=== PATIENT | female | born 1955 | race Caucasian/White ===

== ENCOUNTER 2017-10-31 13:41 | Emergency (ER) | payer OTHER, SELFPAY ==
[2017-10-31 13:42] VITALS: BP 137/87; PULSE 95; RESP 18; TEMP 37.1; O2SAT 99; BMI 31.4
[2017-10-31 14:12] LABS: Mucous, Urine 0 SEEN /hpf (<or=2+); Squamous Epithelial Cells - UA 0 SEEN /hpf (5-10)
[2017-10-31 14:19] LABS: Color, Urine Red (Yellow); Glucose, Dipstick Normal (Normal); Ketone-Dipstick 5 mg/dl (Negative); Leukocyte Esterase-Dipstick 500 /ul (Negative); Nitrite-Dipstick Negative (Negative); Occult Blood-Urine 250 /ul (Negative); Protein-Dipstick 500 mg/dl (Negative); Specific Gravity, Urine 1.015 (1.002-1.030); Urine Bilirubin Dipstick Negative (Negative); Urine Clarity Turbid (Clear); Urine Urobilinogen Normal (Normal); Urine pH 6.5 (5.0 - 8.0)
[2017-10-31 14:28] LABS: Bacteria 3+ /hpf (None Seen); Red Blood Cells-Urine 50-100 SEEN /hpf (0-5); White Blood Cells 25-50 SEEN /hpf (0-5)
[2017-10-31] MEDS: Phenazopyridine 95 MG Tablet 190 MG PO (14:54)
[2017-10-31] MEDS: Smz/Tmp Ds Tablet 1 TABLET PO (14:54)
--- NOTE | 2017-10-31 14:56 | ED.VISSUMM ---
- ER Visit Summary Date of Service: 10/31/17 Chief Complaint: Dysuria History of Present Illness: The patient is a 62 F who reports dysuria, frequency, and hematuria today. She is passing some blood clots. She denies any back pain or fever. Physical Examination: Vital signs are unremarkable. Patient sitting upright in bed no acute distress. Heart is regular rate and rhythm. Lungs are clear. Abdomen is soft with suprapubic tenderness to palpation. There is no guarding or rebound. She has no back pain on exam Test Results: Urinalysis reveals 25-50 white blood cells with 3+ bacteria. She has 50-100 RBCs. Emergency Department Course and Treatment: Patient did make multiple trips to the bathroom to urinate but states she is only getting small dribbles out. Postvoid residual ultrasound was performed and showed approximate 40 cc. Very small clots were noted per nursing staff. I do not believe she is retaining. Patient is treated with Azo and Bactrim. Urine culture will be sent. Treatment Plan: [] Disposition: Discharged Impression: Hemorrhagic cystitis This note was generated with [employer] dictation software. It may contain incorrect words, spelling, and punctuation that were not noted in review of the chart prior to signing ED Disposition - Plan for ED Patient: Chief Complaint: Complaint Referrals: Julissa Bryant MD [Primary Care Provider] -
--- NOTE | 2017-10-31 15:00 | ED.DCSUM_ITS ---
- ER Visit Summary Date of Service: 10/31/17 Chief Complaint: Dysuria History of Present Illness: The patient is a 62 F who reports dysuria, frequency , and hematuria today. She is passing some blood clots. She denies any back pain or fever. Physical Examination: Vital signs are unremarkable. Patient sitting upright in bed no acute distress. Heart is regular rate and rhythm. Lungs are clear. Abdomen is soft with suprapubic tenderness to palpation. There is no guarding or rebound. She has no back pain on exam Test Results: Urinalysis reveals 25-50 white blood cells with 3+ bacteria. She has 50-100 RBCs. Emergency Department Course and Treatment: Patient did make multiple trips to the bathroom to urinate but states she is only getting small dribbles out. Postvoid residual ultrasound was performed and showed approximate 40 cc. Very small clots were noted per nursing staff. I do not believe she is retaining. Patient is treated with Azo and Bactrim. Urine culture will be sent. Treatment Plan: [] Disposition: Discharged Impression: Hemorrhagic cystitis This note was generated with [employer] dictation software. It may contain incorrect words, spelling, and punctuation that were not noted in review of the chart prior to signing ED Disposition - Plan for ED Patient: Chief Complaint: Complaint Referrals: Julissa Bryant MD [Primary Care Provider] -
--- NOTE | 2017-10-31 15:00 | ED.DEP ---
ED Disposition - Plan for ED Patient: Disposition: Home or Assisted Living Chief Complaint: Complaint Instructions: ED UTI Cystitis Female Prescriptions: Phenazopyridine HCl [Pyridium] 200 mg PO BID PRN PRN #10 tablet PRN Reason: Pain Smz/Tmp Ds [Bactrim Ds] 1 tablet PO BID #10 tablet Referrals: Julissa Bryant MD [Primary Care Provider] - 3-5 Days if not improving
[2017-10-31 15:05] VITALS: BP 141/76; PULSE 89; RESP 16; O2SAT 99
== END 2017-10-31 15:11 | disposition home or self-care (01) ==
PROVIDERS: Emergency Provider Emergency Medicine; Family Provider Internal Medicine; PCP Internal Medicine
DX: N30.90 Cystitis, unspecified without hematuria (principal); I10 Essential (primary) hypertension; E78.00 Pure hypercholesterolemia, unspecified; G47.33 Obstructive sleep apnea (adult) (pediatric); K21.9 Gastro-esophageal reflux disease without esophagitis; Z87.442 Personal history of urinary calculi
CPT/HCPCS: 81001; 87086; 87088; 87186; 99283

== ENCOUNTER → 2018-04-08 07:37 | Outpatient (CLI) | payer OTHER, SELFPAY ==
[2018-04-08 09:02] LABS: AST(SGOT) 25 U/L (15-37); Alanine Aminotransfer ALT/SGPT 36 U/L (13-56); Albumin, Serum 3.7 g/dL (3.2-5.0); Alkaline Phosphatase 58 U/L (45-117); Bilirubin, Direct 0.08 mg/dL (0.00-0.30); Cholesterol 124 mg/dL (200); Globulin 3.9 g/dL (2.2-4.2); High Density Lipoprotein 39 mg/dL; Protein, Total 7.6 g/dL (6.4-8.2); Triglycerides 142 mg/dL; Very Low Density Lipoprotein 28 mg/dL (5-40)
== END ==
PROVIDERS: Visit Provider Internal Medicine Cardiovascular Disease
DX: E78.5 Hyperlipidemia, unspecified (principal); Z79.899 Other long term (current) drug therapy
CPT/HCPCS: 36415; 80061; 80076

== ENCOUNTER 2018-04-18 21:44 | Emergency (ER) | payer OTHER, SELFPAY ==
[2018-04-18 21:46] VITALS: BP 130/71; PULSE 94; RESP 14; TEMP 37.7; O2SAT 95; BMI 30.2
[2018-04-18 23:34] LABS: Bacteria 0 SEEN /hpf (None Seen); Mucous, Urine 0 SEEN /hpf (<or=2+)
[2018-04-18 23:43] LABS: Absolute Lymphocyte Count 1.83 X10^3/ul (0.83-4.51); Absolute Neutrophil Count 8.5 X10^3/uL (2.0-7.7); Basophil# 0.03 X10^3/uL; Basophil% 0.3 % (0-1); Color, Urine Yellow (Yellow); Eosinophil# 0.15 X10^3/uL; Eosinophils% 1.3 % (0-5); Glucose, Dipstick Normal (Normal); Hematocrit 39.7 % (37-47); Ketone-Dipstick Negative (Negative); Leukocyte Esterase-Dipstick 100 /ul (Negative); Lymphocyte # 1.83 X10^3/ul (4.0); Lymphocyte % 16.3 % (19-41); Mean Corp Hgb Conc 32.7 g/gl (32-36); Mean Corpuscular Hgb 30.4 pg (27.0-32.0); Mean Corpuscular Volume 92.8 fL (81-99); Mean Platelet Vol. 10.3 fl (6.2-12.0); Monocyte# 0.71 X10^3/uL; Monocyte% 6.3 % (0-10); Neutrophil # 8.47 X10^3/uL (2.7-7.7); Neutrophil % 75.7 % (47-70); Nitrite-Dipstick Negative (Negative); Occult Blood-Urine 25 /ul (Negative); Platelet Count 240 K/mm3 (150-450); Protein-Dipstick 15 mg/dl (Negative); RBC Distribution Width CV 13.1 % (11.6-14.6); RBC Distribution Width SD 44.3 fl (35.1-43.9); Red Blood Count 4.28 M/mm3 (4.2-5.4); Urine Bilirubin Dipstick Negative (Negative); Urine Clarity Sl. Cloudy (Clear); Urine Urobilinogen Normal (Normal); White Blood Count 11.2 K/mm3 (4.4-11.0)
[2018-04-18] MEDS: 0.9% Normal Saline 1,000 ML 999 ML IV (23:45)
[2018-04-18] MEDS: Ondansetron 4 MG/2 ML Vial IV (23:45)
[2018-04-18 23:52] LABS: Red Blood Cells-Urine 0-5 SEEN /hpf (0-5); Squamous Epithelial Cells - UA 0-5 SEEN /hpf (5-10); White Blood Cells 10-25 SEEN /hpf (0-5)
[2018-04-18 23:58] LABS: Anion Gap 8 (5-15); BUN 19 mg/dL (7-18); BUN/Creat Ratio 15.3 RATIO (10-20); Calcium,Total 9.6 mg/dL (8.5-10.1); Chloride 104 mmol/L (98-107); Creatinine, Serum 1.24 mg/dL (0.55-1.02); EST Glomerular Filtration Rate 46 mL/min (>60); Est Glom Filt Rate - Afr Amer 56 mL/min (>60); Glucose 122 mg/dL (74-106); Potassium 4.6 mmol/L (3.5-5.1); Sodium Level 138 mmol/L (136-145)
[2018-04-19 00:04] LABS: POSITIVE COUNT NO; POSITIVE DIFFERENTIAL NO; POSITIVE MORPHOLOGY NO
--- NOTE | 2018-04-19 00:09 | ED.VISSUMM ---
- ER Visit Summary Date of Service: 04/19/18 Chief Complaint: Bladder infection History of Present Illness: The patient is a 63 F who presents with concerns for bladder infection. Symptoms began 4 days ago. She reports nausea dysuria urinary frequency and urgency. No hematuria. She does have some lower back and flank pain. No fevers. No vomiting. She did have some leftover antibiotics from a previous bladder infection and had a couple of doses left but it does not seem to have resolved her symptoms. Physical Examination: Afebrile vitals notable for temperature 99.8 otherwise normal Moist mucous membranes Heart regular rate and rhythm Lungs are clear Abdomen soft nontender Alert Test Results: CBC notable for white count 11.2. Creatinine 1.24. Urinalysis consistent with infection with 100 leukocyte esterase and 10-25 WBCs. Urine culture was sent. Emergency Department Course and Treatment: Patient was given IV fluids here as she was also complaining of some lightheadedness. She will be given a prescription for Bactrim. She understands to follow-up with her primary care physician. She understands return for new or worsening symptoms. She was discharged. Treatment Plan: [] Disposition: Discharge Impression: UTI This note was generated with [employer] dictation software. It may contain incorrect words, spelling, and punctuation that were not noted in review of the chart prior to signing ED Disposition - Plan for ED Patient: Chief Complaint: General Illness Referrals: Liv Vanessa MD [Primary Care Provider] -
--- NOTE | 2018-04-19 00:11 | ED.DEP ---
ED Disposition - Plan for ED Patient: Chief Complaint: General Illness Instructions: ED UTI Cystitis Female Prescriptions: Smz/Tmp Ds [Bactrim Ds] 1 tab PO BID #6 tab Referrals: Liv Vanessa MD [Primary Care Provider] -
[2018-04-19 00:16] VITALS: BP 128/78; PULSE 78; PULSE 98; RESP 16; O2SAT 98
== END 2018-04-19 00:23 | disposition home or self-care (01) ==
LOC: ED 23:16
PROVIDERS: Emergency Provider Emergency Medicine; Family Provider Family Medicine; PCP Family Medicine
DX: N39.0 Urinary tract infection, site not specified (principal); K21.9 Gastro-esophageal reflux disease without esophagitis; I10 Essential (primary) hypertension; E78.00 Pure hypercholesterolemia, unspecified; Z79.82 Long term (current) use of aspirin; Z79.899 Other long term (current) drug therapy
CPT/HCPCS: 80048; 81001; 85025; 96361; 96374; 99283; J7030; A4216; J2405

== ENCOUNTER → 2018-07-28 10:18 | Outpatient (CLI) | payer OTHER, SELFPAY ==
[2018-08-01 13:38] LABS: HPV Reflexed? NOT INDICATED
== END ==
PROVIDERS: Family Provider Family Medicine; PCP Family Medicine; Visit Provider Family Medicine
DX: Z12.4 Encounter for screening for malignant neoplasm of cervix (principal)
CPT/HCPCS: 88175; G0145

== ENCOUNTER → 2018-08-02 09:58 | Outpatient (CLI) | payer OTHER, SELFPAY ==
--- NOTE | 2018-08-02 10:04 | BD_ITS ---
STUDY: DUAL ENERGY X-RAY ABSORPTIOMETRY / DXA REASON FOR EXAM: Female, 63 years old. The patient is postmenopausal. Loss of height. TECHNIQUE: Bone Mineral Density (BMD) measurements of lumbar spine and bilateral hips were obtained. COMPARISON: Comparison is made with prior study dated September 21, 2000. FINDINGS: Lumbar Spine (L1-L4): g/cm2 (1.006) / T-score (-1.4) / Z-score (0.1) Findings are suggestive of osteopenia with a moderate fracture risk. Left Femur Total: g/cm2 (0.943) / T-score (-0.5) / Z-score (0.6) Left Femoral Neck: g/cm2 (0.873) / T-score (-1.2) / Z-score (0.2) Right Femur Total: g/cm2 (0.945) / T-score (-0.5) / Z-score (0.7) Right Femoral Neck: g/cm2 (0.874) / T-score (-1.2) / Z-score (0.2) The T-Scores on the most recent prior examination were: Lumbar Spine (L1-L4): There has been worsening of bone density since the previous examination. Right Femur Total: which represents a worsening of 14.2%. BD/Dexa Bone Density Study IMPRESSION: The patient is considered osteopenic as outlined below according to World Henri Organization (WHO) criteria with a moderate fracture risk. There has been worsening of bone density since the previous examination. Reference Information: The T-score is the number of standard deviations above or below the standard which is normal for young adults at their peak bone mineral density. The World Health Organization (WHO) interprets the T-scores as follows: Above -1 Normal bone density Between -1 and -2.5 Osteopenia Equal to / or below -2.5 Osteoporosis As a practical clinical guideline, osteopenia may be graded as follows: Mild -1 through -1.5 Moderate -1.6 through -2.0 Severe -2.1 through -2.4 The Z-score is the number of standard deviations above or below age-matched controls. A Z-score of less than -1.5 would be considered abnormal. References: 1. NIH Osteoporosis and Related Bone Diseases http://www.osteo.org 2. International Society for Clinical Densitometry http://www.iscd.org 3. National Osteoporosis Foundation http://www.nof.org Electronically Signed: Momo Hauser MD at 9:00 EST Tel [phone], Service support ,
== END ==
PROVIDERS: Family Provider Family Medicine; PCP Family Medicine; Visit Provider Family Medicine
DX: M85.80 Other specified disorders of bone density and structure, unspecified site (principal); Z78.0 Asymptomatic menopausal state
CPT/HCPCS: 77080

== ENCOUNTER → 2018-08-26 13:13 | Outpatient (CLI) | payer OTHER, SELFPAY ==
[2018-08-26 13:12] VITALS: BMI 31.4
--- OUTSIDE RECORDS SUMMARY | 2018-10-21 12:12 | XMS RPT_ITS ---
:1955 Author Organization [place] Support Name Relationship Address Phone BERRY MARTINI Unavailable [address] + [place] [address] JASON MARTINI Unavailable [address] + [place] [address] UE Unavailable Unavailable Unavailable BERRY MARTINI Unavailable [address] + [place] [address] JASON MARTINI Unavailable [address] + [place] [address] UE Unavailable Unavailable Unavailable BERRY MARTINI Unavailable [address] + [place] [address] JASON MARTINI Unavailable [address] + [place] [address] UE Unavailable Unavailable Unavailable BERRY MARTINI Unavailable [address] + [place] [address] JASON MARTINI Unavailable [address] + [place] [address] UE Unavailable Unavailable Unavailable BERRY MARTINI Unavailable [address] + [place] [address] JASON MARTINI Unavailable [address] + [place] [address] UE Unavailable Unavailable Unavailable BERRY MARTINI Unavailable [address] + [place] [address] JASON MARTINI Unavailable [address] + [place] [address] UE Unavailable Unavailable Unavailable BERRY MARTINI Unavailable [address] + [place] [address] JASON MARTINI Unavailable [address] + [place] [address] UE Unavailable Unavailable Unavailable BERRY MARTINI Unavailable [address] + [place] [address] JASON MARTINI Unavailable [address] + [place] [address] UE Unavailable Unavailable Unavailable BERRY MARTINI Unavailable [address] + [place] [address] JASON MARTINI Unavailable [address] + [place] [address] UE Unavailable Unavailable Unavailable Care Team Providers Name Role Phone JOSE MANUEL LEÓN (HAND BRAILLE TRANSCRIBER) Attending Unavailable JOSE MANUEL LEÓN (HAND BRAILLE TRANSCRIBER) Attending Unavailable GANTA, JULISSA Attending Unavailable GANTA, JULISSA Referring Unavailable MENA VILLANUEVA (CNM) Attending Unavailable GANTA, JULISSA Referring Unavailable GANTA, JULISSA Referring Unavailable MoodispaWilliam quesada Attending Unavailable Ganta, Julissa Primary Care Unavailable Ganta, Julissa Primary Care Unavailable Imani Leavitt Attending Unavailable Stacy Ibarra Attending Unavailable Moodispaw, William Attending Unavailable Ganta, Julissa Referring Unavailable Ganta, Julissa Primary Care Unavailable William Espinoza Attending Unavailable Moodispasangita, William Referring Unavailable Primay Care Physicia, No Primary Care Unavailable Al Roberts Attending Unavailable Miedel, Liv Primary Care Unavailable Miedel, Liv Attending Unavailable Miedel, Liv Primary Care Unavailable Miedel, Liv Attending Unavailable Miedel, Liv Primary Care Unavailable Miedel, Liv Attending Unavailable Miedel, Liv Primary Care Unavailable PROBLEMS PROBLEMS DATE TYPE CONDITION / CODE ATTENDING STATUS SOURCE 08/26/2018 Unknown N39.0 - Urinary Miedel, Liv Active [facility] tract infection, Community site not Hospital specified / Repository N39.0(ICD-10) 08/26/2018 Unknown R31.9 - Miedel, Liv Active [facility] Hematuria, Community unspecified / Hospital R31.9(ICD-10) Repository 08/02/2018 Unknown M85.80 - Other Miedel, Liv Active [facility] specified Community disorders of bone Hospital density and Repository structure, unspecified site / M85.80(ICD-10) 04/08/2018 Unknown E78.5 - Moodispaw, William Active [facility] Hyperlipidemia, Community unspecified / Hospital E78.5(ICD-10) Repository 04/08/2018 Unknown Z79.899 - Other William Espinoza Active [facility] long term care social worker Community (current) drug Hospital therapy / Repository Z79.899(ICD-10) 02/03/2018 Active Encounter for NA Active [facility] other screening [facility] [place] for malignant Repository neoplasm of breast / Z12.39(ICD-10) 11/17/2017 Active Unknown / JOSE MANUEL LEÓN Active [facility] UNK(Unknown) (HAND BRAILLE TRANSCRIBER) [facility] [place] Repository PROCEDURES PROCEDURES No Procedure Records FoundRESULTS RESULTS Observed: 08/26/2018 Status: F Source: [place]AS CULTURE, URINE 1:15 PM [facility] RE[facility] Urine Culture ORGANISM 1: Mixed Gram Positive Organisms [place] Count <1000 MIX CULTURE Mixed contaminants. Submit a new specimen if indicated. Performed By: #### M100.0650 #### [facility] [address] [place], [address] DEXA BONE DENSITY Observed: 08/02/2018 Status: F Source: TOMAS STUDY 10:01 AM [facility] Services [address] [place] [address] Dexa Bone Density Study MR#: [id number] Acct: [id number] Name: RON MARTINI Rep #: [id number] : 1955 F 63 From: Momo Hauser MD PCP: Liv Vanessa MD Status: REG CLI Study: Dexa Bone Density Study Date of Exam: 08/02/18 Exam# [id number] Ordering Dr: Liv Vanessa MD STUDY: DUAL ENERGY X-RAY ABSORPTIOMETRY / DXA REASON FOR EXAM: Female, 63 years old. The patient is postmenopausal. Loss of height. TECHNIQUE: Bone Mineral Density (BMD) measurements of lumbar spine and bilateral hips were obtained. COMPARISON: Comparison is made with prior study dated September 21, 2000. FINDINGS: Lumbar Spine (L1-L4): g/cm2 (1.006) / T-score (-1.4) / Z-score (0.1) Findings are suggestive of osteopenia with a moderate fracture risk. Left Femur Total: g/cm2 (0.943) / T-score (-0.5) / Z- score (0.6) Left Femoral Neck: g/cm2 (0.873) / T-score (-1.2) / Z- score (0.2) Right Femur Total: g/cm2 (0.945) / T-score (-0.5) / Z- score (0.7) Right Femoral Neck: g/cm2 (0.874) / T-score (-1.2) / Z-score (0.2) The T-Scores on the most recent prior examination were: Lumbar Spine (L1-L4): There has been worsening of bone density since the previous examination. Right Femur Total: which represents a worsening of 14.2%. BD/Dexa Bone Density Study IMPRESSION: The patient is considered osteopenic as outlined below according to World Henri Organization (WHO) criteria with a moderate fracture risk. There has been worsening of bone density since the previous examination. Reference Information: The T-score is the number of standard deviations above or below the standard which is normal for young adults at their peak bone mineral density. The World Health Organization (WHO) interprets the T-scores as follows: Above -1 Normal bone density Between -1 and -2.5 Osteopenia Equal to / or below -2.5 Osteoporosis As a practical clinical guideline, osteopenia may be graded as follows: Mild -1 through -1.5 Moderate -1.6 through -2.0 Severe -2.1 through -2.4 The Z-score is the number of standard deviations above or below age-matched controls. A Z-score of less than -1.5 would be considered abnormal. References: 1. NIH Osteoporosis and Related Bone Diseases http://www.osteo.org 2. International Society for Clinical Densitometry http://www.iscd.org 3. National Osteoporosis Foundation http://www.nof.org Electronically Signed: Momo Hauser MD at 9:00 EST Tel [phone], Service support , CC: Liv Vanessa MD [employer]: Signed PAP I-G W/RFX HRHPV Collected: 07/28/2018 Status: F Source: TOMAS 10:22 AM [facility] Order Comment: Specimen Comment: No. of containers..01 ThinPrep Vial TYPE CODE TESTS RESULT OUT OF RANGE REFERENCE UNITS LAB L7400.0800 . Normal DIAGN Comment Result Comment: NEGATIVE FOR INTRAEPITHELIAL LESION AND MALIGNANCY. LAB L7400.0900 . Normal ADEQ Comment Result Comment: Satisfactory for evaluation. Endocervical and/or squamous metaplastic cells (endocervical component) are present. LAB L7400.1400 . Normal PERFORM Comment Result Comment: Diana Nazario, Hazardous Substances Engineer (ASCP) LAB L7400.2575 . Normal TEST METHOD Comment Result Comment: This liquid based ThinPrep(R) pap test was screened with the use of an image guided system. LAB L7400.2600 . Normal . COMM LAB L7400.2700 . Normal PAPSMR Comment Result Comment: The Pap smear is a screening test designed to aid in the detection of premalignant and malignant conditions of the uterine cervix. It is not a diagnostic procedure and should not be used as the sole means of detecting cervical cancer. Both false-positive and false-negative reports do occur. LAB L7400.2800 . Normal HPV RFLX Comment Result Comment: The HPV DNA reflex criteria were not met with this specimen result therefore, no HPV testing was performed. Performed at: - [facility] [place] [id number] Bundler: Tracey Ivey MD, Phone: [phone] Performed By: #### L7400.0350 #### [facility] (refer to report for specific site) refer to report for address and phone number DISCHARGE INSTRUCTION Observed: 04/19/2018 Status: F Source: TOMAS 12:12 AM [facility] Medical Records Department [address] [place] [address] Discharge Instruction 04/19/18 0011 MR#: [id number] Acct: [id number] Name: RON MARTINI Rep #: [id number] : 1955 63 From: Al Roberts MD PCP: Liv Vanessa MD Status: REG ER ED Disposition - Plan for ED Patient: Chief Complaint: General Illness Instructions: ED UTI Cystitis Female Prescriptions: Smz/Tmp Ds [Bactrim Ds] 1 tab PO BID #6 tab Referrals: Liv Vanessa MD [Primary Care Provider] - What to do if you have Problems For any increased pain, shortness of breath, bleeding, nausea or vomiting, chest pain, or any unexpected problems, contact your Primary Care Provider. Call [facility] ([phone]) or report to the closest Emergency Room. Call 911 if necessary. 04/19/1811 <Electronically signed by Al Roberts MD> Date Al Roberts MD Cosigner Signature (If Indicated): Date CC: Liv Vanessa MD EMERGENCY DEPARTMENT Observed: 04/19/2018 Status: F Source: [place] SUMMARY 12:11 AM [facility] Medical Records Department [address] [place] [address] Emergency Department Summary 04/19/18 0009 MR#: [id number] Acct: [id number] Name: RON MARTINI Rep #: [id number] : 1955 63 From: Al Roberts MD PCP: Liv Vanessa MD Status: REG ER - ER Visit Summary Date of Service: 04/19/18 Chief Complaint: Bladder infection History of Present Illness: The patient is a 63 F who presents with concerns for bladder infection. Symptoms began 4 days ago. She reports nausea dysuria urinary frequency and urgency. No hematuria. She does have some lower back and flank pain. No fevers. No vomiting. She did have some leftover antibiotics from a previous bladder infection and had a couple of doses left but it does not seem to have resolved her symptoms. Physical Examination: Afebrile vitals notable for temperature 99.8 otherwise normal Moist mucous membranes Heart regular rate and rhythm Lungs are clear Abdomen soft nontender Alert Test Results: CBC notable for white count 11.2. Creatinine 1.24. Urinalysis consistent with infection with 100 leukocyte esterase and 10-25 WBCs. Urine culture was sent. Emergency Department Course and Treatment: Patient was given IV fluids here as she was also complaining of some lightheadedness. She will be given a prescription for Bactrim. She understands to follow-up with her primary care physician. She understands return for new or worsening symptoms. She was discharged. Treatment Plan: [] Disposition: Discharge Impression: UTI This note was generated with Digitick dictation software. It may contain incorrect words, spelling, and punctuation that were not noted in review of the chart prior to signing ED Disposition - Plan for ED Patient: Chief Complaint: General Illness Referrals: Liv Vanessa MD [Primary Care Provider] - What to do if you have Problems For any increased pain, shortness of breath, bleeding, nausea or vomiting, chest pain, or any unexpected problems, contact your Primary Care Provider. Call [facility] ([phone]) or report to the closest Emergency Room. Call 911 if necessary. 04/19/18 0011 <Electronically signed by Al Roberts MD> Date Al Roberts MD Cosigner Signature (If Indicated): Date CC: Liv Vanessa MD URINALYSIS, COMPLETE Collected: 04/18/2018 Status: F Source: TOMAS 11:25 PM [facility] Order Comment: Order Date: 04/18/18 How was Urine Obtained? CLEAN CATCH TYPE CODE TESTS RESULT OUT OF RANGE REFERENCE UNITS LAB L400.3000 Yellow COLOR Normal Yellow LAB L400.3050 Clear Normal CLARITY Sl. Cloudy LAB L400.3200 Normal mg/dl Normal GLUCOSE, UR Normal LAB L400.3300 Negative mg/dL Normal BILIRUBIN URINE Negative LAB L400.3400 Negative mg/dl Normal KETONE UR Negative LAB L400.3465 1.002-1.030 Normal SP.GR. DIPSTX 1.020 LAB L400.3550 5.0 - 8.0 pH UR Normal 5.0 LAB L400.3600 Negative mg/dl High PROT 15 DIPSTX LAB L400.3700 Normal mg/dl Normal UROBILI Normal LAB L400.3750 Negative Normal NITRITE UR Negative LAB L400.3780 Negative /ul High 25 OCCULT BLOOD-UR LAB L400.3800 Negative /ul High LEUK ESTERASE 100 LAB L400.4050 0-5 /hpf WBC Normal 10-25 SEEN LAB L400.4100 0-5 /hpf Normal RBC-UA 0-5 SEEN LAB L400.4150 5-10 /hpf SQUAM Normal EPI 0-5 SEEN LAB L400.4300 None Seen /hpf 0 Normal BACTERIA SEEN LAB L400.4350 <or=2+ /hpf 0 Normal MUCUS, URINE SEEN Performed By: #### L400.0001 #### [facility] [address] [place], [place], [address] BASIC METABOLIC Collected: 04/18/2018 Status: F Source: TOMAS PROFILE (BMP) 11:25 PM [facility] TYPE CODE TESTS RESULT OUT OF RANGE REFERENCE UNITS LAB L501.0100 74-106 mg/dL High GLU 122 Result Comment: Fasting Glucose result from 100 to 125 mg/dL suggests IMPAIRED HOMEOSTASIS per A.D.A. criteria. Please note revised GLUCOSE reference range effective 2017. LAB L501.1000 7-18 mg/dL High BUN 19 LAB L501.1100 0.55-1.02 mg/dL High CREAT,SERUM 1.24 Result Comment: The validity of the calculated GFR AND GFRAA in patients over 70 years has not been determined. Clinical correlation is essential. LAB L501.1110 >60 mL/min Low EST GFR 46 Result Comment: Non- GFR Calc LAB L501.1115 >60 mL/min Low EST GFR - AA 56 Result Comment: GFR Calc LAB L501.1255 ml/min Normal Estimated CRCL 47.90 LAB L501.1300 10-20 RATIO Normal BUN/CRE 15.3 LAB L501.2200 8.5-10 mg/dL Normal .1 CA 9.6 LAB L501.5300 136-14 mmol/L Normal 5 NA 138 LAB L501.5600 3.5-5. mmol/L Normal 1 K 4.6 Result Comment: Moderate Hemolysis, Result may be falsely increased. LAB L501.5900 98-107 mmol/L Normal CL 104 LAB L501.6100 21.0-32.0 mmol/L Normal CO2 26.0 LAB L501.6200 5-15 Normal 8 GAP Performed By: #### L500.2500 #### [facility] [address] [place], [address] CBC W/DIFF, AUTOMATED Collected: 04/18/2018 Status: F Source: [place] 11:25 PM [facility] TYPE CODE TESTS RESULT OUT OF RANGE REFERENCE UNITS LAB L100.1000 4.4-11.0 K/mm3 High WBC 11.2 LAB L100.1200 4.2-5.4 M/mm3 Normal RBC 4.28 LAB L100.1300 12.0-15.0 g/dl Normal HGB 13.0 LAB L100.1400 37-47 % Normal HCT 39.7 LAB L100.1500 81-99 fL Normal MCV 92.8 LAB L100.1600 27.0-32.0 pg Normal MCH 30.4 LAB L100.1700 32-36 g/gl Normal MCHC 32.7 LAB L100.1810 11.6-14.6 % Normal RDW CV 13.1 LAB L100.1820 35.1-43.9 fl High RDW SD 44.3 LAB L100.1900 150-450 K/mm3 Normal PLT 240 LAB L100.2000 6.2-12.0 fl Normal MPV 10.3 LAB L100.2100 47-70 % High NEUT% 75.7 LAB L100.2200 19-41 % Low LY% 16.3 LAB L100.2300 0-10 % Normal MONO% 6.3 LAB L100.2400 0-5 % Normal EO% 1.3 LAB L100.2500 0-1 % Normal BASO% 0.3 LAB L100.2550 0.0-0.9 % Normal IM GRAN % 0.100 Result Comment: IG% - Immature Granulocytes (promyelocytes, myelocytes and metamyelocytes) > 1% indicates that a LEFT SHIFT is Present. LAB L100.2620 2.0-7.7 X10 3/uL High Absolute Neut 8.5 LAB L100.2720 0.83-4.51 X10 3/ul Normal Absolute Lymph 1.83 Performed By: #### L100.0100 #### [facility] [address] [facility] [address] LIVER PROFILE Collected: 04/08/2018 Status: F Source: [place] 7:54 AM [facility] TYPE CODE TESTS RESULT OUT OF RANGE REFERENCE UNITS LAB L501.1500 6.4-8.2 g/dL Normal T PROT 7.6 LAB L501.1800 3.2-5.0 g/dL Normal ALB 3.7 LAB L501.1950 2.2-4.2 g/dL Normal GLOB 3.9 LAB L501.4100 15-37 U/L Normal AST 25 LAB L501.4305 45-117 U/L Normal ALK P 58 LAB L501.4405 13-56 U/L Normal ALT 36 LAB L501.4600 0.20-1.00 mg/dL Normal T BILI 0.40 LAB L501.4700 0.00-0.30 mg/dL Normal D BILI 0.08 Performed By: #### L500.3400, L500.4100 #### [facility] [address] [place], [address] LIPID PROFILE Collected: 04/08/2018 Status: F Source: [place] 7:54 AM [facility] TYPE CODE TESTS RESULT OUT OF RANGE REFERENCE UNITS LAB L501.4900 200 mg/dL Normal CHOL 124 Result Comment: <200 mg/dL Desirable 200-240 mg/dL Borderline >240 mg/dL High Risk LAB L501.5000 mg/dL Normal TRIG 142 Result Comment: The drugs N-Acetylcysteine and Metamizole may falsely depress this assay. Serum Triglycerides Reference Interval Normal <150 mg/dL Borderline high 150 - 199 mg/dL High 200 - 499 mg/dL Very High > or = 500 mg/dL LAB L501.6400 mg/dL Low HDL 39 Result Comment: The drugs N-Acetylcysteine and Metamizole may falsely depress this assay. Reference Range HDL <40 mg/dL Low HDL Cholesterol HDL >or= 60 mg/dL High HDL Cholesterol LAB L501.6500 0-130 mg/dL Normal LDL 57 LAB L501.6600 5-40 mg/dL Normal VLDL 28 Performed By: #### L500.3400, L500.4100 #### [facility] [address] [place], [address] CARDIOLOGY VISIT Observed: 03/14/2018 Status: F Source: [place] REPORT 10:50 AM [facility] [address] [place] [address] OFFICE VISIT Date of Service: 03/14/18 MR#: [id number] Acct: [id number] Name: RON MARTINI Rep #: [id number] : 1955 Provider: William Espinoza MD Age/Sex: 63/F Location: [facility] Status: Signed HPI HPI Details: RON MARTINI, is a 63 F who presents to the office today for for outpatient cardiovascular follow-up. Since her visit of approximately 1 year ago she states she has been doing well. She has had a rare palpitation. She has had no other rapid rates. There is been no near syncope or syncope. There has been no other concerning chest discomfort or difficulty breathing. She had her lipid labs checked earlier this year. Earlier this year in September her total cholesterol was 135 with an LDL of 52 and an HDL 46 and a triglyceride level of 135. Intake Vital Signs03/14/18 Height 5 ft 9 in 03/14/18 Weight: 208 lb 03/14/18 Body Mass Index (BMI) 30.7 03/14/18 Blood Pressure 104/60 Intake Visit Reasons: 1 Y FU Allergies Penicillins Allergy (Verified 03/14/18 09:50) Unknown digoxin Adverse Reaction (Verified 03/14/18 09:50) Other hydrochlorothiazide [From Dyazide] Adverse Reaction (Verified 03/14/18 09:50) Upset Stomach levofloxacin [From Levaquin] Adverse Reaction (Verified 03/14/18 09:50) Upset Stomach magnesium citrate Adverse Reaction (Verified 03/14/18 09:50) Upset Stomach meperidine [From Demerol] Adverse Reaction (Verified 03/14/18 09:50) Upset Stomach nitrofurantoin [From Macrobid] Adverse Reaction (Verified 03/14/18 09:50) Upset Stomach polyethylene glycol [From Golytely] Adverse Reaction (Verified 03/14/18 09:50) Upset Stomach polyethylene glycol 3350 [From Golytely] Adverse Reaction (Verified 03/14/18 09:50) Upset Stomach potassium chloride [From Golytely] Adverse Reaction (Verified 03/14/18 09:50) Upset Stomach pravastatin [From Pravachol] Adverse Reaction (Verified 03/14/18 09:50) Upset Stomach simvastatin [From Zocor] Adverse Reaction (Verified 03/14/18 09:50) Upset Stomach sodium [From Golytely] Adverse Reaction (Verified 03/14/18 09:50) Upset Stomach sodium bicarbonate [From Golytely] Adverse Reaction (Verified 03/14/18 09:50) Upset Stomach sodium chloride [From Golytely] Adverse Reaction (Verified 03/14/18 09:50) Upset Stomach sodium sulfate [From Golytely] Adverse Reaction (Verified 03/14/18 09:50) Upset Stomach triamterene [From Dyazide] Adverse Reaction (Verified 03/14/18 09:50) Upset Stomach Medications Albuterol Inhaler [Ventolin Hfa (SP)] 2 puff INHALATION Q4H PRN PRN 02/25/17 [History Confirmed 03/14/18] Aspirin 81 mg PO DAILY 02/25/17 [History Confirmed 03/14/18] Cholecalciferol (Vitamin D3) [Vitamin D3] 1,000 unit PO DAILY 02/25/17 [History Confirmed 03/14/18] L. Acidophilus/L. Bifidus [Acidophilus-Bifidus Wafer] 1 ea PO DAILY 02/25/17 [History Confirmed 03/14/18] Lansoprazole [Prevacid] 30 mg PO DAILY 02/25/17 [History Confirmed 03/14/18] Multivitamins,Ther W-Minerals [Multivitamin With Minerals] 1 tab PO DAILY 02/25/17 [History Confirmed 03/14/18] Polyethylene Glycol 3350 [Miralax] 17 gm PO DAILY 02/25/17 [History Confirmed 03/14/18] Rosuvastatin Calcium [Crestor] 5 mg PO DAILY 02/25/17 [History Confirmed 03/14/18] Phenazopyridine HCl [Pyridium] 200 mg PO BID PRN PRN #10 tab 10/31/17 [Rx Confirmed 03/14/18] metoprolol tartrate 25 mg tablet 25 mg PO BID #180 tab 01/31/18 [Rx Confirmed 03/14/18] B-complex with vitamin C tablet 1 tab PO QDAY 03/10/18 [History Confirmed 03/14/18] clindamycin HCl 300 mg capsule 300 mg PO .COMPLEX #2 cap 03/14/18 [Rx Confirmed 03/14/18] lisinopril 20 mg tablet 20 mg PO QDAY #90 tab 03/14/18 [Rx Confirmed 03/14/18] PFSH Medical History Paroxysmal SVT (supraventricular tachycardia) (Acute) Hyperlipidemia (Chronic) Nonrheumatic mitral (valve) prolapse (Acute) Paroxysmal atrial tachycardia (Acute) Obesity (Chronic) Benign essential hypertension (Chronic) Diabetes mellitus (Acute) GERD (gastroesophageal reflux disease) (Acute) Sleep apnea (Acute) History of diverticulitis of colon (Chronic) Ischemic colitis (Chronic) Diverticulosis of intestine without perforation or abscess with bleeding (Inactive) Surgical History History of cholecystectomy (Resolved) History of foot surgery (Resolved) History of left breast biopsy (Resolved) History of total hysterectomy (Resolved) Hx of appendectomy (Resolved) Social History Smoking Status: Never smoker alcohol intake: never substance use type: does not use ROS Const Const: Positive for fatigue (tired alot lately); negative for weakness, weight gain, weight loss, frequent falls or excessive sweating Eyes Eyes: Negative for change in vision, blurry vision or transient loss of vision ENT ENT: Negative for dizziness or balance problems Cardio Chest Pain: No Palpitations: Yes (occasional- x2 episodes since last visit) feels like its: other (fluttering), fast Edema: None Muscle aches with walking: None Resp Respiratory: Positive for SOB with activity (occasional coming up the steps from the basement); negative for SOB at rest GI GI: Negative vomiting or vomiting blood/hematemesis : Negative for hematuria Musc Musc: Negative for balance problems, muscle aches/ myalgia, muscle weakness or joint pain Skin Skin: Negative non-healing lesions or rash Neuro Neuro: Negative for weakness, blurry vision, dizziness, lightheadedness, frequent falls or orthostatic symptoms Asad Hematologic/Lymphatic: Negative for easy bleeding Endo Endo: Positive for fatigue (tired alot lately); negative for excessive sweating Psych Psych: Negative for anxiety or depression Allergy Allergy/Immunology: Negative for hives, Negative for rash Cardiology Exam Const Appearance: cooperative, healthy appearing, comfortable, no acute distress, well developed and well groomed Nutritional Appearance: overweight Orientation: alert, awake and oriented x3 Head Head: normal to inspection, normocephalic and atraumatic Ears: hearing grossly normal bilaterally Nose: external nose normal Face and Sinus: face symmetric Mouth: oral mucosae normal Teeth and gingiva: fair dentition Eyes General: appearance normal, both eyes and all related structures Eyelids: eyelids normal Pupils: PERRL EOM: EOM intact bilaterally Neck Neck: normal visual inspection and full ROM Carotids: normal carotid upstroke Chest Chest inspection: normal inspection of the chest and symmetric chest movement Auscultation: Bilateral: Clear to Auscultation Cardio Palpation: normal PMI Rate: regular rate Rhythm: regular rhythm Heart sounds: S1 normal and S2 normal GI GI: normal to inspection, bowel sounds diminished, no hepatosplenomegaly and soft Neuro General: alert, awake, oriented x3, moves all extremities, no focal sensory deficit, no focal motor deficits and deep tendon reflexes 2+ bilaterally Skin Skin: no rashes or lesions noted Extremities Pulses: Normal: Right Radial Pulse, Left Radial Pulse Lower Extremity Edema: None: Bilateral Psych Psychological: normal affect Supplemental Info She had a transthoracic echocardiogram performed on 07/22/2010. The results are as noted below. The study was technically difficult. The left ventricular systolic function was normal. The LVEF was reported at 65%. The left atrium was mildly enlarged. Equivocal mitral valve prolapse was noted. There was mild mitral valve regurgitation. There was trivial tricuspid valve regurgitation. There was aortic valve sclerosis with no stenosis. The estimated RV systolic pressure was 27 mmHg. A stress nuclear imaging study was performed on 08/27/2015. The results are as noted below. IMPRESSION: 1. Rest and stress SPECT Cardiolite nuclear imaging demonstrate myocardial perfusion changes appearing compatible with the effects of soft tissue attenuation/artifact with no myocardial perfusion changes considered diagnostic for stress- induced myocardial ischemia or previous myocardial injury/infarction. 2. The gated Cardiolite study reports an LVEF of 82%. A Holter monitor was performed through the Sferra system on 12/05/2002:SINUS RHYTHM RATE RANGE: 22670 BPM,(MEAN 74), NH: 0.16. ORS: 6.os. NO AV BLOCK RARE APD I ATRIAL COUPLET NO SVT. NO VPDS NO ST SEGMENT CHANGE NO PAUSES, NO CHANGE WITH RHYTHM OR ST SEGMENT DURING SYMPTOMS OF HOT FLASHES OR CHEST HEAVINESS. DR FRANKI EARLY MD. Event monitor was performed in July - August 2014. The results are as noted below. During the 30 day monitoring period the basic rhythm was sinus with rates from 83-101 bpm There were occasional PVC s Patient symptoms of flutter correlated with sinus rhythm and PVC s. Physician Interpretation: Assessment AND Plan 1. PSVT (paroxysmal supraventricular tachycardia) I47.1 Plan At the present time she appears to be doing well. She is going to continue her current cardiovascular medical management. She will monitor for any concerns. 2. Nonrheumatic mitral (valve) prolapse I34.1 Plan She does have a history of mitral valve prolapse. She has had no significant change based on history or examination. This will be followed over time with echocardiographic studies as deemed appropriate. 3. Hyperlipidemia, unspecified hyperlipidemia type E78.5 Plan Her lipid labs are due to be checked again in approximately 1 month. Hopefully her lipids will remain under good control to assist with her cardiovascular risk factor modification. 4. Benign essential HTN I10 Plan Her blood pressure appears to be recently well controlled. Again she will continue medical therapy and follow-up. Plan Detail Other Medications New: Additional Comments The above was discussed with the patient. She was agreeable to this approach. Thank you for allowing me to participate in the care of your patient. Please don't hesitate to call if any issues arise. This note was generated using a voice recognition system and there may be incorrect words, spelling or punctuation that were not noted when reviewing the office note prior to saving. Follow Up 1 Year (PFM) Coding Level of Care Code Off vis,est,level 3 Diagnoses PSVT (paroxysmal supraventricular tachycardia) I47.1 Nonrheumatic mitral (valve) prolapse I34.1 Hyperlipidemia, unspecified hyperlipidemia type E78.5 Hyperlipidemia type: unspecified Benign essential HTN I10 Coding Level of Care Code Off vis,est,level 3 Diagnoses PSVT (paroxysmal supraventricular tachycardia) I47.1 Nonrheumatic mitral (valve) prolapse I34.1 Hyperlipidemia, unspecified hyperlipidemia type E78.5 Hyperlipidemia type: unspecified Benign essential HTN I10 03/14/18 1050 <Electronically signed by William Espinoza MD> Date William Espinoza MD Cosigner Signature: Date (if applicable) CC: Julissa Venegas MD PROGRESS Observed: 2018 Status: COMPLETED Source: [place] 5:02 PM [facility] REPOSITORY O ID: [id number] Author: Gertrude Estes Service: (none) Author Type: Physician Printer Slotter Helper Type: Progress Notes Filed: 2018 5:16 PM Note Text: 2018 Patient presents with: Mouth Sores: x 2 days sore on left lower jaw area Muscle Aches: x 2 days SUBJECTIVE: This is a 63 year old that is here today for Complaint(s) of sore on the left lower gum line x 2 days. Has felt achy overall. Denies fever/chills, dental pain, sore throat . PAST MEDICAL HISTORY Diagnosis Date - Abdominal pain, left lower quadrant - Benign neoplasm of stomach - Diabetic eye exam (HCC) 05/16/2012 No retinopathy detected - both eyes - return in 1 year - [facility] - Dr Tariq - Diverticulosis of colon (without mention of hemorrhage) - Dysmetabolic syndrome X - Enlargement of lymph nodes - Esophageal reflux - Internal hemorrhoids without mention of complication - Obstructive sleep apnea - Other and unspecified hyperlipidemia - Other chronic nonalcoholic liver disease - Paroxysmal ventricular tachycardia (HCC) - Plantar fascial fibromatosis - Unspecified essential hypertension ALLERGIES Demerol [Meperidine (Pf)]; Digitek [Digoxin]; Dyazide [Triamterene-Hydrochlorothiazid]; Golytely [Peg 3350-Electrolytes]; Levaquin [Levofloxacin]; Macrobid [Nitrofurantoin Monohyd/M-Cryst]; Magnesium Citrate; Penicillins; Pravachol [Pravastatin Sodium]; Zocor [Simvastatin] MEDICATIONS Current Outpatient Prescriptions: Cholecalciferol, Vitamin D3, 1,000 unit cap DAILY L. acidophilus/L. bifidus (LACTOBACILLUS ACIDOPH AND BIFID) 1 billion cell wafr DAILY Multivitamin,Tx-Minerals (MULTI-VITAMIN HP/MINERALS) cap DAILY polyethylene glycol 3350 (MIRALAX, GLYCOLAX) 17 gram/dose powder DAILY aspirin 81 mg chewable tablet DAILY lansoprazole (PREVACID) 30 mg capsule DAILY lisinopril (PRINIVIL) 10 mg tablet DAILY metoprolol tartrate, short acting, (LOPRESSOR) 25 mg tablet DAILY rosuvastatin (CRESTOR) 5 mg tablet DAILY cyclobenzaprine (FLEXERIL) 5 mg tablet Take 1 tablet by mouth three times daily as needed for Muscle Spasm. lansoprazole (PREVACID) 30 mg capsule Take 1 capsule by mouth once daily. CALCIUM CARBONATE/VITAMIN D3 (VITAMIN D-3 ORAL) Take by mouth. rosuvastatin (CRESTOR) 5 mg tablet Take 1 tablet by mouth once daily. CPAP CPAP mask, tubing, filters, heated humidity, lifetime supplies. Dx: BRADEN metoprolol tartrate, short acting, (LOPRESSOR) 25 mg tablet Take 1 tablet by mouth twice daily. polyethylene glycol 3350 (MIRALAX) 17 gram/dose powder Take by mouth once daily. Acidophilus-Bif Animalis (DIGESTIVE PROBIOTIC) 10 billion cell cap Take by mouth once daily. multivitamin with minerals tablet Take 1 tablet by mouth once daily. COMPOUNDED PRESCRIPTION CPAP setting at 15 cm H2O with heated humidification mask (per patient preference) and lifetime supplies DX BRADEN 327.23 acetaminophen(TYLENOL ARTHRITIS 650 MG TAB) as necessary lisinopril(PRINIVIL 20 MG TAB) Take one(1) tablet daily. vitamin b complex(B COMPLETE TAB) Take one(1) tablet daily. ASPIRIN 81 MG TAB Take one (1) tablet daily . multivitamin with minerals (VISION/OPTIGEN) tablet Take 1 tablet by mouth once daily. No current facility-administered medications for this visit. SOCIAL HISTORY Social History Marital status: Spouse name: Years of education: Number of children: 1 Occupational History Occupation Employer Comment retired Social History Main Topics Smoking status: Never Smoker Smokeless tobacco: Never Used Alcohol use: No Drug use: No Sexual activity: Yes Partners with: Male control/protection: Surgical Comment: hysterectomy Social History Narrative Works [employer], [employer] REVIEW OF SYSTEMS All other reviewed and negative other than HPI. OBJECTIVE: BP 104/60 Pulse 84 Temp 36.4 ?C (97.5 ?F) (Left Tympanic) Resp 16 Wt 94.8 kg (209 lb) BMI 31.78 kg/m? APPEARANCE Well appearing, alert, in no acute distress, well-hydrated, well nourished. THROAT normal, no erythema. + left lower, posterior interior gum line with mild erythema and edema. No fluctuance, no obvious abscess. No ulcerative lesions. No obvious jaw swelling noted. No erythema or warmth overlying. NECK Supple, no adenopathy; ASSESSMENT/PLAN: 1. Gingival disease - ICD9: 523.9, ICD10: K06.9 (primary diagnosis) f/u with dentist Reviewed red flags and when to seek care sooner. - CLINDAMYCIN HCL 300 MG CAPSULE-take with food and probiotics 2. Dental infection - ICD9: 522.4, ICD10: K04.7 As above - CLINDAMYCIN HCL 300 MG CAPSULE The patient indicates understanding of these issues and agrees with the plan. Gertrude Estes PA-C 2018 ERIS Observed: 2018 Status: COMPLETED Source: [place] 4:30 PM [facility] REPOSITORY Office Visit ([facility]) VINIRON WASHINGTON ([id number]) 1955 F Date Time Provider Department 02/22/18 4:30 PM GERTRUDE ESTES) [facility] During your visit today, we recorded the following information about you: Temperature Pulse Respiration Blood pressure 97.5 degrees 84/minute 16/minute 104/60 Weight 94.8 kg Gertrude Estes PA-C 2018 5:16 PM Signed 2018 Patient presents with: Mouth Sores: x 2 days sore on left lower jaw area Muscle Aches: x 2 days SUBJECTIVE: This is a 63 year old that is here today for Complaint(s) of sore on the left lower gum line x 2 days. Has felt achy overall. Denies fever/chills, dental pain, sore throat . PAST MEDICAL HISTORY Diagnosis Date - Abdominal pain, left lower quadrant - Benign neoplasm of stomach - Diabetic eye exam (HCC) 05/16/2012 No retinopathy detected - both eyes - return in 1 year - [facility] - Dr Tariq - Diverticulosis of colon (without mention of hemorrhage) - Dysmetabolic syndrome X - Enlargement of lymph nodes - Esophageal reflux - Internal hemorrhoids without mention of complication - Obstructive sleep apnea - Other and unspecified hyperlipidemia - Other chronic nonalcoholic liver disease - Paroxysmal ventricular tachycardia (HCC) - Plantar fascial fibromatosis - Unspecified essential hypertension ALLERGIES Demerol [Meperidine (Pf)]; Digitek [Digoxin]; Dyazide [Triamterene-Hydrochlorothiazid]; Golytely [Peg 3350-Electrolytes]; Levaquin [Levofloxacin]; Macrobid [Nitrofurantoin Monohyd/M-Cryst]; Magnesium Citrate; Penicillins; Pravachol [Pravastatin Sodium]; Zocor [Simvastatin] MEDICATIONS Current Outpatient Prescriptions: Cholecalciferol, Vitamin D3, 1,000 unit cap DAILY L. acidophilus/L. bifidus (LACTOBACILLUS ACIDOPH AND BIFID) 1 billion cell wafr DAILY Multivitamin,Tx-Minerals (MULTI-VITAMIN HP/MINERALS) cap DAILY polyethylene glycol 3350 (MIRALAX, GLYCOLAX) 17 gram/dose powder DAILY aspirin 81 mg chewable tablet DAILY lansoprazole (PREVACID) 30 mg capsule DAILY lisinopril (PRINIVIL) 10 mg tablet DAILY metoprolol tartrate, short acting, (LOPRESSOR) 25 mg tablet DAILY rosuvastatin (CRESTOR) 5 mg tablet DAILY cyclobenzaprine (FLEXERIL) 5 mg tablet Take 1 tablet by mouth three times daily as needed for Muscle Spasm. lansoprazole (PREVACID) 30 mg capsule Take 1 capsule by mouth once daily. CALCIUM CARBONATE/VITAMIN D3 (VITAMIN D-3 ORAL) Take by mouth. rosuvastatin (CRESTOR) 5 mg tablet Take 1 tablet by mouth once daily. CPAP CPAP mask, tubing, filters, heated humidity, lifetime supplies. Dx: BRADEN metoprolol tartrate, short acting, (LOPRESSOR) 25 mg tablet Take 1 tablet by mouth twice daily. polyethylene glycol 3350 (MIRALAX) 17 gram/dose powder Take by mouth once daily. Acidophilus-Bif Animalis (DIGESTIVE PROBIOTIC) 10 billion cell cap Take by mouth once daily. multivitamin with minerals tablet Take 1 tablet by mouth once daily. COMPOUNDED PRESCRIPTION CPAP setting at 15 cm H2O with heated humidification mask (per patient preference) and lifetime supplies DX BRADEN 327.23 acetaminophen(TYLENOL ARTHRITIS 650 MG TAB) as necessary lisinopril(PRINIVIL 20 MG TAB) Take one(1) tablet daily. vitamin b complex(B COMPLETE TAB) Take one(1) tablet daily. ASPIRIN 81 MG TAB Take one (1) tablet daily . multivitamin with minerals (VISION/OPTIGEN) tablet Take 1 tablet by mouth once daily. No current facility-administered medications for this visit. SOCIAL HISTORY Social History Marital status: Spouse name: Years of education: Number of children: 1 Occupational History Occupation Employer Comment retired Social History Main Topics Smoking status: Never Smoker Smokeless tobacco: Never Used Alcohol use: No Drug use: No Sexual activity: Yes Partners with: Male control/protection: Surgical Comment: hysterectomy Social History Narrative Works [employer], [employer] All other reviewed and negative other than HPI. OBJECTIVE: BP 104/60 Pulse 84 Temp 36.4 ?C (97.5 ?F) (Left Tympanic) Resp 16 Wt 94.8 kg (209 lb) BMI 31.78 kg/m? APPEARANCE Well appearing, alert, in no acute distress, well- hydrated, well nourished. THROAT normal, no erythema. + left lower, posterior interior gum line with mild erythema and edema. No fluctuance, no obvious abscess. No ulcerative lesions. No obvious jaw swelling noted. No erythema or warmth overlying. NECK Supple, no adenopathy; ASSESSMENT/PLAN: 1. Gingival disease - ICD9: 523.9, ICD10: K06.9 (primary diagnosis) f/u with dentist Reviewed red flags and when to seek care sooner. - CLINDAMYCIN HCL 300 MG CAPSULE-take with food and probiotics 2. Dental infection - ICD9: 522.4, ICD10: K04.7 As above - CLINDAMYCIN HCL 300 MG CAPSULE The patient indicates understanding of these issues and agrees with the plan. Gertrude Estes PA-C 2018 Referring Provider: SELF [[id number]] Allergies As of Date: 2018 Noted Allergy Reaction DEMEROL (MEPERIDINE (PF)) 11/02/2012 16 - Unknown DIGITEK (DIGOXIN) 08/07/2005 7 - Swelling DYAZIDE (TRIAMTERENE-HYDROCHLOROT*08/07/2005 Comments: sores in mouth GOLYTELY (PEG 3350-ELECTROLYTES) 11/02/2012 11 - Vomiting LEVAQUIN (LEVOFLOXACIN) 08/07/2005 12 - Shortness of Breath MACROBID (NITROFURANTOIN MONOHYD/*08/15/2012 8 - GI Upset Comments: White stools, fatigue AND stomachache MAGNESIUM CITRATE 11/02/2012 11 - Vomiting PENICILLINS 08/07/2005 Comments: Unknown PRAVACHOL (PRAVASTATIN SODIUM) 08/07/2005 8 - GI Upset ZOCOR (SIMVASTATIN) 03/01/2008 Comments: Constipation, fatigue, nausea Date Reviewed: 2018 Reviewed by: Luanne Dinh LPN - Fully Assessed Reason for Visit: Mouth Sores [839] Cmt: x 2 days sore on left lower jaw area Muscle Aches [268] Cmt: x 2 days Primary Visit Diagnosis:Gingival disease [K06.9] Other Visit Diagnosis:Dental infection [K04.7] Order(s):clindamycin (CLEOCIN) 300 mg capsuleTake 1 capsule by mouth four times daily.Disp: 40 capsuleRfl: 0 Prescriptions as of 2018 Sig: CHOLECALCIFEROL (VITAMIN D3) * DAILY LACTOBACILLUS ACIDOPHILUS-LAC* DAILY MULTIVITAMIN,TX-MINERALS CAPS* DAILY POLYETHYLENE GLYCOL 3350 17 G* DAILY ASPIRIN 81 MG CHEWABLE TABLET DAILY LANSOPRAZOLE 30 MG CAPSULE,DE* DAILY LISINOPRIL 10 MG TABLET DAILY METOPROLOL TARTRATE 25 MG TAB* DAILY ROSUVASTATIN 5 MG TABLET DAILY CYCLOBENZAPRINE 5 MG TABLET Take 1 tablet by mouth three * LANSOPRAZOLE 30 MG CAPSULE,DE* Take 1 capsule by mouth once * VITAMIN D-3 ORAL Take by mouth. ROSUVASTATIN 5 MG TABLET Take 1 tablet by mouth once d* CPAP CPAP mask, tubing, filters, h* METOPROLOL TARTRATE 25 MG TAB* Take 1 tablet by mouth twice * POLYETHYLENE GLYCOL 3350 17 G* Take by mouth once daily. LACTOBACILLUS ACIDOPHILUS-BIF* Take by mouth once daily. MULTIVITAMIN WITH MINERALS TA* Take 1 tablet by mouth once d* COMPOUNDED PRESCRIPTION CPAP setting at 15 cm H2O wit* TYLENOL ARTHRITIS 650 MG TABL* as necessary PRINIVIL 20 MG TABLET Take one(1) tablet daily. B COMPLETE TABLET Take one(1) tablet daily. ASPIRIN 81 MG TABLET Take one (1) tablet daily . CLINDAMYCIN HCL 300 MG CAPSULE Take 1 capsule by mouth four * MULTIVITAMIN WITH MINERALS TA* Take 1 tablet by mouth once d* Problem List As Of Date 2018 Noted Resolved ENLARGEMENT LYMPH NODES [R59.9] PAROX VENTRIC TACHYCARD [I47.2] PLANTAR FIBROMATOSIS [M72.2] CHRONIC LIVER DIS NEC [K76.89] Other and unspecified hyperlipidemia [E78.5] 10/21/2016 DYSMETABOLIC SYNDROME X [E88.81] Essential hypertension [I10] More... ESOPHAGEAL REFLUX [K21.9] FEMALE GENITAL SYMPTOMS NOS [N94.9] INVALID FOR* VULVAL ATROPHY [N90.5] INVALID FOR* OTHER LUNG DISEASE NEC [J98.4] INVALID FOR* ANEMIA NOS [D64.9] INVALID FOR* ACUTE GASTRITIS W/O HEMORRHAGE [K29.00] INVALID FOR* BRADEN (obstructive sleep apnea) [G47.33] INVALID FOR* More... Abnormal mammogram, unspecified [R92.8] INVALID FOR* Paroxysmal SVT (supraventricular tachycardia) (*INVALID FOR* Mixed hyperlipidemia [E78.2] INVALID FOR* More... Prescriptions ordered this encounter Disp Refills Start End CLINDAMYCIN HCL 300 MG CAPSULE 40 c* 0 2018 Route: ORAL Sig: Take 1 capsule by mouth four times daily. Encounter Status:Closed by GERTRUDE ESTES PA-C on 02/22/18 CNCYassine Observed: 02/03/2018 Status: COMPLETED Source: [place] 4:22 PM [facility] REPOSITORY HNO ID: [id number] Author: Coordinator, Mammography Service: (none) Author Type: Physician Type: Letter Filed: 02/07/2018 11:32 PM Note Text: February 03, 2018 PID: [id number] Ron Santoskerman [address] [place] [address] Dear Ms. Martini, We are pleased to inform you that the results of your recent breast imaging exam on 02/03/2018 are normal. Your mammogram demonstrates that you have dense breast tissue, which could hide abnormalities. Dense breast tissue, in and of itself, is a relatively common condition. Therefore, this information is not provided to cause undue concern; rather, it is to raise your awareness and promote discussion with your health care provider regarding the presence of dense breast tissue in addition to other risk factors. Early detection of cancer is very important. We also understand recommendations regarding breast cancer screening are controversial. Please discuss with your primary care provider which strategy is best for you and whether a mammogram is right for you. Your imaging studies and report will be kept on file at [facility] as part of your permanent medical record and are available for your continuing care. Thank you for allowing us to help in meeting your health care needs. Sincerely, Dr. Liz Interpreting Radiologist [facility] (Normal over 40) [facility] SCREENING Observed: 02/03/2018 Status: F Source: [place] 4:19 PM [facility] REPOSITORY * * *Final Report* * * DATE OF EXAM: Feb 03 2018 4:19PM [facility] [id number] - [facility] SCREENING / PROCEDURE REASON: Encounter for other screening for malignant neoplasm of breast * * * * Physician Interpretation * * * * RESULT: #[id number] - JAILENE SCREENING BILATERAL DIGITAL SCREENING MAMMOGRAM WITH CAD: 02/03/2018 HISTORY: Screening Mammogram - patient reports NO breast symptoms /priors available for comparison. RESULT: TECHNIQUE: The study was acquired using full field digital technology and interpreted from soft copy. Current study was also evaluated with a Computer Aided Detection (CAD). Comparison is made to exams dated: 10/22/2016 mammogram - [facility] and 10/21/2015 mammogram - [facility]. The tissue of both breasts is heterogeneously dense. This may lower the sensitivity of mammography. There is a biopsy clip in the left breast. No significant masses, calcifications, or other findings are seen in either breast. There has been no significant interval change. IMPRESSION: NEGATIVE There is no mammographic evidence of malignancy.A 1 year screening mammogram is recommended. Dafne Liz M.D., mc/benson:02/03/2018 16:22:51 Director Inbound Sales: K[facility]al [facility])(Beatriz), [facility] letter sent: Normal over 40 Mammogram BI-RADS: 1 Negative [employer]: Benson Transcribe Date/Time: Feb 03 2018 2:47P Dictated by: DAFNE MCCOLLUM MD This examination was interpreted and the report reviewed and electronically signed by: DAFNE MCCOLLUM MD on Feb 03 2018 4:22PM EST [id number] PROGRESS Observed: 02/03/2018 Status: COMPLETED Source: [place] 2:53 PM [facility] REPOSITORY HNO ID: [id number] Author: Adelaida Milton Service: (none) Author Type: (none) Type: Progress Notes Filed: 02/03/2018 2:53 PM Note Text: Radiology Service Progress Note PATIENT NAME: Ron Martini DATE OF SERVICE: February 03, 2018 TIME: 2:53 PM PATIENT IDENTITY VERIFICATION COMPLETED USING TWO (2) METHODS: Patient confirmed name verbally and Date of . PATIENT GENDER DATA: Female. status: : No status: NO. PATIENT RELEVANT IMPLANT DATA REVIEWED: Not Applicable RADIOLOGY DEPARTMENT: [facility] DATA: Not applicable SIGNED BY: Adelaida Crum February 03, 2018 2:53 PM PROGRESS Observed: 02/03/2018 Status: COMPLETED Source: [place] 2:05 PM [facility] REPOSITORY HNO ID: [id number] Author: Mena Villanueva ([place]) Service: (none) Author Type: Mandarin Chinese Teacher Type: Progress Notes Filed: 02/05/2018 11:38 AM Note Text: Ron Martini is a 62 year old female who presents for problem visit after referral from PCP Dr. Venegas and Fred León [employer] for chronic vaginitis and dysuria for 4 month(s). HPI: Patient has reported chronic external vaginal itching and dysuria for 4 months. Patient reports previous hx of UTI that was diagnosed in hospital. Patient received Bactrim abx at that time and ever since I've had irritation, pain and dryness. Patient denies use of new soaps or detergents. Patient denies douching. Denies use of vaseline lubricants. Patient sexually active, rarely has been active in last 4 months due to the pain and discomfort. Patient has taken 2 courses of Diflucan as well as applying Monistat cream externally to mons pubis and labia minora without any relief. Repeat urine culture (CCMS) was collected in Dr. Venegas's office. Multiple <10,000 gram negative bacteria and e-coli noted on colony count. Patient denies lower abdominal and flank pain. Patient denies any vaginal discharge, denies vaginal bleeding, denies hematuria. Denies any changes in GI function. PAST MEDICAL HISTORY Diagnosis Date - Abdominal pain, left lower quadrant - Benign neoplasm of stomach - Diabetic eye exam (HCC) 05/16/2012 No retinopathy detected - both eyes - return in 1 year - [facility] - Dr Tariq - Diverticulosis of colon (without mention of hemorrhage) - Dysmetabolic syndrome X - Enlargement of lymph nodes - Esophageal reflux - Internal hemorrhoids without mention of complication - Obstructive sleep apnea - Other and unspecified hyperlipidemia - Other chronic nonalcoholic liver disease - Paroxysmal ventricular tachycardia (HCC) - Plantar fascial fibromatosis - Unspecified essential hypertension PAST SURGICAL HISTORY Procedure Laterality Date - APPENDECTOMY - BX BREAST PERC VACUUM/ROTN 11/30/12 Left breast - COLONOSCOP W/ OR W/O BRSH SPEC 04/11/99 Colonoscopy - COLONOSCOP W/ OR W/O BRSH SPEC 05/17/10 Colonoscopy - COLONOSCOP W/ OR W/O BRSH SPEC 11/02/12 Colonoscopy repeat 10 yrs - EGD W/O BRSH SPECIMEN W/BX 08/21/08 - EGD W/O OR W/BRUSH/WASH 08/26/01 EGD - EGD W/O OR W/BRUSH/WASH 08/31/16 EGD - LAPAROSCOPIC CHOLEYCYSTECTOMY Cholecystectomy, lap liver bx - PAST SURGICAL HISTORY OF left foot surgery for heel spurs - PAST SURGICAL HISTORY OF removal of right thigh mass - REMOVAL OF OVARY(S) Oophorectomy bilaterally - TOTAL ABDOM HYSTERECTOMY 1993 Hysterectomy, DEB, FAMILY HISTORY Problem Relation Age of Onset - Cancer Mother ovarian - Thyroid Mother - Alcohol/Drug Father - Coronary Artery Disease Maternal Grandfather - Heart Maternal Grandfather - Stroke Maternal Grandfather - Diabetes Paternal Grandmother - Cancer Sister lymphocimic leukemia - brain tumor [OTHER] Sister x2 - parkinson's [OTHER] Sister - Diabetes Brother Social History Marital status: Spouse name: Years of education: Number of children: 1 Occupational History Occupation Employer Comment retired Social History Main Topics Smoking status: Never Smoker Smokeless tobacco: Never Used Alcohol use: No Drug use: No Sexual activity: Yes Partners with: Male control/protection: Surgical Comment: hysterectomy Social History Narrative Works [employer], [employer] Current Outpatient Prescriptions: Cholecalciferol, Vitamin D3, 1,000 unit cap DAILY L. acidophilus/L. bifidus (LACTOBACILLUS ACIDOPH AND BIFID) 1 billion cell wafr DAILY Multivitamin,Tx-Minerals (MULTI-VITAMIN HP/MINERALS) cap DAILY polyethylene glycol 3350 (MIRALAX, GLYCOLAX) 17 gram/dose powder DAILY aspirin 81 mg chewable tablet DAILY lansoprazole (PREVACID) 30 mg capsule DAILY lisinopril (PRINIVIL) 10 mg tablet DAILY metoprolol tartrate, short acting, (LOPRESSOR) 25 mg tablet DAILY rosuvastatin (CRESTOR) 5 mg tablet DAILY cyclobenzaprine (FLEXERIL) 5 mg tablet Take 1 tablet by mouth three times daily as needed for Muscle Spasm. lansoprazole (PREVACID) 30 mg capsule Take 1 capsule by mouth once daily. CALCIUM CARBONATE/VITAMIN D3 (VITAMIN D-3 ORAL) Take by mouth. rosuvastatin (CRESTOR) 5 mg tablet Take 1 tablet by mouth once daily. CPAP CPAP mask, tubing, filters, heated humidity, lifetime supplies. Dx: BRADEN metoprolol tartrate, short acting, (LOPRESSOR) 25 mg tablet Take 1 tablet by mouth twice daily. polyethylene glycol 3350 (MIRALAX) 17 gram/dose powder Take by mouth once daily. multivitamin with minerals (VISION/OPTIGEN) tablet Take 1 tablet by mouth once daily. Acidophilus-Bif Animalis (DIGESTIVE PROBIOTIC) 10 billion cell cap Take by mouth once daily. multivitamin with minerals tablet Take 1 tablet by mouth once daily. COMPOUNDED PRESCRIPTION CPAP setting at 15 cm H2O with heated humidification mask (per patient preference) and lifetime supplies DX BRADEN 327.23 acetaminophen(TYLENOL ARTHRITIS 650 MG TAB) as necessary lisinopril(PRINIVIL 20 MG TAB) Take one(1) tablet daily. vitamin b complex(B COMPLETE TAB) Take one(1) tablet daily. ASPIRIN 81 MG TAB Take one (1) tablet daily . No current facility-administered medications for this visit. Allergies As of Date: 02/03/2018 Allergen Noted Reaction DEMEROL [MEPERIDINE (PF)] 11/02/2012 Unknown DIGITEK [DIGOXIN] 08/07/2005 Swelling DYAZIDE [TRIAMTERENE-HYDROCHLOROT*08/07/2005 GOLYTELY [PEG 3350-ELECTROLYTES] 11/02/2012 Vomiting LEVAQUIN [LEVOFLOXACIN] 08/07/2005 Shortness of Breath MACROBID [NITROFURANTOIN MONOHYD/*08/15/2012 GI Upset MAGNESIUM CITRATE 11/02/2012 Vomiting PENICILLINS 08/07/2005 PRAVACHOL [PRAVASTATIN SODIUM] 08/07/2005 GI Upset ZOCOR [SIMVASTATIN] 03/01/2008 Fully Assessed 01/31/2018 REVIEW OF SYSTEMS Abdomen: No bloating, early satiety, indigestion, or increased flatulence. No abdominal pain, nausea, vomiting, diarrhea, or constipation. Bladder: No gross hematuria, urinary frequency, urinary urgency, or incontinence. +dysuria Breast: No breast lumps, nipple d/c, overlying skin changes, redness or skin retraction. Expanded ROS: N/A Allergies and current medication updated:Yes EXAM: BP 128/76 Wt 209 lb 3.2 oz (94.9kg) GENERAL: pleasant, female in no apparent distress HEENT: Normocephalic, atraumatic, mucus membranes moist and no lesions NECK: Supple, full range of motion, no adenopathy and thyroid normal DERMATOLOGY: Normal, without lesions and non-hirsute BREAST: deferred CHEST: Normal inspiratory effort ABDOMEN: soft, non-tender and no masses PELVIC: external genitalia normal, normal Bartholin's glands, urethra, Guadalupe Guerra's glands, no vulvar lesions, no cervical lesions, good vaginal support, physiologic discharge present, normal appearing perineal body and perianal region, cervix surgically absent BIMANUAL: non-tender and uterus surgically absent NEURO: alert and oriented x3,exam grossly non-focal EXTREMITIES: normal ASSESSMENT AND PLAN: Encounter Diagnosis ICD-10-CM 1. Dysuria R30.0 2. Menopausal vaginal dryness N95.1 1) UTI prevention discussed - teaching provided 2) Bactrim 160/800 PO BID x 3 days - patient reports allergies and sensitivities to other viable antibiotics to treat UTI 3) Encourage use of vaginal lubricants during intercourse - coconut oil or silicone based lubricants may provide better lubrication than water-based lubricants 4) Replens OTC vaginal moisturizer 2-3 times weekly as directed to help add moisture back to vagina 5) Mammogram today as scheduled. 6) RTC PRN Mena Villanueva END TRIMMER-CNM CNOV Observed: 02/03/2018 Status: COMPLETED Source: [place] 1:45 PM [facility] REPOSITORY Office Visit (WOOB) RON MARTINI ([id number]) 1955 F Date Time Provider Department 02/03/18 1:45 PM ASSESSMENT CORPORATE DRIVER WSTR WOOB During your visit today, we recorded the following information about you: Blood pressure Weight 128/76 94.9 kg Mena Villanueva (Cnm) 02/05/2018 11:38 AM Signed Ron Crabtreeman is a 62 year old female who presents for problem visit after referral from PCP Dr. Venegas and Fred León SUPERINTENDENT COLLIERY for chronic vaginitis and dysuria for 4 month(s). HPI: Patient has reported chronic external vaginal itching and dysuria for 4 months. Patient reports previous hx of UTI that was diagnosed in hospital. Patient received Bactrim abx at that time and ever since I've had irritation, pain and dryness. Patient denies use of new soaps or detergents. Patient denies douching. Denies use of vaseline lubricants. Patient sexually active, rarely has been active in last 4 months due to the pain and discomfort. Patient has taken 2 courses of Diflucan as well as applying Monistat cream externally to mons pubis and labia minora without any relief. Repeat urine culture (CCMS) was collected in Dr. Venegas's office. Multiple <10,000 gram negative bacteria and e-coli noted on colony count. Patient denies lower abdominal and flank pain. Patient denies any vaginal discharge, denies vaginal bleeding, denies hematuria. Denies any changes in GI function. PAST MEDICAL HISTORY Diagnosis Date - Abdominal pain, left lower quadrant - Benign neoplasm of stomach - Diabetic eye exam (HCC) 05/16/2012 No retinopathy detected - both eyes - return in 1 year - [facility] - Dr Tariq - Diverticulosis of colon (without mention of hemorrhage) - Dysmetabolic syndrome X - Enlargement of lymph nodes - Esophageal reflux - Internal hemorrhoids without mention of complication - Obstructive sleep apnea - Other and unspecified hyperlipidemia - Other chronic nonalcoholic liver disease - Paroxysmal ventricular tachycardia (HCC) - Plantar fascial fibromatosis - Unspecified essential hypertension PAST SURGICAL HISTORY Procedure Laterality Date - APPENDECTOMY - BX BREAST PERC VACUUM/ROTN 11/30/12 Left breast - COLONOSCOP W/ OR W/O [facility] SPEC 04/11/99 Colonoscopy - COLONOSCOP W/ OR W/O [facility] SPEC 05/17/10 Colonoscopy - COLONOSCOP W/ OR W/O [facility] SPEC 11/02/12 Colonoscopy repeat 10 yrs - EGD W/O [facility] SPECIMEN W/BX 08/21/08 - EGD W/O OR W/BRUSH/WASH 08/26/01 EGD - EGD W/O OR W/BRUSH/WASH 08/31/16 EGD - LAPAROSCOPIC CHOLEYCYSTECTOMY Cholecystectomy, lap liver bx - PAST SURGICAL HISTORY OF left foot surgery for heel spurs - PAST SURGICAL HISTORY OF removal of right thigh mass - REMOVAL OF OVARY(S) Oophorectomy bilaterally - TOTAL ABDOM HYSTERECTOMY 1993 Hysterectomy, DEB, FAMILY HISTORY Problem Relation Age of Onset - Cancer Mother ovarian - Thyroid Mother - Alcohol/Drug Father - Coronary Artery Disease Maternal Grandfather - Heart Maternal Grandfather - Stroke Maternal Grandfather - Diabetes Paternal Grandmother - Cancer Sister lymphocimic leukemia - brain tumor [OTHER] Sister x2 - parkinson's [OTHER] Sister - Diabetes Brother Social History Marital status: Spouse name: Years of education: Number of children: 1 Occupational History Occupation Employer Comment retired Social History Main Topics Smoking status: Never Smoker Smokeless tobacco: Never Used Alcohol use: No Drug use: No Sexual activity: Yes Partners with: Male control/protection: Surgical Comment: hysterectomy Social History Narrative Works [employer] Current Outpatient Prescriptions: Cholecalciferol, Vitamin D3, 1,000 unit cap DAILY L. acidophilus/L. bifidus (LACTOBACILLUS ACIDOPH AND BIFID) 1 billion cell wafr DAILY Multivitamin,Tx-Minerals (MULTI-VITAMIN HP/MINERALS) cap DAILY polyethylene glycol 3350 (MIRALAX, GLYCOLAX) 17 gram/dose powder DAILY aspirin 81 mg chewable tablet DAILY lansoprazole (PREVACID) 30 mg capsule DAILY lisinopril (PRINIVIL) 10 mg tablet DAILY metoprolol tartrate, short acting, (LOPRESSOR) 25 mg tablet DAILY rosuvastatin (CRESTOR) 5 mg tablet DAILY cyclobenzaprine (FLEXERIL) 5 mg tablet Take 1 tablet by mouth three times daily as needed for Muscle Spasm. lansoprazole (PREVACID) 30 mg capsule Take 1 capsule by mouth once daily. CALCIUM CARBONATE/VITAMIN D3 (VITAMIN D-3 ORAL) Take by mouth. rosuvastatin (CRESTOR) 5 mg tablet Take 1 tablet by mouth once daily. CPAP CPAP mask, tubing, filters, heated humidity, lifetime supplies. Dx: BRADEN metoprolol tartrate, short acting, (LOPRESSOR) 25 mg tablet Take 1 tablet by mouth twice daily. polyethylene glycol 3350 (MIRALAX) 17 gram/dose powder Take by mouth once daily. multivitamin with minerals (VISION/OPTIGEN) tablet Take 1 tablet by mouth once daily. Acidophilus-Bif Animalis (DIGESTIVE PROBIOTIC) 10 billion cell cap Take by mouth once daily. multivitamin with minerals tablet Take 1 tablet by mouth once daily. COMPOUNDED PRESCRIPTION CPAP setting at 15 cm H2O with heated humidification mask (per patient preference) and lifetime supplies DX BRADEN 327.23 acetaminophen(TYLENOL ARTHRITIS 650 MG TAB) as necessary lisinopril(PRINIVIL 20 MG TAB) Take one(1) tablet daily. vitamin b complex(B COMPLETE TAB) Take one(1) tablet daily. ASPIRIN 81 MG TAB Take one (1) tablet daily . No current facility-administered medications for this visit. Allergies As of Date: 02/03/2018 Allergen Noted Reaction DEMEROL [MEPERIDINE (PF)] 11/02/2012 Unknown DIGITEK [DIGOXIN] 08/07/2005 Swelling DYAZIDE [TRIAMTERENE-HYDROCHLOROT*08/07/2005 GOLYTELY [PEG 3350-ELECTROLYTES] 11/02/2012 Vomiting LEVAQUIN [LEVOFLOXACIN] 08/07/2005 Shortness of Breath MACROBID [NITROFURANTOIN MONOHYD/*08/15/2012 GI Upset MAGNESIUM CITRATE 11/02/2012 Vomiting PENICILLINS 08/07/2005 PRAVACHOL [PRAVASTATIN SODIUM] 08/07/2005 GI Upset ZOCOR [SIMVASTATIN] 03/01/2008 Fully Assessed 01/31/2018 REVIEW OF SYSTEMS Abdomen: No bloating, early satiety, indigestion, or increased flatulence. No abdominal pain, nausea, vomiting, diarrhea, or constipation. Bladder: No gross hematuria, urinary frequency, urinary urgency, or incontinence. +dysuria Breast: No breast lumps, nipple d/c, overlying skin changes, redness or skin retraction. Expanded ROS: N/A Allergies and current medication updated:Yes EXAM: BP 128/76 Wt 209 lb 3.2 oz (94.9kg) GENERAL: pleasant, female in no apparent distress HEENT: Normocephalic, atraumatic, mucus membranes moist and no lesions NECK: Supple, full range of motion, no adenopathy and thyroid normal DERMATOLOGY: Normal, without lesions and non-hirsute BREAST: deferred CHEST: Normal inspiratory effort ABDOMEN: soft, non-tender and no masses PELVIC: external genitalia normal, normal Bartholin's glands, urethra, Guadalupe Guerra's glands, no vulvar lesions, no cervical lesions, good vaginal support, physiologic discharge present, normal appearing perineal body and perianal region, cervix surgically absent BIMANUAL: non-tender and uterus surgically absent NEURO: alert and oriented x3,exam grossly non-focal EXTREMITIES: normal ASSESSMENT AND PLAN: Encounter Diagnosis ICD-10-CM 1. Dysuria R30.0 2. Menopausal vaginal dryness N95.1 1) UTI prevention discussed - teaching provided 2) Bactrim 160/800 PO BID x 3 days - patient reports allergies and sensitivities to other viable antibiotics to treat UTI 3) Encourage use of vaginal lubricants during intercourse - coconut oil or silicone based lubricants may provide better lubrication than water-based lubricants 4) Replens OTC vaginal moisturizer 2-3 times weekly as directed to help add moisture back to vagina 5) Mammogram today as scheduled. 6) RTC PRN Mena Villanueva END TRIMMER-CNM Mena Villanueva (Cn) 02/03/2018 2:46 PM Signed Replens Vagina Moisturizer - this can be found [id number] at your local drug store Coconut Oil as a vaginal lubricant Minimizing irritation of the vulva (area around the vagina) Wear white cotton underwear. Avoid synthetic fabrics and tight clothing. Sleep wearing shorts or pajama bottoms without underwear. Shower as soon as possible after exercise. Avoid clothing detergents and soaps with perfumes or dyes. Use warm (not hot) water to wash the vulva and if you use soap use a product designed for sensitive skin (like Dove or Cetaphil). Do not douche or use creams/powders in the vulvar area unless instructed by your physician. If you must douche, use only plain warm water. Make sure the vulva is dry before dressing by patting dry with a towel. Avoid vigorous rubbing with the towel. You may want to use the blow dryer (on the cool setting only!) on the vulva. The most important way to let your body heal is by avoiding scratching. Many patients find it difficult to avoid scratching at night when they are most aware of the itchiness. You can try taking Benadryl just before bedtime. Some women find it helpful to wear cotton gloves to bed to avoid scratching at night. Referring Provider: JULISSA VENEGAS [[id number]] Allergies As of Date: 02/03/2018 Noted Allergy Reaction DEMEROL (MEPERIDINE (PF)) 11/02/2012 16 - Unknown DIGITEK (DIGOXIN) 08/07/2005 7 - Swelling DYAZIDE (TRIAMTERENE-HYDROCHLOROT*08/07/2005 Comments: sores in mouth GOLYTELY (PEG 3350-ELECTROLYTES) 11/02/2012 11 - Vomiting LEVAQUIN (LEVOFLOXACIN) 08/07/2005 12 - Shortness of Breath MACROBID (NITROFURANTOIN MONOHYD/*08/15/2012 8 - GI Upset Comments: White stools, fatigue AND stomachache MAGNESIUM CITRATE 11/02/2012 11 - Vomiting PENICILLINS 08/07/2005 Comments: Unknown PRAVACHOL (PRAVASTATIN SODIUM) 08/07/2005 8 - GI Upset ZOCOR (SIMVASTATIN) 03/01/2008 Comments: Constipation, fatigue, nausea Date Reviewed: 02/03/2018 Reviewed by: Mis Rdz Ma - Fully Assessed Primary Visit Diagnosis:Dysuria [R30.0] Other Visit Diagnosis:Menopausal vaginal dryness [N95.1] Order(s):sulfamethoxazole-trimethoprim (BACTRIM DS) 800-160 mg per tabletTake 1 tablet by mouth twice daily for 3 days. FOR 3 DAYS.Disp: 6 tabletRfl: 0 Prescriptions as of 02/03/2018 Sig: SULFAMETHOXAZOLE 800 MG-TRIME* Take 1 tablet by mouth twice * CHOLECALCIFEROL (VITAMIN D3) * DAILY LACTOBACILLUS ACIDOPHILUS-LAC* DAILY MULTIVITAMIN,TX-MINERALS CAPS* DAILY POLYETHYLENE GLYCOL 3350 17 G* DAILY ASPIRIN 81 MG CHEWABLE TABLET DAILY LANSOPRAZOLE 30 MG CAPSULE,DE* DAILY LISINOPRIL 10 MG TABLET DAILY METOPROLOL TARTRATE 25 MG TAB* DAILY ROSUVASTATIN 5 MG TABLET DAILY CYCLOBENZAPRINE 5 MG TABLET Take 1 tablet by mouth three * LANSOPRAZOLE 30 MG CAPSULE,DE* Take 1 capsule by mouth once * VITAMIN D-3 ORAL Take by mouth. ROSUVASTATIN 5 MG TABLET Take 1 tablet by mouth once d* CPAP CPAP mask, tubing, filters, h* METOPROLOL TARTRATE 25 MG TAB* Take 1 tablet by mouth twice * POLYETHYLENE GLYCOL 3350 17 G* Take by mouth once daily. MULTIVITAMIN WITH MINERALS TA* Take 1 tablet by mouth once d* LACTOBACILLUS ACIDOPHILUS-BIF* Take by mouth once daily. MULTIVITAMIN WITH MINERALS TA* Take 1 tablet by mouth once d* COMPOUNDED PRESCRIPTION CPAP setting at 15 cm H2O wit* TYLENOL ARTHRITIS 650 MG TABL* as necessary PRINIVIL 20 MG TABLET Take one(1) tablet daily. B COMPLETE TABLET Take one(1) tablet daily. ASPIRIN 81 MG TABLET Take one (1) tablet daily . Problem List As Of Date 02/03/2018 Noted Resolved ENLARGEMENT LYMPH NODES [R59.9] PAROX VENTRIC TACHYCARD [I47.2] PLANTAR FIBROMATOSIS [M72.2] CHRONIC LIVER DIS NEC [K76.89] Other and unspecified hyperlipidemia [E78.5] 10/21/2016 DYSMETABOLIC SYNDROME X [E88.81] Essential hypertension [I10] More... ESOPHAGEAL REFLUX [K21.9] FEMALE GENITAL SYMPTOMS NOS [N94.9] INVALID FOR* VULVAL ATROPHY [N90.5] INVALID FOR* OTHER LUNG DISEASE NEC [J98.4] INVALID FOR* ANEMIA NOS [D64.9] INVALID FOR* ACUTE GASTRITIS W/O HEMORRHAGE [K29.00] INVALID FOR* BRADEN (obstructive sleep apnea) [G47.33] INVALID FOR* More... Abnormal mammogram, unspecified [R92.8] INVALID FOR* Paroxysmal SVT (supraventricular tachycardia) (*INVALID FOR* Mixed hyperlipidemia [E78.2] INVALID FOR* More... Other instructions from your clinician: Replens Vagina Moisturizer - this can be found [id number] at your local drug store Coconut Oil as a vaginal lubricant Minimizing irritation of the vulva (area around the vagina) Wear white cotton underwear. Avoid synthetic fabrics and tight clothing. Sleep wearing shorts or pajama bottoms without underwear. Shower as soon as possible after exercise. Avoid clothing detergents and soaps with perfumes or dyes. Use warm (not hot) water to wash the vulva and if you use soap use a product designed for sensitive skin (like Dove or Cetaphil). Do not douche or use creams/powders in the vulvar area unless instructed by your physician. If you must douche, use only plain warm water. Make sure the vulva is dry before dressing by patting dry with a towel. Avoid vigorous rubbing with the towel. You may want to use the blow dryer (on the cool setting only!) on the vulva. The most important way to let your body heal is by avoiding scratching. Many patients find it difficult to avoid scratching at night when they are most aware of the itchiness. You can try taking Benadryl just before bedtime. Some women find it helpful to wear cotton gloves to bed to avoid scratching at night. Prescriptions ordered this encounter Disp Refills Start End SULFAMETHOXAZOLE 800 MG-TRIMETHOPRIM* 6 ta* 0 02/03/2018 02/06/2018 Route: ORAL Sig: Take 1 tablet by mouth twice daily for 3 days. FOR 3 DAYS. Disposition: Return if symptoms worsen or fail to improve. Follow-up and Disposition History Recorded Encounter Status:Closed by MENA VILLANUEVA CNM on 02/05/18 Observed: 01/31/2018 Status: F Source: [place] URINE CULTURE 11:32 PM [facility] REPOSITORY Sp. Request/Comment: - Specimen received in preservative Culture Result - <10,000 CFU/ml Lactose positive gram negative bacilli --> ABNORMAL ALERT Insignificant colony count. No further workup. --> ABNORMAL ALERT <10,000 CFU/ml --> ABNORMAL EMILY RT Enterococcus --> ABNORMAL ALERT Insignificant colony count. No further workup. --> ABNORMAL ALERT Cephalosporins, clindamycin, and TMP-SMX are not effective for the treatment of enterococcal infections. --> ABNORMAL ALERT Performed By: #### URCUL #### [facility] [address] [place], [place] [address] PROGRESS Observed: 01/31/2018 Status: COMPLETED Source: [place] 1:10 PM [facility] HNO ID: [id number] Author: Julissa Venegas Service: (none) Author Type: Physician Type: Progress Notes Filed: 01/31/2018 1:42 PM Note Text: Reason for Visit Patient presents with: Established Patient: 6 month follow up- c/o possible uti Ron Martini is a 62 year old female who presents here today for Above Complaints.. Health Maintenance ONE PNEUMOVAX PRIOR TO AGE 64 HEPATITIS C SCREENING MAMMOGRAM HPI Notes that her vaginal lip is sore, she had this complaint for the past 3 months on and off, was seen by my SUPERINTENDENT COLLIERY 2 times, was treated with monostat and with fluconazole, which she notes has helped her a lot. But now the itch and soreness I back again. She is sexually active but no frequently Notes that urine is getting darker and she is having burning of urine, no fever or chills. Itching+ sometimes. lipids are normal, reviewed test results with patient Who takes medications regularly and has no side effects. BP is well controlled on current regimen of medicines which is tolerated well. No significant side effects Has been using her sleep machine every night. No problem-specific Assessment AND Plan notes found for this encounter. PAST MEDICAL HISTORY Diagnosis Date - Abdominal pain, left lower quadrant - Benign neoplasm of stomach - Diabetic eye exam (HCC) 05/16/2012 No retinopathy detected - both eyes - return in 1 year - [facility] - Dr Tariq - Diverticulosis of colon (without mention of hemorrhage) - Dysmetabolic syndrome X - Enlargement of lymph nodes - Esophageal reflux - Internal hemorrhoids without mention of complication - Obstructive sleep apnea - Other and unspecified hyperlipidemia - Other chronic nonalcoholic liver disease - Paroxysmal ventricular tachycardia (HCC) - Plantar fascial fibromatosis - Unspecified essential hypertension PAST SURGICAL HISTORY Procedure Laterality Date - APPENDECTOMY - BX BREAST PERC VACUUM/ROTN 11/30/12 Left breast - COLONOSCOP W/ OR W/O [facility] SPEC 04/11/99 Colonoscopy - COLONOSCOP W/ OR W/O [facility] SPEC 05/17/10 Colonoscopy - COLONOSCOP W/ OR W/O [facility] SPEC 11/02/12 Colonoscopy repeat 10 yrs - EGD W/O [facility] SPECIMEN W/BX 08/21/08 - EGD W/O OR W/BRUSH/WASH 08/26/01 EGD - EGD W/O OR W/BRUSH/WASH 08/31/16 EGD - LAPAROSCOPIC CHOLEYCYSTECTOMY Cholecystectomy, lap liver bx - PAST SURGICAL HISTORY OF left foot surgery for heel spurs - PAST SURGICAL HISTORY OF removal of right thigh mass - REMOVAL OF OVARY(S) Oophorectomy bilaterally - TOTAL ABDOM HYSTERECTOMY 1993 Hysterectomy, DEB, FAMILY HISTORY Problem Relation Age of Onset - Cancer Mother ovarian - Thyroid Mother - Alcohol/Drug Father - Coronary Artery Disease Maternal Grandfather - Heart Maternal Grandfather - Stroke Maternal Grandfather - Diabetes Paternal Grandmother - Cancer Sister lymphocimic leukemia - brain tumor [OTHER] Sister x2 - parkinson's [OTHER] Sister - Diabetes Brother Social History Substance Use Topics - Smoking status: Never Smoker - Smokeless tobacco: Never Used - Alcohol use No Past medical history, appointments, medications, allergies reviewed. Pertinent Lab/Diagnostic Studies are reviewed and discussed today Current Outpatient Prescriptions: - cyclobenzaprine (FLEXERIL) 5 mg tablet - lansoprazole (PREVACID) 30 mg capsule - albuterol HFA (VENTOLIN HFA) 90 mcg/actuation inhaler - CALCIUM CARBONATE/VITAMIN D3 (VITAMIN D-3 ORAL) - rosuvastatin (CRESTOR) 5 mg tablet - CPAP - metoprolol tartrate, short acting, (LOPRESSOR) 25 mg tablet - polyethylene glycol 3350 (MIRALAX) 17 gram/dose powder - multivitamin with minerals (VISION/OPTIGEN) tablet - Acidophilus-Bif Animalis (DIGESTIVE PROBIOTIC) 10 billion cell cap - multivitamin with minerals tablet - COMPOUNDED PRESCRIPTION - acetaminophen(TYLENOL ARTHRITIS 650 MG TAB) - lisinopril(PRINIVIL 20 MG TAB) - vitamin b complex(B COMPLETE TAB) - ASPIRIN 81 MG TAB Review of Systems CONSTITUTIONAL: No fevers, chills night sweats, unintended weight loss CARDIOVASCULAR: No chest pain, dyspnea, palpitations, orthopnea, PND, ankle edema. PULM: No dyspnea, unexplained cough. GI: No dysphagia/odynophagia, problematic reflux, constipation, diarrhea, changes in stool habits, hematochezia, melena. : No new urinary complaints, including dysuria, gross hematuria or pyuria. NEURO: No new balance problems, peripheral weakness/paresthesias or numbness of concern. Physical Exam BP 138/70 (BP Site: Left Arm, BP Position: Sitting, BP Cuff Size: Large Adult) Pulse 78 Resp 12 Ht 172.7 cm (5' 8) Wt 94.3 kg (208 lb) SpO2 97% BMI 31.63 kg/m? General appearance: Well appearing, alert, in no acute distress, well nourished. Skin: Skin color, texture, turgor normal, no suspicious rashes or lesions Head: Normocephalic, no masses, lesions, tenderness or abnormalities Eyes: Anicteric sclera. Pupils are equally round and reactive to light. Extraocular movements are intact. Lungs: Lungs clear to auscultation. No wheezing, rhonchi, rales Heart: RRR without murmur, gallop, or rubs. Extremities: No deformities, edema, skin discoloration, clubbing or cyanosis. Good capillary refill. ASSESSMENT/PLAN: 1. Vaginal irritation - ICD9: 623.9, ICD10: N89.8 (primary diagnosis) She needs to see the wire saw operator...she recently had wire saw operator exams by my Sales And Marketing Coordinator so we deferred it this time 2. Dysuria - ICD9: 788.1, ICD10: R30.0 acute - Patient education for prevention given - CONSULT TO GYNECOLOGY - UA DIP B/O - URINALYSIS WITH MICROSCOPIC - URINE CULTURE 3. Vaginal pain - ICD9: 625.9, ICD10: R10.2 4. Encounter for breast cancer screening other than mammogram - ICD9: V76.10, ICD10: Z12.39 - Follow up for annual exam in one year. - JAILENE SCREENING 5. Mixed hyperlipidemia - ICD9: 272.2, ICD10: E78.2 - good control - Continue current medication. 6. BRADEN (obstructive sleep apnea) - ICD9: 327.23, ICD10: G47.33 She does use her sleep machine 7. Anemia, unspecified type - ICD9: 285.9, ICD10: D64.9 8. Essential hypertension - ICD9: 401.9, ICD10: I10 - good control - Recommended regular aerobic exercise. - Recommend home blood pressure monitoring, to bring results in on next visit - Goal of BP <130/80 - COMP METABOLIC PANEL - CBC + DIFF 9. Elevated blood sugar - ICD9: 790.29, ICD10: R73.9 - HGB A1C JULISSA VENEGAS MD CNOV Observed: 01/31/2018 Status: COMPLETED Source: [place] 1:00 PM [facility] REPOSITORY Office Visit (INTMWS) RON MARTINI ([id number]) 1955 F Date Time Provider Department 01/31/18 1:00 PM JULISSA VENEGAS INTMWS During your visit today, we recorded the following information about you: Pulse Respiration Blood pressure Weight 78/minute 12/minute 138/70 94.3 kg Height 1.727 m Julissa Venegas 01/31/2018 1:42 PM Signed Reason for Visit Patient presents with: Established Patient: 6 month follow up- c/o possible uti Ron Martini is a 62 year old female who presents here today for Above Complaints.. Health Maintenance ONE PNEUMOVAX PRIOR TO AGE 64 HEPATITIS C SCREENING MAMMOGRAM HPI Notes that her vaginal lip is sore, she had this complaint for the past 3 months on and off, was seen by my SUPERINTENDENT COLLIERY 2 times, was treated with monostat and with fluconazole, which she notes has helped her a lot. But now the itch and soreness I back again. She is sexually active but no frequently Notes that urine is getting darker and she is having burning of urine, no fever or chills. Itching+ sometimes. lipids are normal, reviewed test results with patient Who takes medications regularly and has no side effects. BP is well controlled on current regimen of medicines which is tolerated well. No significant side effects Has been using her sleep machine every night. No problem-specific Assessment AND Plan notes found for this encounter. PAST MEDICAL HISTORY Diagnosis Date - Abdominal pain, left lower quadrant - Benign neoplasm of stomach - Diabetic eye exam (HCC) 05/16/2012 No retinopathy detected - both eyes - return in 1 year - [facility] - Dr Tariq - Diverticulosis of colon (without mention of hemorrhage) - Dysmetabolic syndrome X - Enlargement of lymph nodes - Esophageal reflux - Internal hemorrhoids without mention of complication - Obstructive sleep apnea - Other and unspecified hyperlipidemia - Other chronic nonalcoholic liver disease - Paroxysmal ventricular tachycardia (HCC) - Plantar fascial fibromatosis - Unspecified essential hypertension PAST SURGICAL HISTORY Procedure Laterality Date - APPENDECTOMY - BX BREAST PERC VACUUM/ROTN 11/30/12 Left breast - COLONOSCOP W/ OR W/O [facility] SPEC 04/11/99 Colonoscopy - COLONOSCOP W/ OR W/O [facility] SPEC 05/17/10 Colonoscopy - COLONOSCOP W/ OR W/O [facility] SPEC 11/02/12 Colonoscopy repeat 10 yrs - EGD W/O [facility] SPECIMEN W/BX 08/21/08 - EGD W/O OR W/BRUSH/WASH 08/26/01 EGD - EGD W/O OR W/BRUSH/WASH 08/31/16 EGD - LAPAROSCOPIC CHOLEYCYSTECTOMY Cholecystectomy, lap liver bx - PAST SURGICAL HISTORY OF left foot surgery for heel spurs - PAST SURGICAL HISTORY OF removal of right thigh mass - REMOVAL OF OVARY(S) Oophorectomy bilaterally - TOTAL ABDOM HYSTERECTOMY 1993 Hysterectomy, DEB, FAMILY HISTORY Problem Relation Age of Onset - Cancer Mother ovarian - Thyroid Mother - Alcohol/Drug Father - Coronary Artery Disease Maternal Grandfather - Heart Maternal Grandfather - Stroke Maternal Grandfather - Diabetes Paternal Grandmother - Cancer Sister lymphocimic leukemia - brain tumor [OTHER] Sister x2 - parkinson's [OTHER] Sister - Diabetes Brother Social History Substance Use Topics - Smoking status: Never Smoker - Smokeless tobacco: Never Used - Alcohol use No Past medical history, appointments, medications, allergies reviewed. Pertinent Lab/Diagnostic Studies are reviewed and discussed today Current Outpatient Prescriptions: - cyclobenzaprine (FLEXERIL) 5 mg tablet - lansoprazole (PREVACID) 30 mg capsule - albuterol HFA (VENTOLIN HFA) 90 mcg/actuation inhaler - CALCIUM CARBONATE/VITAMIN D3 (VITAMIN D-3 ORAL) - rosuvastatin (CRESTOR) 5 mg tablet - CPAP - metoprolol tartrate, short acting, (LOPRESSOR) 25 mg tablet - polyethylene glycol 3350 (MIRALAX) 17 gram/dose powder - multivitamin with minerals (VISION/OPTIGEN) tablet - Acidophilus-Bif Animalis (DIGESTIVE PROBIOTIC) 10 billion cell cap - multivitamin with minerals tablet - COMPOUNDED PRESCRIPTION - acetaminophen(TYLENOL ARTHRITIS 650 MG TAB) - lisinopril(PRINIVIL 20 MG TAB) - vitamin b complex(B COMPLETE TAB) - ASPIRIN 81 MG TAB Review of Systems CONSTITUTIONAL: No fevers, chills night sweats, unintended weight loss CARDIOVASCULAR: No chest pain, dyspnea, palpitations, orthopnea, PND, ankle edema. PULM: No dyspnea, unexplained cough. GI: No dysphagia/odynophagia, problematic reflux, constipation, diarrhea, changes in stool habits, hematochezia, melena. : No new urinary complaints, including dysuria, gross hematuria or pyuria. NEURO: No new balance problems, peripheral weakness/paresthesias or numbness of concern. Physical Exam BP 138/70 (BP Site: Left Arm, BP Position: Sitting, BP Cuff Size: Large Adult) Pulse 78 Resp 12 Ht 172.7 cm (5' 8) Wt 94.3 kg (208 lb) SpO2 97% BMI 31.63 kg/m? General appearance: Well appearing, alert, in no acute distress, well nourished. Skin: Skin color, texture, turgor normal, no suspicious rashes or lesions Head: Normocephalic, no masses, lesions, tenderness or abnormalities Eyes: Anicteric sclera. Pupils are equally round and reactive to light. Extraocular movements are intact. Lungs: Lungs clear to auscultation. No wheezing, rhonchi, rales Heart: RRR without murmur, gallop, or rubs. Extremities: No deformities, edema, skin discoloration, clubbing or cyanosis. Good capillary refill. ASSESSMENT/PLAN: 1. Vaginal irritation - ICD9: 623.9, ICD10: N89.8 (primary diagnosis) She needs to see the wire saw operator...she recently had wire saw operator exams by my Sales And Marketing Coordinator so we deferred it this time 2. Dysuria - ICD9: 788.1, ICD10: R30.0 acute - Patient education for prevention given - CONSULT TO GYNECOLOGY - UA DIP B/O - URINALYSIS WITH MICROSCOPIC - URINE CULTURE 3. Vaginal pain - ICD9: 625.9, ICD10: R10.2 4. Encounter for breast cancer screening other than mammogram - ICD9: V76.10, ICD10: Z12.39 - Follow up for annual exam in one year. - JAILENE SCREENING 5. Mixed hyperlipidemia - ICD9: 272.2, ICD10: E78.2 - good control - Continue current medication. 6. BRADEN (obstructive sleep apnea) - ICD9: 327.23, ICD10: G47.33 She does use her sleep machine 7. Anemia, unspecified type - ICD9: 285.9, ICD10: D64.9 8. Essential hypertension - ICD9: 401.9, ICD10: I10 - good control - Recommended regular aerobic exercise. - Recommend home blood pressure monitoring, to bring results in on next visit - Goal of BP <130/80 - COMP METABOLIC PANEL - CBC + DIFF 9. Elevated blood sugar - ICD9: 790.29, ICD10: R73.9 - HGB A1C JULISSA VENEGAS MD Referring Provider: JULISSA VENEGAS [[id number]] Allergies As of Date: 01/31/2018 Noted Allergy Reaction DEMEROL (MEPERIDINE (PF)) 11/02/2012 16 - Unknown DIGITEK (DIGOXIN) 08/07/2005 7 - Swelling DYAZIDE (TRIAMTERENE-HYDROCHLOROT*08/07/2005 Comments: sores in mouth GOLYTELY (PEG 3350-ELECTROLYTES) 11/02/2012 11 - Vomiting LEVAQUIN (LEVOFLOXACIN) 08/07/2005 12 - Shortness of Breath MACROBID (NITROFURANTOIN MONOHYD/*08/15/2012 8 - GI Upset Comments: White stools, fatigue AND stomachache MAGNESIUM CITRATE 11/02/2012 11 - Vomiting PENICILLINS 08/07/2005 Comments: Unknown PRAVACHOL (PRAVASTATIN SODIUM) 08/07/2005 8 - GI Upset ZOCOR (SIMVASTATIN) 03/01/2008 Comments: Constipation, fatigue, nausea Date Reviewed: 01/31/2018 Reviewed by: Mariluz Pascual LPN - Fully Assessed Reason for Visit: Established Patient [175] Cmt: 6 month follow up- c/o possible uti Primary Visit Diagnosis:Vaginal irritation [N89.8] Other Visit Diagnoses:Dysuria [R30.0] Vaginal pain [R10.2] Encounter for breast cancer screening other than mammogram [Z12.39] Mixed hyperlipidemia [E78.2] BRADEN (obstructive sleep apnea) [G47.33] Anemia, unspecified type [D64.9] Essential hypertension [I10] Elevated blood sugar [R73.9] Order(s):JAILENE SCREENING [6385854] Order #: [id number] FUTURE CONSULT TO GYNECOLOGY [9013] Order #: [id number]: 1 UA DIP B/O [0913870] Order #: [id number] URINALYSIS WITH MICROSCOPIC [SQUAWMIC] Order #: [id number] URINE CULTURE [SQURCUL] Order #: [id number] COMP METABOLIC PANEL [SQCMP] Order #: [id number] FUTURE CBC + DIFF [SQCBCDIF] Order #: [id number] FUTURE HGB A1C [PRIVN3L] Order #: [id number] FUTURE Prescriptions as of 01/31/2018 Sig: CHOLECALCIFEROL (VITAMIN D3) * DAILY LACTOBACILLUS ACIDOPHILUS-LAC* DAILY MULTIVITAMIN,TX-MINERALS CAPS* DAILY POLYETHYLENE GLYCOL 3350 17 G* DAILY ASPIRIN 81 MG CHEWABLE TABLET DAILY LANSOPRAZOLE 30 MG CAPSULE,DE* DAILY LISINOPRIL 10 MG TABLET DAILY METOPROLOL TARTRATE 25 MG TAB* DAILY ROSUVASTATIN 5 MG TABLET DAILY CYCLOBENZAPRINE 5 MG TABLET Take 1 tablet by mouth three * LANSOPRAZOLE 30 MG CAPSULE,DE* Take 1 capsule by mouth once * VITAMIN D-3 ORAL Take by mouth. ROSUVASTATIN 5 MG TABLET Take 1 tablet by mouth once d* CPAP CPAP mask, tubing, filters, h* METOPROLOL TARTRATE 25 MG TAB* Take 1 tablet by mouth twice * POLYETHYLENE GLYCOL 3350 17 G* Take by mouth once daily. MULTIVITAMIN WITH MINERALS TA* Take 1 tablet by mouth once d* LACTOBACILLUS ACIDOPHILUS-BIF* Take by mouth once daily. MULTIVITAMIN WITH MINERALS TA* Take 1 tablet by mouth once d* COMPOUNDED PRESCRIPTION CPAP setting at 15 cm H2O wit* TYLENOL ARTHRITIS 650 MG TABL* as necessary PRINIVIL 20 MG TABLET Take one(1) tablet daily. B COMPLETE TABLET Take one(1) tablet daily. ASPIRIN 81 MG TABLET Take one (1) tablet daily . Problem List As Of Date 01/31/2018 Noted Resolved ENLARGEMENT LYMPH NODES [R59.9] PAROX VENTRIC TACHYCARD [I47.2] PLANTAR FIBROMATOSIS [M72.2] CHRONIC LIVER DIS NEC [K76.89] Other and unspecified hyperlipidemia [E78.5] 10/21/2016 DYSMETABOLIC SYNDROME X [E88.81] Essential hypertension [I10] More... ESOPHAGEAL REFLUX [K21.9] FEMALE GENITAL SYMPTOMS NOS [N94.9] INVALID FOR* VULVAL ATROPHY [N90.5] INVALID FOR* OTHER LUNG DISEASE NEC [J98.4] INVALID FOR* ANEMIA NOS [D64.9] INVALID FOR* ACUTE GASTRITIS W/O HEMORRHAGE [K29.00] INVALID FOR* BRADEN (obstructive sleep apnea) [G47.33] INVALID FOR* More... Abnormal mammogram, unspecified [R92.8] INVALID FOR* Paroxysmal SVT (supraventricular tachycardia) (*INVALID FOR* Mixed hyperlipidemia [E78.2] INVALID FOR* More... Medications Discontinued During This Encounter albuterol HFA (VENTOLIN HFA) 90 mcg/* 1 In* 0 02/14/2017 01/31/2018 Route: INHALATION Sig: Inhale 2 Puffs as instructed every 4 hours as needed for Wheezing/Shortness of Breath. Disc: Reason for discontinue is not on file. Encounter Status:Closed by JULISSA VENEGAS MD on 01/31/18 PROGRESS Observed: 12/10/2017 Status: COMPLETED Source: [place] 3:17 PM [facility] HNO ID: [id number] Author: Jose Manuel (Chantal) Norm Service: (none) Author Type: Nurse Practitioner Type: Progress Notes Filed: 12/10/2017 3:59 PM Note Text: HPI/CC: 62 year old female presents with 7 days of external vaginal pain and dark urine. Reports frequency, urgency, hematuria, incontinence and doesn't feel well Denies dysuria, hematuria, fever, chills, flank pain located , nausea, vomiting and diarrhea SUPERVISOR CORDUROY CUTTING: Negative for abnormal vaginal bleeding and abnormal vaginal discharge Any concerns for STD exposure: No UTI Hx: none. Pyelonephritis Hx: rare. Attempted nothing for symptoms. REVIEW OF SYSTEMS: as above otherwise non-contributory Reviewed relevant PMHx, PSHx, Social Hx, current medications and allergies. PHYSICAL EXAMINATION/OBJECTIVE DATA: BP 124/72 (BP Site: Left Arm, BP Position: Sitting, BP Cuff Size: Regular Adult) Pulse 96 Temp 37 ?C (98.6 ?F) Resp 16 Wt 97.1 kg (214 lb) SpO2 94% BMI 32.54 kg/m2 General appearance: Well appearing, alert, in no acute distress, well-hydrated, well nourished Back: Normal exam, no pain to palpation, no pain to palpation over costovertebral angles bilaterally Lungs: Clear to auscultation, no wheezing or rhonchi Heart: S1 and S2 normal, RRR without murmur Abdomen: soft, nondistended and rounded, normal bowel sounds.Tenderness:none Masses: none Organomegaly:none Urine dip results significant for nothing. ASSESSMENT/PLAN: 1. Yeast infection involving the vagina and surrounding area - ICD9: 112.1, ICD10: B37.3 (primary diagnosis) - FLUCONAZOLE 150 MG TABLET - POLYCARBOPHIL VAGINAL GEL 2. Vaginal burning - ICD9: 625.8, ICD10: N94.9 - FLUCONAZOLE 150 MG TABLET - If symptoms persist or worsen would recommend consult to SUPERVISOR CORDUROY CUTTING 3. Vaginal dryness - ICD9: 625.8, ICD10: N89.8 - POLYCARBOPHIL VAGINAL GEL - If symptoms persist or worsen would recommend consult to SUPERVISOR CORDUROY CUTTING Prescription instructions reviewed with patient as applicable. Potential red flag symptoms discussed with the patient. Reviewed appropriate action plan to take if red flag symptoms occur. Patient agreeable to treatment plan. Jose Manuel León CNP CNOV Observed: 12/10/2017 Status: COMPLETED Source: [place] [address]:00 PM [facility] REPOSITORY Office Visit (INTMWS) RON MARTINI ([id number]) 1955 F Date Time Provider Department 12/10/17 3:00 PM JOSE MANUEL LEÓN (CHANTAL) INTMWS During your visit today, we recorded the following information about you: Temperature Pulse Respiration Blood pressure 98.6 degrees 96/minute 16/minute 124/72 Weight 97.1 kg Jose Manuel León CNP 12/10/2017 3:59 PM Signed HPI/CC: 62 year old female presents with 7 days of external vaginal pain and dark urine. Reports frequency, urgency, hematuria, incontinence and doesn't feel well Denies dysuria, hematuria, fever, chills, flank pain located , nausea, vomiting and diarrhea SUPERVISOR CORDUROY CUTTING: Negative for abnormal vaginal bleeding and abnormal vaginal discharge Any concerns for STD exposure: No UTI Hx: none. Pyelonephritis Hx: rare. Attempted nothing for symptoms. REVIEW OF SYSTEMS: as above otherwise non-contributory Reviewed relevant PMHx, PSHx, Social Hx, current medications and allergies. PHYSICAL EXAMINATION/OBJECTIVE DATA: BP 124/72 (BP Site: Left Arm, BP Position: Sitting, BP Cuff Size: Regular Adult) Pulse 96 Temp 37 ?C (98.6 ?F) Resp 16 Wt 97.1 kg (214 lb) SpO2 94% BMI 32.54 kg/m2 General appearance: Well appearing, alert, in no acute distress, well-hydrated, well nourished Back: Normal exam, no pain to palpation, no pain to palpation over costovertebral angles bilaterally Lungs: Clear to auscultation, no wheezing or rhonchi Heart: ANDquot;S1 and S2 normal, RRR without murmur Abdomen: soft, nondistended and rounded, normal bowel sounds.Tenderness:none Masses: none Organomegaly:none Urine dip results significant for nothing. ASSESSMENT/PLAN: 1. Yeast infection involving the vagina and surrounding area - ICD9: 112.1, ICD10: B37.3 (primary diagnosis) - FLUCONAZOLE 150 MG TABLET - POLYCARBOPHIL VAGINAL GEL 2. Vaginal burning - ICD9: 625.8, ICD10: N94.9 - FLUCONAZOLE 150 MG TABLET - If symptoms persist or worsen would recommend consult to SUPERVISOR CORDUROY CUTTING 3. Vaginal dryness - ICD9: 625.8, ICD10: N89.8 - POLYCARBOPHIL VAGINAL GEL - If symptoms persist or worsen would recommend consult to SUPERVISOR CORDUROY CUTTING Prescription instructions reviewed with patient as applicable. Potential red flag symptoms discussed with the patient. Reviewed appropriate action plan to take if red flag symptoms occur. Patient agreeable to treatment plan. Jose Manuel León CNP Referring Provider: SELF [[id number]] Allergies As of Date: 12/10/2017 Noted Allergy Reaction DEMEROL (MEPERIDINE (PF)) 11/02/2012 16 - Unknown DIGITEK (DIGOXIN) 08/07/2005 7 - Swelling DYAZIDE (TRIAMTERENE-HYDROCHLOROT*08/07/2005 Comments: sores in mouth GOLYTELY (PEG 3350-ELECTROLYTES) 11/02/2012 11 - Vomiting LEVAQUIN (LEVOFLOXACIN) 08/07/2005 12 - Shortness of Breath MACROBID (NITROFURANTOIN MONOHYD/*08/15/2012 8 - GI Upset Comments: White stools, fatigue AND stomachache MAGNESIUM CITRATE 11/02/2012 11 - Vomiting PENICILLINS 08/07/2005 Comments: Unknown PRAVACHOL (PRAVASTATIN SODIUM) 08/07/2005 8 - GI Upset ZOCOR (SIMVASTATIN) 03/01/2008 Comments: Constipation, fatigue, nausea Date Reviewed: 12/10/2017 Reviewed by: Sarah Chen LPN - Fully Assessed Reason for Visit: UTI [116] Primary Visit Diagnosis:Yeast infection involving the vagina and surrounding area [B37.3] Other Visit Diagnoses:Vaginal burning [N94.9] Vaginal dryness [N89.8] Order(s):fluconazole (DIFLUCAN) 150 mg tabletTake 1 tablet by mouth once daily for 3 days.Disp: 3 tabletRfl: 0 Vaginal Lubricant (REPHRESH) gelUse 6.7 g vaginally one time only for 1 dose.Disp: 35 gRfl: 0 Prescriptions as of 12/10/2017 Sig: FLUCONAZOLE 150 MG TABLET Take 1 tablet by mouth once d* POLYCARBOPHIL VAGINAL GEL Use 6.7 g vaginally one time * CYCLOBENZAPRINE 5 MG TABLET Take 1 tablet by mouth three * LANSOPRAZOLE 30 MG CAPSULE,DE* Take 1 capsule by mouth once * ALBUTEROL SULFATE HFA 90 MCG/* Inhale 2 Puffs as instructed * VITAMIN D-3 ORAL Take by mouth. ROSUVASTATIN 5 MG TABLET Take 1 tablet by mouth once d* CPAP CPAP mask, tubing, filters, h* METOPROLOL TARTRATE 25 MG TAB* Take 1 tablet by mouth twice * POLYETHYLENE GLYCOL 3350 17 G* Take by mouth once daily. MULTIVITAMIN WITH MINERALS TA* Take 1 tablet by mouth once d* LACTOBACILLUS ACIDOPHILUS-BIF* Take by mouth once daily. MULTIVITAMIN WITH MINERALS TA* Take 1 tablet by mouth once d* COMPOUNDED PRESCRIPTION CPAP setting at 15 cm H2O wit* TYLENOL ARTHRITIS 650 MG TABL* as necessary PRINIVIL 20 MG TABLET Take one(1) tablet daily. B COMPLETE TABLET Take one(1) tablet daily. ASPIRIN 81 MG TABLET Take one (1) tablet daily . Problem List As Of Date 12/10/2017 Noted Resolved ENLARGEMENT LYMPH NODES [R59.9] PAROX VENTRIC TACHYCARD [I47.2] PLANTAR FIBROMATOSIS [M72.2] CHRONIC LIVER DIS NEC [K76.89] Other and unspecified hyperlipidemia [E78.5] 10/21/2016 DYSMETABOLIC SYNDROME X [E88.81] Essential hypertension [I10] More... ESOPHAGEAL REFLUX [K21.9] FEMALE GENITAL SYMPTOMS NOS [N94.9] INVALID FOR* VULVAL ATROPHY [N90.5] INVALID FOR* OTHER LUNG DISEASE NEC [J98.4] INVALID FOR* ANEMIA NOS [D64.9] INVALID FOR* ACUTE GASTRITIS W/O HEMORRHAGE [K29.00] INVALID FOR* BRADEN (obstructive sleep apnea) [G47.33] INVALID FOR* More... Abnormal mammogram, unspecified [R92.8] INVALID FOR* Paroxysmal SVT (supraventricular tachycardia) (*INVALID FOR* Mixed hyperlipidemia [E78.2] INVALID FOR* More... Prescriptions ordered this encounter Disp Refills Start End FLUCONAZOLE 150 MG TABLET 3 ta* 0 12/10/2017 12/13/2017 Route: ORAL Sig: Take 1 tablet by mouth once daily for 3 days. POLYCARBOPHIL VAGINAL GEL 35 g 0 12/10/2017 12/10/2017 Route: VAGINAL Sig: Use 6.7 g vaginally one time only for 1 dose. Encounter Status:Closed by JOSE MANUEL LEÓN CNP on 12/10/17 Observed: 11/17/2017 Status: F Source: [place] URINE CULTURE 9:25 AM [facility] REPOSITORY Sp. Request/Comment: - Specimen received in preservative Culture Result - No growth (<1,000 CFU/ml) Performed By: #### URCUL #### [facility] [address] [place], [place] [address] PROGRESS Observed: 11/17/2017 Status: COMPLETED Source: [place] 9:10 AM [facility] REPOSITORY HNO ID: [id number] Author: Jose Manuel (Chantal) Norm Service: (none) Author Type: Nurse Practitioner Type: Progress Notes Filed: 11/17/2017 9:37 AM Note Text: HPI/CC: 62 year old female presents with 4 day(s) of dysuria, constipation and low abdominal pain. Reports: Vaginal burning with and without urination. Denies frequency, urgency, hematuria, incontinence, fever, chills, flank pain, nausea, vomiting and diarrhea SUPERVISOR CORDUROY CUTTING: Negative for abnormal vaginal bleeding, abnormal vaginal discharge or itching Positive for vaginal burning. GI: Denies nausea, vomiting, diarrhea, black or bloody stools. Reports recent constipation UTI Hx: none and last uti 10/31/17 and treated with Bactrim. Pyelonephritis Hx: none. Attempted Monistat suppository x1 day ago for symptoms without relief REVIEW OF SYSTEMS: as above otherwise non-contributory Reviewed relevant PMHx, PSHx, Social Hx, current medications and allergies. PHYSICAL EXAMINATION/OBJECTIVE DATA: BP 118/76 Pulse 86 Temp 36.7 ?C (98 ?F) (Temporal Artery) Resp 16 Wt 94.8 kg (209 lb) SpO2 97% BMI 31.78 kg/m2 General appearance: Well appearing, alert, in no acute distress, well-hydrated, well nourished Back: no pain to palpation over costovertebral angles bilaterally Lungs: Clear to auscultation, no wheezing or rhonchi Heart: S1 and S2 normal, RRR without murmur Abdomen: soft, nondistended, hypoactive bowel sounds.Tenderness:present, mild RLQ Masses: none Organomegaly:none Genital Urinary: normal external female genitalia without lesions + Erythema to vaginal opening and labia Urine dip results significant for none. ASSESSMENT/PLAN: 1. Vaginal candidiasis - ICD9: 112.1, ICD10: B37.3 (primary diagnosis) - FLUCONAZOLE 150 MG TABLET - Follow up in 2-3 days if no symptom improvement 2. Dysuria - ICD9: 788.1, ICD10: R30.0 recurrent - Send urine for culture - Encouraged patient to increase fluids - URINE CULTURE - UA DIP B/O- negative in office 3. Constipation, unspecified constipation type - ICD9: 564.00, ICD10: K59.00 - Encouraged daily use of Miralax until stools return to normal - Encouraged increased PO fluids - Follow up as needed for new or worsening symptoms Prescription instructions reviewed with patient as applicable. Potential red flag symptoms discussed with the patient. Reviewed appropriate action plan to take if red flag symptoms occur. Patient agreeable to treatment plan. Jose Manuel León CNP EMERGENCY DEPARTMENT Observed: 10/31/2017 Status: F Source: [place] SUMMARY 3:16 PM [facility] REPOSITORY [facility] Medical Records Department [address] [place] [id number] Emergency Department Summary 10/31/17 1456 MR#: [id number] Acct: [id number] Name: RON MARTINI Rep #: [id number] : 1955 62 From: Imani Leavitt MD PCP: Julissa Venegas MD Status: DEP ER - ER Visit Summary Date of Service: 10/31/17 Chief Complaint: Dysuria History of Present Illness: The patient is a 62 F who reports dysuria, frequency, and hematuria today. She is passing some blood clots. She denies any back pain or fever. Physical Examination: Vital signs are unremarkable. Patient sitting upright in bed no acute distress. Heart is regular rate and rhythm. Lungs are clear. Abdomen is soft with suprapubic tenderness to palpation. There is no guarding or rebound. She has no back pain on exam Test Results: Urinalysis reveals 25-50 white blood cells with 3+ bacteria. She has 50-100 RBCs. Emergency Department Course and Treatment: Patient did make multiple trips to the bathroom to urinate but states she is only getting small dribbles out. Postvoid residual ultrasound was performed and showed approximate 40 cc. Very small clots were noted per nursing staff. I do not believe she is retaining. Patient is treated with Azo and Bactrim. Urine culture will be sent. Treatment Plan: [] Disposition: Discharged Impression: Hemorrhagic cystitis This note was generated with Digitick dictation software. It may contain incorrect words, spelling, and punctuation that were not noted in review of the chart prior to signing ED Disposition - Plan for ED Patient: Chief Complaint: Complaint Referrals: Julissa Venegas MD [Primary Care Provider] - What to do if you have Problems For any increased pain, shortness of breath, bleeding, nausea or vomiting, chest pain, or any unexpected problems, contact your Primary Care Provider. Call [facility] ([phone]) or report to the closest Emergency Room. Call 911 if necessary. 10/31/17 1516 <Electronically signed by Imani Leavitt MD> Date Imani Leavitt MD Cosigner Signature (If Indicated): Date CC: Julissa Venegas MD DISCHARGE INSTRUCTION Observed: 10/31/2017 Status: F Source: [place] 3:04 PM [facility] RE[facility]IT[facility] Medical Records Department [address] [place] [address] Discharge Instruction 10/31/17 1500 MR#: [id number] Acct: [id number] Name: RON AMRTINI Rep #: [id number] : 1955 62 From: Imani Leavitt MD PCP: Julissa Venegas MD Status: REG ER ED Disposition - Plan for ED Patient: Disposition: Home or Assisted Living Chief Complaint: Complaint Instructions: ED UTI Cystitis Female Prescriptions: Phenazopyridine HCl [Pyridium] 200 mg PO BID PRN PRN #10 tablet PRN Reason: Pain Smz/Tmp Ds [Bactrim Ds] 1 tablet PO BID #10 tablet Referrals: Julissa Venegas MD [Primary Care Provider] - 3-5 Days if not improving What to do if you have Problems For any increased pain, shortness of breath, bleeding, nausea or vomiting, chest pain, or any unexpected problems, contact your Primary Care Provider. Call [facility] ([phone]) or report to the closest Emergency Room. Call 911 if necessary. 10/31/17 6604 <Electronically signed by Imani Leavitt MD> Date Imani Leavitt MD Cosigner Signature (If Indicated): Date CC: Julissa Venegas MD URINALYSIS, COMPLETE Collected: 10/31/2017 Status: F Source: [place]AS 1:50 PM [facility] REPOSITORY Order Comment: Order Date: 10/31/17 COLOR OF URINE MAY AFFECT DIPSTICK RESULTS. Microscopic field is filled. Other elements may be obscured. How was Urine Obtained? INSURANCE CLAIMS CLERK TO SPECIFY TYPE CODE TESTS RESULT OUT OF RANGE REFERENCE UNITS LAB L400.3000 Yellow COLOR Normal Red LAB L400.3050 Clear Normal CLARITY Turbid LAB L400.3200 Normal mg/dl Normal GLUCOSE, UR Normal LAB L400.3300 Negative mg/dL Normal BILIRUBIN URINE Negative LAB L400.3400 Negative mg/dl High 5 KETONE UR LAB L400.3465 1.002-1.030 Normal SP.GR. DIPSTX 1.015 LAB L400.3550 5.0 - 8.0 pH UR Normal 6.5 LAB L400.3600 Negative mg/dl High PROT DIPSTX 500 LAB L400.3700 Normal mg/dl Normal UROBILI Normal LAB L400.3750 Negative Normal NITRITE UR Negative LAB L400.3780 Negative /ul High OCCULT BLOOD-UR 250 LAB L400.3800 Negative /ul High LEUK ESTERASE 500 LAB L400.4050 0-5 /hpf WBC Normal 25-50 SEEN LAB L400.4100 0-5 /hpf Normal RBC-UA 50-100 SEEN LAB L400.4150 5-10 /hpf SQUAM 0 Normal EPI SEEN LAB L400.4300 None Seen /hpf 3+ Normal BACTERIA LAB L400.4350 <or=2+ /hpf 0 Normal MUCUS, URINE SEEN Performed By: #### L400.0001 #### [facility] [address] [place], [place], [address] Observed: 10/31/2017 Status: F Source: DEEP GAP CULTURE, URINE 1:50 PM [facility] REPOSITORY Urine Culture ORGANISM 1: Presumptive E. coli [place] Count >100,000 Presumptive E. coli: REACTION Amoxacillin/Clavulanic Acid $ 4 S Ampicillin $ 8 S Ampicillin/Sulbactam $ 4 S Cefazolin $ <=4 S Cefepime $ <=1 S Ceftriaxone $ <=1 S Ciprofloxacin $ <=0.25 S ESBL - Ertapenim $$$ <=0.5 S Gentamicin $ <=1 S Imipenem *NF <=0.25 S Levofloxacin $ <=0.12 S Nitrofurantoin $ <=16 S Piperacillin/Tazobactam $$ <=4 S Tobramycin $ <=1 S Trimethoprim/Sulfametho $ <=20 S (NF) indicates non-formulary drug at [facility]. Approval by Infectious Disease Specialist required before non-formulary drugs may be ordered and/or dispensed. Performed By: #### M100.0650 #### [facility] [address] [place], [place], [address] LIVER PROFILE Collected: 09/29/2017 Status: F Source: TOMAS 8:43 AM [facility] REPOSITORY Order Comment: Order Date: 04/01/17 Order Info: 0788-1 - *Hepatic Function Panel Order Info: [id number] - *Lipid Profile CC PCP Comments: 12 hours fasting, may have water. TYPE CODE TESTS RESULT OUT OF RANGE REFERENCE UNITS LAB L501.1500 6.4-8.2 g/dL High T PROT 8.3 LAB L501.1800 3.4-5.0 g/dL Normal ALB 3.8 Result Comment: Please note revised Albumin AND Globulin reference range effective 2017. LAB L501.1950 2.2-4.2 g/dL High GLOB 4.5 LAB L501.4100 15-37 U/L Normal AST 34 LAB L501.4305 45-117 U/L Normal ALK P 68 LAB L501.4405 12-78 U/L Normal ALT 49 LAB L501.4600 0.20-1.00 mg/dL Normal T BILI 0.40 LAB L501.4700 0.00-0.30 mg/dL Normal D BILI 0.10 Performed By: #### L500.3400 #### [facility] [address] [place], [place], [address] LIPID PROFILE Collected: 09/29/2017 Status: F Source: TOMAS 8:43 AM [facility] REPOS[facility]ORY Order Comment: Order Date: 04/01/17 Order Info: 0788-1 - *Hepatic Function Panel Order Info: [id number] - *Lipid Profile CC PCP Comments: 12 hours fasting, may have water. TYPE CODE TESTS RESULT OUT OF RANGE REFERENCE UNITS LAB L501.4900 200 mg/dL Normal CHOL 125 Result Comment: <200 mg/dL Desirable 200-240 mg/dL Borderline >240 mg/dL High Risk LAB L501.5000 mg/dL Normal TRIG 135 Result Comment: The drugs N-Acetylcysteine and Metamizole may falsely depress this assay. Serum Triglycerides Reference Interval Normal <150 mg/dL Borderline high 150 - 199 mg/dL High 200 - 499 mg/dL Very High > or = 500 mg/dL LAB L501.6400 mg/dL Normal HDL 46 Result Comment: The drugs N-Acetylcysteine and Metamizole may falsely depress this assay. Reference Range HDL <40 mg/dL Low HDL Cholesterol HDL >or= 60 mg/dL High HDL Cholesterol LAB L501.6500 0-130 mg/dL Normal LDL 52 LAB L501.6600 5-40 mg/dL Normal VLDL 27 Performed By: #### L500.4100 #### [facility] [address] [place], [address] ALLERGIES ALLERGIES DATE TYPE / NAME / CODE REACTION SEVERITY SOURCE CODE 04/18/2018 Drug Penicillins/[id number] Unknown Unknown [place] Allergy/41 76(RXNORM) Community 2504711([facility]) Repository 04/18/2018 Drug digoxin/[id number](R Other Unknown [place] Allergy/41 XNORM) Community 1935089([facility]) Repository 04/18/2018 Drug sodium/[id number](RX Upset Stomach Unknown [place] Allergy/41 NORM) Community 5191724([facility]) Repository 04/18/2018 Drug sodium Upset Stomach Unknown [place] Allergy/41 chloride/B831489716( Community 8483360( RXNORM) [facility]) Repository 04/18/2018 Drug sodium Upset Stomach Unknown [place] Allergy/41 sulfate/C969386902(R Community 6186448( XNORM) [facility]) Repository 04/18/2018 Drug hydrochlorothiazide/ Upset Stomach Unknown [place] Allergy/41 L376491020(RXNORM) Community 1103733([facility]) Repository 04/18/2018 Drug triamterene/K9147944 Upset Stomach Unknown [place] Allergy/41 15(RXNORM) Community 1397564([facility]) Repository 04/18/2018 Drug polyethylene Upset Stomach Unknown [place] Allergy/41 glycol/F667373302(RX Community 2260674( NORM) [facility]) Repository 04/18/2018 Drug nitrofurantoin/F0060 Upset Stomach Unknown [place] Allergy/41 48043(RXNORM) Community 0114746([facility]) Repository 04/18/2018 Drug pravastatin/V8370397 Upset Stomach Unknown [place] Allergy/41 06(RXNORM) Community 3295471([facility]) Repository 04/18/2018 Drug simvastatin/O2962885 Upset Stomach Unknown [place] Allergy/41 21(RXNORM) Community 8916514([facility]) Repository 04/18/2018 Drug meperidine/T63859975 Upset Stomach Unknown [place] Allergy/41 0(RXNORM) Community 6628946([facility]) Repository 04/18/2018 Drug levofloxacin/N903830 Upset Stomach Unknown [place] Allergy/41 299(RXNORM) Community 4684874([facility]) Repository 04/18/2018 Drug polyethylene glycol Upset Stomach Unknown [place] Allergy/41 3350/G491973744(RXNO Community 2918525(SN RM) [facility]) Repository 04/18/2018 Drug magnesium Upset Stomach Unknown [place] Allergy/41 citrate/N646131458(R Community 9983276( XNORM) [facility] OMED CT) Repository 04/18/2018 Drug potassium Upset Stomach Unknown [place] Allergy/41 chloride/S182917199( Community 6830097( RXNORM) [facility] OMED CT) Repository 04/18/2018 Drug sodium Upset Stomach Unknown [place] Allergy/41 bicarbonate/K5100553 Community 8691228( 39(RXNORM) [facility] OMED CT) Repository 11/02/2012 DRUG/35457 MEPERIDINE (PF) UNKNOWN [facility] 1003(SNOME [place] [address]) Repository 11/02/2012 DRUG/27047 PEG Vomiting [facility] 1003(SNOME 3350-ELECTROLYTES [place] [address]) Repository 11/02/2012 DRUG MAGNESIUM CITRATE Vomiting [place] [address] [address] [place] 0794321(SN Repository OMED CT) 08/15/2012 DRUG/64147 NITROFURANTOIN GI UPSET [facility] 1003(SNOME MONOHYD/M-CRYST [place] [address]) Repository 03/01/2008 DRUG SIMVASTATIN [place] [address] [address] [place] 4664018(SN Repository OMED CT) 08/07/2005 DRUG DIGOXIN SWELLING [place] [address] [address] [place] 3023553(SN Repository OMED CT) 08/07/2005 DRUG/92408 TRIAMTERENE-HYDROCHL [facility] 1003(SNOME OROTHIAZID [place] [address]) Repository 08/07/2005 DRUG LEVOFLOXACIN SHORTNESS OF [place] [address] [address] [place] 3577558(SN Repository OMED CT) 08/07/2005 Drug PENICILLINS [facility] Class/4195 [address] [place] [address](SNOM Repository ED CT) 08/07/2005 DRUG PRAVASTATIN SODIUM GI UPSET [place] [address] [address] [place] 6048823(SN Repository OMED CT) ENCOUNTERS ENCOUNTERS ADMIT/DISCHARGE ACCOUNT ADMITTING ENCOUNTER LOCATION SOURCE NUMBER CLASS 08/26/2018 [id number] Ambulatory [facility] ing:BFHLAB Repository 08/02/2018 [id number] [facility] ing:OPBD Repository 07/28/2018 [id number] Ambulatory [facility] ing:BFHLAB Repository 04/18/2018/04/19/20 [id number] Emergency [address] ing:ED Repository 04/08/2018 [id number] Ambulatory [facility] ing:LAB Repository 03/14/2018/03/14/20 [id number] Ambulatory BMSBuilding:B [place] [address] [facility] Repository 03/10/2018 [id number] Ambulatory BMSBuilding:B [place] [facility] Repository 02/22/2018/02/24/20 [id number] Ambulatory [address] Repository 02/03/2018/02/04/20 [id number] Ambulatory [address] Repository 02/03/2018/02/08/20 [id number] Ambulatory [address] Repository 01/31/2018/02/02/20 [id number] Ambulatory [address] Repository 12/10/2017/12/11/19 [id number] Ambulatory [address] Repository 11/17/2017/11/19/19 [id number] Ambulatory [address] Repository 10/31/2017/10/31/19 [id number] Emergency [address] ing:ED Repository 09/29/2017 [id number] Ambulatory [facility] ing:LAB Repository PAYERS PAYERS ENCOUNTER GUARANTOR PAYER SUBSCRIBER SOURCE 08/26/2018 [place] Quan [place] [id number] Insurance:GPATPA AckermanDOB: [facility] Number: [id number] [place], [place] [id number] Repository 117[address]Iol: 330) Date:2146-15-37[phone] (EM) 501[place]QX[place]Z, [place] [address]FM: 08/26/2018 Secondary NOT GIVENUNK [place] Insurance:SELF PAY [facility] Number: Effective Repository Date:2018-08-26 08/02/2018 [facility] Fausto Primary [address] [place] [id number] Insurance:GPATPA AckermanDOB: [facility] Number: [id number] [place], [place] [id number] Repository [address]Tux: (330) Date:8248-23-89ZT [phone] (HP) 476903QMEEMA, [place] [address]JC: 08/02/2018 Secondary NOT GIVENUNK [place] Insurance:SELF PAY [facility] Number: Effective Repository Date:2018-07-28 07/28/2018 [facility] Fausto Primary [place] [id number] Insurance:GPATPA AckermanDOB: [facility] Number: [id number] [place], [place] [id number] Repository [address]Efm: ([phone]) Date:7454-69-28U[phone] (HP) [address]74[address]SAJ[place]X, [place] [address]LD: 07/28/2018 Secondary NOT GIVENUNK [place] Insurance:SELF PAY [facility] Number: Effective Repository Date:2018-07-28 04/18/2018 [facility] Fausto Primary [address] [id number] Insurance:GPATPA AckermanDOB: [facility] Number: [id number] [place], [place] [id number] Repository [address]Iiu: (330) Date:9207-28-17VI [phone] (HP) [id number], [place] [address]IQ: 04/18/2018 Secondary NOT GIVENUNK [place] Insurance:SELF PAY [facility] Number: Effective Repository Date:2018-04-18 04/08/2018 [facility] Fausto Primary [address] [id number] Insurance:GPATPA AckermanDOB: [facility] Number: [id number] [place], [place] [id number] Repository [address]Qfe: (330) Date:6475-07-77EM [phone] (HP) [address]17[address]NC[place], [place] [address]DE: 04/08/2018 Secondary NOT GIVENUNK [place] Insurance:SELF PAY [facility] Number: Effective Repository Date:2018-04-08 03/14/2018 [facility] E Primary [address] [id number] Insurance:GPATPA AckermanDOB: [facility] Number: [id number] [place], [place] [id number] Repository [address]23[address]Vkm: (330) Date:6000-95-95[phone] (HP) [address]25[address], [place] [address]FV: 03/14/2018 Secondary NOT GIVENUNK [place] Insurance:SELF PAY [facility] Number: Effective Repository Date:2017-09-16 03/10/2018 [facility] E Primary Berry lGass [place] [id number] Insurance:GPATPA AckermanDOB: [facility] Number: [id number] [place], [place] [id number] Repository [address]Eog: (330) Date:5285-16-21ZW [phone] (HP) [address]NLORRC, [place] [address]QI: 03/10/2018 Secondary NOT GIVENUNK [place] Insurance:SELF PAY [facility] Number: Effective Repository Date:2018-03-10 10/31/2017 [facility] E Primary [address] [id number] Insurance:GPATPA AckermanDOB: [facility] Number: [id number] [place], [place] [id number] Repository [address]Okh: (330) Date:8550-56-50MP [phone] (HP) [address]278[address], [place] [address]KW: 10/31/2017 Secondary NOT GIVENUNK [place] Insurance:SELF PAY [facility] Number: Effective Repository Date:2017-10-31 09/29/2017 Ron Lambert Primary Berry L [place] [id number] Insurance:GPATPA *NOT AckermanDOB: [facility] [id number] Number: Repository [address]Tcn: [phone] [id number] [phone] Date:9216-67-86[address]ZXGMLE, [place] [address]JN: 09/29/2017 Secondary [place] Insurance:GPATPA AckermanDOB: [facility] Number: [id number] [id number] Repository Date:1574-48-63[address]SAMRVY, [place] [address]SK: 09/29/2017 Tertiary NOT GIVENTHA [place] Insurance:SELF PAY [facility] Number: Effective Repository Date:2017-09-29
== END ==
PROVIDERS: Family Provider Family Medicine; PCP Family Medicine; Visit Provider Family Medicine
DX: N39.0 Urinary tract infection, site not specified (principal); R31.9 Hematuria, unspecified
CPT/HCPCS: 87086; 87088

== ENCOUNTER → 2018-09-26 08:23 | Outpatient (CLI) | payer OTHER, SELFPAY ==
[2018-08-26 13:12] VITALS: BMI 31.4
--- NOTE | 2018-09-26 08:29 | CT_ITS ---
STUDY: CT ABDOMEN AND PELVIS WITH AND WITHOUT CONTRAST-CT UROGRAM REASON FOR EXAM: Female, 63 years old. Hematuria with recurrent bladder infections RADIATION DOSAGE (If Supplied By Facility): CTDIvol = ( 26.70 ) mGy, DLP = ( 3488.54 ) mGycm TECHNIQUE: Transaxial images were obtained from the dome of the diaphragm to the symphysis pubis without oral contrast. 100 ml of Isovue 300 contrast was administered. Sagittal and coronal images were reconstructed. CT urogram protocol with imaging in the noncontrasted, corticomedullary and delayed phases. Individualized dose optimization techniques were used for this CT. COMPARISON: None. FINDINGS: There are chronic interstitial fibrotic changes of the lung bases. The visualized portions of the heart are within normal limits. Normal liver. There are surgical clips in the gallbladder fossa consistent with a prior cholecystectomy. Normal spleen. Normal pancreas. Normal bilateral adrenal glands. Noncontrasted imaging shows symmetric kidneys without solid or cystic mass. There is a fat density mass of the anterior mid left kidney measuring 1.3 cm it does not demonstrate significant contrast enhancement. No urinary tract calcifications. Following IV contrast, there is equal and normal enhancement of the kidneys without solid mass with only a tiny (3 mm) nonenhancing cysts of the posterior mid left kidney on image [address] urographic images demonstrate incomplete (lower ureter is not opacified) opacification of the ureters. No filling defects or ureteral masses. Urinary bladder fills normally. No bladder wall thickening. Normal visualized stomach. Normal small intestine. There are multiple colonic diverticula consistent with diverticulosis. There is non-visualization of the appendix. Normal abdominal aorta. Normal inferior vena cava. Normal retroperitoneum. There is absence of the uterus consistent with a prior hysterectomy. Normal abdominal wall. There are degenerative changes of L5-S1. CT/CT Abd/Pelvis W/WO Contrast IMPRESSION: 1. Normal CT urogram but with incomplete opacification of the lower ureters. 2. 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 3. Cholecystectomy, nonvisualized uterus and appendix. 4. Diverticulosis without evidence of diverticulitis. 5. Subcentimeter simple cyst of the left kidney. Electronically Signed: Mart Jonas MD at 14:13 EST , Service support ,
[2018-09-26 08:46] LABS: CREATININE FINGERSTICK 0.8 mg/dL (0.55-1.02); EGFR FINGERSTICK > 60.0000 mL/min (>60)
== END ==
PROVIDERS: Family Provider Family Medicine; PCP Family Medicine; Referring Provider Urology; Visit Provider Urology
DX: N39.0 Urinary tract infection, site not specified (principal); R31.9 Hematuria, unspecified
CPT/HCPCS: 74178; Q9967; A4216

== ENCOUNTER 2018-12-23 21:20 | Emergency (ER) | payer OTHER, SELFPAY ==
[2018-08-26 13:12] VITALS: BMI 31.4
[2018-12-23 21:20] VITALS: BP 141/78; PULSE 97; RESP 22; TEMP 37.4; O2SAT 97; BMI 32.6
--- NOTE | 2018-12-23 22:44 | RAD_ITS ---
STUDY: X-RAY CHEST REASON FOR EXAM: Female, 63 years old. Cough and shortness of breath. TECHNIQUE: PA and lateral views of the chest. COMPARISON: February 25, 2017 FINDINGS: There is hyperinflation of the lungs consistent with chronic obstructive lung disease (COPD). There is no demonstrated pleural abnormality. Normal size heart. Normal mediastinum and gaby. Normal visualized pulmonary arteries. There is atherosclerotic calcification of the aortic arch with tortuosity. There is demineralization of the osseous structures. There is increased thoracic kyphosis. Normal visualized ribs, clavicles, and shoulders. There is no demonstrated abnormality of the visualized soft tissue structures of the upper abdomen. RAD/Chest PA and Lateral IMPRESSION: No radiographic evidence of acute cardiopulmonary disease. Electronically Signed: Karen Navarrete MD at 0:36 EDT , Service support ,
[2018-12-23] MEDS: Albuterol 2.5 MG/3 ML VIAL.NEB. INHALATION (23:04)
[2018-12-23] MEDS: Ipratropium/Albuterol Sulfate 3 ML AMPUL.NEB INHALATION (23:04)
[2018-12-23 23:05] VITALS: RESP 18
--- NOTE | 2018-12-23 23:26 | ED.RN ---
PATIENT IS NOT A SEPSIS ALERT AWARE. HER TEMPERATURE IS ONLY 99.4.
[2018-12-23 23:36] LABS: Absolute Lymphocyte Count 3.85 X10^3/ul (0.83-4.51); Absolute Neutrophil Count 5.5 X10^3/uL (2.0-7.7); Basophil# 0.03 X10^3/uL; Basophil% 0.3 % (0-1); Eosinophil# 0.24 X10^3/uL; Eosinophils% 2.3 % (0-5); Hematocrit 37.6 % (37-47); Hemoglobin 12.6 g/dl (12.0-15.0); Lymphocyte # 3.85 X10^3/ul (4.0); Lymphocyte % 36.3 % (19-41); Mean Corp Hgb Conc 33.5 g/gl (32-36); Mean Corpuscular Hgb 30.7 pg (27.0-32.0); Mean Corpuscular Volume 91.7 fL (81-99); Mean Platelet Vol. 8.6 fl (6.2-12.0); Monocyte# 0.96 X10^3/uL; Neutrophil # 5.51 X10^3/uL (2.7-7.7); Neutrophil % 51.8 % (47-70); Platelet Count 318 K/mm3 (150-450); RBC Distribution Width CV 12.5 % (11.6-14.6); RBC Distribution Width SD 41.3 fl (35.1-43.9); White Blood Count 10.6 K/mm3 (4.4-11.0)
[2018-12-23 23:39] LABS: POSITIVE COUNT NO; POSITIVE DIFFERENTIAL NO; POSITIVE MORPHOLOGY NO
[2018-12-23 23:41] LABS: Anion Gap 5 (5-15); BUN 21 mg/dL (7-18); BUN/Creat Ratio 20.6 RATIO (10-20); Calcium,Total 9.6 mg/dL (8.5-10.1); Chloride 105 mmol/L (98-107); Creatinine, Serum 1.02 mg/dL (0.55-1.02); EST Glomerular Filtration Rate 58 mL/min (>60); Est Glom Filt Rate - Afr Amer 70 mL/min (>60); Estimated Creatinine Clearance 56.21 ml/min; Glucose 114 mg/dL (74-106); Potassium 4.4 mmol/L (3.5-5.1); Sodium Level 138 mmol/L (136-145)
[2018-12-23 23:57] VITALS: BP 136/60; PULSE 110; RESP 20; TEMP 36.6; O2SAT 97
[2018-12-23 23:59] VITALS: O2SAT 95
--- NOTE | 2018-12-24 01:01 | ED.VISSUMM ---
- ER Visit Summary Date of Service: 12/24/18 Chief Complaint: Shortness of breath History of Present Illness: The patient is a 63 F who presents with shortness of breath. She has had a cough for about 2 weeks. She has seen her primary care physician twice since that time. Initially she was diagnosed with bronchitis and put on an albuterol inhaler. On the second visit a few days ago she was diagnosed with sinusitis and put on doxycycline she states she has been more short of breath mostly today. She complains of subjective fevers, nasal congestion, sinus pressure, she does states she has some diffuse aching chest pain which is worse with coughing. No vomiting. No diarrhea. Physical Examination: Afebrile respiratory rate 22 pulse ox 97% on room air Heart regular rate and rhythm Slightly tachypneic mild extra Tory wheezing and decreased air exchange Abdomen soft nontender Alert Test Results: CBC BMP unremarkable. Chest x-ray shows no acute process. Emergency Department Course and Treatment: Patient was treated here with albuterol and Atrovent aerosols with improvement of symptoms. She has increased air exchange and no further wheezing on reevaluation. We will place her on a prednisone burst. She was advised to follow-up with her primary care physician and does understand to return for new or worsening symptoms. Treatment Plan: [] Disposition: Discharge Impression: Bronchitis This note was generated with [employer] dictation software. It may contain incorrect words, spelling, and punctuation that were not noted in review of the chart prior to signing ED Disposition - Plan for ED Patient: Instructions: Acute Bronchitis Prescriptions: predniSONE tablet 60 mg PO DAILY #15 tab Referrals: Liv Vanessa MD [Primary Care Provider] -
[2018-12-24 01:11] VITALS: BP 108/61; PULSE 106; RESP 20; O2SAT 97
== END 2018-12-24 01:13 | disposition home or self-care (01) ==
LOC: ED 22:39
PROVIDERS: Emergency Provider Emergency Medicine; Family Provider Family Medicine; PCP Family Medicine
DX: J40 Bronchitis, not specified as acute or chronic (principal); I10 Essential (primary) hypertension; E78.00 Pure hypercholesterolemia, unspecified; K21.9 Gastro-esophageal reflux disease without esophagitis
CPT/HCPCS: 71046; 80048; 85025; 94640; 99283; J7030; A4216

== ENCOUNTER 2019-03-11 19:46 | Emergency (ER) | payer OTHER, SELFPAY ==
[2019-03-11 19:48] VITALS: BP 143/73; PULSE 77; RESP 18; TEMP 36.1; O2SAT 98; BMI 32.2
[2019-03-11 20:04] VITALS: RESP 16
--- NOTE | 2019-03-11 20:07 | EKG12_ITS ---
Test Reason : Blood Pressure : / mmHG Vent. Rate : 082 BPM Atrial Rate : 082 BPM P-R Int : 140 ms QRS Dur : 080 ms QT Int : 370 ms P-R-T Axes : 050 009 045 degrees QTc Int : 432 ms Normal sinus rhythm Normal ECG Confirmed by ASYA FERRO MD ([id number]), newspaper copy editor ALLEN JANE ([id number]) on 03/14/2019 9:31:56 AM Referred By: MIRIAM Confirmed By:ASYA FERRO MD
--- NOTE | 2019-03-11 20:07 | CT_ITS ---
STUDY: CT BRAIN WITHOUT CONTRAST REASON FOR EXAM: Female, 64 years old. Dizziness since 1700. RADIATION DOSAGE (If Supplied By Facility): CTDIvol = ( 44.99 ) mGy, DLP = ( 863.60 ) mGycm TECHNIQUE: Transaxial CT imaging of the brain was performed without administration of intravenous contrast material. Multiplanar reformations are submitted for interpretation. Individualized dose optimization techniques were used for this CT. COMPARISON: No relevant priors. FINDINGS: Normal soft tissue structures. Normal calvarium. Normal size ventricles and extra-axial spaces for the patient's age. Normal white matter tracts of the cerebral hemispheres. Normal basal ganglia and thalami. Normal brainstem. Normal cerebellum. There is no intracranial hemorrhage. There are no findings of an acute ischemic infarction. Normal visualized paranasal sinuses. CT/Brain/Head without Contrast IMPRESSION: No CT evidence of acute intracranial hemorrhage. Electronically Signed: Karen Navarrete MD at 22:00 EDT , Service support ,
[2019-03-11] MEDS: LORazepam 2 MG/ML Syringe 0.5 MG IV (20:36)
[2019-03-11] MEDS: 0.9% Normal Saline 1,000 ML 150 ML IV (20:36)
[2019-03-11 20:47] LABS: Absolute Lymphocyte Count 3.94 X10^3/ul (0.83-4.51); Absolute Neutrophil Count 6.1 X10^3/uL (2.0-7.7); Basophil# 0.05 X10^3/uL; Basophil% 0.5 % (0-1); Eosinophil# 0.22 X10^3/uL; Hematocrit 41.5 % (37-47); Lymphocyte # 3.94 X10^3/ul (4.0); Lymphocyte % 35.8 % (19-41); Mean Corp Hgb Conc 33.7 g/gl (32-36); Mean Corpuscular Volume 91.8 fL (81-99); Mean Platelet Vol. 9.4 fl (6.2-12.0); Monocyte# 0.67 X10^3/uL; Monocyte% 6.1 % (0-10); Neutrophil # 6.13 X10^3/uL (2.7-7.7); Neutrophil % 55.5 % (47-70); Platelet Count 263 K/mm3 (150-450); RBC Distribution Width CV 12.7 % (11.6-14.6); Red Blood Count 4.52 M/mm3 (4.2-5.4)
[2019-03-11 20:49] LABS: POSITIVE COUNT NO; POSITIVE DIFFERENTIAL NO; POSITIVE MORPHOLOGY NO
[2019-03-11 20:52] LABS: Prothrombin Time (Protime)PT. 12.5 SECONDS (11.7-14.9)
[2019-03-11 20:53] LABS: Partial Thromboplast Time 29.3 Seconds (24.1-36.2)
--- NOTE | 2019-03-11 21:12 | ED.VISSUMM ---
- ER Visit Summary Date of Service: 03/11/19 Chief Complaint: Dizziness History of Present Illness: The patient is a 64 F reported dizziness that started around 5 PM this evening. She describes a lightheaded sensation with some motion sensation. She tried to stand tonight and fell back into her chair. She denies history of vertigo. She has had no recent head trauma. When turning her head side to side in the room she does note some movement sensation. Past history significant for diabetes, hypertension, high cholesterol, SVT. Physical Examination: Vital signs unremarkable. Patient sitting upright in bed no acute distress. Heart is regular rate and rhythm. Lung sounds are clear. Abdomen is soft and nontender. Neuro exam reveals an NIH score of 1. This is for decreased sensation to light touch on her right face. There is no facial asymmetry. She is able to perform cerebellar movements without difficulty. Test Results: EKG is sinus 82 with no sign of acute ischemia. CT brain shows no acute hemorrhage or ischemic infarct. CBC and chemistry studies normal. Coags normal. Troponin negative. Emergency Department Course and Treatment: Patient was given IV fluids. We do not have IV Valium available so she was given a small dose of IV Ativan. On repeat evaluation she states her dizziness is somewhat improved. Isha-Hallpike maneuver was performed and negative, but this is noted to be after she was treated. Patient was able to get up and ambulate to the restroom without difficulty. I discussed with the patient possibility peripheral vertigo versus neurologic cause. At this time patient has no significant signs of acute stroke. Is able to get up and ambulate and did improve significantly with treatment. She will be discharged with Antivert. She was instructed to return for any worsening symptoms or concerns. Patient and at bedside are both in agreement. Treatment Plan: [] Disposition: Discharge Impression: Vertigo, improved This note was generated with Kwi[employer] dictation software. It may contain incorrect words, spelling, and punctuation that were not noted in review of the chart prior to signing ED Disposition - Plan for ED Patient: Disposition: Home or Assisted Living Instructions: ED Vertigo Unspecified Prescriptions: Meclizine HCl [Antivert] 25 mg PO 4X/DAY PRN PRN #20 tablet PRN Reason: Dizziness Referrals: Liv Vanessa MD [Primary Care Provider] - 5-7 Days
[2019-03-11 21:18] LABS: Anion Gap 5 (5-15); BUN 23 mg/dL (7-18); BUN/Creat Ratio 25.6 RATIO (10-20); Calcium,Total 10.2 mg/dL (8.5-10.1); Chloride 104 mmol/L (98-107); EST Glomerular Filtration Rate 67 mL/min (>60); Est Glom Filt Rate - Afr Amer 81 mL/min (>60); Estimated Creatinine Clearance 62.86 ml/min; Glucose 95 mg/dL (74-106); Potassium 4.1 mmol/L (3.5-5.1); Sodium Level 136 mmol/L (136-145)
[2019-03-11 22:34] VITALS: BP 141/80; PULSE 71; RESP 16; O2SAT 95
== END 2019-03-11 22:50 | disposition home or self-care (01) ==
PROVIDERS: Emergency Provider Emergency Medicine; Family Provider Family Medicine; PCP Family Medicine
DX: R42 Dizziness and giddiness (principal); E11.9 Type 2 diabetes mellitus without complications; I10 Essential (primary) hypertension; E78.00 Pure hypercholesterolemia, unspecified; I47.1 Supraventricular tachycardia
CPT/HCPCS: 70450; 80048; 84484; 85025; 85610; 85730; 93005; 96361; 96374; 99285; J7030; A4216

== ENCOUNTER → 2019-04-12 08:17 | Outpatient (CLI) | payer OTHER, SELFPAY ==
[2019-04-12 10:23] LABS: AST(SGOT) 37 U/L (15-37); Alanine Aminotransfer ALT/SGPT 38 U/L (13-56); Albumin, Serum 3.8 g/dL (3.2-5.0); Alkaline Phosphatase 46 U/L (45-117); Bilirubin, Direct 0.09 mg/dL (0.00-0.30); Cholesterol 123 mg/dL (200); High Density Lipoprotein 43 mg/dL; Protein, Total 7.8 g/dL (6.4-8.2); Triglycerides 146 mg/dL; Very Low Density Lipoprotein 29 mg/dL (5-40)
== END ==
PROVIDERS: Family Provider Family Medicine; PCP Family Medicine; Referring Provider Internal Medicine Cardiovascular Disease; Visit Provider Internal Medicine Cardiovascular Disease
DX: E78.5 Hyperlipidemia, unspecified (principal)
CPT/HCPCS: 36415; 80061; 80076

== ENCOUNTER → 2019-06-01 10:14 | Outpatient (CLI) | payer OTHER, SELFPAY ==
[2019-04-12 15:17] VITALS: BMI 31.4
--- NOTE | 2019-06-01 10:16 | BI_ITS ---
MAMMOGRAPHY - BILATERAL SCREENING REASON FOR EXAM: Female, 64 years old. Routine annual screening examination. PERTINENT HISTORY: Sister with breast cancer. TECHNIQUE: Digital bilateral breast brie (3D mammographic acquisition) in the CC and MLO projections. 2-D mediolateral oblique (MLO) and craniocaudad (CC) views of both breasts were obtained. CAD: Full Field Digital Mammography with Computer Added Detection was performed. COMPARISON: Comparison is made with prior examination dated February 03, 2018. FINDINGS: Breast Composition: The breasts are heterogeneously dense, which may obscure small masses. There are no dominant masses or suspicious calcifications. Proximal 1.1 cm nodular density in the anterior superior retroareolar region of the right breast. Correlation with ultrasound is recommended. No other significant abnormalities are identified. BI/SCREEN MAMM (CAD) W/BRIE BILAT IMPRESSION: Findings suggestive of a 1.1 cm x 1.1 cm well-defined nodule in the superior retroareolar region of the right breast as described. Correlation with ultrasound is recommended. ASSESSMENT CATEGORY: BIRADS Category 0: Incomplete. Need additional imaging evaluation. A letter regarding these results will be sent to the patient by the facility within 30 days. Approximately 10% of breast cancers are not detected by mammography. A normal mammogram should not delay biopsy of a clinically suspicious abnormality. [id number] Electronically Signed: Momo Hauser, at 12:34 EDT , Service support ,
--- NOTE | 2019-06-01 10:54 | RAD_ITS ---
STUDY: X-RAY - PELVIS AND RIGHT HIP REASON FOR EXAM: Female, 64 years old. Increasing hip pain. TECHNIQUE: 3 views of the pelvis and hip. COMPARISON: 09/16/2018 CT abdomen pelvis. FINDINGS: No visible fracture. No osseous destruction. Alignment anatomic. Mild degenerative changes for age. No acute soft tissue abnormality. Pelvic sutures and surgical clips again demonstrated. RAD/HIP, UNI W/ Pelvis 2-3 Views IMPRESSION: No acute osseous abnormality. Mild degenerative changes for age. Electronically Signed: Dinh Horta, at 3:33 EDT Tel , Service support ,
== END ==
PROVIDERS: Family Provider Family Medicine; PCP Family Medicine; Referring Provider Family Medicine; Visit Provider Family Medicine
DX: Z12.31 Encounter for screening mammogram for malignant neoplasm of breast (principal); M16.11 Unilateral primary osteoarthritis, right hip
CPT/HCPCS: 73502; 77063; 77067

== ENCOUNTER → 2019-06-05 09:40 | Outpatient (CLI) | payer OTHER, SELFPAY ==
[2019-04-12 15:17] VITALS: BMI 31.4
--- NOTE | 2019-06-05 09:42 | US_ITS ---
STUDY: ULTRASOUND BREAST - RIGHT REASON FOR EXAM: Female, 64 years old. Abnormal screening mammogram. TECHNIQUE: Axial and longitudinal images of the RIGHT breast were performed with a high resolution ultrasound transducer. COMPARISON: Comparison is made with prior mammogram dated June 01, 2019. FINDINGS: RIGHT Breast: The entire breast was examined by ultrasound. There is heterogeneous fibroglandular tissue. No solid or cystic mass lesion is seen. Routine mammographic follow-up is recommended. US/Breast Limited Unilateral IMPRESSION: Unremarkable sonographic examination. Routine mammographic follow-up is recommended. ASSESSMENT CATEGORY: BIRADS Category 1: Negative. A letter regarding these results will be sent to the patient by the facility within 30 days. Electronically Signed: Momo Hauser, at 11:17 EDT , Service support ,
== END ==
PROVIDERS: Family Provider Family Medicine; PCP Family Medicine; Referring Provider Family Medicine; Visit Provider Family Medicine
DX: R92.8 Other abnormal and inconclusive findings on diagnostic imaging of breast (principal)
CPT/HCPCS: 76642

== ENCOUNTER 2019-07-28 17:09 | Emergency (ER) | payer OTHER, SELFPAY ==
[2019-04-12 15:17] VITALS: BMI 31.4
[2019-07-28 17:10] VITALS: BP 159/79; PULSE 95; RESP 17; TEMP 36.2; O2SAT 96; BMI 35.6
--- NOTE | 2019-07-28 17:23 | EKG12_ITS ---
Test Reason : Blood Pressure : / mmHG Vent. Rate : 088 BPM Atrial Rate : 088 BPM P-R Int : 128 ms QRS Dur : 084 ms QT Int : 360 ms P-R-T Axes : 026 -08 009 degrees QTc Int : 435 ms Normal sinus rhythm Voltage criteria for left ventricular hypertrophy Abnormal ECG Confirmed by JOSUE MENDEZ, JM ([id number]), dictionary editor ALLEN JANE ([id number]) on 07/31/2019 10:02:23 AM Referred By: CHARMAINE Confirmed By:JM SALAS MD
--- NOTE | 2019-07-28 17:29 | ED.VIS.GEN ---
History of Present Illness Chief Complaint: Cough Informant: Patient Onset: Yesterday Context: Gradual Onset Timing: Continuous Current Severity: Moderate Maximum Severity: Moderate Narrative: The patient is a 64-year-old female with history of atrial tachycardia who presents to the emergency department with cough, dyspnea, nausea and vomiting. The patient states that her was recently sick with similar symptoms. She feels like she caught it. She states that shortly thereafter she went to urgent care yesterday. She was diagnosed with bronchitis. She was started on azithromycin and a cough suppressant. She states today, she began to have a fever and had 3 episodes of vomiting. She denies any chest pain. She denies orthopnea. She is otherwise been in her normal state of health. Patient has no history of underlying lung disease. Prior similar symptoms: Yes Recent Illness/Hospitalization: No Past Medical History - Allergies and Home Meds Allergies/Adverse Reactions: Allergies Penicillins Allergy (Verified 07/28/19 17:49) Unknown digoxin Adverse Reaction (Verified 07/28/19 17:49) Other hydrochlorothiazide [From Dyazide] Adverse Reaction (Verified 07/28/19 17:49) Upset Stomach levofloxacin [From Levaquin] Adverse Reaction (Verified 07/28/19 17:49) Upset Stomach magnesium citrate Adverse Reaction (Verified 07/28/19 17:49) Upset Stomach meperidine [From Demerol] Adverse Reaction (Verified 07/28/19 17:49) Upset Stomach nitrofurantoin [From Macrobid] Adverse Reaction (Verified 07/28/19 17:49) Upset Stomach polyethylene glycol [From Golytely] Adverse Reaction (Verified 07/28/19 17:49) Upset Stomach polyethylene glycol 3350 [From Golytely] Adverse Reaction (Verified 07/28/19 17:49) Upset Stomach potassium chloride [From Golytely] Adverse Reaction (Verified 07/28/19 17:49) Upset Stomach pravastatin [From Pravachol] Adverse Reaction (Verified 07/28/19 17:49) Upset Stomach simvastatin [From Zocor] Adverse Reaction (Verified 07/28/19 17:49) Upset Stomach sodium [From Golytely] Adverse Reaction (Verified 07/28/19 17:49) Upset Stomach sodium bicarbonate [From Golytely] Adverse Reaction (Verified 07/28/19 17:49) Upset Stomach sodium chloride [From Golytely] Adverse Reaction (Verified 07/28/19 17:49) Upset Stomach sodium sulfate [From Golytely] Adverse Reaction (Verified 07/28/19 17:49) Upset Stomach triamterene [From Dyazide] Adverse Reaction (Verified 07/28/19 17:49) Upset Stomach Primary Care Physician: Liv Vanessa MD [Primary Care Provider] - Prior records reviewed: Yes Surgical History: noncontributory Smoking Status: Never smoker Review of Systems General: Reports: Fever Eyes: Denies: Visual changes - bilaterally, Diplopia ENT: Denies: Rhinorrhea, Sore throat Cardiovascular: Denies: Chest pain, Palpitations Respiratory: Reports: Cough, - Gastrointestinal: Reports: Nausea, Vomiting Genitourinary: Denies: Dysuria, Hematuria, Frequency Musculoskeletal: Denies: Back pain, Extremity Pain Skin: Denies: Rash, Wounds Neurological: Denies: Headache, Weakness, Numbness Physical Exam Vital Signs/Narrative: Vital Signs Temp Pulse Resp BP Pulse Ox 07/28/19 17:10 97.2 F L 95 17 159/79 H 96 Inital Vital Signs reviewed: Yes General: Well nourished, Well developed, No Acute Distress Head: Normocephalic, Atraumatic Eyes: Perrl, EOMI ENT: Moist mucous membranes, No rhinorrhea Neck: Supple, Nontender Cardiovascular: Regular rate, Regular rhythm, No murmurs Respiratory: No distress, Chest nontender, Rhonchi Abdomen: Soft, Nontender, Nondistended, Normal bowel sounds Back: Nontender, Normal Inspection Extremities: Nontender, No edema Skin: Normal color, No rash Neurological: Alert, Oriented x3, Cranial nerves II-XII grossly intact, Normal Strength, Normal Sensation Psychological: Normal affect, Normal Mood Diagnostic/Tx/Re-eval Chest X-Ray - ED: 2 View, Read by ED Physician, Normal, Heart, Lungs, Mediastinum Clinical Impression(s) from Imaging Studies Chest X-Ray 07/28/19 17:55 IMPRESSION: No acute thoracic pathology. Electronically Signed: Ankur Merino, at 18:10 EDT Tel , Service support , Abnormal Lab Results 07/28/19 07/28/19 17:50 17:50 WBC 13.4 H RBC 4.43 Hgb 13.6 Hct 40.1 MCV 90.5 MCH 30.7 MCHC 33.9 RDW Std Deviation 42.8 RDW Coeff of Lilliam 13.0 Plt Count 225 MPV 8.7 Immature Gran % (Auto) 0.400 Neut % (Auto) 82.5 H Lymph % (Auto) 10.6 L [place] % (Auto) 6.2 Eos % (Auto) 0.2 Baso % (Auto) 0.1 Absolute Neuts (auto) 11.1 H Absolute Lymphs (auto) 1.43 Nucleated RBC % 0 Sodium 127 L Potassium 4.3 Chloride 92 L Carbon Dioxide 24.0 Anion Gap 11 BUN 22 H Creatinine 0.83 Estim Creat Clear Calc 60.81 Est GFR (MDRD) Af Amer 88 Est GFR (MDRD) Non-Af 73 BUN/Creatinine Ratio 26.4 H Glucose 124 H Calcium 9.8 - Medical Decision Making The patient presents with cough and 3 episodes of vomiting. She states that she is never had codeine before and she is on a cough syrup that the codeine derivative. I do of some suspicion that this is likely the cause of her vomiting. IV was established. Labs were obtained. She has a mild leukocytosis but does have infectious symptoms. Her chest x-ray does not show any focal infiltrative process and she is already on appropriate antibiotics. She has a mild hyponatremia and was hydrated. She is not symptomatic from the standpoint. At this point I do feel that she is safe to continue her outpatient management. She is feeling improved. She is comfortable with this plan of care and will be discharged home. Impression 1. Acute bronchitis ED Disposition - Plan for ED Patient: Instructions: BRONCHITIS with Wheezing (Adult) Prescriptions: proMETHazine tablet [Phenergan] 25 mg PO Q6H PRN PRN #10 tab PRN Reason: Nausea Prescription Printed Referrals: Liv Vanessa MD [Primary Care Provider] -
[2019-07-28 17:34] VITALS: PULSE 98; RESP 20
[2019-07-28] MEDS: Albuterol 2.5 MG/3 ML VIAL.NEB. INHALATION (17:34)
[2019-07-28 17:50] VITALS: BP 159/79; PULSE 95; RESP 17; TEMP 36.2; O2SAT 96
[2019-07-28 17:51] VITALS: O2SAT 97
[2019-07-28] MEDS: proMETHazine 25 MG/ML Syringe 6.25 MG IV (17:53)
--- NOTE | 2019-07-28 17:55 | RAD_ITS ---
STUDY: X-RAY CHEST REASON FOR EXAM: Female, 64 years old. Cough TECHNIQUE: Frontal and lateral views of the chest COMPARISON: 02/22/2019 FINDINGS: The lungs are clear. There are no pleural effusions. There is no pneumothorax. The heart is normal in size. The visualized osseous structures are within normal limits. RAD/Chest PA and Lateral IMPRESSION: No acute thoracic pathology. Electronically Signed: Ankur Merino, at 18:10 EDT Tel , Service support ,
[2019-07-28 18:09] LABS: Absolute Lymphocyte Count 1.43 X10^3/uL (0.83-4.51); Absolute Neutrophil Count 11.1 X10^3/uL (2.0-7.7); Basophil# 0.02 X10^3/uL; Basophil% 0.1 % (0-1); Eosinophil# 0.03 X10^3/uL; Eosinophils% 0.2 % (0-5); Hematocrit 40.1 % (37-47); Hemoglobin 13.6 g/dL (12.0-15.0); Lymphocyte # 1.43 X10^3/ul (4.0); Lymphocyte % 10.6 % (19-41); Mean Corp Hgb Conc 33.9 g/dL (32-36); Mean Corpuscular Hgb 30.7 pg (27.0-32.0); Mean Corpuscular Volume 90.5 fL (81-99); Mean Platelet Vol. 8.7 fl (6.2-12.0); Monocyte# 0.83 X10^3/uL; Monocyte% 6.2 % (0-10); NRBC Flagged by Analyzer 0 % (0-5); Neutrophil # 11.06 X10^3/uL (2.7-7.7); Neutrophil % 82.5 % (47-70); Platelet Count 225 K/mm3 (150-450); RBC Distribution Width SD 42.8 fl (35.1-43.9); Red Blood Count 4.43 M/mm3 (4.2-5.4); White Blood Count 13.4 K/mm3 (4.4-11.0)
[2019-07-28 18:28] LABS: Anion Gap 11 (5-15); BUN 22 mg/dL (7-18); BUN/Creat Ratio 26.4 RATIO (10-20); Calcium,Total 9.8 mg/dL (8.5-10.1); Chloride 92 mmol/L (98-107); Creatinine, Serum 0.83 mg/dL (0.55-1.02); EST Glomerular Filtration Rate 73 mL/min (>60); Est Glom Filt Rate - Afr Amer 88 mL/min (>60); Estimated Creatinine Clearance 60.81 ml/min; Glucose 124 mg/dL (74-106); Potassium 4.3 mmol/L (3.5-5.1); Sodium Level 127 mmol/L (136-145)
[2019-07-28 18:44] VITALS: BP 141/73; PULSE 96; RESP 18; TEMP 37.1; O2SAT 99
== END 2019-07-28 19:11 | disposition home or self-care (01) ==
LOC: ED 17:46
PROVIDERS: Emergency Provider Emergency Medicine; Family Provider Family Medicine; PCP Family Medicine
DX: J20.9 Acute bronchitis, unspecified (principal); Z88.0 Allergy status to penicillin; Z88.1 Allergy status to other antibiotic agents; Z88.5 Allergy status to narcotic agent
CPT/HCPCS: 71046; 80048; 85025; 93005; 94640; 96361; 96374; 99285; J7030; A4216

== ENCOUNTER → 2019-09-25 09:58 | Outpatient (CLI) | payer OTHER, SELFPAY ==
--- NOTE | 2019-09-25 10:00 | US_ITS ---
STUDY: RENAL ULTRASOUND - COMPLETE REASON FOR EXAM: Female, 64 years old. Left angiomyolipoma TECHNIQUE: Ultrasound evaluation of the kidneys was performed with real-time and static maguire-scale imaging. COMPARISON: CT abdomen pelvis September 26, 2018. FINDINGS: RIGHT KIDNEY: Normal location of the right kidney, which is normal in size. The right kidney measures 12 cm. There is a normal cortex of the right kidney. There is no right renal mass or cyst. There are no right renal calculi. There is no right hydronephrosis. LEFT KIDNEY: Normal location of the left kidney, which is normal in size. The left kidney measures 11 cm. There is a normal cortex of the left kidney. There is a 1.4 x 1.7 x 1.6 cm fatty mass anteriorly, corresponding to previously described angiomyolipoma. There are no left renal calculi. There is no left hydronephrosis. AORTA: No evidence of abdominal aortic aneurysm. I.V.C.: The IVC is patent. BLADDER: The urinary bladder is partially distended and appears unremarkable. US/Kidney and Bladder IMPRESSION: Left renal 1.4 x 1.7 x 1.6 cm fatty mass, corresponding to previously described angiomyolipoma. No acute renal pathology identified. Electronically Signed: Des Leonard, at 21:41 EST Tel , Service support ,
== END ==
PROVIDERS: Family Provider Family Medicine; PCP Family Medicine; Referring Provider Urology; Visit Provider Urology
DX: D17.71 Benign lipomatous neoplasm of kidney (principal)
CPT/HCPCS: 76770

== ENCOUNTER → 2020-05-17 14:40 | Outpatient (CLI) | payer MEDICARE, OTHER, SELFPAY ==
--- NOTE | 2020-05-17 14:43 | US_ITS ---
STUDY: RENAL ULTRASOUND - COMPLETE REASON FOR EXAM: Female, 65 years old. LEFT RENAL MASS TECHNIQUE: Ultrasound evaluation of the kidneys was performed with real-time and static maguire-scale imaging. COMPARISON: None. FINDINGS: RIGHT KIDNEY: Normal location of the right kidney, which is normal in size. The right kidney measures 11.4 x 5.4 x 4.4 cm. There is a normal cortex of the right kidney. The renal cortex measures 2.2 cm. There is no right renal mass or cyst. There are no right renal calculi. There is no right hydronephrosis. DISTAL RIGHT URETER: There is non-visualization of the distal right ureter. There is no demonstrated right ureterovesical junction calculus. There is a visualized right ureteral jet. LEFT KIDNEY: Normal location of the left kidney, which is normal in size. The left kidney measures 10 x 5.4 x 6.5 cm. There is a normal cortex of the left kidney. The renal cortex measures 1.5 cm. There is a solid nodule containing fat measuring 2 x 1.6 x 1.8 cm possibly representing lipoma or angiomyolipoma. There are no left renal calculi. There is no left hydronephrosis. DISTAL LEFT URETER: There is non-visualization of the distal left ureter. There is no demonstrated left ureterovesical junction calculus. There is a visualized left ureteral jet. AORTA: There is no elongation or tortuosity of the abdominal aorta. Aorta measures: Proximal cm. Middle cm. Distal cm. Aorta measure transversely: Proximal cm. Middle cm. Distal cm. There is no demonstrated aneurysm.. I.V.C.: The IVC is patent. BLADDER: The distended urinary bladder has a volume of 197 ml.. There is a normal wall thickness of the distended urinary bladder. There is no demonstrated mass within the urinary bladder. There are no demonstrated bladder calculi. No significant changes since prior exam US/Kidney and Bladder IMPRESSION: Small hyperechoic left renal mass most likely representing lipoma or angiomyolipoma Electronically Signed: Des Simpson MD at 22:15 EDT , Service support ,
== END ==
PROVIDERS: PCP Family Medicine; Referring Provider Urology; Visit Provider Urology
DX: N28.89 Other specified disorders of kidney and ureter (principal)
CPT/HCPCS: 76770

== ENCOUNTER → 2020-06-08 09:25 | Outpatient (CLI) | payer MEDICARE, OTHER, SELFPAY ==
[2020-06-08 09:59] LABS: Absolute Lymphocyte Count 1.92 X10^3/uL (0.83-4.51); Absolute Neutrophil Count 3.9 X10^3/uL (2.0-7.7); Basophil# 0.04 X10^3/uL; Basophil% 0.6 % (0-1); Eosinophil# 0.13 X10^3/uL; Hematocrit 40.5 % (37-47); Hemoglobin 13.3 g/dL (12.0-15.0); Lymphocyte # 1.92 X10^3/ul (4.0); Lymphocyte % 29.9 % (19-41); Mean Corp Hgb Conc 32.8 g/dL (32-36); Mean Corpuscular Hgb 31.9 pg (27.0-32.0); Mean Corpuscular Volume 97.1 fL (81-99); Mean Platelet Vol. 9.2 fl (6.2-12.0); Monocyte# 0.41 X10^3/uL; Monocyte% 6.4 % (0-10); NRBC Flagged by Analyzer 0 % (0-5); Neutrophil # 3.92 X10^3/uL (2.7-7.7); Neutrophil % 60.9 % (47-70); Platelet Count 240 K/mm3 (150-450); RBC Distribution Width CV 12.7 % (11.6-14.6); RBC Distribution Width SD 45.3 fl (35.1-43.9); Red Blood Count 4.17 M/mm3 (4.2-5.4); White Blood Count 6.4 K/mm3 (4.4-11.0)
[2020-06-08 10:49] LABS: AST(SGOT) 33 U/L (15-37); Alanine Aminotransfer ALT/SGPT 39 U/L (13-56); Albumin, Serum 3.8 g/dL (3.2-5.0); Alkaline Phosphatase 49 U/L (45-117); Anion Gap 5 (5-15); BUN 17 mg/dL (7-18); BUN/Creat Ratio 19.4 RATIO (10-20); Calcium,Total 9.8 mg/dL (8.5-10.1); Chloride 106 mmol/L (98-107); Cholesterol 116 mg/dL (200); Creatinine, Serum 0.88 mg/dL (0.55-1.02); EST Glomerular Filtration Rate 68 mL/min (>60); Est Glom Filt Rate - Afr Amer 83 mL/min (>60); Globulin 3.8 g/dL (2.2-4.2); Glucose 111 mg/dL (74-106); High Density Lipoprotein 44 mg/dL; Potassium 4.4 mmol/L (3.5-5.1); Protein, Total 7.6 g/dL (6.4-8.2); Sodium Level 138 mmol/L (136-145); Triglycerides 132 mg/dL; Very Low Density Lipoprotein 26 mg/dL (5-40)
[2020-06-08 11:43] LABS: Hemoglobin A1c 5.9 % (3.8-5.6)
[2020-06-10 08:18] LABS: Vitamin D,25 Hydroxy 97.4 ng/mL
== END ==
PROVIDERS: PCP Family Medicine; Referring Provider Family Medicine; Visit Provider Family Medicine
DX: R73.03 Prediabetes (principal); K75.81 Nonalcoholic steatohepatitis (NASH); I10 Essential (primary) hypertension; K21.0 Gastro-esophageal reflux disease with esophagitis; M85.80 Other specified disorders of bone density and structure, unspecified site
CPT/HCPCS: 36415; 80053; 80061; 82306; 83036; 85025

== ENCOUNTER → 2020-06-15 10:21 | Outpatient (CLI) | payer MEDICARE, OTHER, SELFPAY ==
[2020-06-13 15:51] VITALS: BMI 32.5
--- NOTE | 2020-06-15 10:42 | BI_ITS ---
MAMMOGRAPHY - BILATERAL SCREENING REASON FOR EXAM: Female, 65 years old. Routine annual screening examination. PERTINENT HISTORY: Sister with breast cancer. Prior left needle biopsy. TECHNIQUE: Digital bilateral breast brie (3D mammographic acquisition) in the CC and MLO projections. 2-D mediolateral oblique (MLO) and craniocaudad (CC) views of both breasts were obtained. CAD: Full Field Digital Mammography with Computer Added Detection was performed. COMPARISON: Comparison is made with prior examination dated 06/01/2019. FINDINGS: Breast Composition: The breasts are heterogeneously dense, which may obscure small masses. There are no dominant masses or suspicious calcifications. Persistent 1.1 cm well-defined nodule in the anterior superior retroareolar region of the right breast. Prior ultrasound did not demonstrate any abnormality. The patient will be recalled for additional views including 90 degree lateral and compression spot views. No other significant abnormalities are identified. There has been no significant change since the prior study. BI/SCREEN MAMM (CAD) W/BRIE BILAT IMPRESSION: Stable bilateral screening mammogram. The patient will be recalled for additional views of the right breast as described. Recall Side: Right Breast ASSESSMENT CATEGORY: BIRADS Category 0: Incomplete. Need additional imaging evaluation. A letter regarding these results will be sent to the patient by the facility within 30 days. Approximately 10% of breast cancers are not detected by mammography. A normal mammogram should not delay biopsy of a clinically suspicious abnormality. [id number] Electronically Signed: Momo Hauser, at 9:14 EDT , Service support ,
== END ==
PROVIDERS: PCP Family Medicine; Referring Provider Family Medicine; Visit Provider Family Medicine
DX: Z12.31 Encounter for screening mammogram for malignant neoplasm of breast (principal); Z80.3 Family history of malignant neoplasm of breast
CPT/HCPCS: 77063; 77067

== ENCOUNTER → 2020-06-21 13:13 | Outpatient (CLI) | payer MEDICARE, OTHER, SELFPAY ==
[2020-06-13 15:51] VITALS: BMI 32.5
--- NOTE | 2020-06-21 13:16 | US_ITS ---
STUDY: ULTRASOUND BREAST - RIGHT REASON FOR EXAM: Female, 65 years old. Abnormal screening mammogram. TECHNIQUE: Axial and longitudinal images of the RIGHT breast were performed with a high resolution ultrasound transducer. # OF IMAGES: 30 COMPARISON: Comparison is made with prior mammogram dated 06/15/2020 and 06/21/2020. Comparison is also made with prior sonogram of the right breast dated 06/05/2019. FINDINGS: RIGHT Breast: The upper outer aspect of the right breast was examined by ultrasound. There is homogeneous fibroglandular tissue. No solid or cystic mass lesion is seen. US/Breast Limited Unilateral IMPRESSION: Unremarkable sonographic evaluation of the upper outer quadrant of the right breast. ASSESSMENT CATEGORY: BIRADS Category 1: Negative. A letter regarding these results will be sent to the patient by the facility within 30 days. Electronically Signed: Momo Hauser, at 14:29 EDT , Service support ,
--- NOTE | 2020-06-21 13:16 | BI_ITS ---
MAMMOGRAPHY - UNILATERAL DIAGNOSTIC: RIGHT BREAST REASON FOR EXAM: Female, 65 years old. Abnormal screening mammogram. PERTINENT HISTORY: Sister with breast cancer. Prior left needle biopsy. TECHNIQUE: Compression spot views of the right breast in the mediolateral oblique and craniocaudad views were obtained. CAD: Full Field Digital Mammography with Computer Added Detection was performed. COMPARISON: Comparison is made with prior mammogram dated 06/15/2020. FINDINGS: Breast Composition: The breasts are heterogeneously dense, which may obscure small masses. No definite abnormality is seen on this examination. Correlation with ultrasound is recommended. No other significant abnormalities are identified. BI/DIAG MAMM W/CAD, UNILAT IMPRESSION: No definite abnormality is seen on this examination. Correlation with ultrasound of the right breast is recommended. ASSESSMENT CATEGORY: BIRADS Category 0: Incomplete. Need additional imaging evaluation. A letter regarding these results will be sent to the patient by the facility within 30 days. Approximately 10% of breast cancers are not detected by mammography. A normal mammogram should not delay biopsy of a clinically suspicious abnormality. Electronically Signed: Momo Hauser, at 14:30 EDT , Service support ,
== END ==
PROVIDERS: PCP Family Medicine; Referring Provider Family Medicine; Visit Provider Family Medicine
DX: R92.8 Other abnormal and inconclusive findings on diagnostic imaging of breast (principal); Z80.3 Family history of malignant neoplasm of breast
CPT/HCPCS: 76642; 77061; 77065; G0279

== ENCOUNTER → 2020-07-03 10:52 | Outpatient (CLI) | payer MEDICARE, OTHER, SELFPAY ==
[2020-06-13 15:51] VITALS: BMI 32.5
--- NOTE | 2020-07-03 10:54 | ECHOCS_ITS ---
Reason For Study: ARRHYTHMIA Procedure This was a 2D Doppler, Color Flow transthoracic echocardiogram. The study was technically difficult. Contrast injection was performed. Exam performed in department. Left Ventricle Normal LV size. Left ventricular systolic function is normal. The estimated ejection fraction is 65 %. No regional wall motion abnormalities noted. Right Ventricle Normal RV size. Normal systolic function. Atria Normal left atrium. Normal right atrium. No doppler evidence for ASD. Mitral Valve There is no mitral annular calcification. Normal mitral valve. Mild (1+) mitral valve insufficiency. Tricuspid Valve Normal tricuspid valve. Trivial tricuspid valve insufficiency. Right ventricular systolic pressure estimated to be 41 mmHg. Aortic Valve The aortic valve is not well visualized. Pulmonic Valve The pulmonic valve is not well visualized. Great Vessels The aortic root is not well visualized. Pericardium/Pleural No pericardial effusion. Medication 22 gauge I.V. with prn adaptor inserted into right arm. Diluted definity 3.0ml given slow IV push to enhance endocardial definition. MMode/2D Measurements & Calculations Ao root diam: 3.7 cm LAV(MOD-bp): 49.1 ml LA A4 area: 16.4 cm2 LAV(MOD-bp) Indexed: 23.1 ml/m2 LAV(MOD-sp2): 54.9 ml LAV(MOD-sp4): 40.1 ml LA dimension(2D): 3.7 cm RA A4 area: 11.9 cm2 Time Measurements MV dec time: 0.27 sec Doppler Measurements & Calculations MV E max kiran: 103.6 cm/sec Lat Peak E' Kiran: 7.6 cm/sec Med Peak E' Kiran: 5.5 cm/sec MV A max kiran: 87.7 cm/sec E/E' lat: 13.7 E/E' med: 18.9 MV E/A: 1.2 Ao V2 max: 123.7 cm/sec LV V1 max: 117.9 cm/sec PA V2 max: 90.3 cm/sec Ao max P.1 mmHg LV V1 max P.6 mmHg TR max kiran: 307.8 cm/sec TR max P.9 mmHg Interpretation Summary The study was technically difficult. Contrast injection was performed. Left ventricular systolic function is normal. The estimated ejection fraction is 65 %. Mild (1+) mitral valve insufficiency. Trivial tricuspid valve insufficiency. Right ventricular systolic pressure estimated to be 41 mmHg. Transmitral diastolic flow velocities suggest diastolic dysfunction (pseudonormal pattern). Ordering Physician: William Espinoza Referring Physician: ANGEL GE Performed By: Lupe Lamas, RDCS, RVT
== END ==
PROVIDERS: PCP Family Medicine; Referring Provider Internal Medicine Cardiovascular Disease; Visit Provider Internal Medicine Cardiovascular Disease
DX: I47.1 Supraventricular tachycardia (principal); I34.1 Nonrheumatic mitral (valve) prolapse; E78.5 Hyperlipidemia, unspecified; I10 Essential (primary) hypertension; Z01.810 Encounter for preprocedural cardiovascular examination
CPT/HCPCS: 93306; Q9957; A4216; C8929

== ENCOUNTER → 2020-07-04 16:38 | Outpatient (CLI) | payer MEDICARE, OTHER, SELFPAY ==
[2020-06-13 15:51] VITALS: BMI 32.5
--- NOTE | 2020-07-04 16:42 | CT_ITS ---
HISTORY: KIDNEY LESION ADDITIONAL HISTORY: Left renal mass TECHNIQUE: CT images were obtained of the abdomen and pelvis without and with 100mL Isovue-300 IV contrast. Enteric contrast was not given. A radiation dose optimization technique was used for this scan. Number of images including paperwork: [id number] COMPARISON: Ultrasound 05/17/2020. CT 09/26/2018 FINDINGS: CHEST BASE: No consolidation or pleural effusion. Mild basilar scarring appears similar. LIVER: No concerning focal lesion. Decreased density consistent with steatosis. Enlarged, right lobe about 19 cm craniocaudal. GALLBLADDER: Cholecystectomy. BILE DUCTS: No significant biliary dilatation. SPLEEN: Unremarkable. PANCREAS: Unremarkable. ADRENAL GLANDS: Unremarkable. KIDNEYS/URETERS: Exophytic left renal lesion containing gross fat measuring 2.1 x 1.5 cm, previously 2 x 1.4 cm on 09/26/2018. BOWEL: No bowel obstruction. No significant bowel wall thickening. No localized inflammation. Colonic diverticulosis. APPENDIX: No evidence of appendicitis. FREE FLUID: No significant free fluid. FREE AIR: None. LYMPH NODES: No pathologic appearing adenopathy. PERITONEUM, RETROPERITONEUM AND MESENTERY: Otherwise unremarkable. VASCULATURE: Atherosclerotic calcification. PELVIS: Unremarkable bladder. Hysterectomy. ABDOMINAL WALL: Unremarkable. OSSEOUS AND SOFT TISSUE STRUCTURES: No acute skeletal findings. Degenerative changes. CT/CT Abd/Pelvis W/WO Contrast IMPRESSION: Unchanged left renal angiomyolipoma. Individualized dose optimization techniques were used for this CT. at 0451 Reported and signed by: Bebe Macias MD Electronically Signed: Bebe Macias MD at 4:51 EDT Tel , Service support ,
== END ==
PROVIDERS: PCP Family Medicine
CPT/HCPCS: 74178; Q9967

== ENCOUNTER → 2020-09-25 15:00 | Outpatient (CLI) | payer MEDICARE, OTHER, SELFPAY ==
[2020-06-13 15:51] VITALS: BMI 32.5
== END ==
PROVIDERS: PCP Family Medicine; Visit Provider Family Medicine
DX: R30.0 Dysuria (principal)
CPT/HCPCS: 87077; 87086; 87088; 87186

== ENCOUNTER 2020-10-03 19:29 | Emergency (ER) | payer MEDICARE, OTHER, SELFPAY ==
[2020-06-13 15:51] VITALS: BMI 32.5
[2020-10-03 19:30] VITALS: BP 143/92; PULSE 101; RESP 15; TEMP 36.1; O2SAT 98; BMI 37.5
--- NOTE | 2020-10-03 19:40 | EKG12_ITS ---
Test Reason : DYSRHYTHMIA Blood Pressure : / mmHG Vent. Rate : 090 BPM Atrial Rate : 090 BPM P-R Int : 138 ms QRS Dur : 084 ms QT Int : 364 ms P-R-T Axes : 026 -09 005 degrees QTc Int : 445 ms Normal sinus rhythm Normal ECG Confirmed by JOSUE MENDEZ, JM ([id number]), story editor ALLEN JANE ([id number]) on 10/07/2020 9:51:26 AM Referred By: ANGIE Confirmed By:JM SALAS MD
--- NOTE | 2020-10-03 19:50 | ED.VIS.GEN ---
History of Present Illness Chief Complaint: General Illness Informant: Patient Onset: Today Context: Gradual Onset Timing: Intermittent Current Severity: Moderate Maximum Severity: Moderate Narrative: Patient is a 65-year-old female with medical history significant for SVT and hypertension who presents to the emergency department with fatigue, malaise, chills, and fever. She states that she is on her last day of antibiotics for urinary tract infection. She states that today, she began to have some nausea, chills, and myalgias. She denies cough. She denies any shortness of breath. She states she is otherwise been in her normal state of health. She cannot recall any sick contacts. She has been compliant with her medications. Prior similar symptoms: No Recent Illness/Hospitalization: No Past Medical History - Allergies and Home Meds Allergies/Adverse Reactions: Allergies Penicillins Allergy (Verified 06/13/20 15:55) Unknown digoxin Adverse Reaction (Verified 06/13/20 15:55) Other hydrochlorothiazide [From Dyazide] Adverse Reaction (Verified 06/13/20 15:55) Upset Stomach levofloxacin [From Levaquin] Adverse Reaction (Verified 06/13/20 15:55) Upset Stomach magnesium citrate Adverse Reaction (Verified 06/13/20 15:55) Upset Stomach meperidine [From Demerol] Adverse Reaction (Verified 06/13/20 15:55) Upset Stomach nitrofurantoin [From Macrobid] Adverse Reaction (Verified 06/13/20 15:55) Upset Stomach polyethylene glycol [From Golytely] Adverse Reaction (Verified 06/13/20 15:55) Upset Stomach polyethylene glycol 3350 [From Golytely] Adverse Reaction (Verified 06/13/20 15:55) Upset Stomach potassium chloride [From Golytely] Adverse Reaction (Verified 06/13/20 15:55) Upset Stomach pravastatin [From Pravachol] Adverse Reaction (Verified 06/13/20 15:55) Upset Stomach simvastatin [From Zocor] Adverse Reaction (Verified 06/13/20 15:55) Upset Stomach sodium [From Golytely] Adverse Reaction (Verified 06/13/20 15:55) Upset Stomach sodium bicarbonate [From Golytely] Adverse Reaction (Verified 06/13/20 15:55) Upset Stomach sodium chloride [From Golytely] Adverse Reaction (Verified 06/13/20 15:55) Upset Stomach sodium sulfate [From Golytely] Adverse Reaction (Verified 06/13/20 15:55) Upset Stomach triamterene [From Dyazide] Adverse Reaction (Verified 06/13/20 15:55) Upset Stomach Primary Care Physician: Liv Vanessa MD [Primary Care Provider] - Prior records reviewed: Yes Past Medical History: - - SVT, hypertension Surgical History: noncontributory Smoking Status: Never smoker Review of Systems General: Reports: Fever, Malaise. Denies: Chills, Sweats Eyes: Denies: Visual changes - bilaterally, Diplopia ENT: Denies: Rhinorrhea, Sore throat Cardiovascular: Denies: Chest pain, Palpitations Respiratory: Denies: Dyspnea, Cough, Dyspnea on exertion Gastrointestinal: Reports: Nausea. Denies: Abdominal pain, Vomiting, Diarrhea, Melena, Hematochezia Genitourinary: Denies: Dysuria, Hematuria, Frequency Musculoskeletal: Denies: Back pain, Extremity Pain Skin: Denies: Rash, Wounds Neurological: Denies: Headache, Weakness, Numbness Physical Exam Vital Signs/Narrative: Vital Signs Temp Pulse Resp BP Pulse Ox 10/03/20 19:30 97 F L 101 H 15 143/92 H 98 Inital Vital Signs reviewed: Yes General: Well nourished, Well developed, No Acute Distress Head: Normocephalic, Atraumatic Eyes: Perrl, EOMI ENT: Moist mucous membranes, No rhinorrhea Neck: Supple, Nontender Cardiovascular: Regular rate, Regular rhythm, No murmurs Respiratory: No distress, CTA bilaterally, Chest nontender Abdomen: Soft, Nontender, Nondistended, Normal bowel sounds Back: Nontender, Normal Inspection Extremities: Nontender, No edema Skin: Normal color, No rash Neurological: Alert, Oriented x3, Cranial nerves II-XII grossly intact, Normal Strength, Normal Sensation Psychological: Normal affect, Normal Mood Diagnostic/Tx/Re-eval Clinical Impression(s) from Imaging Studies Chest X-Ray 10/03/20 20:06 IMPRESSION: 1. There are mild chronic appearing interstitial fibrotic changes of the lungs. No visualized focal consolidation. Electronically Signed: Sunday Zafar MD at 21:12 EST , Service support , Abnormal Lab Results 10/03/20 10/03/20 19:55 19:55 WBC 7.9 RBC 4.42 Hgb 13.6 Hct 41.1 MCV 93.0 MCH 30.8 MCHC 33.1 RDW Std Deviation 41.1 RDW Coeff of Lilliam 11.9 Plt Count 252 MPV 8.7 Immature Gran % (Auto) 0.300 Neut % (Auto) 81.1 H Lymph % (Auto) 10.2 L [place] % (Auto) 7.2 Eos % (Auto) 0.8 Baso % (Auto) 0.4 Absolute Neuts (auto) 6.5 Absolute Lymphs (auto) 0.81 L Nucleated RBC % 0 Sodium 138 Potassium 4.2 Chloride 105 Carbon Dioxide 27.0 Anion Gap 6 BUN 13 Creatinine 0.88 Estim Creat Clear Calc 54.30 Est GFR (MDRD) Af Amer 82 Est GFR (MDRD) Non-Af 68 BUN/Creatinine Ratio 14.7 Glucose 123 H Calcium 9.8 Total Bilirubin 0.30 AST 63 H ALT 71 H Alkaline Phosphatase 68 Total Protein 8.0 Albumin 3.9 Globulin 4.1 Albumin/Globulin Ratio 1.0 - Medical Decision Making Patient presents with fever, chills, myalgias. She is currently finishing her antibiotics for urinary tract infection. She is afebrile here. Chest x-ray was obtained. It was reviewed by both myself and the radiologist. There is no focal infiltrative process. There are some chronic change, but no significant pneumonia or other dangerous process. Metabolic work-up was pursued and is relatively unremarkable. Urine was obtained. Patient underwent Covid testing. This was negative. At this point, I do not suspect a dangerous cause of her symptoms. This may be viral illness. I do not feel that she requires hospitalization. The patient will be discharged home. Impression 1. Myalgias and malaise ED Disposition - Plan for ED Patient: Instructions: ED Myalgias Referrals: Liv Vanessa MD [Primary Care Provider] -
[2020-10-03] MEDS: Ondansetron 4 MG/2 ML Vial IV (20:02)
[2020-10-03] MEDS: 0.9% Normal Saline 1,000 ML 1000 ML IV (20:02)
--- NOTE | 2020-10-03 20:06 | RAD_ITS ---
STUDY: X-RAY CHEST REASON FOR EXAM: Female, 65 years old. body aches, chills, headache TECHNIQUE: Single AP portable view of the chest. COMPARISON: July 28, 2019. FINDINGS: There are mild chronic appearing interstitial fibrotic changes of the lungs. No visualized focal consolidation. There is no demonstrated pleural abnormality. Normal size heart. Normal mediastinum and gaby. Normal visualized pulmonary arteries. There is atherosclerotic calcification of the aortic arch with tortuosity. There are diffuse degenerative changes of the visualized thoracic spine. Normal visualized ribs, clavicles, and shoulders. There is no demonstrated abnormality of the visualized soft tissue structures of the upper abdomen. RAD/Chest 1 View (Portable) IMPRESSION: 1. There are mild chronic appearing interstitial fibrotic changes of the lungs. No visualized focal consolidation. Electronically Signed: Sunday Zafar MD at 21:12 EST , Service support ,
[2020-10-03 20:08] LABS: Absolute Lymphocyte Count 0.81 X10^3/uL (0.83-4.51); Absolute Neutrophil Count 6.5 X10^3/uL (2.0-7.7); Basophil# 0.03 X10^3/uL; Basophil% 0.4 % (0-1); Eosinophil# 0.06 X10^3/uL; Eosinophils% 0.8 % (0-5); Hematocrit 41.1 % (37-47); Hemoglobin 13.6 g/dL (12.0-15.0); Lymphocyte # 0.81 X10^3/ul (4.0); Lymphocyte % 10.2 % (19-41); Mean Corp Hgb Conc 33.1 g/dL (32-36); Mean Corpuscular Hgb 30.8 pg (27.0-32.0); Mean Platelet Vol. 8.7 fl (6.2-12.0); Monocyte# 0.57 X10^3/uL; Monocyte% 7.2 % (0-10); NRBC Flagged by Analyzer 0 % (0-5); Neutrophil # 6.45 X10^3/uL (2.7-7.7); Neutrophil % 81.1 % (47-70); Platelet Count 252 K/mm3 (150-450); RBC Distribution Width CV 11.9 % (11.6-14.6); RBC Distribution Width SD 41.1 fl (35.1-43.9); Red Blood Count 4.42 M/mm3 (4.2-5.4); White Blood Count 7.9 K/mm3 (4.4-11.0)
[2020-10-03 20:11] VITALS: BP 140/82; PULSE 90; RESP 17; O2SAT 94
[2020-10-03 20:25] LABS: AST(SGOT) 63 U/L (15-37); Alanine Aminotransfer ALT/SGPT 71 U/L (13-56); Albumin, Serum 3.9 g/dL (3.2-5.0); Alkaline Phosphatase 68 U/L (45-117); Anion Gap 6 (5-15); BUN 13 mg/dL (7-18); BUN/Creat Ratio 14.7 RATIO (10-20); Calcium,Total 9.8 mg/dL (8.5-10.1); Chloride 105 mmol/L (98-107); Creatinine, Serum 0.88 mg/dL (0.55-1.02); EST Glomerular Filtration Rate 68 mL/min (>60); Est Glom Filt Rate - Afr Amer 82 mL/min (>60); Globulin 4.1 g/dL (2.2-4.2); Glucose 123 mg/dL (74-106); Potassium 4.2 mmol/L (3.5-5.1); Sodium Level 138 mmol/L (136-145)
[2020-10-03 20:38] VITALS: BP 136/77; PULSE 77; RESP 12; O2SAT 95
[2020-10-03 21:25] LABS: Bacteria 0 SEEN /hpf (None Seen); Mucous, Urine 0 SEEN /hpf (<or=2+); Red Blood Cells-Urine 0 SEEN /hpf (0-5); Squamous Epithelial Cells - UA 0 SEEN /hpf (5-10); White Blood Cells 0 SEEN /hpf (0-5)
[2020-10-03 21:26] LABS: Color, Urine Yellow (Yellow); Glucose, Dipstick Normal (Normal); Ketone-Dipstick Negative (Negative); Leukocyte Esterase-Dipstick Negative /ul (Negative); Nitrite-Dipstick Negative (Negative); Occult Blood-Urine Negative /ul (Negative); Protein-Dipstick Negative (Negative); Urine Bilirubin Dipstick Negative (Negative); Urine Clarity Clear (Clear); Urine Urobilinogen Normal (Normal); Urine pH 6.5 (5.0 - 8.0)
[2020-10-03 21:43] VITALS: BP 122/78; PULSE 63; RESP 15; O2SAT 98
== END 2020-10-03 21:43 | disposition home or self-care (01) ==
LOC: ED 20:27
PROVIDERS: Emergency Provider Emergency Medicine; PCP Family Medicine
DX: M79.10 Myalgia, unspecified site (principal); R53.81 Other malaise; N39.0 Urinary tract infection, site not specified; I10 Essential (primary) hypertension
CPT/HCPCS: 71045; 80053; 81001; 85025; 87426; 93005; 96361; 96374; 99285; J7030; A4216; J2405

== ENCOUNTER → 2020-11-04 15:11 | Outpatient (CLI) | payer MEDICARE, OTHER, SELFPAY | PROVIDERS: PCP Family Medicine; Referring Provider Family Medicine; Visit Provider Family Medicine | DX: Z20.828 Contact with and (suspected) exposure to other viral communicable diseases (principal) | CPT/HCPCS: 87635; C9803; U0005; U0003 ==

== ENCOUNTER → 2020-11-08 14:56 | Outpatient (CLI) | payer MEDICARE, OTHER, SELFPAY ==
[2020-11-08 18:13] LABS: AST(SGOT) 28 U/L (15-37); Alanine Aminotransfer ALT/SGPT 43 U/L (13-56); Alkaline Phosphatase 61 U/L (45-117); Bilirubin, Direct 0.08 mg/dL (0.00-0.30)
== END ==
PROVIDERS: PCP Family Medicine; Visit Provider Family Medicine
DX: K75.81 Nonalcoholic steatohepatitis (NASH) (principal)
CPT/HCPCS: 36415; 80076

== ENCOUNTER 2021-02-26 12:30 | Observation (INO) | payer MEDICARE, OTHER, SELFPAY ==
[2021-02-07 14:37] VITALS: BMI 37.5
--- NOTE | 2021-02-11 04:56 | HP.PCM_ITS ---
History and Physical History and Physical [facility] Patient Name: Ron Martini : 1955 From:? BOBBI HEARN PA-C? DATE OF SURGERY:? 02/26/2021 SCHEDULED PROCEDURE:? right total hip arthroplasty HISTORY OF PRESENT ILLNESS: Preoperative history and physical exam was performed on February 10, 2021.? This is a 65-year-old female who has been having ongoing pain for over one year.? Patient's pain is been constant, aching, sharp, sore.? Pain is increased going up and down stairs, sitting, and walking.? She has difficulty with activities of daily living including showering, getting dressed, housework.? Patient has attempted previous intra-articular hip injection which only gave her 1 month relief in March 2020.? She has also been using oral medications including Tylenol and topical ointments.? She states her pain can now reach 10/10 with activities.? She is frustrated with ongoing pain and symptoms.? She has used crutches and cane in the past.? After failing conservative measures and discussing treatment options with Dr. Ankur Wilcox, the patient does wish to proceed with a right total hip arthroplasty.? Patient has a medical history pertinent, sleep apnea, type 2 diabetes mellitus, gastroesophageal reflux disease, vertigo and hypertension.? We are obtaining surgical clearance from the primary care physician and bean weigher Dr. Espinoza.? Patient sees bean weigher for paroxysmal supraventricular tachycardia and mitral valve prolapse.? Nice any chest pain, shortness of breath, fevers chills, recent infections. REVIEW OF SYSTEMS: ROS: Const: Denies anorexia, change in appetite, fever, hard of hearing, vision problems and weight change. CV: Reports irregular heartbeat, but denies chest pain, heart murmur and peripheral vascular disease. Resp: Reports pneumonia and sleep apnea, but denies asthma, cough, SOB, tuberculosis and wheezing. GI: Reports constipation and diarrhea, but denies difficulty swallowing, heartburn, nausea, bloody stools and vomiting. : Urinary: denies incontinence. Musculo: Reports leg swelling and limp, but denies trouble walking and weakness. Skin: Denies Raynaud's, history of shingles and tattoo. Neuro: Denies ambulatory dysfunction, dizziness, numbness/tingling and tremor. Psych: Denies anxiety, depression, insomnia, mental illness and stress. Asad/Lymph: Denies anemia, bleeding/bruising tendency and past transfusion. Reviewed and updated. PAST MEDICAL HISTORY: Advance Care Plan: Resuscitation, LIVING WILL Effective Date: 01/13/2021 PMH: Medical Problems: High Blood Pressure, Hypercholesterolemia, Fatty Liver Disease, Heel Spurs, Sleep Apnea, Arthritis Kidney - SMALL FATTY GROWTH Diabetes, GERD, Diverticulitis, hyperlipidemia, Vertigo Accidents: None Surgical Hx: Appendectomy - A CHILD Hysterectomy - AGE 39 LT Thigh Lump Removed, LT Heel, Gallbladder, Liver Biopsy Knee Arthroscopy LT - (11/08/2015) [email or web address] RT Hip Injection - (07/21/2019) SAW @ [facility] Anesthesia Complications: Nausea, Vomiting Assistive Devices: Glasses, Cpap, Cane Reviewed and updated. SOCIAL HISTORY: SH: Marital: .Occupation: Homemaker.Work Status: Housewife.Hand Dominance: Left-handed. Personal Habits:? Tobacco Use: Patient has never smoked.Cigarette Use: Never Smoked Cigarettes.Alcohol: Denies use.Drug Use: Denies Use.Enjoy Exercising: Exercises 1-3 X/Week. Reviewed, no changes. VITALS: Ht: 65 Wt: 216lb Wt k.978 BMI: 35.9 BP: 124/82 Pulse: 72 Resp: 14 T: 97.7 T: 36.5C Pain Level: 2 ALLERGIES: Penicillins Digoxin Dyazide Pravachol Zocor Macrobid Demerol Magnesium Citrate GoLYTELY Hydrocodone? MEDICATIONS: Crestor 5 mg 1 tab PO daily, Lisinopril 20 mg 1 tab PO daily, Multivitamin & Mineral? 1 tab PO daily, Super B Complex? 1 tab PO daily, Tylenol Arthritis Pain 650 mg prn, Aspirin 81 mg 1 tab PO daily, Metoprolol Tartrate 25 mg 1 tab PO daily, Probiotic? daily, Vitamin C 500 mg daily, Vitamin B 12? daily, Cranberry Concentrate? daily, Citracal +D3? daily, Albuterol Sulfate? 2 puffs, Ciprofloxacin HCL 500 mg 1po bid for 10 days, Miralax 17 gm 1 packet daily prn PRE-OP EXAM:? General appearance:NORMAL? ? ? Other: Eyes: Conjunctivae and lids: NORMAL? Pupils: ERR Ears, Nose, Mouth, and Throat: NORMAL? Other: Inspection of lips, teeth and gums: NORMAL? ?Other: Neck: Examination of neck: no masses noted. Respiratory: Assessment of respiratory effort: NORMAL? ?Other: ?Auscultation of lungs: clear to auscultation no wheezes, rhonchi or rales. Cardiovascular:? Auscultation of heart: regular rate and rhythm, no murmurs, gallops or rubs. Exam of carotid arteries: NORMAL? ?Other: Gastrointestinal:? Exam of abdomen: soft, nontender, nondistended bowel sounds present. PHYSICAL EXAMINATION: Patient walks with an antalgic gait.? Right hip is cool to touch without erythema or signs of infection.? She has tenderness to palpation along the lateral right hip.? Flexion 50, internal rotation neutral, external rotation neutral.? She has increased pain with any range of motion of the right hip.? Sensation intact to light touch. IMAGING STUDIES: X-rays were obtained at [facility] on February 10, 2021 including 3 views AP pelvis, AP right hip, crossfire lateral right hip reveals joint space narrowing, subchondral sclerosis, osteophyte formation consistent with severe grade 4 osteoarthritis of the right hip. IMPRESSION: 1.? Severe right hip osteoarthritis 2.? Hypertension?? 3.? Paroxysmal supraventricular tachycardia 4.? Mitral valve prolapse 5.? Hypercholesterolemia 6.? Fatty liver disease 7.? Sleep apnea 8.? Diabetes 9.? Gastroesophageal reflux disease 10.? Vertigo? 11.? Left renal mass PLAN: Dr. Ankur Wilcox did discuss and review with the patient all treatment options including surgical versus nonsurgical options.? Patient does wish to proceed with the above-stated procedure.? Potential risks, benefits, and complications of the procedure were discussed in detail including but not limited to , infection, nerve and blood vessel damage, persistent pain, numbness, tingling, paresthesias, blood clot, pulmonary embolism, and requirement for possible further surgery.? The patient expressed full understanding and has no further questions for the doctor.? Patient does agree to proceed with the above-stated procedure and has signed the surgery consent form. We discussed the current risks associated with COVID 19.? This does include the risk of exposure while in the hospital.? Patient was reassured local hospitals have low infection rates and are taking all necessary precautions to avoid exposure to patients.? In addition, we discussed strategies that can be used to help limit exposure including those that limit the patient's time in the hospital.? Also using strategies to limit the patient's need for continued inpatient services after being discharged from the hospital.? Patient was notified that we will need to comply with any screening or testing the hospital wishes to perform or that surgery may be delayed for any positive results. This dictation was created using voice recognition software. Phonetic and/or grammatical errors may exist. ___? I have re-examined the patient.? There are no clinical changes since date of exam. ___? See progress notes for changes. ___? Dictated on admission Date: ? ? ?Time: Signature:
[2021-02-13 09:07] LABS: Absolute Lymphocyte Count 2.07 X10^3/uL (0.83-4.51); Absolute Neutrophil Count 4.3 X10^3/uL (2.0-7.7); Basophil# 0.04 X10^3/uL; Basophil% 0.6 % (0-1); Eosinophil# 0.13 X10^3/uL; Eosinophils% 1.8 % (0-5); Hemoglobin 13.5 g/dL (12.0-15.0); Lymphocyte # 2.07 X10^3/ul (0.83-4.51); Lymphocyte % 29.3 % (19-41); Mean Corp Hgb Conc 32.9 g/dL (32-36); Mean Corpuscular Hgb 31.1 pg (27.0-32.0); Mean Corpuscular Volume 94.5 fL (81-99); Mean Platelet Vol. 8.8 fl (6.2-12.0); Monocyte# 0.53 X10^3/uL; Monocyte% 7.5 % (0-10); NRBC Flagged by Analyzer 0 % (0-5); Neutrophil # 4.29 X10^3/uL (2.7-7.7); Neutrophil % 60.7 % (47-70); Platelet Count 267 K/mm3 (150-450); RBC Distribution Width CV 12.5 % (11.6-14.6); RBC Distribution Width SD 43.7 fl (35.1-43.9); Red Blood Count 4.34 M/mm3 (4.2-5.4); White Blood Count 7.1 K/mm3 (4.4-11.0)
[2021-02-13 09:31] LABS: Magnesium 2.1 mg/dL (1.6-2.6)
[2021-02-13 09:32] LABS: Anion Gap 5 (5-15); BUN 21 mg/dL (7-18); BUN/Creat Ratio 22.9 RATIO (10-20); Calcium,Total 9.6 mg/dL (8.5-10.1); Chloride 103 mmol/L (98-107); Creatinine, Serum 0.92 mg/dL (0.55-1.02); EST Glomerular Filtration Rate 65 mL/min (>60); Est Glom Filt Rate - Afr Amer 79 mL/min (>60); Glucose 124 mg/dL (74-106); Potassium 4.1 mmol/L (3.5-5.1); Sodium Level 135 mmol/L (136-145)
[2021-02-13 09:37] LABS: Hemoglobin A1c 5.9 % (3.8-5.6)
[2021-02-26] VITALS (13 sets, daily range): BP systolic 118–132; BP diastolic 64–74; PULSE 74–89; RESP 16–18; TEMP 36.1–37.1; O2SAT 90–100; BMI 32.8
[2021-02-26] MEDS: Gabapentin 600 MG Tablet PO (10:41)
[2021-02-26] MEDS: Acetaminophen 500 MG Tablet 1000 MG PO ×2 (10:41→21:23)
[2021-02-26] MEDS: Lactated Ringers 1,000 ML 999 ML IV ×2 (10:42→13:00)
[2021-02-26 11:10] LABS: Bedside Glucose 143 mg/dL (70-110)
--- NOTE | 2021-02-26 12:30 | HIP_PTH ---
PATIENT: ASHLYN LACY LOC: MS3 U#:[id number] AGE/SX: 66/F [place]OM: [facility] [place]26/[address]: Dr. Ankur Wilcox MD : 1955 BED: 1 DIS: 02/27/2021 SPEC #: [id number] RECD: 02/27/21 07:38 STATUS: JOHAN NELSNO #: [id number] JUAN MANUEL: 02/26/21 12:[address]: Ankur Wilcox DEPT: SURGICAL PATHOLOGY RECD BY: Mukesh Sultana ENTERED: 02/27/21 11:28 SP TYPE: TOTAL HIP OTHR DR: MD Dr. Liv Powers MD Dr. Paul Moodispaw, MD Tissues: Hip, NOS Procedures: Decalcification bone/plaque Surgery Specimen Level IV HEADER OPERATION: ERAS, total hip anterior approach PRE-OP DIAGNOSIS: Severe right hip osteoarthritis TISSUE SUBMITTED: Right hip bone and tissue MICROSCOPIC DIAGNOSIS Bone and soft tissue of right hip, total hip resection: Consistent with degenerative joint disease. AM:sung 03/03/2021 MICROSCOPIC DESCRIPTION Slides are reviewed. GROSS DESCRIPTION Received is one container labeled with the patient's name and designated bone and soft tissue hip, right. The specimen consists of a leigh femoral head measuring 4.5 x 4 x 3.5 cm. Also present in the container is a detached piece of bone consistent with portion of femoral neck measuring 4 x 2.5 x 1 cm. The articular surface displays prominent osteophyte formation and bone erosion. Also present in the specimen container are multiple irregular fragments of bone reamings and pink-yellow soft tissue measuring in aggregate 6.5 x 7 x 2.5 cm. The soft tissue predominantly consists of bone reamings. Upholstery Cutter sections are submitted in two cassettes as follows: 1 - soft tissue, 2 - bone after decalcification. / SJ:sung 02/27/21 TC:5 CPT: 70776, 98647
--- NOTE | 2021-02-26 12:41 | OP.PCM_ITS ---
Report of Operation Date of Procedure: 02/26/21 Pre-Operative Diagnosis: Right hip primary osteoarthritis Post-Operative Diagnosis: Right hip primary osteoarthritis Surgery/Procedure Performed:: Right minimally invasive direct anterior total hip replacement Description of Surgical Findings:: Stable hip with equal leg length Surgeon: Ankur Wilcox casino surveillance officer: Yusef Pickett Type of Anesthesia: Spinal Special Medications: 2 g Ancef, 1 g TXA at incision, 1 g TXA closure, 10 mg Decadron, joint cocktail (5 mg Duramorph, 30 mL of 0.5% Ropivicaine, 1000 units of epinephrine, 30 mg of Toradol) Specimen's removed: Bony cuts Estimated Blood Loss (mL): 200 Fluids Replaced: 1600 mL crystalloid Description of Procedure: Components used: 1. Accolade 2 [place] femoral stem size 3 127? 2. Kayy trident 2 acetabular shell size 50 mm 3. Kayy X3 polyethylene D 4. Kayy Biolox delta 36 mm, -5 mm femoral head Brief history operative indications: 66yo female who failed conservative measures for their hip osteoarthritis. X- rays were consistent with osteoarthritis including joint space narrowing, osteophyte formation and subchondral cysts. Total hip replacement was discussed with the patient with risks and benefits including but not limited to blood loss, DVTs, PEs, neurovascular damage, dislocation, general risks of anesthesia including loss of life. Patient demonstrated an understanding medical clearance is obtained the patient was consented for surgery. Procedure: On the date of procedure the patient's right hip was marked in the preoperative area. Patient was then taken back to the operating room where anesthesia assumed control of the C-spine and airway and administered anesthetic. Patient was transferred to the operating table and placed in the supine position. The hips were placed at the break of the bed and a sacral bump was placed. The right lower extremity was then prepped out in a sterile fashion using chlorhexidine while the surgeon scrubbed. The PA was vital in the positioning of the patient. Upon reentering the room the right lower extremity was draped in the standard orthopedic fashion and the incision was marked. A timeout was called and everyone agreed upon the side, the site, the procedure be performed, antibody given, and patient's identity. At this time incision was made through skin, subcutaneous tissue, and fat down to fascia. The fascia was then incised and the TFL was retracted laterally. A retractor was placed on the lateral border of the femoral neck. Attention was directed to the inferior portion of the approach and all crossing vessels were identified and appropriately coagulated. A retractor was then placed on the medial portion of the femoral neck. The anterior capsule was then cleared of all soft tissue and then H shaped capsulot santiago was made. The retractors were then placed inside the capsule. The femoral neck was identified and a cleanup cut was made. At this time a power corkscrew was used to remove the femoral head. Attention was then turned toward the acetabulum where the soft tissues were appropriately retracted and the acetabulum was sequentially reamed to 50 mm. A 50 mm cup was then selected and impacted into place. Acetabular liner was impacted into place and locking mechanism was verified. The position of the acetabular cup was then verified under live fluoroscopy. Attention was then turned to the femur. Soft tissue releases on the medial and lateral femoral neck were appropriately done, the leg was externally rotated and lateralized. A Mota retractor was placed medially and proximally to the greater trochanter this allowed appropriate visualization and exposure of the femoral canal. Rongeour was then used to remove excess lateral bone. A canal finder and entry broach were used to open the proximal canal. Once we verified we were down the femoral canal we subsequently broached up to a size 3 femur. The appropriate neck was placed in the previously selected head was trialed with a -5 mm neck. Traction was pulled and the hip was reduced with internal rotation. Once it was appropriately reduced and stability was checked. There was minimal shuck, equal leg lengths and appropriate stability with hyperextension and external rotation as well as with 90? flexion and internal rotation. Fluoroscopy was then also used to verify the position of the components and leg lengths using the contralateral side for comparison. The trial components were then dislocated the proximal femur was again exposed and the components were removed from the wound. The final components were fanny ified and opened. The wound was copiously irrigated out with normal saline. The acetabulum was checked for any residual debris. The final components were placed and impacted. Traction and internal rotation were again used to reduce the hip. After adequate reduction the hip remained stable with appropriate leg lengths. The final components were once again checked with live fluoroscopy and were found to be satisfactory. The wound was then copiously irrigated with normal saline once more, and hemostasis was obtained. Closure was then done using #1 Vicryl runner to close the fascia. A 2-0 vicryl interuppted sutures were used to close the subcutaneous skin. A 3-0 Monocryl and Steri-Strips were used for final skin closure. A Silverlon dressing was placed. Patient was awakened by anesthesia and transferred to the [facility]. Patient was then transferred to the PACU for recovery. Postoperative plan: Patient will get 24 hours postop antibiotics. Patient will get in-house physical therapy and will be weight-bear as tolerated. Patient will follow up in office in 2 weeks for a wound check and x-rays. Aspirin 81 mg twice daily. Complications No intraoperative complications Admit VTE Documentation VTE Present on Admission: No VTE Mechan Device Prophylaxis: SCD's and Thigh High MASSIMO Hose VTE Pharm Prophylaxis ordered?: Yes
[2021-02-26] MEDS: Scopolamine 1mg/72hr Patch 1 PATCH TD (12:45)
[2021-02-26] MEDS: dexAMETHasone 10 MG/ML Vial IV (12:59)
[2021-02-26] MEDS: Lactated Ringers 1,000 ML 125 ML IV (14:00)
--- NOTE | 2021-02-26 14:55 | RAD_ITS ---
STUDY: X-RAY - PELVIS AND RIGHT HIP REASON FOR EXAM: Female, 66 years old. Post Op -- AP both hips on single terence/lateral of op hip PACU TECHNIQUE: 2 views of the pelvis and hip. COMPARISON: Comparison is made with prior study dated 08/31/2019. FINDINGS: The patient is status post right total hip replacement. There is good alignment. Postoperative soft tissue changes. RAD/Hip Min 2 Views (Portable) IMPRESSION: Status post right total hip replacement. There is good alignment. Postoperative soft tissue changes. Electronically Signed: Momo Hauser MD at 15:15 EDT , Service support ,
--- NOTE | 2021-02-26 17:16 | NURSING ---
had Insem Spa x2 unsure of date - had at [facility]
--- NOTE | 2021-02-26 17:46 | PCM.CONS.GEN ---
Documented by User: ALAN Moya 02/26/21 18:01 Assessment & Plan Assessment/Plan (1) Status post total hip replacement, right: PLAN: 1. Right minimally invasive direct anterior total hip replacement -Postop day 0 -Continue pain management as ordered per orthopedic surgeon -PT and OT to eval and treat -Polar Care in place to right hip 2. Essential hypertension -Continue lisinopril, metoprolol. -Vital signs per protocol trend BP and heart rate 3. Hyperlipidemia -Continue rosuvastatin 4. Obesity, adult BMI 30.0-34.9 -Lifestyle modifications encouraged DVT prophylaxis-SCDs This patient was seen by ALAN Moya under the supervision of Dr. Tolliver. HPI Consult Data Date of Consult: 02/26/21 HPI Narrative HPI Narrative: ASHLYN LACY, is a 66 F who presents for a right minimally invasive direct anterior total hip replacement with Dr. Wilcox. At Dr. Wilcox's request we are seeing patient for management of chronic diseases including hyperlipidemia, benign essential hypertension, and paroxysmal atrial tachycardia. Per patient report chronic diseases are well managed and stable at this time. Patient reports that she is currently very drowsy but otherwise denies symptoms. FOR[facility]LY [facility], [facility] Medical History Ambulates with cane Arthritis Back pain Benign essential hypertension CPAP (continuous positive airway pressure) dependence Diverticulosis of intestine without perforation or abscess with bleeding Fatty liver GERD (gastroesophageal reflux disease) Heartburn High cholesterol History of diverticulitis History of diverticulitis of colon History of edema History of irregular heartbeat History of renal disease History of stress test Hx of echocardiogram (~07/03/20) Hyperlipidemia Hypertension Ischemic colitis Non-smoker Nonrheumatic mitral (valve) prolapse Obesity Paroxysmal atrial tachycardia Paroxysmal SVT (supraventricular tachycardia) Sleep apnea Vertigo Wears glasses Home Medications B-complex with vitamin C 1 tab PO QDAY 03/10/18 [History Last Taken Unknown] ascorbic acid (vitamin C) 1,000 mg tablet 1 g PO DAILY tab 04/12/19 [History Last Taken Unknown] calcium 650 mg-vitamin D3 12.5 mcg-vitamin K 40 mcg chewable tablet 2 tab PO DAILY tab 04/12/19 [History Last Taken Unknown] cranberry 500 mg capsule 500 mg PO DAILY cap 07/17/19 [History Last Taken Unknown] multivit,mineral-folic acid 800 mcg-vit K 100 mcg-herbal no.289 tablet 2 tab PO DAILY tab 06/13/20 [History Last Taken Unknown] ciprofloxacin HCl 500 mg tablet 500 mg PO BID 02/07/21 [History Last Taken Unknown] estradiol 1 g VAGINAL .3XW 02/07/21 [History Last Taken Unknown] lisinopril 20 mg tablet 20 mg PO QDAY #90 tab 02/07/21 [Rx Last Taken 02/26/21] metoprolol tartrate 25 mg tablet 25 mg PO BID #180 tab 02/07/21 [Rx Last Taken 02/26/21] rosuvastatin 5 mg tablet 5 mg PO DAILY #90 tab 02/07/21 [Rx Last Taken Unknown] acetaminophen [Tylenol Arthritis] 1,300 mg PO Q12H PRN 02/12/21 [History Last Taken Unknown] aspirin 81 mg PO DAILY 02/12/21 [History Last Taken 02/21/21] lactobacillus combination no.4 [Probiotic] 3,000 mmu cells PO DAILY 02/12/21 [History Last Taken Unknown] metronidazole 500 mg PO TID 02/12/21 [History Last Taken Unknown] polyethylene glycol 3350 [Miralax] 17 g PO DAILY 02/12/21 [History Last Taken Unknown] protein supplement 30 ml PO DAILY 02/12/21 [History Last Taken Unknown] Allergy/AdvReac Type Severity Reaction Status Date / Time Penicillins Allergy Unknown Verified 02/26/21 17:11 digoxin AdvReac Other Verified 02/26/21 10:03 hydrochlorothiazide AdvReac Upset Verified 02/26/21 10:03 [From Dyazide] Stomach levofloxacin [From Levaquin] AdvReac Upset Verified 02/26/21 10:03 Stomach magnesium citrate AdvReac Upset Verified 02/26/21 10:03 Stomach meperidine [From Demerol] AdvReac Upset Verified 02/26/21 10:03 Stomach nitrofurantoin AdvReac Upset Verified 02/26/21 10:03 [From Macrobid] Stomach polyethylene glycol AdvReac Upset Verified 02/26/21 10:03 [From Golytely] Stomach polyethylene glycol 3350 AdvReac Upset Verified 02/26/21 10:03 [From Golytely] Stomach potassium chloride AdvReac Upset Verified 02/26/21 10:03 [From Golytely] Stomach pravastatin [From Pravachol] AdvReac had white Verified 02/26/21 17:11 stool simvastatin [From Zocor] AdvReac Upset Verified 02/26/21 10:03 Stomach sodium [From Golytely] AdvReac Upset Verified 02/26/21 10:03 Stomach sodium bicarbonate AdvReac Upset Verified 02/26/21 10:03 [From Golytely] Stomach sodium chloride AdvReac Upset Verified 02/26/21 10:03 [From Golytely] Stomach sodium sulfate AdvReac Upset Verified 02/26/21 10:03 [From Golytely] Stomach triamterene [From Dyazide] AdvReac Upset Verified 02/26/21 10:03 Stomach Surgical History H/O lumpectomy History of cholecystectomy History of foot surgery History of left breast biopsy History of total hysterectomy Hx of appendectomy Social History Smoking Status: Never smoker alcohol intake: never substance use type: does not use ROS Constitutional Constitutional: Reports systems reviewed and no addt'l complaints, except as documented Cardiovascular Cardiovascular: Denies chest pain, edema, hypertension or irregular heart rhythm Respiratory/Chest Respiratory/Chest: Denies cough, shortness of breath at rest or shortness of breath with exertion Gastrointestinal Gastrointestinal: Denies change in bowel habits, nausea or vomiting Genitourinary Genitourinary: Denies dysuria Musculoskeletal Musculoskeletal: Reports arthralgias; Denies numbness or tingling Integumentary Integumentary: Reports other Details: Surgical incision to right hip, dressing dry and intact Neurologic Neurologic: Denies dizziness, numbness, tingling or weakness Psychiatric Psychiatric: Reports none Endocrine Endocrinology: Reports none Hematologic/Lymphatic Hematologic/Lymphatic: Reports none Allergic/Immunologic Allergic/Immunologic: Reports none Physical Exam Const alert, oriented x3 and no apparent distress General Appearance: cooperative and comfortable HEENT normocephalic and head/scalp atraumatic Head and Scalp: normal to inspection, normocephalic and atraumatic Eyes PERRL and EOMs intact bilaterally Neck full ROM, no lymphadenopathy and supple Resp normal respiratory effort, normal air movement and clear to auscultation bilaterally Cardio regular rate, regular rhythm, S1 normal heart sound and S2 normal heart sound GI normal to inspection, nondistended, normoactive bowel sounds, soft to palpation and non-tender no CVA tenderness Extremity normal to inspection and normal capillary refill Peripheral Pulses: Yes pulses 2+ throughout Right Lower Extremity: hip joint ROM (Limited due to surgery) Skin Wounds: wounds noted elise in place Wound Narrative: Postop dressing dry and intact Neuro oriented x3 and CN's II-XII intact bilaterally Psych mental status grossly normal, thought process normal, cooperative and affect normal Lab / Micro Data Result Diagrams: 02/13/21 08:54 02/13/21 08:54 Labs: Laboratory Results - last 24 hr 02/26/21 10:36 POC Glucose 143 H Radiology Impression Hip X-Ray 02/26/21 14:55 IMPRESSION: Status post right total hip replacement. There is good alignment. Postoperative soft tissue changes. Electronically Signed: Momo Hauser MD at 15:15 EDT , Service support , Documented by User: Dr. Aaliyah Tolliver MD 02/26/21 19:13 HPI Consult Data Date of Consult: 02/26/21 [facility] Medical History Ambulates with cane Arthritis Back pain Benign essential hypertension CPAP (continuous positive airway pressure) dependence Diverticulosis of intestine without perforation or abscess with bleeding Fatty liver GERD (gastroesophageal reflux disease) Heartburn High cholesterol History of diverticulitis History of diverticulitis of colon History of edema History of irregular heartbeat History of renal disease History of stress test Hx of echocardiogram (~07/03/20) Hyperlipidemia Hypertension Ischemic colitis Non-smoker Nonrheumatic mitral (valve) prolapse Obesity Paroxysmal atrial tachycardia Paroxysmal SVT (supraventricular tachycardia) Sleep apnea Vertigo Wears glasses Home Medications B-complex with vitamin C 1 tab PO QDAY 03/10/18 [History Last Taken Unknown] ascorbic acid (vitamin C) 1,000 mg tablet 1 g PO DAILY tab 04/12/19 [History Last Taken Unknown] calcium 650 mg-vitamin D3 12.5 mcg-vitamin K 40 mcg chewable tablet 2 tab PO DAILY tab 04/12/19 [History Last Taken Unknown] cranberry 500 mg capsule 500 mg PO DAILY cap 04/12/19 [History Last Taken Unknown] multivit,mineral-folic acid 800 mcg-vit K 100 mcg-herbal no.289 tablet 2 tab PO DAILY tab 06/13/20 [History Last Taken Unknown] ciprofloxacin HCl 500 mg tablet 500 mg PO BID 02/07/21 [History Last Taken Unknown] estradiol 1 g VAGINAL .3XW 02/07/21 [History Last Taken Unknown] lisinopril 20 mg tablet 20 mg PO QDAY #90 tab 02/07/21 [Rx Last Taken 02/26/21] metoprolol tartrate 25 mg tablet 25 mg PO BID #180 tab 02/07/21 [Rx Last Taken 02/26/21] rosuvastatin 5 mg tablet 5 mg PO DAILY #90 tab 02/07/21 [Rx Last Taken Unknown] acetaminophen [Tylenol Arthritis] 1,300 mg PO Q12H PRN 02/12/21 [History Last Taken Unknown] aspirin 81 mg PO DAILY 02/12/21 [History Last Taken 02/21/21] lactobacillus combination no.4 [Probiotic] 3,000 mmu cells PO DAILY 02/12/21 [History Last Taken Unknown] metronidazole 500 mg PO TID 02/12/21 [History Last Taken Unknown] polyethylene glycol 3350 [Miralax] 17 g PO DAILY 02/12/21 [History Last Taken Unknown] protein supplement 30 ml PO DAILY 02/12/21 [History Last Taken Unknown] Allergy/AdvReac Type Severity Reaction Status Date / Time Penicillins Allergy Unknown Verified 02/26/21 17:11 digoxin AdvReac Other Verified 02/26/21 10:03 hydrochlorothiazide AdvReac Upset Verified 02/26/21 10:03 [From Dyazide] Stomach levofloxacin [From Levaquin] AdvReac Upset Verified 02/26/21 10:03 Stomach magnesium citrate AdvReac Upset Verified 02/26/21 10:03 Stomach meperidine [From Demerol] AdvReac Upset Verified 02/26/21 10:03 Stomach nitrofurantoin AdvReac Upset Verified 02/26/21 10:03 [From Macrobid] Stomach polyethylene glycol AdvReac Upset Verified 02/26/21 10:03 [From Golytely] Stomach polyethylene glycol 3350 AdvReac Upset Verified 02/26/21 10:03 [From Golytely] Stomach potassium chloride AdvReac Upset Verified 02/26/21 10:03 [From Golytely] Stomach pravastatin [From Pravachol] AdvReac had white Verified 02/26/21 17:11 stool simvastatin [From Zocor] AdvReac Upset Verified 02/26/21 10:03 Stomach sodium [From Golytely] AdvReac Upset Verified 02/26/21 10:03 Stomach sodium bicarbonate AdvReac Upset Verified 02/26/21 10:03 [From Golytely] Stomach sodium chloride AdvReac Upset Verified 02/26/21 10:03 [From Golytely] Stomach sodium sulfate AdvReac Upset Verified 02/26/21 10:03 [From Golytely] Stomach triamterene [From Dyazide] AdvReac Upset Verified 02/26/21 10:03 Stomach Surgical History H/O lumpectomy History of cholecystectomy History of foot surgery History of left breast biopsy History of total hysterectomy Hx of appendectomy Social History Smoking Status: Never smoker alcohol intake: never substance use type: does not use Lab / Micro Data Result Diagrams: 02/13/21 08:54 02/13/21 08:54
[2021-02-26] MEDS: oxyCODONE 5 MG Tablet PO (19:46)
[2021-02-26] MEDS: Atorvastatin Calcium 10 MG Tablet PO (21:23)
[2021-02-26] MEDS: Aspirin 81 MG TAB.CHEW PO (21:23)
[2021-02-26] MEDS: Senna/Docusate Sodium 1 Tablet 2 TABLET PO (21:23)
[2021-02-26] MEDS: Metoprolol Tartrate 25 MG Tablet PO (21:24)
--- NOTE | 2021-02-26 21:24 | CPS ---
Patient's own CPAP machine setup at bedside. Will start patient on Room Air on CPAP as this is what she wears at home with it. Oxygen adapter will be placed in line with home CPAP in case O2 would be needed.
[2021-02-27] MEDS: Ketorolac 15 MG/ML Vial IV (00:54)
[2021-02-27] MEDS: oxyCODONE 5 MG Tablet PO ×3 (03:00→13:38)
[2021-02-27 03:06] VITALS: BP 116/62; PULSE 79; RESP 16; TEMP 36.4; O2SAT 95
[2021-02-27 06:01] LABS: Hematocrit 36.1 % (37-47); Hemoglobin 11.7 g/dL (12.0-15.0); Mean Corp Hgb Conc 32.4 g/dL (32-36); Mean Corpuscular Hgb 31.1 pg (27.0-32.0); Platelet Count 183 K/mm3 (150-450); RBC Distribution Width SD 41.9 fl (35.1-43.9); Red Blood Count 3.76 M/mm3 (4.2-5.4); White Blood Count 16.2 K/mm3 (4.4-11.0)
[2021-02-27] MEDS: Acetaminophen 500 MG Tablet 1000 MG PO ×2 (06:06→13:38)
[2021-02-27 06:25] LABS: Anion Gap 4 (5-15); BUN 19 mg/dL (7-18); BUN/Creat Ratio 24.6 RATIO (10-20); Calcium,Total 8.5 mg/dL (8.5-10.1); Chloride 103 mmol/L (98-107); Creatinine, Serum 0.77 mg/dL (0.55-1.02); EST Glomerular Filtration Rate 79 mL/min (>60); Est Glom Filt Rate - Afr Amer 96 mL/min (>60); Estimated Creatinine Clearance 55.07 ml/min; Glucose 186 mg/dL (74-106); Potassium 4.9 mmol/L (3.5-5.1); Sodium Level 133 mmol/L (136-145)
[2021-02-27 07:14] VITALS: O2SAT 94
--- NOTE | 2021-02-27 07:15 | PN.ORTHO_ITS ---
Subjective Subjective The patient was sitting in bedside chair upon examination. Patient denies any chest pain, shortness of breath, dizziness, lightheadedness, nausea or vomiting, or calf pain. Pain is controlled on medications. No adverse overnight events. Patient overall appears to be doing well. She has no significant complaints this morning. She has been up to bedside chair without difficulty. Objective Data Objective Data Vital Signs: Vital Signs Temp Pulse Resp BP Pulse Ox 97.5 F L 79 16 116/62 95 02/27/21 03:06 02/27/21 03:06 02/27/21 03:06 02/27/21 03:06 02/27/21 03:06 Oxygen Flow Rate (L/min) 3 Oxygen Delivery Method Room Air Weight: 98.1 kg Body Mass Index (BMI) 32.8 Intake & Output: Intake and Output for Last 24 Hours 02/25/21 02/26/21 02/27/21 23:59 23:59 23:59 Intake Total 3866 / 3866 185.25 / 185.25 Output Total 600 / 600 Balance 3866 / 3266 -414.75 / -414.75 Lab / Micro Data Result Diagrams: 02/27/21 05:48 02/27/21 05:48 Labs: Laboratory Results - last 24 hr 02/26/21 02/27/21 02/27/21 10:36 05:48 05:48 WBC 16.2 H RBC 3.76 L Hgb 11.7 L Hct 36.1 L MCV 96.0 MCH 31.1 MCHC 32.4 RDW Std Deviation 41.9 RDW Coeff of Lilliam 12.0 Plt Count 183 MPV 9.0 Sodium 133 L Potassium 4.9 Chloride 103 Carbon Dioxide 26.0 Anion Gap 4 L BUN 19 H Creatinine 0.77 Estim Creat Clear Calc 55.07 Est GFR (MDRD) Af Amer 96 Est GFR (MDRD) Non-Af 79 BUN/Creatinine Ratio 24.6 H Glucose 186 H Calcium 8.5 POC Glucose 143 H Micro: Microbiology 02/13/21 08:54 Swab (Method) Nasal Screen MRSA/MSSA - Final Radiography Diagnostic Testing: Radiology Impression Hip X-Ray 02/26/21 14:55 IMPRESSION: Status post right total hip replacement. There is good alignment. Postoperative soft tissue changes. Electronically Signed: Momo Hauser MD at 15:15 EDT , Service support , Physical Exam Narrative Vital signs stable and afebrile. Patient is able to plantarflex and dorsiflex actively. Sensation is intact to light touch to saphenous, sural, superficial and deep peroneal, and tibial distribution. Dressing is clean dry and intact. Tiny drop of discharge over the dressing Negative Homans bilaterally, negative signs and symptoms of DVT. Const alert, oriented x3 and no apparent distress Assessment & Plan Assessment/Plan (1) Status post total hip replacement, right: PLAN: 1. S/P direct anterior right total hip arthroplasty POD #1 2. Continue Pain Medications: Tylenol, meloxicam, oxycodone 3. DVT Prophylaxis: Take 81 mg aspirin twice daily for 4 weeks postoperatively for DVT prophylaxis 4. PT/OT: Weightbearing as tolerated 5. H & H: 11.7/36.1, asymptomatic. Postoperative anemia secondary to acute blood loss from surgery without any intra operative complications. 6. Reactive leukocytosis: Currently 16.2, afebrile. Patient did receive Decadron intraoperatively 7. Continue postoperative medical management per medicine 8. Encouraged Incentive Spirometry 9. Disposition: Plan will be for probable discharge this afternoon as long as patient is medically stable, pain is well controlled, and tolerates physical t herapy. Prescriptions will be E scribed to [facility] pharmacy. She has outpatient physical therapy established. She will follow-up per postop instructions. I have reviewed the [place] Automated Rx Reporting System (OARRS) report for this patient for refill pattern and other prescriber involvement as part of the appropriate surveillance for the provision of acute and chronic controlled medications. The report was requested and reviewed on the date of this entry and was considered in the prescribing process.
--- NOTE | 2021-02-27 07:18 | PCM.DC ---
Discharge Instructions Diet Discharge Diet: No restrictions Activity Discharge Activity: May Not Drive and May not drive while taking narcotic pain medications. May shower in (days): 1 (only if incision is dry and without drainage. Do NOT soak/submerge in tub/pool/higginbotham/stream/hot tub.)) Ice area for (Minutes): 20 (Every 1-2 hours [address] barrier between ice and skin.) Weight Bearing Status: Weight bearing as tolerated Keep extremity elevated above heart level: Operative Extremity Dressing / Incision Call your doctor if your incision/area has: Continuous Slow Oozing, Sudden Increased Bleeding, Increased Pain/ Swelling, Increased Redness and Foul Smelling Discharge Call your doctor if you observe: Fever of 101 or Higher, Shortness of breath, Chest pain, Calf discomfort and Uncontrolled pain Remove Dressing in: 4 days (Okay to remove dressing on March 03, 2021) Additional Dressing/Incision Instructions:: Follow [facility] Post-op Instructions. Once postoperative dressing has been removed, only use gentle soap and water over the incision. Do not use any ointments, Neosporin, salves, alcohol pads over the incision for 6 weeks postoperatively. Do not submerge underwater for 6 weeks postoperatively. Continue with MASSIMO hose/elastic stockings for 2 weeks postoperatively. May remove at nighttime but needs to be placed back on the leg during the day. Do NOT use alcohol with narcotic pain medication. Do NOT make important decisions while taking narcotic medication. If you have problems with taking your medication (rash, itching, nausea, etc.) call the office at once. Follow Up Care Test Results: Test results from this visit will be discussed in further detail at your follow-up appointment, if applicable. Discharge Plan Admission Admit Date/Time: 02/26/21 12:30 Attending Provider: Ankur Wilcox Primary Care Provider: Liv Vanessa Consulting Providers: William Espinoza ; Aaliyah Tolliver Discharge Orders/Prescriptions Prescriptions: New acetaminophen 500 mg Tablet 1,000 mg PO Q8 Qty: 100 RF: 0 aspirin 81 mg tablet,delayed release (DR/EC) 81 mg PO BIDCM Qty: 60 RF: 0 meloxicam 7.5 mg Tablet 7.5 mg PO BID Qty: 60 RF: 0 famotidine 20 mg Tablet 20 mg PO DAILY Qty: 30 RF: 0 oxycodone 5 mg Tablet 5 - 10 mg PO Q4H PRN PRN (Reason: Pain Score 4-10) 5 Days Qty: 60 RF: 0 Continued B-complex with vitamin C tablet 1 tab PO QDAY RF: 0 ascorbic acid (vitamin C) 1,000 mg tablet 1 g PO DAILY RF: 0 cranberry 500 mg capsule 500 mg PO DAILY RF: 0 Viactiv 650 mg-12.5 mcg-40 mcg tablet,chewable 2 tab PO DAILY RF: 0 estradiol 0.01 % (0.1 mg/gram) cream 1 g vaginal .3XW RF: 0 lisinopril 20 mg tablet 20 mg PO QDAY Qty: 90 RF: 3 metoprolol tartrate 25 mg tablet 25 mg PO BID Qty: 180 RF: 3 rosuvastatin 5 mg tablet 5 mg PO DAILY Qty: 90 RF: 4 polyethylene glycol 3350 [Miralax] 17 gram Powder In Packet 17 g PO DAILY RF: 0 protein supplement Liquid 30 ml PO DAILY RF: 0 Probiotic 3 billion cell Capsule 3,000 mmu cells PO DAILY RF: 0 Discontinued acetaminophen [Tylenol Arthritis] 650 mg Tablet Extended Release 1,300 mg PO Q12H PRN (Reason: Pain) RF: 0 aspirin 81 mg Capsule,Delayed Release(Dr/Ec) 81 mg PO DAILY RF: 0 No Action Alive Once Daily Women 50 Plus 800-100 mcg tablet 2 tab PO DAILY RF: 0 Referrals / Follow Up: Physical,Therapy [Other] - 03/03/21 10:00 am (with [place]) Liv Vanessa MD [Primary Care Provider] - Yusef Pickett PA-C [[employer]] - 03/12/21 9:30 am Disposition Disposition (needs filled in before D/C Order can be placed): Home, self care
--- NOTE | 2021-02-27 07:31 | PCM.PN.HOSP ---
Subjective Subjective Is a 66-year-old female admitted for right minimally invasive invasive anterior total hip replacement Complain of mild pain otherwise asymptomatic. Patient has multiple medical comorbidities which include benign essential hypertension, dyslipidemia, paroxysmal atrial tachycardia. Objective Data Objective Data Vital Signs: Vital Signs Temp Pulse Resp BP Pulse Ox 97.5 F L 79 16 116/62 95 02/27/21 03:06 02/27/21 03:06 02/27/21 03:06 02/27/21 03:06 02/27/21 03:06 Oxygen Flow Rate (L/min) 3 Oxygen Delivery Method Room Air Weight: 216 lb 4.375 oz Body Mass Index (BMI) 32.8 Intake & Output: Intake and Output for Last 24 Hours 02/25/21 02/26/21 02/27/21 23:59 23:59 23:59 Intake Total 3866 / 3866 185.25 / 185.25 Output Total 600 / 600 Balance 3866 / 3266 -414.75 / -414.75 Lab / Micro Data Result Diagrams: 02/27/21 05:48 02/27/21 05:48 Labs: Laboratory Results - last 24 hr 02/26/21 02/27/21 02/27/21 10:36 05:48 05:48 WBC 16.2 H RBC 3.76 L Hgb 11.7 L Hct 36.1 L MCV 96.0 MCH 31.1 MCHC 32.4 RDW Std Deviation 41.9 RDW Coeff of Lilliam 12.0 Plt Count 183 MPV 9.0 Sodium 133 L Potassium 4.9 Chloride 103 Carbon Dioxide 26.0 Anion Gap 4 L BUN 19 H Creatinine 0.77 Estim Creat Clear Calc 55.07 Est GFR (MDRD) Af Amer 96 Est GFR (MDRD) Non-Af 79 BUN/Creatinine Ratio 24.6 H Glucose 186 H Calcium 8.5 POC Glucose 143 H Micro: Microbiology 02/13/21 08:54 Swab (Method) Nasal Screen MRSA/MSSA - Final Radiography Diagnostic Testing: Radiology Impression Hip X-Ray 02/26/21 14:55 IMPRESSION: Status post right total hip replacement. There is good alignment. Postoperative soft tissue changes. Electronically Signed: Momo Hauser MD at 15:15 EDT , Service support , Physical Exam Narrative General: Alert, Oriented x3, Cooperative HEENT: Atraumatic, PERRLA, EOMI, Normocephalic Oral: No Gingival or Mucosal Lesions/ Ulcerations Neck: Supple, No JVD, Negative Carotid Bruits Lungs: Air entry diminished in bilateral lung bases. No crepitation/rhonchi Cardiovascular: Regular rate, Regular Rhythm, Normal S1, Normal S2, No murmurs Abdomen: Bowel Sounds Present, Soft, Non Tender, Non-Distended : No renal angle tenderness. No suprapubic tenderness. Extremities: No edema, Capillary Refill Less than 3 Seconds Skin: No rashes, No breakdown Musculoskeletal: Surgical dressing is dry over right anterior lateral hip. Mild perioperative tenderness and edema. Neurological: Cranial nerves II-XII grossly intact, Deep Tendon Reflexes 2+/4 and Symmetrical, Neuro grossly intact Psych/Mental Status: Normal Affect, Appropriate. Assessment & Plan Assessment/Plan (1) Paroxysmal SVT (supraventricular tachycardia): (2) Hyperlipidemia: QUALIFIERS: Hyperlipidemia type: unspecified Qualified Code(s): E78.5 - Hyperlipidemia, unspecified (3) Paroxysmal atrial tachycardia: (4) Benign essential hypertension: (5) Status post total hip replacement, right: PLAN: (1) Status post total hip replacement, right: PLAN: 1. Right minimally invasive direct anterior total hip replacement on 02/26/2021 -Continue pain management as ordered per orthopedic surgeon -PT and OT to eval and treat 2. Essential hypertension -Continue lisinopril, metoprolol. Blood pressure is controlled 116/62, 103/54. Mild hyponatremia: IV fluid normal saline while patient in the hospital. Serum sodium is 133. Mild leukocytosis probably inflammatory from surgical distress. Does not have signs and symptoms of infection or sepsis. 3. Hyperlipidemia -Continue rosuvastatin 4. Obesity, adult BMI 30.0-34.9 -Lifestyle modifications encouraged DVT prophylaxis-SCDs Anticoagulation recommended 35 days if patient does not have high operative bleeding risk. Discontinue if platelet count drops less than 50,000 or hemoglobin less than 8 g% Charges/Coding Visit Charges Inpatient E&M: 01747 Subs Hosp L2
[2021-02-27 08:30] VITALS: BP 103/54; PULSE 66; RESP 18; TEMP 36.4; O2SAT 95
[2021-02-27] MEDS: Calcium Carb/Vitamin D 1 TABLET Tablet 2 TABLET PO (08:34)
[2021-02-27 08:35] VITALS: PULSE 66
[2021-02-27] MEDS: Aspirin 81 MG TAB.CHEW PO (08:35)
[2021-02-27] MEDS: Metoprolol Tartrate 25 MG Tablet PO (08:35)
[2021-02-27] MEDS: Famotidine 20 MG Tablet PO (08:35)
[2021-02-27] MEDS: Senna/Docusate Sodium 1 Tablet 2 TABLET PO (08:36)
[2021-02-27] MEDS: Lisinopril 20 MG Tablet PO (08:36)
[2021-02-27] MEDS: Polyethylene Glycol 3350 17 GM PACKET PO (08:37)
[2021-02-27] MEDS: Ensure Surgery 237 ML LIQUID PO ×2 (08:45→12:23)
--- NOTE | 2021-02-27 10:34 | PHA.DC.MC ---
Pharmacy Service has performed discharge medication reconciliation and counseling for this patient. The patient was counseled on the following discharge medications and changes in medications for homegoing were reviewed. 1. OXYCODONE 2. TYLENOL 3. MOBIC 4. ASPIRIN 5. FAMOTIDINE The Reason for Use, instructions for use, and potential side effects were reviewed for all new medications. The patient's questions regarding all of their medications were answered. The patient was able to verbally demonstrate an understanding of their discharge medications. Home Medications B-complex with vitamin C 1 tab PO QDAY 03/10/18 ascorbic acid (vitamin C) 1,000 mg tablet 1 g PO DAILY tab 04/12/19 calcium 650 mg-vitamin D3 12.5 mcg-vitamin K 40 mcg chewable tablet 2 tab PO DAILY tab 04/12/19 cranberry 500 mg capsule 500 mg PO DAILY cap 04/12/19 multivit,mineral-folic acid 800 mcg-vit K 100 mcg-herbal no.289 tablet 2 tab PO DAILY tab 06/13/20 estradiol 1 g VAGINAL .3XW 02/07/21 lisinopril 20 mg tablet 20 mg PO QDAY #90 tab 02/07/21 metoprolol tartrate 25 mg tablet 25 mg PO BID #180 tab 02/07/21 rosuvastatin 5 mg tablet 5 mg PO DAILY #90 tab 02/07/21 Probiotic 3,000 mmu cells PO DAILY 02/12/21 polyethylene glycol 3350 [Miralax] 17 g PO DAILY 02/12/21 protein supplement 30 ml PO DAILY 02/12/21 acetaminophen 1,000 mg PO Q8 #100 tab 02/27/21 aspirin 81 mg PO BIDCM #60 tab 02/27/21 famotidine 20 mg PO DAILY #30 tab 02/27/21 meloxicam 7.5 mg PO BID #60 tab 02/27/21 oxycodone 5 - 10 mg PO Q4H PRN PRN 5 Days #60 tab 02/27/21 The patient's discharge medication list was reviewed for discrepancies and discrepancies were resolved.
--- NOTE | 2021-02-27 10:50 | CASEMGMT ---
RN CM Face to Face with patient for initial transition planning/care coordination assessment. RN CM introduced self and role at [facility]. Patient sitting in chair, alert and oriented. Patient willing to participate in assessment and is able to answer all questions appropriately. Care providers, pharmacy, and demographics verified. Patient wishes to discharge home and is setup with [facility] for outpatient therapy. Patient states she has no further needs or concerns at this time. CM to follow for discharge planning needs that may arise. PCP: Rasheeda Specialists: adam Wilcox; Ki urologist; Olga welding supervisor Preferred Pharmacy: [facility] retail Insurance: [employer] Prescription Benefit: yes Living Will/HPOA: yes, Maverick Martini LNOK: , son Living Arrangements: Patient lives with in a one story home with 3-4 steps to enter the home. Transportation: Self DME/HHC: Patient states she has walker, shower chair, raised toilet, and cpap at home. Patient is scheduled for outpatient therapy. Disposition Plan: Patient to discharge home with outpatient therapy, family support, and follow-up plans in place. Dary PEREZ, RN, CM
[2021-02-27 14:50] VITALS: BP 105/56; PULSE 71; RESP 18; TEMP 36.9; O2SAT 93
== END 2021-02-27 15:20 | disposition home or self-care (01) ==
LOC: SDC 15:01 → MS3 15:01
PROVIDERS: Anesthesiology; Admitting Provider Specialist; PCP Family Medicine; Referring Provider Specialist; Visit Provider Specialist
PROC: (CPT 27284; principal; 2021-02-26 12:05)
DX: M16.11 Unilateral primary osteoarthritis, right hip (principal); I10 Essential (primary) hypertension; K21.9 Gastro-esophageal reflux disease without esophagitis; E11.9 Type 2 diabetes mellitus without complications; G47.30 Sleep apnea, unspecified; I47.1 Supraventricular tachycardia; E78.5 Hyperlipidemia, unspecified; N28.89 Other specified disorders of kidney and ureter; E66.9 Obesity, unspecified; G47.33 Obstructive sleep apnea (adult) (pediatric); E87.1 Hypo-osmolality and hyponatremia; M19.90 Unspecified osteoarthritis, unspecified site; Z79.899 Other long term (current) drug therapy; Z79.82 Long term (current) use of aspirin; Z68.32 Body mass index [BMI] 32.0-32.9, adult
CPT/HCPCS: 01214; 27130; 36415; 73501; 73502; 76000; 80048; 82962; 83036; 83735; 85025; 85027; 87081; 88305; 88311; 96361; 96365; 96366; 96375; 97110; 97162; 97166; 97530; 97535; 99218; 99251; C1776; J7040; J7120; G0378; G0379; G0463; J2405

== ENCOUNTER 2021-03-09 07:25 | Emergency (ER) | payer MEDICARE, OTHER, SELFPAY ==
[2021-02-26 10:25] VITALS: BMI 32.8
[2021-03-09 07:26] VITALS: BP 161/82; PULSE 78; RESP 18; TEMP 36.8; O2SAT 99; BMI 33.4
--- NOTE | 2021-03-09 07:37 | RAD_ITS ---
STUDY: X-RAY CHEST REASON FOR EXAM: Female, 66 years old. Dyspnea and tachypnea TECHNIQUE: PA and lateral views of the chest. COMPARISON: 10/03/2020 FINDINGS: EKG leads overlie the chest The lungs are clear and expanded. There is no demonstrated pleural abnormality. Normal size heart. Normal mediastinum and gaby. Normal visualized pulmonary arteries. Normal visualized aortic arch and descending thoracic aorta. Normal visualized thoracic spine. Normal visualized ribs, clavicles, and shoulders. There is no demonstrated abnormality of the visualized soft tissue structures of the upper abdomen. RAD/Chest PA and Lateral IMPRESSION: No acute pulmonary process Electronically Signed: Francisco Javier Marcano MD at 8:26 EDT , Service support ,
--- NOTE | 2021-03-09 07:39 | EX.ED.DYSGE1 ---
HPI History of Present Illness Chief Complaint: General Illness Informant: patient and spouse/S.O. Onset/Context/Timing Onset: Days (Extremity 3 days) Context: Sudden Onset Timing: Continuous Quality: Not feeling well, generalized weakness loose stools and shortness of breath Location: Not applicable Current Severity: Mild Maximum Severity: Moderate Worsened by: Nothing specific Relieved by: Nothing Associated Symptoms Associated Symptoms: General sense of illness and not feeling well Narrative Narrative: Patient is an elderly woman who recently had a total hip replacement. She was given antibiotics. She reports chills but not fever. She denies headache, photophobia, neck pain or neck stiffness. She denies rhinorrhea, congestion or postnasal drainage. She denies sore throat or difficulty swallowing. She denies change in taste or smell. She denies decreased hearing or ringing or ears. She does endorse shortness of breath. She has a slight cough. Cough is nonproductive. She denies orthopnea or PND. She denies chest discomfort. She denies pleuritic chest pain. She does admit to nausea without vomiting. She reports 4-5 loose stools for the past couple of days. She has not noticed any blood or mucus in the stool. She denies decreased urine output. She denies change in the color of her urine. She denies dysuria or hematuria. She states her leg swelling is markedly better. She does have compressive hoses on. She denies paresthesia, anesthesia medics. She states if she rises from sitting or supine position rapidly she is lightheaded. She denies thirst or dry mouth. She denies history of diabetes. She does report lower abdominal discomfort. She does have history of diverticulosis and diverticulitis. Prior similar symptoms: No Recent Illness/Hospitalization: Yes (Hip surgery) [facility] Medical History Ambulates with cane Arthritis Back pain Benign essential hypertension CPAP (continuous positive airway pressure) dependence Diverticulosis of intestine without perforation or abscess with bleeding Fatty liver GERD (gastroesophageal reflux disease) Heartburn High cholesterol History of diverticulitis History of diverticulitis of colon History of edema History of irregular heartbeat History of renal disease History of stress test Hx of echocardiogram (~07/03/20) Hyperlipidemia Hypertension Ischemic colitis Non-smoker Nonrheumatic mitral (valve) prolapse Obesity Paroxysmal atrial tachycardia Paroxysmal SVT (supraventricular tachycardia) Sleep apnea Vertigo Wears glasses Home Medications B-complex with vitamin C 1 tab PO QDAY 03/10/18 [History Last Taken Unknown] ascorbic acid (vitamin C) 1,000 mg tablet 1 g PO DAILY tab 04/12/19 [History Last Taken Unknown] calcium 650 mg-vitamin D3 12.5 mcg-vitamin K 40 mcg chewable tablet 2 tab PO DAILY tab 04/12/19 [History Last Taken Unknown] cranberry 500 mg capsule 500 mg PO DAILY cap 04/12/19 [History Last Taken Unknown] multivit,mineral-folic acid 800 mcg-vit K 100 mcg-herbal no.289 tablet 2 tab PO DAILY tab 06/13/20 [History Last Taken Unknown] estradiol 1 g VAGINAL .3XW 02/07/21 [History Last Taken Unknown] rosuvastatin 5 mg tablet 5 mg PO DAILY #90 tab 02/07/21 [Rx Last Taken Unknown] Probiotic 3,000 mmu cells PO DAILY 02/12/21 [History Last Taken Unknown] polyethylene glycol 3350 [Miralax] 17 g PO DAILY 02/12/21 [History Last Taken Unknown] protein supplement 30 ml PO DAILY 02/12/21 [History Last Taken Unknown] acetaminophen 1,000 mg PO Q8 #100 tab 02/27/21 [Rx Last Taken Unknown] aspirin 81 mg PO BIDCM #60 tab 02/27/21 [Rx Last Taken Unknown] famotidine 20 mg PO DAILY #30 tab 02/27/21 [Rx Last Taken Unknown] lisinopril 20 mg PO QDAY #90 tab 02/27/21 [Rx Last Taken 02/26/21] meloxicam 7.5 mg PO BID #60 tab 02/27/21 [Rx Last Taken Unknown] metoprolol tartrate 25 mg PO BID #180 tab 02/27/21 [Rx Last Taken 02/26/21] oxycodone 5 - 10 mg PO Q4H PRN PRN 5 Days #60 tab 02/27/21 [Rx Last Taken Unknown] Allergy/AdvReac Type Severity Reaction Status Date / Time Penicillins Allergy Unknown Verified 03/09/21 07:26 digoxin AdvReac Other Verified 03/09/21 07:26 hydrochlorothiazide AdvReac Upset Verified 03/09/21 07:26 [From Dyazide] Stomach levofloxacin [From Levaquin] AdvReac Upset Verified 03/09/21 07:26 Stomach magnesium citrate AdvReac Upset Verified 03/09/21 07:26 Stomach meperidine [From Demerol] AdvReac Upset Verified 03/09/21 07:26 Stomach nitrofurantoin AdvReac Upset Verified 03/09/21 07:26 [From Macrobid] Stomach polyethylene glycol AdvReac Upset Verified 03/09/21 07:26 [From Golytely] Stomach polyethylene glycol 3350 AdvReac Upset Verified 03/09/21 07:26 [From Golytely] Stomach potassium chloride AdvReac Upset Verified 03/09/21 07:26 [From Golytely] Stomach pravastatin [From Pravachol] AdvReac had white Verified 03/09/21 07:26 stool simvastatin [From Zocor] AdvReac Upset Verified 03/09/21 07:26 Stomach sodium [From Golytely] AdvReac Upset Verified 03/09/21 07:26 Stomach sodium bicarbonate AdvReac Upset Verified 03/09/21 07:26 [From Golytely] Stomach sodium chloride AdvReac Upset Verified 03/09/21 07:26 [From Golytely] Stomach sodium sulfate AdvReac Upset Verified 03/09/21 07:26 [From Golytely] Stomach triamterene [From Dyazide] AdvReac Upset Verified 03/09/21 07:26 Stomach Surgical History H/O lumpectomy History of cholecystectomy History of foot surgery History of left breast biopsy History of total hysterectomy Hx of appendectomy Social History (Updated 03/09/21 @ 07:[address] Troy Guadalupe MD) household members: spouse Smoking Status: Never smoker alcohol intake: never substance use type: does not use ROS ROS ED Constitutional Constitutional ED: Reports chills; Denies fever(s), subjective, sweats or weight loss Eyes Eyes: Denies blurry vision, change in vision or diplopia ENT ENT ED: Denies ear pain, rhinorrhea or sore throat Cardiovascular Cardiovascular: Denies chest pain, orthopnea, palpitations, paroxysmal nocturnal dyspnea or racing heartbeat Respiratory/Chest Respiratory/Chest: Reports cough and dyspnea; Denies dyspnea on exertion, orthopnea, paroxysmal nocturnal dyspnea or sputum Gastrointestinal Gastrointestinal: Reports abdominal pain, diarrhea and nausea; Denies constipation, melena or vomiting Genitourinary Genitourinary ED: Denies dysuria, hematuria or urinary frequency Musculoskeletal Musculoskeletal: Denies arthralgias, back pain, myalgias or neck pain Integumentary Denies abscess or rash Neurologic Neurologic: Reports weakness; Denies headache(s) or paresthesias Endocrine Endocrinology: Denies polydipsia, polyphagia or polyuria EXAM Physical Exam Const Vital Signs: 03/09/21 07:26 03/09/21 10:37 Temperature 98.2 F Temperature Source Temporal Pulse Rate 78 78 Respiratory Rate 18 16 Blood Pressure 161/82 H 167/78 H Blood Pressure Mean 108 107 Pulse Ox 99 98 Oxygen Delivery Method Room Air Room Air Vital signs are unremarkable. Patient not tachycardic nor is she tachypneic. Furthermore she is not hypoxic with a 99% saturation on room air. Positive well nourished, well developed and obese General Appearance ED: well developed and other She appears slightly short of breath and does not appear well. Nutritional Appearance: obese HEENT Reports dry mucous membranes; Denies moist mucous membranes HEENT Narrative: Nares patent. Posterior pharynx no erythema exudate. Uvula is midline. Ears are normal. There is no facial asymmetry. Mouth ED: Yes dry mucous membranes Mouth: dry mucous membranes Eyes PERRL and EOMs intact bilaterally General Eye ED: Negative for pale conjunctiva or scleral icterus Neck no lymphadenopathy, supple and no JVD Resp normal respiratory effort and clear to auscultation bilaterally Auscultation: diminished lung sounds bilateral throughout Cardio regular rate, regular rhythm, S1 normal heart sound, S2 normal heart sound and no murmurs GI non-tender, non-distended and no masses Auscultation: hypoactive bowel sounds Palpation: soft Back/Spine no CVA tenderness Thoracic Spine / Upper Back: Negative for paraspinal muscle tenderness Extremity General Extremety ED: Yes edema; Negative for tenderness General Extremity: edema Neuro oriented x3, CN's II-XII intact bilaterally and no sensory deficits noted Sensorium / Orientation: alert Motor Exam: strength 5/5 throughout and general weakness Psych mental status grossly normal Skin no rashes or lesions noted and no wounds MDM MDM MDM Narrative Medical decision making narrative: Patient presents with vague symptoms. This may represent viral illness, doubt pseudomembranous enterocolitis since patient is not having watery stools and denies odor to her loose stools. Clinically she appears dehydrated. 1 L of normal saline was ordered. Baseline blood work was ordered. Because she is tachypneic and reports shortness of breath chest x-ray was obtained. Lab Data Attestation: I reviewed the patient's lab results. Lab results narrative: CBC is remarkable for anemia. Patient's been anemic in the past. Creatinine has been elevated in the past. Creatinine is normal today and GFR is greater than 60. Comprehensive metabolic panel is unremarkable. There is no evidence of hypokalemia in light of patient reporting diarrhea/loose stools. Labs: Laboratory Results - last 24 hr 03/09/21 03/09/21 07:50 07:50 WBC 9.4 RBC 3.80 L Hgb 11.7 L Hct 36.4 L MCV 95.8 MCH 30.8 MCHC 32.1 RDW Std Deviation 44.3 H RDW Coeff of Lilliam 12.7 Plt Count 352 MPV 8.2 Immature Gran % (Auto) 0.500 Neut % (Auto) 71.6 H Lymph % (Auto) 20.1 [place] % (Auto) 4.9 Eos % (Auto) 2.4 Baso % (Auto) 0.5 Absolute Neuts (auto) 6.7 Absolute Lymphs (auto) 1.89 Nucleated RBC % 0 Sodium 139 Potassium 4.0 Chloride 106 Carbon Dioxide 26.0 Anion Gap 7 BUN 11 Creatinine 0.90 Estim Creat Clear Calc 61.19 Est GFR (MDRD) Af Amer 80 Est GFR (MDRD) Non-Af 66 BUN/Creatinine Ratio 12.2 Glucose 109 H Calcium 9.3 Total Bilirubin 0.40 AST 22 ALT 22 Alkaline Phosphatase 53 Total Protein 7.4 Albumin 3.3 Globulin 4.1 Albumin/Globulin Ratio 0.8 L Radiography Chest X-Ray - ED: 2 View (Interpreted by me at 0824 and compared to x-ray dated October 03, 2020.), Normal, Heart, Mediastinum, Bony Structures, No Acute Disease and Chronic Changes Diagnostic Testing: Radiology Impression Chest X-Ray 03/09/21 07:37 IMPRESSION: No acute pulmonary process Electronically Signed: Francisco Javier Marcano MD at 8:26 EDT , Service support , Treatment and Re-Evaluation Comments:: Patient was reassessed at 0825. She was informed of her chest x-ray findings per me and laboratory results. She states she just feels weak and has no energy. She is received 250 cc of the ordered 1 L of normal saline. Patient was reassessed at 1215. She feels comfortable going home. Discharge Plan Triage Chief Complaint: General Illness ED Provider: Troy Guadalupe Dx/Rx/DC Orders Clinical Impression: Diarrhea, Dehydration, mild, Generalized weakness Instructions: ED Diarrhea, Unknown Cause Prescriptions: No Action B-complex with vitamin C tablet 1 tab PO QDAY RF: 0 ascorbic acid (vitamin C) 1,000 mg tablet 1 g PO DAILY RF: 0 cranberry 500 mg capsule 500 mg PO DAILY RF: 0 Viactiv 650 mg-12.5 mcg-40 mcg tablet,chewable 2 tab PO DAILY RF: 0 Alive Once Daily Women 50 Plus 800-100 mcg tablet 2 tab PO DAILY RF: 0 estradiol 0.01 % (0.1 mg/gram) cream 1 g vaginal .3XW RF: 0 rosuvastatin 5 mg tablet 5 mg PO DAILY Qty: 90 RF: 4 polyethylene glycol 3350 [Miralax] 17 gram Powder In Packet 17 g PO DAILY RF: 0 protein supplement Liquid 30 ml PO DAILY RF: 0 Probiotic 3 billion cell Capsule 3,000 mmu cells PO DAILY RF: 0 acetaminophen 500 mg Tablet 1,000 mg PO Q8 Qty: 100 RF: 0 aspirin 81 mg tablet,delayed release (DR/EC) 81 mg PO BIDCM Qty: 60 RF: 0 meloxicam 7.5 mg Tablet 7.5 mg PO BID Qty: 60 RF: 0 famotidine 20 mg Tablet 20 mg PO DAILY Qty: 30 RF: 0 oxycodone 5 mg Tablet 5 - 10 mg PO Q4H PRN PRN (Reason: Pain Score 4-10) 5 Days Qty: 60 RF: 0 lisinopril 20 mg tablet 20 mg PO QDAY Qty: 90 RF: 3 metoprolol tartrate 25 mg tablet 25 mg PO BID Qty: 180 RF: 3 Primary Care Provider: Liv Vanessa Referrals: Liv Vanessa MD [Primary Care Provider] - 3-5 Days if not improving Disposition Disposition: Home, self care
[2021-03-09 08:03] LABS: Absolute Lymphocyte Count 1.89 X10^3/uL (0.83-4.51); Absolute Neutrophil Count 6.7 X10^3/uL (2.0-7.7); Basophil# 0.05 X10^3/uL; Basophil% 0.5 % (0-1); Eosinophil# 0.23 X10^3/uL; Eosinophils% 2.4 % (0-5); Hematocrit 36.4 % (37-47); Hemoglobin 11.7 g/dL (12.0-15.0); Lymphocyte # 1.89 X10^3/ul (0.83-4.51); Lymphocyte % 20.1 % (19-41); Mean Corp Hgb Conc 32.1 g/dL (32-36); Mean Corpuscular Hgb 30.8 pg (27.0-32.0); Mean Corpuscular Volume 95.8 fL (81-99); Mean Platelet Vol. 8.2 fl (6.2-12.0); Monocyte# 0.46 X10^3/uL; Monocyte% 4.9 % (0-10); NRBC Flagged by Analyzer 0 % (0-5); Neutrophil # 6.73 X10^3/uL (2.7-7.7); Neutrophil % 71.6 % (47-70); Platelet Count 352 K/mm3 (150-450); RBC Distribution Width CV 12.7 % (11.6-14.6); RBC Distribution Width SD 44.3 fl (35.1-43.9); White Blood Count 9.4 K/mm3 (4.4-11.0)
[2021-03-09] MEDS: 0.9% Normal Saline 1,000 ML 1000 ML IV (08:03)
[2021-03-09 08:18] LABS: ALB/GLOB Ratio 0.8 RATIO (0.9-2.4); AST(SGOT) 22 U/L (15-37); Alanine Aminotransfer ALT/SGPT 22 U/L (13-56); Albumin, Serum 3.3 g/dL (3.2-5.0); Alkaline Phosphatase 53 U/L (45-117); Anion Gap 7 (5-15); BUN 11 mg/dL (7-18); BUN/Creat Ratio 12.2 RATIO (10-20); Calcium,Total 9.3 mg/dL (8.5-10.1); Chloride 106 mmol/L (98-107); EST Glomerular Filtration Rate 66 mL/min (>60); Est Glom Filt Rate - Afr Amer 80 mL/min (>60); Estimated Creatinine Clearance 61.19 ml/min; Globulin 4.1 g/dL (2.2-4.2); Glucose 109 mg/dL (74-106); Protein, Total 7.4 g/dL (6.4-8.2); Sodium Level 139 mmol/L (136-145)
[2021-03-09] MEDS: Ondansetron 4 MG/2 ML Vial IV (10:36)
[2021-03-09 10:37] VITALS: BP 167/78; PULSE 78; RESP 16; O2SAT 98
== END 2021-03-09 12:58 | disposition home or self-care (01) ==
PROVIDERS: Emergency Provider Emergency Medicine; PCP Family Medicine
DX: R19.7 Diarrhea, unspecified (principal); E86.0 Dehydration; R53.1 Weakness; E66.9 Obesity, unspecified; E78.00 Pure hypercholesterolemia, unspecified; I10 Essential (primary) hypertension; I34.1 Nonrheumatic mitral (valve) prolapse; K21.9 Gastro-esophageal reflux disease without esophagitis; K76.0 Fatty (change of) liver, not elsewhere classified; M19.90 Unspecified osteoarthritis, unspecified site; Z79.1 Long term (current) use of non-steroidal anti-inflammatories (NSAID); Z79.82 Long term (current) use of aspirin
CPT/HCPCS: 71046; 80053; 85025; 96361; 96374; 99283; J7030; A4216; J2405

== ENCOUNTER 2021-06-03 11:44 | Emergency (ER) | payer MEDICARE, OTHER, SELFPAY ==
[2021-06-03 11:45] VITALS: BP 143/79; PULSE 72; RESP 18; TEMP 36.5; O2SAT 98; BMI 31.0
[2021-06-03 11:48] VITALS: BP 143/79
--- NOTE | 2021-06-03 12:38 | EX.ED.DYSGE1 ---
HPI History of Present Illness Chief Complaint: Headache Narrative Narrative: Chief complaint says headache. Patient's actual complaint is epigastric pain for the past 2 days. When asked specifically about the headache she tells me she has no headache but feels slightly lightheaded. She has no vertigo. She is on prednisone for her hip, she has developed 2 days of epigastric pain with nausea. No lower abdominal pain. No diarrhea or constipation no back pain or tearing sensation. [facility] Medical History Ambulates with cane Arthritis Back pain Benign essential hypertension CPAP (continuous positive airway pressure) dependence Diverticulosis of intestine without perforation or abscess with bleeding Fatty liver GERD (gastroesophageal reflux disease) Heartburn High cholesterol History of diverticulitis History of diverticulitis of colon History of edema History of irregular heartbeat History of renal disease History of stress test Hx of echocardiogram (~07/03/20) Hyperlipidemia Hypertension Ischemic colitis Non-smoker Nonrheumatic mitral (valve) prolapse Obesity Paroxysmal atrial tachycardia Paroxysmal SVT (supraventricular tachycardia) Sleep apnea Vertigo Wears glasses Home Medications B-complex with vitamin C 1 tab PO QDAY 03/10/18 [History Last Taken Unknown] ascorbic acid (vitamin C) 1,000 mg tablet 1 g PO DAILY tab 04/12/19 [History Last Taken Unknown] calcium 650 mg-vitamin D3 12.5 mcg-vitamin K 40 mcg chewable tablet 2 tab PO DAILY tab 04/12/19 [History Last Taken Unknown] cranberry 500 mg capsule 500 mg PO DAILY cap 04/12/19 [History Last Taken Unknown] multivit,mineral-folic acid 800 mcg-vit K 100 mcg-herbal no.289 tablet 2 tab PO DAILY tab 06/13/20 [History Last Taken Unknown] estradiol 1 g VAGINAL .3XW 02/07/21 [History Last Taken Unknown] rosuvastatin 5 mg tablet 5 mg PO DAILY #90 tab 02/07/21 [Rx Last Taken Unknown] Probiotic 3,000 mmu cells PO DAILY 02/12/21 [History Last Taken Unknown] polyethylene glycol 3350 [Miralax] 17 g PO DAILY 02/12/21 [History Last Taken Unknown] protein supplement 30 ml PO DAILY 02/12/21 [History Last Taken Unknown] acetaminophen 1,000 mg PO Q8 #100 tab 02/27/21 [Rx Last Taken Unknown] aspirin 81 mg PO BIDCM #60 tab 02/27/21 [Rx Last Taken Unknown] famotidine 20 mg PO DAILY #30 tab 02/27/21 [Rx Last Taken Unknown] lisinopril 20 mg PO QDAY #90 tab 02/27/21 [Rx Last Taken 02/26/21] meloxicam 7.5 mg PO BID #60 tab 02/27/21 [Rx Last Taken Unknown] metoprolol tartrate 25 mg PO BID #180 tab 02/27/21 [Rx Last Taken 02/26/21] oxycodone 5 - 10 mg PO Q4H PRN PRN 5 Days #60 tab 02/27/21 [Rx Last Taken Unknown] omeprazole 40 mg PO DAILY #14 cap 06/03/21 [Rx Last Taken Unknown] Allergy/AdvReac Type Severity Reaction Status Date / Time Penicillins Allergy Unknown Verified 03/09/21 07:26 digoxin AdvReac Other Verified 03/09/21 07:26 hydrochlorothiazide AdvReac Upset Verified 03/09/21 07:26 [From Dyazide] Stomach levofloxacin [From Levaquin] AdvReac Upset Verified 03/09/21 07:26 Stomach magnesium citrate AdvReac Upset Verified 03/09/21 07:26 Stomach meperidine [From Demerol] AdvReac Upset Verified 03/09/21 07:26 Stomach nitrofurantoin AdvReac Upset Verified 03/09/21 07:26 [From Macrobid] Stomach polyethylene glycol AdvReac Upset Verified 03/09/21 07:26 [From Golytely] Stomach polyethylene glycol 3350 AdvReac Upset Verified 03/09/21 07:26 [From Golytely] Stomach potassium chloride AdvReac Upset Verified 03/09/21 07:26 [From Golytely] Stomach pravastatin [From Pravachol] AdvReac had white Verified 03/09/21 07:26 stool simvastatin [From Zocor] AdvReac Upset Verified 03/09/21 07:26 Stomach sodium [From Golytely] AdvReac Upset Verified 03/09/21 07:26 Stomach sodium bicarbonate AdvReac Upset Verified 03/09/21 07:26 [From Golytely] Stomach sodium chloride AdvReac Upset Verified 03/09/21 07:26 [From Golytely] Stomach sodium sulfate AdvReac Upset Verified 03/09/21 07:26 [From Golytely] Stomach triamterene [From Dyazide] AdvReac Upset Verified 03/09/21 07:26 Stomach Surgical History H/O lumpectomy History of cholecystectomy History of foot surgery History of left breast biopsy History of total hysterectomy Hx of appendectomy Social History (Updated 03/09/21 @ 07:[address] Troy Guadalupe MD) household members: spouse Smoking Status: Never smoker alcohol intake: never substance use type: does not use ROS ROS ED ROS Narrative Past medical history: Reviewed Medications: Reviewed Social history: Noncontributory Review of systems: All systems negative except as indicated General: No fever. Some lightheadedness. Eyes: No visual changes ENT: No upper airway congestion, normal voice Neck: No neck pain Cardiovascular: No chest pain Respiratory: No shortness of breath or cough Gastrointestinal: Epigastric pain as in HPI Genitourinary: No dysuria Musculoskeletal: Chronic right hip pain has not changed. Skin: No rash Neurological: No memory loss, confusion or any focal weakness Psych: No recent behavioral changes Hematologic: No easy bleeding or easy bruising EXAM Physical Exam Narrative Exam Narrative: Physical exam General: Patient appears relatively comfortable Head: Normocephalic, Atraumatic Eyes: Conjunctiva not pale ENT: Moist mucous membranes Neck: Supple, Nontender, No lymphadenopathy Cardiovascular: Regular rate, Regular rhythm Respiratory: No distress, CTA bilaterally Abdomen: Soft, most of the pain is in the epigastrium. There is no guarding or rebound. There is slight right upper quadrant abdominal pain but the John's test is negative. No lower abdominal pain. No pain at McBurney's. Back: Nontender, Normal Inspection. Negative for: CVA tenderness Extremities: Nontender, No edema Skin: Normal color, No rash Neurological: Alert, Normal Strength, Normal Sensation Psychological: Normal affect Const Vital Signs: 06/03/21 11:45 06/03/21 11:48 Temperature 97.7 F L Temperature Source Temporal Pulse Rate 72 Respiratory Rate 18 Blood Pressure 143/79 H 143/79 H Blood Pressure Mean 100 100 Pulse Ox 98 Oxygen Delivery Method Room Air MDM MDM MDM Narrative Medical decision making narrative: Patient is on steroids and has epigastric pain, this is likely gastritis. She significantly improved after IV Pepcid and GI cocktail. Her blood work is unremarkable, I do not believe she needs imaging especially that she now is asymptomatic. I will discharge her in stable condition apparently tomorrow is her last day of steroids for a possible strain I told her to stop the steroids today. Otherwise I will place her on a PPI for home. Lab Data Labs: Laboratory Results - last 24 hr 06/03/21 06/03/21 12:40 12:40 WBC 13.2 H RBC 4.78 Hgb 14.5 Hct 44.6 MCV 93.3 MCH 30.3 MCHC 32.5 RDW Std Deviation 44.2 H RDW Coeff of Lilliam 12.9 Plt Count 332 MPV 8.5 Immature Gran % (Auto) 0.500 Neut % (Auto) 63.3 Lymph % (Auto) 27.1 Union % (Auto) 7.6 Eos % (Auto) 0.9 Baso % (Auto) 0.6 Absolute Neuts (auto) 8.3 H Absolute Lymphs (auto) 3.56 Nucleated RBC % 0 Sodium 137 Potassium 3.7 Chloride 102 Carbon Dioxide 29.0 Anion Gap 6 BUN 20 H Creatinine 0.87 Estim Creat Clear Calc 65.58 Est GFR (MDRD) Af Amer 84 Est GFR (MDRD) Non-Af 69 BUN/Creatinine Ratio 23.0 H Glucose 89 Calcium 9.4 Total Bilirubin 0.50 AST 23 ALT 36 Alkaline Phosphatase 62 Total Protein 8.3 H Albumin 3.7 Globulin 4.6 H Albumin/Globulin Ratio 0.8 L Lipase 117 Discharge Plan Triage Chief Complaint: Headache ED Provider: William Albarran Dx/Rx/DC Orders Clinical Impression: Gastritis Instructions: ED Gastritis (Adult) Prescriptions: New omeprazole 40 mg capsule,delayed release(DR/EC) 40 mg PO DAILY Qty: 14 RF: 0 No Action B-complex with vitamin C tablet 1 tab PO QDAY RF: 0 ascorbic acid (vitamin C) 1,000 mg tablet 1 g PO DAILY RF: 0 cranberry 500 mg capsule 500 mg PO DAILY RF: 0 Viactiv 650 mg-12.5 mcg-40 mcg tablet,chewable 2 tab PO DAILY RF: 0 Alive Once Daily Women 50 Plus 800-100 mcg tablet 2 tab PO DAILY RF: 0 estradiol 0.01 % (0.1 mg/gram) cream 1 g vaginal .3XW RF: 0 rosuvastatin 5 mg tablet 5 mg PO DAILY Qty: 90 RF: 4 polyethylene glycol 3350 [Miralax] 17 gram Powder In Packet 17 g PO DAILY RF: 0 protein supplement Liquid 30 ml PO DAILY RF: 0 Probiotic 3 billion cell Capsule 3,000 mmu cells PO DAILY RF: 0 acetaminophen 500 mg Tablet 1,000 mg PO Q8 Qty: 100 RF: 0 aspirin 81 mg tablet,delayed release (DR/EC) 81 mg PO BIDCM Qty: 60 RF: 0 meloxicam 7.5 mg Tablet 7.5 mg PO BID Qty: 60 RF: 0 famotidine 20 mg Tablet 20 mg PO DAILY Qty: 30 RF: 0 oxycodone 5 mg Tablet 5 - 10 mg PO Q4H PRN PRN (Reason: Pain Score 4-10) 5 Days Qty: 60 RF: 0 lisinopril 20 mg tablet 20 mg PO QDAY Qty: 90 RF: 3 metoprolol tartrate 25 mg tablet 25 mg PO BID Qty: 180 RF: 3 Primary Care Provider: Liv Vanessa Referrals: Liv Vanessa MD [Primary Care Provider] - 2 Days Disposition Disposition: Home, Self Care
[2021-06-03 12:44] LABS: Absolute Lymphocyte Count 3.56 X10^3/uL (0.83-4.51); Absolute Neutrophil Count 8.3 X10^3/uL (2.0-7.7); Basophil# 0.08 X10^3/uL; Basophil% 0.6 % (0-1); Eosinophil# 0.12 X10^3/uL; Eosinophils% 0.9 % (0-5); Hematocrit 44.6 % (37-47); Hemoglobin 14.5 g/dL (12.0-15.0); Lymphocyte # 3.56 X10^3/ul (0.83-4.51); Lymphocyte % 27.1 % (19-41); Mean Corp Hgb Conc 32.5 g/dL (32-36); Mean Corpuscular Hgb 30.3 pg (27.0-32.0); Mean Corpuscular Volume 93.3 fL (81-99); Mean Platelet Vol. 8.5 fl (6.2-12.0); Monocyte% 7.6 % (0-10); NRBC Flagged by Analyzer 0 % (0-5); Neutrophil # 8.33 X10^3/uL (2.7-7.7); Neutrophil % 63.3 % (47-70); Platelet Count 332 K/mm3 (150-450); RBC Distribution Width CV 12.9 % (11.6-14.6); RBC Distribution Width SD 44.2 fl (35.1-43.9); Red Blood Count 4.78 M/mm3 (4.2-5.4); White Blood Count 13.2 K/mm3 (4.4-11.0)
[2021-06-03] MEDS: 0.9% Normal Saline 1,000 ML 1000 ML IV (12:44)
[2021-06-03] MEDS: Mag Hydrox/Al Hydrox/Simeth 30 ML UDC PO (12:44)
[2021-06-03] MEDS: Ondansetron 4 MG/2 ML Vial IV (12:44)
[2021-06-03] MEDS: Famotidine 200 MG/20 ML MDV 20 MG in 0.9% Normal Saline (Pres. free 8 ML 300 MG IV (12:44)
[2021-06-03 13:03] LABS: ALB/GLOB Ratio 0.8 RATIO (0.9-2.4); AST(SGOT) 23 U/L (15-37); Alanine Aminotransfer ALT/SGPT 36 U/L (13-56); Albumin, Serum 3.7 g/dL (3.2-5.0); Alkaline Phosphatase 62 U/L (45-117); Anion Gap 6 (5-15); BUN 20 mg/dL (7-18); Calcium,Total 9.4 mg/dL (8.5-10.1); Chloride 102 mmol/L (98-107); Creatinine, Serum 0.87 mg/dL (0.55-1.02); EST Glomerular Filtration Rate 69 mL/min (>60); Est Glom Filt Rate - Afr Amer 84 mL/min (>60); Estimated Creatinine Clearance 65.58 ml/min; Globulin 4.6 g/dL (2.2-4.2); Glucose 89 mg/dL (74-106); Lipase 117 U/L (73-393); Potassium 3.7 mmol/L (3.5-5.1); Protein, Total 8.3 g/dL (6.4-8.2); Sodium Level 137 mmol/L (136-145)
[2021-06-03 13:51] VITALS: BP 127/77; PULSE 66; RESP 17; O2SAT 100
== END 2021-06-03 13:53 | disposition home or self-care (01) ==
PROVIDERS: Emergency Provider Emergency Medicine; PCP Family Medicine
DX: K29.70 Gastritis, unspecified, without bleeding (principal); E78.00 Pure hypercholesterolemia, unspecified; E78.5 Hyperlipidemia, unspecified; I10 Essential (primary) hypertension; I34.1 Nonrheumatic mitral (valve) prolapse; K21.9 Gastro-esophageal reflux disease without esophagitis; K76.0 Fatty (change of) liver, not elsewhere classified; M19.90 Unspecified osteoarthritis, unspecified site; Z79.1 Long term (current) use of non-steroidal anti-inflammatories (NSAID); Z79.82 Long term (current) use of aspirin; Z79.899 Other long term (current) drug therapy
CPT/HCPCS: 80053; 83690; 85025; 99284; J2405; J3490

== ENCOUNTER → 2021-09-01 | Outpatient (CLI) | payer MEDICARE, OTHER, SELFPAY ==
[2021-09-01 13:33] LABS: Absolute Lymphocyte Count 2.42 X10^3/uL (0.83-4.51); Absolute Neutrophil Count 3.5 X10^3/uL (2.0-7.7); Basophil# 0.04 X10^3/uL; Basophil% 0.6 % (0-1); Eosinophils% 1.5 % (0-5); Hematocrit 41.6 % (37-47); Hemoglobin 14.1 g/dL (12.0-15.0); Lymphocyte # 2.42 X10^3/ul (0.83-4.51); Lymphocyte % 37.2 % (19-41); Mean Corp Hgb Conc 33.9 g/dL (32-36); Mean Corpuscular Hgb 31.2 pg (27.0-32.0); Monocyte# 0.45 X10^3/uL; Monocyte% 6.9 % (0-10); NRBC Flagged by Analyzer 0 % (0-5); Neutrophil # 3.48 X10^3/uL (2.7-7.7); Neutrophil % 53.5 % (47-70); Platelet Count 258 K/mm3 (150-450); RBC Distribution Width SD 44.2 fl (35.1-43.9); Red Blood Count 4.52 M/mm3 (4.2-5.4); White Blood Count 6.5 K/mm3 (4.4-11.0)
[2021-09-01 13:49] LABS: Anion Gap 7 (5-15); BUN 21 mg/dL (7-18); BUN/Creat Ratio 27.3 RATIO (10-20); Calcium,Total 9.8 mg/dL (8.5-10.1); Chloride 104 mmol/L (98-107); Creatinine, Serum 0.77 mg/dL (0.55-1.02); EST Glomerular Filtration Rate 80 mL/min (>60); Est Glom Filt Rate - Afr Amer 96 mL/min (>60); Glucose 95 mg/dL (74-106); Potassium 4.2 mmol/L (3.5-5.1); Sodium Level 137 mmol/L (136-145)
[2021-09-01 16:12] LABS: Albumin, Serum 3.9 g/dL (3.2-5.0)
--- NOTE | 2021-09-02 16:52 | HP.PCM_ITS ---
History and Physical History and Physical [facility] Patient Name: Ron Martini : 1955 From: BOBBI HEARN PA-C DATE OF SURGERY: 09/17/2021 SCHEDULED PROCEDURE: right hip revision femoral head HISTORY OF PRESENT ILLNESS: Preoperative history and physical exam was performed on September 01, 2021. This is a 66-year-old female who underwent a previous right total hip arthroplasty by Dr. Ankur Wilcox on February 26, 2021. Patient has been followed postoperatively and has continued to have pain with her hip. Her pain is intermittent, dull, aching. She has pain with activities of daily living including housework and shopping. Pain is increased with any flexion activity with internal rotation. She has had difficulty with ambulation since the surgery. She has worked with physical therapy. She has tried Medrol Dosepak. She has been using a cane for ambulatory assistance. On x-ray it appears she has less offset and less length on her postoperative right hip. There is been no trauma or injury. We have obtain surgical clearance previously from the primary care physician and it application architect Dr. Espinoza. Patient does not state any change in medical history except she is currently being treated for a vaginal infection in which she is on an antibiotic which she is unable to tell me the prescription. She is followed by Dr. Emerson. We are obtaining surgical clearance and she is aware that if infection is not cleared up and symptoms are resolved surgery must be canceled. She denies fevers or chills at home. She has medical history pertinent for sleep apnea, type 2 diabetes mellitus, gastroesophageal reflux disease, vertigo, hypertension, paroxysmal supraventricular tachycardia. REVIEW OF SYSTEMS: ROS: Const: Denies anorexia, change in appetite, fever, hard of hearing, vision problems and weight change. CV: Reports irregular heartbeat, but denies chest pain, heart murmur and peripheral vascular disease. Resp: Reports pneumonia and sleep apnea, but denies asthma, cough, SOB, tuberculosis and wheezing. GI: Reports constipation and diarrhea, but denies difficulty swallowing, heartburn, nausea, bloody stools and vomiting. : Urinary: denies incontinence. Musculo: Reports leg swelling and limp, but denies trouble walking and weakness. Skin: Denies Raynaud's, history of shingles and tattoo. Neuro: Denies ambulatory dysfunction, dizziness, numbness/tingling and tremor. Psych: Denies anxiety, depression, insomnia, mental illness and stress. Asad/Lymph: Denies anemia, bleeding/bruising tendency and past transfusion. Reviewed, no changes. PAST MEDICAL HISTORY: Advance Care Plan: Resuscitation, LIVING WILL Effective Date: 01/13/2021 PMH: Medical Problems: High Blood Pressure, Hypercholesterolemia, Fatty Liver Disease, Heel Spurs, Sleep Apnea, Arthritis Kidney - SMALL FATTY GROWTH GERD, Diverticulitis, hyperlipidemia, Vertigo, Leaky Valve In Heart Accidents: None Surgical Hx: Appendectomy - A CHILD Hysterectomy - AGE 39 LT Thigh Lump Removed, LT Heel, Gallbladder, Liver Biopsy Knee Arthroscopy LT - (11/08/2015) [email or web address] RT Hip Injection - (07/21/2019) SAW @ [facility] Hip Replacement RT - (02/26/2021) SAW @ [facility] Anesthesia Complications: Nausea, Vomiting Assistive Devices: Glasses, Cpap, Cane Reviewed and updated. SOCIAL HISTORY: SH: Marital: .Occupation: Homemaker.Work Status: Housewife.Hand Dominance: Left-handed. Personal Habits: Tobacco Use: Patient has never smoked.Cigarette Use: Never Smoked Cigarettes.Alcohol: Denies use.Drug Use: Denies Use.Enjoy Exercising: Exercises 1-3 X/Week. Reviewed, no changes. VITALS: Ht: 65.7 Wt: 210lb Wt k.256 BMI: 34.2 BP: 116/70 Pulse: 66 Resp: 12 T: 97.6 T: 36.4C Pain Level: 4 ALLERGIES: Penicillins Digoxin Dyazide Pravachol Zocor Macrobid Demerol Magnesium Citrate GoLYTELY Hydrocodone Meloxicam Prednisone Levaquin MEDICATIONS: Aspirin 81 81 mg 1 pill 2x/day by mouth, Crestor 5 mg 1 tab PO daily, Lisinopril 20 mg 1 tab PO daily, Multivitamin & Mineral 1 tab PO daily, Super B Complex 1 tab PO daily, Metoprolol Tartrate 25 mg 1 tab PO daily, Probiotic daily, Vitamin C 500 mg daily, Vitamin B 12 daily, Cranberry Concentrate daily, Citracal +D3 daily, Albuterol Sulfate 2 puffs, Estradiol 0.1 mg/gm apply as directed PRE-OP EXAM: General appearance:NORMAL Other: Eyes: Conjunctivae and lids: NORMAL Pupils: ERR Ears, Nose, Mouth, and Throat: NORMAL Other: Inspection of lips, teeth and gums: NORMAL Other: Neck: Examination of neck: no masses noted. Respiratory: Assessment of respiratory effort: NORMAL Other: Auscultation of lungs: clear to auscultation no wheezes, rhonchi or rales. Cardiovascular: Auscultation of heart: regular rate and rhythm, no murmurs, gallops or rubs. PHYSICAL EXAMINATION: Previous right hip incision is well-healed without erythema or signs of infection. Pain is increased with any flexion and internal rotation and abduction. Sensation intact to light touch. Right hip is soft and supple. IMAGING STUDIES: Previous x-rays of the right hip reveal stable total hip replacement with no evidence of loosening or subsidence. Implants appear stable but there does appear to be slight decrease in leg length based on the lesser trochanters as well as offset. IMPRESSION: 1. Painful right total hip arthroplasty 2. Hypertension 3. Type 2 diabetes mellitus 4. Gastroesophageal reflux disease 5. Vertigo 6. Paroxysmal supraventricular tachycardia 7. Sleep apnea PLAN: Dr. Ankur Wilcox did discuss and review with the patient all treatment options including surgical versus nonsurgical options. Patient does wish to proceed with the above-stated procedure. Potential risks, benefits, and complications of the procedure were discussed in detail including but not limited to , infection, nerve and blood vessel damage, persistent pain, numbness, tingling, paresthesias, blood clot, pulmonary embolism, and requirement for possible further surgery. The patient expressed full understanding and has no further questions for the doctor. Patient does agree to proceed with the above-stated procedure and has signed the surgery consent form. Patient takes estradiol 3 times weekly and she has been treated previous postoperative course with aspirin for DVT prophylaxis tolerating this well. No postoperative complications. We will continue with aspirin for DVT prophylaxis. We discussed the current risks associated with COVID 19. This does include the risk of exposure while in the hospital. Patient was reassured local hospitals have low infection rates and are taking all necessary precautions to avoid exposure to patients. In addition, we discussed strategies that can be used to help limit exposure including those that limit the patient's time in the hospital. Also using strategies to limit the patient's need for continued inpatient services after being discharged from the hospital. Patient was notified that we will need to comply with any screening or testing the hospital wishes to perform or that surgery may be delayed for any positive results. This dictation was created using voice recognition software. Phonetic and/or grammatical errors may exist. ___ I have re-examined the patient. There are no clinical changes since date of exam. ___ See progress notes for changes. ___ Dictated on admission Date: Time: Signature:
[2021-09-03 10:18] LABS: Magnesium 2.4 mg/dL (1.6-2.6)
== END | disposition home or self-care (01) ==
LOC: PAT 10-13 16:51
PROVIDERS: Anesthesiology; PCP Family Medicine; Referring Provider Specialist; Visit Provider Specialist
DX: Z01.818 Encounter for other preprocedural examination (principal)
CPT/HCPCS: 36415; 80048; 82040; 83735; 85025; 87077; 87081

== ENCOUNTER → 2021-09-15 10:47 | Outpatient (CLI) | payer MEDICARE, OTHER, SELFPAY | PROVIDERS: PCP Family Medicine; Referring Provider Family Medicine; Visit Provider Family Medicine | DX: Z20.828 Contact with and (suspected) exposure to other viral communicable diseases (principal) | CPT/HCPCS: 87633; 87635; U0005; U0003 ==

== ENCOUNTER 2021-10-24 13:55 | Outpatient (CLI) | payer MEDICARE, OTHER, SELFPAY ==
--- NOTE | 2021-10-24 14:07 | CT_ITS ---
STUDY: CT SOFT TISSUE NECK WITH CONTRAST REASON FOR EXAM: Female, 66 years old. Palpable lump RADIATION DOSAGE (If Supplied By Facility): CTDIvol = ( 17.69 ) mGy, DLP = ( 543.68 ) mGycm TECHNIQUE: The patient was scanned in a multi-detector CT scanner. High resolution transaxial imaging was performed following intravenous administration of IV 75mL [id number]-300. Sagittal and coronal images were reconstructed. Individualized dose optimization techniques were used for this CT. COMPARISON: None. FINDINGS: There is no subcutaneous abnormality corresponding to the marker placed on the right side of the neck on axial image 57. Normal bilateral parotid glands. Normal bilateral vision mixer spaces. Normal bilateral parapharyngeal spaces. Normal bilateral carotid spaces. Normal bilateral sublingual and submandibular glands and spaces. Normal visualized nasopharynx. Normal retropharyngeal space. Normal perivertebral space. Normal visualized bilateral faucial tonsils. The visualized tongue, tongue base and oropharynx are normal. The visualized cervical lymph nodes (levels I-) are within normal size limits, and maintain normal morphology. There is no demonstrated solid or cystic mass lesion. There is no abnormal contrast enhancement. Normal epiglottis, bilateral vallecula and hypopharynx. The pre-epiglottic and paraglottic adipose spaces are normal. Normal visualized bilateral piriform sinuses, aryepiglottic folds, vocal cords, and arytenoid-cricoid articulations. Normal subglottic trachea. Normal bilateral lobes of the thyroid gland. Pulmonary apices show underlying emphysema with superimposed interstitial edema Normal visualized paranasal sinuses. Multilevel degenerative changes noted in the cervical spine. CT/Soft Tissue Neck WITH Contrast IMPRESSION: No subcutaneous lesion corresponding to the palpable lump on the right side of the neck. No suspicious enhancing lesion, airway narrowing or deviation. No suspicious bulky adenopathy No CT evidence of an acute inflammatory process Degenerative bony changes Electronically Signed: Francisco Javier Marcano MD at 15:23 EST ,
--- NOTE | 2021-10-24 14:07 | CT_ITS ---
STUDY: CT FACIAL BONES WITHOUT CONTRAST REASON FOR EXAM: Female, 66 years old. CHRONIC SINUSITIS RADIATION DOSAGE (If Supplied By Facility): CTDIvol = ( 33.06 ) mGy, DLP = ( 862.77 ) mGycm TECHNIQUE: The patient was scanned in a multi detector CT scanner. Sagittal and coronal images were reconstructed. Individualized dose optimization techniques were used for this CT. COMPARISON: None. FINDINGS: Normal soft tissue structures. Specifically, there is no subcutaneous lesion corresponding to the marker placed on the right side of the neck on axial image 14. Normal orbital adames and orbital contents. Normal nasal bones and anterior nasal spine. Normal facial bones. There is no demonstrated fracture. Normal visualized paranasal sinuses. CT/Sinus/Facial Bone IMPRESSION: No suspicious underlying lesion corresponding to the replaced by the radiology technician No demonstrated fracture or suspicious osseous lesion Paranasal sinuses are unremarkable No CT evidence of acute inflammatory process Electronically Signed: Francisco Javier Marcano MD at 15:26 EST ,
[2021-10-24 14:26] LABS: EGFR FINGERSTICK > 60.0000 mL/min (>60)
== END 2021-10-24 23:59 | disposition short-term general hospital (02) ==
LOC: CT 13:58
PROVIDERS: PCP Family Medicine; Referring Provider Family Medicine; Visit Provider Family Medicine
DX: I88.1 Chronic lymphadenitis, except mesenteric (principal); J32.9 Chronic sinusitis, unspecified
CPT/HCPCS: 70486; 70491; Q9967

== ENCOUNTER 2022-01-08 10:49 | Outpatient (CLI) | payer MEDICARE, OTHER, SELFPAY ==
[2022-01-08 11:06] LABS: Cholesterol 124 mg/dL (200); High Density Lipoprotein 46 mg/dL; Triglycerides 118 mg/dL; Very Low Density Lipoprotein 24 mg/dL (5-40)
== END 2022-01-08 23:59 | disposition home or self-care (01) ==
LOC: LAB 10:50
PROVIDERS: Visit Provider Physician Assistant Medical
DX: I10 Essential (primary) hypertension (principal)
CPT/HCPCS: 80061

== ENCOUNTER 2022-01-21 10:01 | Inpatient (IN) | payer MEDICARE, OTHER, SELFPAY ==
--- NOTE | 2022-01-05 22:37 | HP.PCM_ITS ---
History and Physical History and Physical [facility] Patient Name: Ron Martini : 1955 From: REUBEN HEARN PA-C DATE OF SURGERY: 01/21/2022 SCHEDULED PROCEDURE: revision femoral head right total hip arthroplasty HISTORY OF PRESENT ILLNESS: Preoperative history and physical exam was performed on January 05, 2022. This is a 66-year-old female who is been having ongoing pain with her right hip. She was initially scheduled to undergo revision in August 2021. This had to be canceled as patient came down ill. Patient has had continued pain which is constant, dull, aching, sore. Pain is increased with going up and down stairs, walking, sitting. She underwent a previous right total hip arthroplasty on February 26, 2021. She had continued pain postoperatively. She has difficulty with activities of daily living including bathing/showering, dressing, housework, shopping. She has increased pain with ambulation. She does utilize a cane. On x-ray it appears she has less offset and less length on the postoperative right hip. Patient has tried Medrol Dosepak. We are obtaining surgical clearance from the primary care physician and supervisor in circuit testing Dr. Espinoza. Patient does have medical history pertinent for sleep apnea, type 2 diabetes mellitus, gastroesophageal reflux disease, vertigo, hypertension, paroxysmal supraventricular tachycardia. She denies chest pain or shortness of breath at this time. No recent infections. After failing conservative measures and discussing treatment options was Dr. Ankur Wilcox, the patient does wish to proceed with revision femoral head right total hip arthroplasty. REVIEW OF SYSTEMS: Review Of Systems: Constitutional: Denies anorexia, change in appetite, fever, difficulty sleeping, weight change. Cardiovasular: Reports irregular heartbeat, but denies chest pain, heart murmur and peripheral vascular disease. Respiratory: Reports pneumonia and sleep apnea, but denies asthma, cough, sh ortness of breath, tuberculosis and wheezing. Gastrointestinal: Reports constipation and diarrhea, but denies heartburn, nausea, rectal itching, bloody stools and vomiting. Genitourinary: Denies incontinence. Musculoskeletal: Reports leg swelling and pain, but denies trouble walking and weakness. Skin: Denies Raynaud's, history of shingles and tattoo. Neurological: Denies ambulatory dysfunction, dizziness, numbness/tingling and tremor. Psychiatric: Denies anxiety, depression, insomnia, mental illness and stress. Hematologic/Lymphatic: Denies anemia, bleeding/bruising tendency and past transfusion. Reviewed and updated. PAST MEDICAL HISTORY: Advance Care Plan: Resuscitation, LIVING WILL Effective Date: 01/13/2021 Past Medical History: Medical Problems: High Blood Pressure, Hypercholesterolemia, Fatty Liver Disease, Heel Spurs, Sleep Apnea, Arthritis Kidney - SMALL FATTY GROWTH GERD, Diverticulitis, hyperlipidemia, Vertigo, Leaky Valve In Heart, Rapid Heart Beat Accidents: None Surgical Hx: Appendectomy - A CHILD Hysterectomy - AGE 39 LT Thigh Lump Removed, LT Heel, Gallbladder, Liver Biopsy Knee Arthroscopy LT - (11/08/2015) [email or web address] RT Hip Injection - (07/21/2019) SAW @ [facility] Hip Replacement RT - (02/26/2021) SAW @ [facility] Anesthesia Complications: Nausea, Vomiting Assistive Devices: Glasses, Cpap, Cane Reviewed and updated. SOCIAL HISTORY: Social History: Marital: .Occupation: Homemaker.Work Status: Housewife.Hand Dominance: Left-handed. Personal Habits: Tobacco Use: Patient has never smoked.Cigarette Use: Never Smoked Cigarettes.Smokeless Tobacco: Never Used Smokeless Tobacco.E-Cigarette Use: Never used.Alcohol: Denies use.Drug Use: Denies Use.Enjoy Exercising: Exercises 1-3 X/Week. Reviewed and updated. VITALS: Ht: 65.5 Wt: 219lb Wt k.338 BMI: 35.9 BP: 128/80 Pulse: 83 Resp: 16 T: 98.2 T: 36.8C Pain Level: 3 O2SatR: 98 ALLERGIES: Penicillins Digoxin Dyazide Pravachol Zocor Macrobid Demerol Magnesium Citrate GoLYTELY Hydrocodone Meloxicam Prednisone Levaquin MEDICATIONS: Aspirin 81 81 mg 1 pill 2x/day by mouth, Crestor 5 mg 1 tab PO daily, Lisinopril 20 mg 1 tab PO daily, Multivitamin & Mineral 1 tab PO daily, Super B Complex 1 tab PO daily, Metoprolol Tartrate 25 mg 1 tab PO daily, Probiotic daily, Vitamin C 500 mg daily, Vitamin B 12 daily, Cranberry Concentrate daily, Citracal +D3 daily, Estradiol 0.1 mg/gm apply as directed PRE-OP EXAM: General appearance:NORMAL Other: Eyes: Conjunctivae and lids: NORMAL Pupils: ERR Ears, Nose, Mouth, and Throat: NORMAL Other: Inspection of lips, teeth and gums: NORMAL Other: Neck: Examination of neck: no masses noted. Respiratory: Assessment of respiratory effort: NORMAL Other: Auscultation of lungs: clear to auscultation no wheezes, rhonchi or rales. Cardiovascular: Auscultation of heart: regular rate and rhythm, no murmurs, gallops or rubs. PHYSICAL EXAMINATION: Previous right hip incision is well-healed without erythema or signs of infection. Pain is increased with any flexion and internal rotation and abduction. Sensation intact to light touch. Right hip is soft and supple. IMAGING STUDIES: Previous x-rays of the right hip reveal stable total hip replacement with no evidence of loosening or subsidence. Implants appear stable but there does appear to be slight decrease in leg length based on the lesser trochanters as well as offset. IMPRESSION: 1. Painful right total hip arthroplasty 2. Hypertension 3. Type 2 diabetes mellitus 4. Gastroesophageal reflux disease 5. Vertigo 6. Paroxysmal supraventricular tachycardia 7. Sleep apnea PLAN: Dr. Ankur Wilcox did discuss and review with the patient all treatment options including surgical versus nonsurgical options. Patient does wish to proceed with the above-stated procedure. Potential risks, benefits, and complications of the procedure were discussed in detail including but not limited to , infection, nerve and blood vessel damage, persistent pain, numbness, tingling, paresthesias, blood clot, pulmonary embolism, and requirement for possible further surgery. The patient expressed full understanding and has no further questions for the doctor. Patient does agree to proceed with the above-stated procedure and has signed the surgery consent form. Patient takes estradiol 3 times weekly and she has been treated previous postoperative course with aspirin for DVT prophylaxis tolerating this well. No postoperative complications. We will continue with aspirin for DVT prophylaxis. We discussed the current risks associated with COVID 19. This does include the risk of exposure while in the hospital. Patient was reassured local hospitals have low infection rates and are taking all necessary precautions to avoid exposure to patients. In addition, we discussed strategies that can be used to help limit exposure including those that limit the patient's time in the hospital. Also using strategies to limit the patient's need for continued inpatient services after being discharged from the hospital. Patient was notified that we will need to comply with any screening or testing the hospital wishes to perform or that surgery may be delayed for any positive results. This dictation was created using voice recognition software. Phonetic and/or grammatical errors may exist. ___ I have re-examined the patient. There are no clinical changes since date of exam. ___ See progress notes for changes. ___ Dictated on admission Date: Time: Signature:
--- NOTE | 2022-01-08 09:37 | EKG12_ITS ---
Test Reason : PRE-OP Blood Pressure : / mmHG Vent. Rate : 074 BPM Atrial Rate : 074 BPM P-R Int : 144 ms QRS Dur : 084 ms QT Int : 394 ms P-R-T Axes : 027 -13 000 degrees QTc Int : 437 ms Normal sinus rhythm Voltage criteria for left ventricular hypertrophy Abnormal ECG Confirmed by ROBERTA MENDEZ, ULISES ([id number]), legal editor ALLEN JANE ([id number]) on 01/09/2022 1:04:52 PM Referred By: DEJUAN Confirmed By:KEYLA GRANADOS MD
[2022-01-08 10:22] LABS: Absolute Lymphocyte Count 2.41 X10^3/uL (0.83-4.51); Basophil# 0.05 X10^3/uL; Basophil% 0.7 % (0-1); Eosinophil# 0.12 X10^3/uL; Eosinophils% 1.7 % (0-5); Hematocrit 42.2 % (37-47); Hemoglobin 13.7 g/dL (12.0-15.0); Lymphocyte # 2.41 X10^3/ul (0.83-4.51); Lymphocyte % 34.1 % (19-41); Mean Corp Hgb Conc 32.5 g/dL (32-36); Mean Corpuscular Hgb 31.5 pg (27.0-32.0); Mean Platelet Vol. 9.5 fl (6.2-12.0); Monocyte# 0.47 X10^3/uL; Monocyte% 6.7 % (0-10); NRBC Flagged by Analyzer 0 % (0-5); Neutrophil # 3.99 X10^3/uL (2.7-7.7); Neutrophil % 56.5 % (47-70); Platelet Count 266 K/mm3 (150-450); RBC Distribution Width CV 12.4 % (11.6-14.6); RBC Distribution Width SD 44.3 fl (35.1-43.9); Red Blood Count 4.35 M/mm3 (4.2-5.4); White Blood Count 7.1 K/mm3 (4.4-11.0)
[2022-01-08 10:41] LABS: Magnesium 2.1 mg/dL (1.6-2.6)
[2022-01-08 10:42] LABS: Albumin, Serum 4.1 g/dL (3.2-5.0); Anion Gap 4 (5-15); BUN 30 mg/dL (7-18); BUN/Creat Ratio 34.2 RATIO (10-20); Calcium,Total 9.4 mg/dL (8.5-10.1); Chloride 103 mmol/L (98-107); Creatinine, Serum 0.88 mg/dL (0.55-1.02); EST Glomerular Filtration Rate 68 mL/min (>60); Est Glom Filt Rate - Afr Amer 83 mL/min (>60); Glucose 113 mg/dL (74-106); Potassium 4.1 mmol/L (3.5-5.1); Sodium Level 137 mmol/L (136-145)
[2022-01-21] VITALS (15 sets, daily range): BP systolic 92–137; BP diastolic 53–79; PULSE 68–96; RESP 16–18; TEMP 36.1–36.6; O2SAT 88–100; BMI 32.8
[2022-01-21] MEDS: Lactated Ringers 1,000 ML 999 ML IV ×2 (11:03→14:45)
[2022-01-21] MEDS: Celecoxib 200 MG Capsule 400 MG PO (11:08)
[2022-01-21] MEDS: Acetaminophen 500 MG Tablet 1000 MG PO (11:09)
[2022-01-21] MEDS: Gabapentin 600 MG Tablet PO (11:09)
[2022-01-21] MEDS: Lactated Ringers 1,000 ML 75 ML IV (12:20)
--- NOTE | 2022-01-21 12:55 | RAD_ITS ---
STUDY: INTRAOPERATIVE FLUOROSCOPY TECHNIQUE: The examination was performed with referring physician in attendance. Under fluoroscopic observation, fluoroscopic images were obtained. Radiologist was not present for the study. Radiologist did not perform the procedure. This dictation is for documentation of the radiation dosage only. There is no interpretation of the images. TOTAL NUMBER OF IMAGES: 1 COMPARISON: None RADIATION DOSE: 2.35 mGy FLUOROSCOPY TIME: 12.3 seconds REASON FOR EXAM: PAIN revision femoral head, total ant rt hip Female, 66 years old. FINDINGS: Total right hip arthroplasty. RAD/Hip 1 view with Pelvis IMPRESSION: Fluoroscopic assistance images were obtained. Dictation for documentation purposes only. Electronically Signed: Hemanth Evans MD at 16:22 EDT ,
[2022-01-21] MEDS: Clindamycin 900 MG/50 ML BAG 75 MG IV (13:03)
[2022-01-21] MEDS: TXA 1000mg in NS100 100ml (IVPB at Incision) 660 MG IV (13:13)
[2022-01-21] MEDS: Heparin 10,000 UNITS/10 ML Vial 10000 UNITS (13:30)
[2022-01-21] MEDS: TXA 1000mg in NS100 100ml (IVPB at Closure) 660 MG IV (14:54)
--- NOTE | 2022-01-21 15:06 | OP.PCM_ITS ---
Report of Operation Date of Procedure: 01/21/22 Pre-Operative Diagnosis: Right hip Painful hip replacement with impingement and leg length discrepancy Post-Operative Diagnosis: Right hip Painful hip replacement with impingement and leg length discrepancy Surgery/Procedure Performed:: Right hip direct anterior femoral head revision Description of Surgical Findings:: Stable hip with equal leg length based on radiographs and medial malleoli Surgeon: Ankur Wilcox glue reel operator: Yusef Pickett Type of Anesthesia: Spinal Special Medications: 2 g Ancef, 1 g TXA at incision, 1 g TXA closure, 10 mg Decadron, joint cocktail (5 mg Duramorph, 30 mL of 0.5% Ropivicaine, 1000 units of epinephrine, 30 mg of Toradol) Specimen's removed: Bony cuts Estimated Blood Loss (mL): 150 Fluids Replaced: 1200 mL crystalloid Description of Procedure: Components used: 1. Kayy Biolox delta 36mm, +2.5 mm femoral head see taper with V 40/C taper sleeve adapter Brief history operative indications: 66 yo f who failed conservative measures for their hip pain after total hip replacement. Patient had subsidence early postoperatively. She had good ingrowth of the femoral stem however she developed impingement and abductor weakness with associated pain. X-rays were consistent with right leg length discrepancy and decreased offset. Revision total hip replacement was discussed with the patient with risks and benefits including but not limited to blood loss, DVTs, PEs, neurovascular damage, dislocation, general risks of anesthesia including loss of life. Patient demonstrated an understanding medical clearance is obtained the patient was consented for surgery. Procedure: On the date of procedure the patient's right hip was marked in the preoperative area. Patient was then taken back to the operating room where anesthesia assumed control of the C-spine and airway and administered anesthetic. Patient was transferred to the operating table and placed in the supine position. The hips were placed at the break of the bed and a sacral bump was placed. The right lower extremity was then prepped out in a sterile fashion using chlorhexidine while the surgeon scrubbed. The PA was vital in the positioning of the patient. Upon reentering the room the right lower extremity was draped in the standard orthopedic fashion and the incision was marked. A timeout was called and everyone agreed upon the side, the site, the procedure be performed, antibody given, and patient's identity. At this time incision was made through skin using the previous incision and extending it slightly medially. Dissection was then carefully taken down through, subcutaneous tissue, and fat down to fascia. After identifying the fascia we carefully palpated the ASIS once we ensured we are 1 cm lateral to the ASIS, the fascia was then incised and the TFL was retracted laterally. A retractor was placed on the lateral border of the femoral neck. Attention was directed to the inferior portion of the approach and all crossing vessels were identified and appropriately coagulated. A retractor was then placed on the medial portion of the femoral neck. At this point live x-ray was brought in so we could verify we were in the appropriate position. 1 retractor was lateral and wound tractor was medial to the femoral neck. The anterior capsule was then cleared of all soft tissue and then H shaped capsulotomy was made. We carefully debrided the synovium and surrounding capsular tissue. Cultures were sent for specimen. After we carefully debrided this we then released the proximal femur and were able to externally rotate the hip and dislocate the component. Bone tamp was used to dissociate the previous Loco taper. Once this was done we then trialed slowly working up to a +2.5. After multiple trials the +2.5 mm head gave us the best reproduction of leg length and offset in comparison to the contralateral side using live fluoroscopy. The trials were again dislocated. At this time 6 L of normal saline were irrigated throughout the wound. Trunnion was again exposed and dried off. Once the trunnion was dry the sleeve and do femoral head were assembled on the back table and placed on the trunnion. They were impacted into place and the Loco taper fit was secured and tested. My photography assistant then went to the foot of the bed and pull traction and internally rotated as a guide of the hip into reduction. Once it was appropriately reduced and stability was checked. There was minimal shuck, equal leg lengths and appropriate stability with hyperextension and external rotation as well as with 90? flexion and internal rotation. Fluoroscopy was then also used to verify the position of the components and leg lengths using the contralateral side for comparison. Wound was irrigated out with a 3-minute dilute Betadine lavage followed by chlorhexidine lavage followed by copious amounts of normal saline. Local pain solution was given. Closure was then done using #1 Vicryl runner to close the fascia. A 2-0 vicryl interuppted sutures were used to close the subcutaneous skin. A 3-0 Monocryl and Steri-Strips were used for final skin closure. A Silverlon dressing was placed. Patient was awakened by anesthesia and transferred to the [facility]. Patient was then transferred to the PACU for recovery. During the course of the procedure the physician varnish thinner (PE) played a vital role. Their intimate knowledge of my steps in the procedure aided in safe and expedient completion of the procedure. The PE played a vital rolls in positioning particularly in obtaining the appropriate positioning of the sacral bump. The PE was also vital in the retraction of soft tissues during the exposure and especially the femoral work as this is a vital part of the procedure to prevent complications and fractures. The PE was also vital and protecting soft tissues during times of bony cuts and reaming. He also played a vital role in closure with my direct supervision. The PE was also important during reduction and dislocation of the joint and trials intraoperatively. Postoperative plan: Patient will get 24 hours postop antibiotics. Patient will get in-house physical therapy and will be weight-bear as tolerated. Patient will follow up in office in 2 weeks for a wound check and x-rays. Aspirin 81 mg twice daily. Patient will be placed on 2 weeks of doxycycline as we follow cultures. Complications No intraoperative complications Admit VTE Documentation VTE Present on Admission: No VTE Mechan Device Prophylaxis: SCD's and Thigh High MASSIMO Hose VTE Pharm Prophylaxis ordered?: Yes
[2022-01-21 15:15] LABS: Bedside Glucose 113 mg/dL (74-106)
--- NOTE | 2022-01-21 15:55 | RAD_ITS ---
STUDY: X-RAY - PELVIS AND RIGHT HIP REASON FOR EXAM: Female, 66 years old. Post Op -- AP both hips on single terence/lateral of op hip PACU POST OP RIGHT ANTERIOR HIP TECHNIQUE: XR Hip Unilateral with Pelvis when performed; 2-3 Views COMPARISON: None. FINDINGS: There is no fracture or dislocation. There is anatomic alignment. The soft tissue planes are preserved. Total hip arthroplasty. There is an air-fluid level seen in the operative site. Joint space is preserved. Subcutaneous air is noted. RAD/Hip Min 2 Views (Portable) IMPRESSION: Successful total hip arthroplasty. Electronically Signed: Hemanth Evans MD at 16:16 EDT ,
--- NOTE | 2022-01-21 16:01 | PCM.PN.HOSP ---
Documented by User: Marie Samuel NP, UNDERWRITING MANAGER-C 01/21/22 16:21 Subjective Subjective Patient seen and examined in PACU. Currently pain controlled. Denies shortness of breath. Denies other symptoms or complaints. Hospitalist services consulted for medical management. Objective Data Objective Data Vital Signs: Vital Signs Temp Pulse Resp BP Pulse Ox 97.9 F 68 16 137/73 H 99 01/21/22 10:53 01/21/22 10:53 01/21/22 10:53 01/21/22 10:53 01/21/22 10:53 Oxygen Delivery Method Room Air Weight: 216 lb 0.848 oz Body Mass Index (BMI) 32.8 Intake & Output: Intake and Output for Last 24 Hours 01/19/22 01/20/22 01/21/22 23:59 23:59 23:59 Intake Total 902 / 902 Balance 902 / 902 Lab / Micro Data Result Diagrams: 01/08/22 09:25 01/08/22 09:25 Labs: Laboratory Results - last 24 hr 01/21/22 10:51: POC Glucose 113 H Micro: Microbiology 01/08/22 09:25 Swab (Method) Nasal Screen MRSA/MSSA - Final Physical Exam Const alert, oriented x3 and no apparent distress Orientation / Consciousness: awake, oriented to person, oriented to place and oriented to time HEENT normocephalic Mouth: dry mucous membranes Eyes PERRL, EOMs intact bilaterally and conjunctivae normal Neck no lymphadenopathy Resp clear to auscultation bilaterally Auscultation: diminished lung sounds Cardio regular rate, regular rhythm and no murmurs Peripheral Pulses: pulses 2+ throughout GI normal to inspection, nondistended, normoactive bowel sounds, non-tender and non-distended Extremity normal to inspection General Extremity: edema bilateral lower extremity (right slightly greater than left) Skin no rashes or lesions noted Lesions: no lesions Rashes: no rashes Trauma: no lacerations or abrasions Neuro CN's II-XII intact bilaterally, no focal motor deficits, no sensory deficits noted and deep tendon reflexes 2+ bilaterally Psych mental status grossly normal and affect normal Assessment & Plan Assessment/Plan (1) Status post total hip replacement, right: PLAN: 1. Right hip direct anterior femoral head revision secondary to right hip painful replacement with impingement and leg length discrepancy-management per orthopedic medicine. PT/OT. As needed pain regimen. 2. Hypertension-continue metoprolol. 3. Hyperlipidemia-continue statin. 4. Paroxysmal atrial tachycardia-continue metoprolol. 5. BRADEN-continue home CPAP regimen. 6. GERD- PRN famotidine. DVT prophylaxis- Aspirin BID per ortho This patient was seen by ALAN Linares under the supervision of Dr. Tolliver. Time spent examining patient, reviewing data and subsequent management of care: 12 minutes Documented by User: Dr. Aaliyah Tolliver MD 01/21/22 16:24 Objective Data Lab / Micro Data Result Diagrams: 01/08/22 09:25 01/08/22 09:25
[2022-01-21] MEDS: Lactated Ringers 1,000 ML 125 ML IV (16:58)
--- NOTE | 2022-01-21 17:45 | CPS ---
Set pt up on her own CPAP [id number], did need to bleed-in 4lpm O2 to get Sat of 95%, pt still groggy from surgery, Mary Erickson RN in room.
[2022-01-21] MEDS: 0.9% Saline Lock 10 ML Syringe IV (17:52)
[2022-01-21] MEDS: Ondansetron 4 MG/2 ML Vial IV (17:52)
[2022-01-21] MEDS: Clindamycin 600 MG/50 ML BAG 100 MG IV (18:58)
[2022-01-21] MEDS: traMADol 50 MG Tablet PO (21:08)
[2022-01-21] MEDS: proMETHazine 25 MG/ML Syringe 12.5 MG IM (21:09)
[2022-01-22] MEDS: Clindamycin 600 MG/50 ML BAG 100 MG IV ×2 (01:34→05:56)
[2022-01-22] MEDS: Morphine 2 MG/ML Syringe IV (02:11)
[2022-01-22 05:25] VITALS: BP 112/65; PULSE 68; RESP 16; TEMP 36.5; O2SAT 96
[2022-01-22] MEDS: Acetaminophen 500 MG Tablet 1000 MG PO ×2 (05:58→14:02)
[2022-01-22 06:12] LABS: Hematocrit 38.5 % (37-47); Hemoglobin 12.3 g/dL (12.0-15.0); Mean Corp Hgb Conc 31.9 g/dL (32-36); Mean Corpuscular Hgb 31.1 pg (27.0-32.0); Mean Corpuscular Volume 97.5 fL (81-99); Mean Platelet Vol. 9.7 fl (6.2-12.0); Platelet Count 219 K/mm3 (150-450); RBC Distribution Width CV 11.9 % (11.6-14.6); RBC Distribution Width SD 42.9 fl (35.1-43.9); Red Blood Count 3.95 M/mm3 (4.2-5.4); White Blood Count 13.3 K/mm3 (4.4-11.0)
[2022-01-22 06:56] LABS: Anion Gap 5 (5-15); BUN 19 mg/dL (7-18); BUN/Creat Ratio 21.6 RATIO (10-20); Calcium,Total 8.5 mg/dL (8.5-10.1); Chloride 104 mmol/L (98-107); Creatinine, Serum 0.88 mg/dL (0.55-1.02); EST Glomerular Filtration Rate 68 mL/min (>60); Est Glom Filt Rate - Afr Amer 82 mL/min (>60); Estimated Creatinine Clearance 62.58 ml/min; Glucose 145 mg/dL (74-106); Potassium 4.4 mmol/L (3.5-5.1); Sodium Level 134 mmol/L (136-145)
[2022-01-22 07:51] VITALS: BP 118/63; PULSE 77; RESP 18; TEMP 36.4; O2SAT 96
[2022-01-22] MEDS: Senna/Docusate Sodium 1 Tablet 2 TABLET PO (07:53)
[2022-01-22] MEDS: Famotidine 20 MG Tablet PO (07:53)
[2022-01-22] MEDS: Polyethylene Glycol 3350 17 GM PACKET PO (07:54)
[2022-01-22] MEDS: Aspirin 81 MG TAB.CHEW PO (07:54)
[2022-01-22 07:56] VITALS: PULSE 77
[2022-01-22] MEDS: Ascorbic Acid 500 MG Tablet 1000 MG PO (07:56)
[2022-01-22] MEDS: Metoprolol Tartrate 25 MG Tablet PO (07:56)
[2022-01-22] MEDS: Lisinopril 20 MG Tablet PO (07:57)
--- NOTE | 2022-01-22 08:42 | PN.ORTHO_ITS ---
Subjective Subjective The patient was sitting in bed upon examination. Patient denies any chest pain, shortness of breath, dizziness, lightheadedness, nausea or vomiting, or calf pain. Pain is controlled on medications. No adverse overnight events. Patient does complain of pain in the right hip but this is no different than when she came in for surgery. Objective Data Objective Data Vital Signs: Vital Signs Temp Pulse Resp BP Pulse Ox 97.6 F L 77 18 118/63 96 01/22/22 07:51 01/22/22 07:56 01/22/22 07:51 01/22/22 07:51 01/22/22 07:51 Oxygen Flow Rate (L/min) 2 Oxygen Delivery Method Room Air Weight: 98 kg Body Mass Index (BMI) 32.8 Intake & Output: Intake and Output for Last 24 Hours 01/20/22 01/21/22 01/22/22 23:59 23:59 23:59 Intake Total 3707 / 3707 636.5 / 636.5 Output Total 300 / 300 500 / 500 Balance 3407 / 3407 136.5 / 136.5 Lab / Micro Data Result Diagrams: 01/22/22 05:35 01/22/22 05:35 Labs: Laboratory Results - last 24 hr 01/21/22 10:51: POC Glucose 113 H 01/22/22 05:35: WBC 13.3 H, RBC 3.95 L, Hgb 12.3, Hct 38.5, MCV 97.5, MCH 31.1, MCHC 31.9 L, RDW Std Deviation 42.9, RDW Coeff of Lilliam 11.9, Plt Count 219, MPV 9.7 01/22/22 05:35: Sodium 134 L, Potassium 4.4, Chloride 104, Carbon Dioxide 25.0, Anion Gap 5, BUN 19 H, Creatinine 0.88, Estim Creat Clear Calc 62.58, Est GFR (MDRD) Af Amer 82, Est GFR (MDRD) Non-Af 68, BUN/Creatinine Ratio 21.6 H, Gluc ose 145 H, Calcium 8.5 Micro: Microbiology 01/08/22 09:25 Swab (Method) Nasal Screen MRSA/MSSA - Final Radiography Diagnostic Testing: Radiology Impression Hip/Pelvis X-Ray 01/21/22 12:55 IMPRESSION: Fluoroscopic assistance images were obtained. Dictation for documentation purposes only. Electronically Signed: Hemanth Evans MD at 16:22 EDT , Hip X-Ray 01/21/22 15:55 IMPRESSION: Successful total hip arthroplasty. Electronically Signed: Hemanth Evans MD at 16:16 EDT , Physical Exam Narrative Vital signs stable and afebrile. Right hip is soft and supple MASSIMO hose and SCDs are in place bilaterally Patient is able to plantarflex and dorsiflex actively. Sensation is intact to light touch to saphenous, sural, superficial and deep peroneal, and tibial distribution. Dressing is clean dry and intact. Negative Homans bilaterally, negative signs and symptoms of DVT. Const alert, oriented x3 and no apparent distress Assessment & Plan Assessment/Plan (1) History of revision of total replacement of right hip joint: PLAN: 1. S/P revision femoral head direct anterior right total hip arthroplasty POD #1 2. Continue Pain Medications: Tylenol and tramadol 3. DVT Prophylaxis: Take 81 mg aspirin twice daily for 4 weeks postoperatively for DVT prophylaxis 4. PT/OT: Weightbearing as tolerated with walker 5. H & H: 12.3/38.5, asymptomatic. Postoperative anemia secondary to acute blood loss from surgery without any intra operative complications. 6. Reactive leukocytosis: Currently 13.3, afebrile. 7. Continue antibiotics postoperatively while following cultures: Cultures are currently pending. She will be placed on 2 weeks of doxycycline while we follow the cultures. Discussed with the patient that this medication can cause her to be more sensitive to sunlight and take appropriate precautions. 8. Continue postoperative medical management per medicine 9. Encouraged Incentive Spirometry 10. Disposition: Plan will be for probable discharge home today as long as cleared by medicine, tolerates physical therapy, and pain is well controlled. She will be given above medications and E scribed to [facility]. She will follow-up per postop instructions. Patient does have outpatient physical therapy established. Upon discharge she will contact her office with any concerns or questions. I have reviewed the [place] Automated Rx Reporting System ([place]ARRS) report for this patient for refill pattern and other prescriber involvement as part of the appropriate surveillance for the provision of acute and chronic controlled medications. The report was requested and reviewed on the date of this entry and was considered in the prescribing process.
--- NOTE | 2022-01-22 08:46 | DCINST_ITS ---
Discharge Instructions Diet Discharge Diet: No restrictions Activity Discharge Activity: May Not Drive (No driving for 6 weeks postoperatively. Must be able to walk 100 feet without use of cane or walker. No driving while taking narcotic pain medications.) and May Shower (Do not submerge incision underwater for 6 weeks postoperatively) May shower in (days): 1 (only if incision is dry and without drainage. Do NOT soak/submerge in tub/pool/higginbotham/stream/hot tub.)) Ice area for (Minutes): 20 (Every 1-2 [address] barrier between ice and skin.) Weight Bearing Status: Weight bearing as tolerated (With walker) Keep extremity elevated above heart level: Operative Extremity Dressing / Incision Call your doctor if your incision/area has: Continuous Slow Oozing, Sudden Increased Bleeding, Increased Pain/ Swelling, Increased Redness and Foul Smelling Discharge Call your doctor if you observe: Fever of 101 or Higher, Shortness of breath, Chest pain, Calf discomfort and Uncontrolled pain Remove Dressing in: 4 days (May remove dressing on January 26, 2022) Additional Dressing/Incision Instructions:: Follow [facility] Post-op Instructions. Once postoperative dressing has been removed, only use gentle soap and water over the incision. Do not use any ointments, Neosporin, salves, alcohol pads over the incision for 6 weeks postoperatively. Do not submerge underwater for 6 weeks postoperatively. Continue with MASSIMO hose/elastic stockings for 2 weeks postoperatively. May remove at nighttime but needs to be placed back on the leg during the day. Do NOT use alcohol with narcotic pain medication. Do NOT make important decisions while taking narcotic medication. If you have problems with taking your medication (rash, itching, nausea, etc.) call the office at once. Follow Up Care Test Results: Test results from this visit will be discussed in further detail at your follow-up appointment, if applicable. Discharge Plan Admission Admit Date/Time: 01/21/22 10:01 Attending Provider: Ankur Wilcox Primary Care Provider: Liv Vanessa Consulting Providers: eGna Tay ; Danielle Bruce ; Zeyad Mendez ; Sacha Christian ; Fede Cruz Discharge Orders/Prescriptions Prescriptions: New doxycycline monohydrate 100 mg Capsule 100 mg PO BID 14 Days Qty: 28 RF: 0 aspirin 81 mg Tablet,Chewable 81 mg PO BIDCM 30 Days Qty: 60 RF: 0 sennosides-docusate sodium [Stool Softener-Stimulant Laxat] 8.6-50 mg Tablet 2 tab PO BID Qty: 20 RF: 0 tramadol 50 mg Tablet 50 - 100 mg PO Q6H PRN PRN (Reason: Pain Score 4-10) Qty: 56 RF: 0 Continued B-complex with vitamin C tablet 1 tab PO QDAY RF: 0 ascorbic acid (vitamin C) 1,000 mg tablet 1 g PO DAILY RF: 0 cranberry 500 mg capsule 500 mg PO DAILY RF: 0 Viactiv 650 mg-12.5 mcg-40 mcg tablet,chewable 2 tab PO DAILY RF: 0 Alive Once Daily Women 50 Plus 800-100 mcg tablet 2 tab PO DAILY RF: 0 metoprolol tartrate 25 mg tablet 25 mg PO BID Qty: 180 RF: 3 lisinopril 20 mg tablet 20 mg PO QDAY Qty: 90 RF: 3 rosuvastatin 5 mg tablet 5 mg PO DAILY Qty: 90 RF: 3 estradiol 0.01 % (0.1 mg/gram) cream 1 g vaginal .3XW RF: 0 polyethylene glycol 3350 [Miralax] 17 gram Powder In Packet 17 g PO DAILY RF: 0 protein supplement Liquid 30 ml PO DAILY RF: 0 Probiotic 3 billion cell Capsule 3,000 mmu cells PO DAILY RF: 0 acetaminophen 500 mg tablet 1,000 mg PO PRN PRN (Reason: Pain) RF: 0 famotidine 20 mg tablet 20 mg PO PRN PRN (Reason: Indigestion) RF: 0 aspirin 81 mg tablet,delayed release (DR/EC) 81 mg PO DAILY 30 Days Qty: 0 RF: 0 Referrals / Follow Up: Physical,Therapy [Other] - 01/26/22 11:00 am Liv Vanessa MD [Primary Care Provider] - Yusef Pickett PA-C [PHYSICIAN FAMILY READINESS SUPPORT ASSISTANT] - 02/02/22 1:45 pm Disposition Disposition (needs filled in before D/C Order can be placed): Home, Self Care
[2022-01-22] MEDS: Loratadine 10 MG Tablet PO (10:37)
--- NOTE | 2022-01-22 10:40 | CASEMGMT ---
YADI GARCAI Face to Face with patient for initial transition planning/care coordination assessment. RN CM introduced self and role at [facility]. Patient sitting in chair, alert and oriented, spouse at bedside. Patient willing to participate in assessment and is able to answer all questions appropriately. Care providers, pharmacy, and demographics verified. Patient wishes to discharge home and is setup with outpatient therapy at [facility]. Patient states she has no further needs or concerns at this time. CM to follow for discharge planning needs that may arise. PCP: Rasheeda Specialists: adam Wilcox; Olga, religious healer; Elenita urologist Preferred Pharmacy: [facility] Insurance: [facility], [employer] Prescription Benefit: yes Living Will/HPOA: none LNOK: Living Arrangements: Patient lives with in a single story home with 3 steps to enter. Patient states she was independent prior to surgery Transportation: DME/HHC: Patient has shower chair, raised toilet, walker, and cpap at home. Patient is scheduled with [facility] for outpatient therapy. Disposition Plan: Patient to discharge home with outpatient therapy, family support, and follow-up plans in place. Dary PEREZ, RN, CM
--- NOTE | 2022-01-22 11:20 | PCM.PN.HOSP ---
Subjective Subjective Patient reports overall she is feeling well. She states this wants a little bit rougher than her initial surgery. No significant uncontrolled pain however. She does anticipate going home later today as long as therapy goes well. Objective Data Objective Data Vital Signs: Vital Signs Temp Pulse Resp BP Pulse Ox 97.6 F L 77 18 118/63 96 01/22/22 07:51 01/22/22 07:56 01/22/22 07:51 01/22/22 07:51 01/22/22 07:51 Oxygen Flow Rate (L/min) 2 Oxygen Delivery Method Room Air Weight: 98 kg Body Mass Index (BMI) 32.8 Intake & Output: Intake and Output for Last 24 Hours 01/20/22 01/21/22 01/22/22 23:59 23:59 23:59 Intake Total 3707 / 3707 636.5 / 636.5 Output Total 300 / 300 500 / 500 Balance 3407 / 3407 136.5 / 136.5 Lab / Micro Data Result Diagrams: 01/22/22 05:35 01/22/22 05:35 Labs: Laboratory Results - last 24 hr 01/21/22 10:51: POC Glucose 113 H 01/22/22 05:35: WBC 13.3 H, RBC 3.95 L, Hgb 12.3, Hct 38.5, MCV 97.5, MCH 31.1, MCHC 31.9 L, RDW Std Deviation 42.9, RDW Coeff of Lilliam 11.9, Plt Count 219, MPV 9.7 01/22/22 05:35: Sodium 134 L, Potassium 4.4, Chloride 104, Carbon Dioxide 25.0, Anion Gap 5, BUN 19 H, Creatinine 0.88, Estim Creat Clear Calc 62.58, Est GFR (MDRD) Af Amer 82, Est GFR (MDRD) Non-Af 68, BUN/Creatinine Ratio 21.6 H, Glucose 145 H, Calcium 8.5 Micro: Microbiology 01/08/22 09:25 Swab (Method) Nasal Screen MRSA/MSSA - Final Radiography Diagnostic Testing: Radiology Impression Hip/Pelvis X-Ray 01/21/22 12:55 IMPRESSION: Fluoroscopic assistance images were obtained. Dictation for documentation purposes only. Electronically Signed: Hemanth Evans MD at 16:22 EDT , Hip X-Ray 01/21/22 15:55 IMPRESSION: Successful total hip arthroplasty. Electronically Signed: Hemanth Evans MD at 16:16 EDT , Physical Exam Const alert, oriented x3, no apparent distress, healthy appearing and well nourished Constitutional Narrative: Obese, upper middle-aged white female sitting up in bed, at bedside, patient appears comfortable nontoxic Exam Limitations: no limitations Nutritional Appearance: obese HEENT head/scalp atraumatic and moist oral mucous membranes Head and Scalp: normocephalic Resp normal respiratory effort, no retractions, no use of accessory muscles and clear to auscultation bilaterally Auscultation: Negative for crackles, rales, rhonchi or wheezes Cardio regular rate, regular rhythm, S1 normal heart sound, S2 normal heart sound, no murmurs, no rub, no gallops, no clicks and no JVD GI normal to inspection, nondistended, normoactive bowel sounds, soft to palpation, non-tender and non-distended Extremity no clubbing, cyanosis or edema Extremity Narrative: MASSIMO hose in place, right hip with postoperative bandage in place, no significant ecchymosis, mild perioperative tenderness, postop bandages clean and dry, polar ice in place Peripheral Pulses: Yes pulses 2+ throughout Neuro oriented x3 Sensorium / Orientation: awake and alert Speech: speech normal Assessment & Plan Assessment/Plan (1) History of revision of total replacement of right hip joint: PLAN: Assessment: Osteoarthritis of right hip Right total hip arthroplasty-revision Hypertension Hyperlipidemia PAF BRADEN Obesity Plan: -Labs reviewed and appears stable -Patient appears clinically stable from a medical standpoint for discharge home -PT/OT -Aspirin 81 mg p.o. twice daily for DVT prophylaxis -Weightbearing as tolerated -Follow-up with Dr. Wilcox in 2 weeks for follow-up wound check and x-rays -Cultures obtained intraoperatively -Doxycycline 100 mg p.o. twice daily for 2 weeks per orthopedic surgery Charges/Coding Visit Charges Inpatient E&M: 14398 Subs Hosp L2
[2022-01-22 12:01] VITALS: BP 107/62; PULSE 65; RESP 18; TEMP 36.6; O2SAT 97
[2022-01-22] MEDS: traMADol 50 MG Tablet PO (12:10)
--- NOTE | 2022-01-22 12:27 | PHA.DC.MC ---
Pharmacy Service has performed discharge medication reconciliation and counseling for this patient. Instructed patient to increase aspirin 81mg to BID for 4 weeks then resume once daily. 1. DOXYCYCLINE 100MG PO BID X 14 DAYS 2. SENNA/DOCUSATE 2T PO BID UNTIL FIRST BM, THEN PRN CONSTIPATION 3. TRAMADOL 50-100MG PO Q6H PRN PAIN 4-10 The patient's discharge medication list was reviewed for discrepancies and discrepancies were resolved. Home Medications B-complex with vitamin C 1 tab PO QDAY 03/10/18 ascorbic acid (vitamin C) 1,000 mg tablet 1 g PO DAILY tab 04/12/19 calcium 650 mg-vitamin D3 12.5 mcg-vitamin K 40 mcg chewable tablet 2 tab PO DAILY tab 04/12/19 cranberry 500 mg capsule 500 mg PO DAILY cap 04/12/19 multivit,mineral-folic acid 800 mcg-vit K 100 mcg-herbal no.289 tablet 2 tab PO DAILY tab 06/13/20 estradiol 1 g VAGINAL .3XW 02/07/21 Probiotic 3,000 mmu cells PO DAILY 02/12/21 polyethylene glycol 3350 [Miralax] 17 g PO DAILY 02/12/21 protein supplement 30 ml PO DAILY 02/12/21 acetaminophen 1,000 mg PO PRN PRN 09/03/21 famotidine 20 mg PO PRN PRN 09/03/21 lisinopril 20 mg tablet 20 mg PO QDAY #90 tab 01/08/22 metoprolol tartrate 25 mg tablet 25 mg PO BID #180 tab 01/08/22 rosuvastatin 5 mg tablet 5 mg PO DAILY #90 tab 01/08/22 aspirin 81 mg PO BIDCM 30 Days #60 tab 01/22/22 aspirin 81 mg PO DAILY 30 Days #0 tab 01/22/22 doxycycline monohydrate 100 mg PO BID 14 Days #28 cap 01/22/22 sennosides-docusate sodium [Stool Softener-Stimulant Laxat] 2 tab PO BID #20 tab 01/22/22 tramadol 50 - 100 mg PO Q6H PRN PRN #56 tab 01/22/22 The patient was counseled on the following discharge medications and changes in medications for homegoing were reviewed. The Reason for Use, instructions for use, and potential side effects were reviewed for all new medications. The patient's questions regarding all of their medications were answered. The patient was able to verbally demonstrate an understanding of their discharge medications. The patient demonstrated some understanding but would benefit from further education and reinforcement. The patient was not able to adequately demonstrate understanding.
== END 2022-01-22 14:18 | disposition home or self-care (01) | DRG 467 ==
LOC: ACINP 10:05 → MS3 16:18
PROVIDERS: Anesthesiology; Admitting Provider Specialist; PCP Family Medicine; Referring Provider Specialist; Visit Provider Specialist
PROC: 0SRR03Z Replacement of Right Hip Joint, Femoral Surface with Ceramic Synthetic Substitute, Open Approach (ICD-10-PCS; principal; 2022-01-21 12:05)
DX: T84.84XA Pain due to internal orthopedic prosthetic devices, implants and grafts, initial encounter (principal); I47.1 Supraventricular tachycardia; K76.0 Fatty (change of) liver, not elsewhere classified; E11.9 Type 2 diabetes mellitus without complications; I48.0 Paroxysmal atrial fibrillation; I10 Essential (primary) hypertension; G47.33 Obstructive sleep apnea (adult) (pediatric); E78.00 Pure hypercholesterolemia, unspecified; E78.5 Hyperlipidemia, unspecified; K21.9 Gastro-esophageal reflux disease without esophagitis; M19.90 Unspecified osteoarthritis, unspecified site; M16.11 Unilateral primary osteoarthritis, right hip; Z79.82 Long term (current) use of aspirin; Z68.35 Body mass index [BMI] 35.0-35.9, adult; R42 Dizziness and giddiness; E66.9 Obesity, unspecified
CPT/HCPCS: 36415; 73501; 73502; 76000; 80048; 82040; 82962; 83735; 85025; 85027; 87015; 87070; 87075; 87081; 87102; 87116; 87205; 87206; 93005; 94762; 97110; 97116; 97162; 97166; 97530; 97535; 99251; C1776; J7040; J7050; J7120; A4216; G0463; J2405; J3475

== ENCOUNTER 2022-02-06 07:50 | Emergency (ER) | payer MEDICARE, OTHER, SELFPAY ==
[2022-02-06 07:51] VITALS: BP 135/76; PULSE 125; RESP 18; TEMP 36.6; O2SAT 94; BMI 33.6
--- NOTE | 2022-02-06 08:16 | EKG12_ITS ---
Test Reason : NAUSEA/VOMITING Blood Pressure : / mmHG Vent. Rate : 111 BPM Atrial Rate : 111 BPM P-R Int : 136 ms QRS Dur : 078 ms QT Int : 342 ms P-R-T Axes : 036 -14 001 degrees QTc Int : 465 ms Sinus tachycardia Voltage criteria for left ventricular hypertrophy Nonspecific ST abnormality Abnormal ECG When compared with ECG of 08-JAN-2022 09:41, Vent. rate has increased BY 37 BPM Confirmed by PILLO MENDEZ, ASYA ([id number]), state editor ALLEN JANE ([id number]) on 02/10/2022 7:32:28 AM Referred By: BHARAT Confirmed By:ASYA FERRO MD
--- NOTE | 2022-02-06 08:16 | CT_ITS ---
STUDY: CT ABDOMEN AND PELVIS WITH CONTRAST REASON FOR EXAM: Female, 66 years old. Abdominal pain. RADIATION DOSAGE (If Supplied By Facility): CTDIvol = ( 16.93 ) mGy, DLP = ( 1273.21 ) mGycm TECHNIQUE: Transaxial images were obtained from the dome of the diaphragm to the symphysis pubis without oral contrast. IV 100mL Isovue-300 was administered. Sagittal and coronal images were reconstructed. Individualized dose optimization techniques were used for this CT. COMPARISON: Comparison is made with prior study 07/04/2020. FINDINGS: Mild degree of increased linear markings at the lung bases slightly more prominent on the left side. This may represent mild degree of scarring. This is unchanged as compared to prior study. The visualized portions of the heart are within normal limits. There is decreased attenuation of the liver consistent with steatosis. There are surgical clips in the gallbladder fossa consistent with a prior cholecystectomy. Normal spleen. Normal pancreas. Normal bilateral adrenal glands. Normal right kidney. Normal left kidney. Normal visualized stomach. Normal small intestine. There are multiple colonic diverticula consistent with diverticulosis. There is non-visualization of the appendix. There is scattered atherosclerotic calcification of the abdominal aorta, without a demonstrated aneurysm. Normal inferior vena cava. Normal retroperitoneum. Normal urinary bladder. There is absence of the uterus consistent with a prior hysterectomy. There is a 12.2 cm x 3.7 cm fluid collection in the subcutaneous tissues overlying the right hip joint. Increased markings are also seen in the surrounding subcutaneous fat. The patient is status post right total hip replacement. This may be related to the recent right hip replacement . There are diffuse degenerative changes of the visualized lumbar spine. CT/Abdomen/Pelvis W IV Cont ONLY IMPRESSION: Fatty infiltration of the liver. Status post cholecystectomy. Scattered sigmoid diverticula. 12.2 cm x 3.7 cm fluid collection in the subcutaneous tissues overlying the right hip joint most likely secondary to the recent total hip replacement. Electronically Signed: Momo Hauser MD at 10:25 EDT ,
--- NOTE | 2022-02-06 08:18 | EDS_ITS ---
HPI History of Present Illness Chief Complaint: Nausea/Vomiting Informant: patient Narrative Narrative: Patient is a 66-year-old female with history of SVT and paroxysmal atrial tachycardia as well as recent right total hip revision on January 21 is presenting with nausea, vomiting and palpitations. Patient states her stomach started feel upset yesterday and she had multiple episodes of vomiting. She also has had some loose bowel movements. Last bowel movement was just prior to arrival. She denies any black or blood in her vomit or her stool. She states that she feels that her heart is racing and she is having hard time breathing. She feels like she is going to pass out. She denies any fever. She has associated epigastric discomfort. She does have a history of hysterectomy and cholecystectomy. She is on 2 aspirin daily but not on any anticoagulation. She denies any new swelling of her right lower extremity from her surgery. No other complaints at this time. [facility] Medical History Ambulates with cane Arthritis Back pain Benign essential hypertension Cardiology follow-up encounter CPAP (continuous positive airway pressure) dependence Diverticulosis of intestine without perforation or abscess with bleeding Fatty liver GERD (gastroesophageal reflux disease) Heartburn High cholesterol History of diverticulitis History of diverticulitis of colon History of edema History of irregular heartbeat History of renal disease History of stress test Hx of echocardiogram (~07/03/20) Hyperlipidemia Hypertension Ischemic colitis Migraine headache Non-smoker Nonrheumatic mitral (valve) prolapse Obesity Paroxysmal atrial tachycardia Paroxysmal SVT (supraventricular tachycardia) Sleep apnea Vertigo Wears glasses Home Medications ascorbic acid (vitamin C) 1,000 mg tablet 1 g PO DAILY tab 04/12/19 [History Last Taken Unknown] calcium 650 mg-vitamin D3 12.5 mcg-vitamin K 40 mcg chewable tablet 2 tab PO DAILY tab 04/12/19 [History Last Taken Unknown] cranberry 500 mg capsule 500 mg PO DAILY cap 04/12/19 [History Last Taken Unknown] multivit,mineral-folic acid 800 mcg-vit K 100 mcg-herbal no.289 tablet 2 tab PO DAILY tab 06/13/20 [History Last Taken Unknown] estradiol 1 g VAGINAL .3XW 02/07/21 [History Last Taken Unknown] Probiotic 3,000 mmu cells PO DAILY 02/12/21 [History Last Taken Unknown] polyethylene glycol 3350 [Miralax] 17 g PO DAILY PRN 02/12/21 [History Last Taken Unknown] protein supplement 30 ml PO DAILY 02/12/21 [History Last Taken Unknown] acetaminophen 1,000 mg PO PRN PRN 09/03/21 [History Last Taken Unknown] famotidine 20 mg PO PRN PRN 09/03/21 [History Last Taken Unknown] lisinopril 20 mg tablet 20 mg PO QDAY #90 tab 01/08/22 [Rx Last Taken 01/21/22] metoprolol tartrate 25 mg tablet 25 mg PO BID #180 tab 01/08/22 [Rx Last Taken 01/21/22] rosuvastatin 5 mg tablet 5 mg PO DAILY #90 tab 01/08/22 [Rx Last Taken Unknown] aspirin 81 mg PO DAILY 30 Days #0 tab 01/22/22 [Rx Last Taken 02/05/22] tramadol 50 - 100 mg PO Q6H PRN PRN #56 tab 01/22/22 [Rx Last Taken Unknown] ondansetron 4 mg PO Q6H PRN #20 tab 02/06/22 [Rx Last Taken Unknown] Allergy/AdvReac Type Severity Reaction Status Date / Time Penicillins Allergy Unknown Verified 02/06/22 07:53 digoxin AdvReac Other Verified 02/06/22 07:53 hydrochlorothiazide AdvReac Upset Verified 02/06/22 07:53 [From Dyazide] Stomach levofloxacin [From Levaquin] AdvReac Upset Verified 02/06/22 07:53 Stomach magnesium citrate AdvReac Upset Verified 02/06/22 07:53 Stomach meperidine [From Demerol] AdvReac Upset Verified 02/06/22 07:53 Stomach nitrofurantoin AdvReac Upset Verified 02/06/22 07:53 [From Macrobid] Stomach polyethylene glycol AdvReac Upset Verified 02/06/22 07:53 [From Golytely] Stomach polyethylene glycol 3350 AdvReac Upset Verified 02/06/22 07:53 [From Golytely] Stomach potassium chloride AdvReac Upset Verified 02/06/22 07:53 [From Golytely] Stomach pravastatin [From Pravachol] AdvReac had white Verified 02/06/22 07:53 stool simvastatin [From Zocor] AdvReac Upset Verified 02/06/22 07:53 Stomach sodium [From Golytely] AdvReac Upset Verified 02/06/22 07:53 Stomach sodium bicarbonate AdvReac Upset Verified 02/06/22 07:53 [From Golytely] Stomach sodium chloride AdvReac Upset Verified 02/06/22 07:53 [From Golytely] Stomach sodium sulfate AdvReac Upset Verified 02/06/22 07:53 [From Golytely] Stomach triamterene [From Dyazide] AdvReac Upset Verified 02/06/22 07:53 Stomach Surgical History H/O lumpectomy History of cholecystectomy History of foot surgery History of left breast biopsy History of total hysterectomy Hx of appendectomy Hx of total hip arthroplasty Social History household members: spouse Smoking Status: Never smoker alcohol intake: never substance use type: does not use ROS ROS ED Constitutional Constitutional ED: Reports other Details: Lightheaded ; Denies chills or f ever(s) Eyes Eyes: Denies change in vision ENT ENT ED: Denies rhinorrhea or sore throat Cardiovascular Cardiovascular: Reports palpitations and racing heartbeat; Denies chest pain Respiratory/Chest Respiratory/Chest: Reports dyspnea; Denies cough Gastrointestinal Gastrointestinal: Reports abdominal pain, diarrhea and vomiting; Denies melena Genitourinary Genitourinary ED: Denies dysuria or hematuria Musculoskeletal Musculoskeletal: Denies arthralgias or myalgias Integumentary Denies rash Neurologic Neurologic: Reports weakness; Denies headache(s) or paresthesias Psychiatric Psychiatric: Denies depression EXAM Physical Exam Const Vital Signs: 02/06/22 07:51 02/06/22 10:04 02/06/22 11:54 Temperature 97.9 F Temperature Source Temporal Pulse Rate 125 H 106 H 107 H Respiratory Rate 18 18 18 Blood Pressure 135/76 H 158/103 H 144/83 H Blood Pressure Mean 95 121 103 Pulse Ox 94 99 97 Oxygen Delivery Method Room Air Room Air Room Air Positive well nourished and well developed General Appearance ED: well developed and NAD HEENT Reports dry mucous membranes Negative for trauma Mouth ED: Yes dry mucous membranes Mouth: dry mucous membranes Eyes PERRL and EOMs intact bilaterally Neck supple and no JVD Chest Wall inspection of chest normal Resp normal respiratory effort and clear to auscultation bilaterally Cardio regular rhythm and no murmurs Rate: tachycardic GI non-tender and non-distended Auscultation: hypoactive bowel sounds Palpation: soft; Negative for guarding Extremity normal to inspection General Extremety ED: Negative for edema or tenderness General Extremity: Negative for edema Neuro oriented x3 Sensorium / Orientation: alert Motor Exam: general weakness Psych mental status grossly normal Skin no rashes or lesions noted and no wounds MDM MDM MDM Narrative Medical decision making narrative: Patient's evaluated for vomiting, loose bowel movements and near syncope. Symptoms started last night. Physical exam is benign. Patient does feel like her heart is racing. She does have a history of atrial tachycardia and SVT. She is not in SVT at this time. Patient is given dose of IV morphine, Zofran and bolus of LR. On repeat evaluation patient is improved. Patient does have a leukocytosis of 15.7 which could be reactive. There is no clear source of infection. Her D- dimer significantly elevated however she did have recent surgery. Given her palpitations, near syncope and elevated D-dimer I did order a CT of the chest in addition to a CT of the abdomen pelvis. No acute processes seen on either film including no PE, obstruction or diverticulitis/colitis. Patient does have a fluid collection over her surgical site. This was discussed with her surgeon, Dr. Wilcox, who states this is likely normal postoperative change. Patient's incision site is well approximated, clean, soft with no associated erythema or significant swelling. Patient's tachycardia does improve while in the emergency room and fluid therapy. Urinalysis is not consistent with infection. Patient will be discharged home with a prescription of Zofran. Patient does have a leukocytosis was not able to provide a stool sample for C. difficile test. Given less than 24 hours of loose bowel movements and no bowel movement while in the emergency room I have a lower suspicion. Lab Data Labs: Laboratory Results - last 24 hr 02/06/22 02/06/22 02/06/22 08:50 08:50 08:50 WBC 15.7 H RBC 4.08 L Hgb 12.8 Hct 38.4 MCV 94.1 MCH 31.4 MCHC 33.3 RDW Std Deviation 42.8 RDW Coeff of Lilliam 12.5 Plt Count 386 MPV 8.5 Immature Gran % (Auto) 0.400 Neut % (Auto) 96.2 H Lymph % (Auto) 1.7 L Crockett % (Auto) 1.5 Eos % (Auto) 0.1 Baso % (Auto) 0.1 Absolute Neuts (auto) 15.2 H Absolute Lymphs (auto) 0.26 L Nucleated RBC % 0 D-Dimer Quant (PE/DVT) 11.30 H* Sodium 135 L Potassium 3.9 Chloride 102 Carbon Dioxide 27.0 Anion Gap 6 BUN 28 H Creatinine 0.85 Estim Creat Clear Calc 62.46 Est GFR (MDRD) Af Amer 86 Est GFR (MDRD) Non-Af 71 BUN/Creatinine Ratio 32.9 H Glucose 174 H Lactic Acid Calcium 9.1 Total Bilirubin 0.40 AST 17 ALT 22 Alkaline Phosphatase 52 Troponin I High Sens < 3 L Total Protein 7.9 Albumin 3.3 Globulin 4.6 H Albumin/Globulin Ratio 0.7 L Lipase 58 L Urine Color Urine Clarity Urine pH Ur Specific Brandywine Urine Protein Urine Glucose (UA) Urine Ketones Urine Occult Blood Urine Nitrite Urine Bilirubin Urine Urobilinogen Ur Leukocyte Esterase Urine RBC Urine WBC Ur Squamous Epith Cells Urine Bacteria Urine Mucus 02/06/22 02/06/22 08:50 10:20 WBC RBC Hgb Hct MCV MCH MCHC RDW Std Deviation RDW Coeff of Lilliam Plt Count MPV Immature Gran % (Auto) Neut % (Auto) Lymph % (Auto) Crockett % (Auto) Eos % (Auto) Baso % (Auto) Absolute Neuts (auto) Absolute Lymphs (auto) Nucleated RBC % D-Dimer Quant (PE/DVT) Sodium Potassium Chloride Carbon Dioxide Anion Gap BUN Creatinine Estim Creat Clear Calc Est GFR (MDRD) Af Amer Est GFR (MDRD) Non-Af BUN/Creatinine Ratio Glucose Lactic Acid 1.4 Calcium Total Bilirubin AST ALT Alkaline Phosphatase Troponin I High Sens Total Protein Albumin Globulin Albumin/Globulin Ratio Lipase Urine Color Yellow Urine Clarity Sl. Cloudy Urine pH 7.0 Ur Specific Brandywine 1.010 Urine Protein 15 H Urine Glucose (UA) Normal Urine Ketones Negative Urine Occult Blood 10 H Urine Nitrite Negative Urine Bilirubin Negative Urine Urobilinogen Normal Ur Leukocyte Esterase Negative Urine RBC 0-5 SEEN Urine WBC 0 SEEN Ur Squamous Epith Cells 0-5 SEEN Urine Bacteria 0 SEEN Urine Mucus 0 SEEN Radiography Diagnostic Testing: Clinical Impression(s) from Imaging Studies Abdomen/Pelvis CT 02/06/22 08:16 IMPRESSION: Fatty infiltration of the liver. Status post cholecystectomy. Scattered sigmoid diverticula. 12.2 cm x 3.7 cm fluid collection in the subcutaneous tissues overlying the right hip joint most likely secondary to the recent total hip replacement. Electronically Signed: Momo Hauser MD at 10:25 EDT , Chest CTA 02/06/22 09:53 IMPRESSION: Findings suggestive for scarring at the lung bases. No evidence of pulmonary embolism. Electronically Signed: Momo Hauser MD at 10:28 EDT , Rhythm Strip Rhythm Strip: Sinus Tach Rate: 111 Ectopy: None EKG Initial EKG: Attestation: I personally reviewed and interpreted this EKG as follows: Interpretation: Sinus Tachycardia Comments: Sinus tachycardia rate of 111 Left axis deviation Voltage criteria for LVH Normal intervals Normal ST segments Discharge Plan Triage Chief Complaint: Nausea/Vomiting ED Provider: Romina Leonardo Dx/Rx/DC Orders Clinical Impression: Dehydration, mild, Nausea, vomiting and diarrhea Instructions: ED Dehydration (Adult), ED Vomiting and Diarrhea ... Prescriptions: New ondansetron 4 mg tablet,disintegrating 4 mg PO Q6H PRN (Reason: nausea and vomiting) Qty: 20 RF: 0 No Action ascorbic acid (vitamin C) 1,000 mg tablet 1 g PO DAILY RF: 0 cranberry 500 mg capsule 500 mg PO DAILY RF: 0 Viactiv 650 mg-12.5 mcg-40 mcg tablet,chewable 2 tab PO DAILY RF: 0 Alive Once Daily Women 50 Plus 800-100 mcg tablet 2 tab PO DAILY RF: 0 metoprolol tartrate 25 mg tablet 25 mg PO BID Qty: 180 RF: 3 lisinopril 20 mg tablet 20 mg PO QDAY Qty: 90 RF: 3 rosuvastatin 5 mg tablet 5 mg PO DAILY Qty: 90 RF: 3 estradiol 0.01 % (0.1 mg/gram) cream 1 g vaginal .3XW RF: 0 polyethylene glycol 3350 [Miralax] 17 gram Powder In Packet 17 g PO DAILY PRN (Reason: Pain) RF: 0 protein supplement Liquid 30 ml PO DAILY RF: 0 Probiotic 3 billion cell Capsule 3,000 mmu cells PO DAILY RF: 0 acetaminophen 500 mg tablet 1,000 mg PO PRN PRN (Reason: Pain) RF: 0 famotidine 20 mg tablet 20 mg PO PRN PRN (Reason: Indigestion) RF: 0 tramadol 50 mg Tablet 50 - 100 mg PO Q6H PRN PRN (Reason: Pain Score 4-10) Qty: 56 RF: 0 aspirin 81 mg tablet,delayed release (DR/EC) 81 mg PO DAILY 30 Days Qty: 0 RF: 0 Primary Care Provider: Liv Vanessa Referrals: Liv Vanessa MD [Primary Care Provider] - Disposition Disposition: Home, Self Care
[2022-02-06] MEDS: Lactated Ringers 1,000 ML 999 ML IV (08:59)
[2022-02-06] MEDS: Ondansetron 4 MG/2 ML Vial IV (09:00)
[2022-02-06] MEDS: Morphine 4 MG/ML Syringe IV (09:00)
[2022-02-06 09:02] LABS: Absolute Lymphocyte Count 0.26 X10^3/uL (0.83-4.51); Absolute Neutrophil Count 15.2 X10^3/uL (2.0-7.7); Basophil# 0.01 X10^3/uL; Basophil% 0.1 % (0-1); Eosinophil# 0.01 X10^3/uL; Eosinophils% 0.1 % (0-5); Hematocrit 38.4 % (37-47); Hemoglobin 12.8 g/dL (12.0-15.0); Lymphocyte # 0.26 X10^3/ul (0.83-4.51); Lymphocyte % 1.7 % (19-41); Mean Corp Hgb Conc 33.3 g/dL (32-36); Mean Corpuscular Hgb 31.4 pg (27.0-32.0); Mean Corpuscular Volume 94.1 fL (81-99); Mean Platelet Vol. 8.5 fl (6.2-12.0); Monocyte# 0.24 X10^3/uL; Monocyte% 1.5 % (0-10); NRBC Flagged by Analyzer 0 % (0-5); Neutrophil # 15.15 X10^3/uL (2.7-7.7); Neutrophil % 96.2 % (47-70); POSITIVE DIFFERENTIAL YES; Platelet Count 386 K/mm3 (150-450); RBC Distribution Width CV 12.5 % (11.6-14.6); RBC Distribution Width SD 42.8 fl (35.1-43.9); Red Blood Count 4.08 M/mm3 (4.2-5.4); White Blood Count 15.7 K/mm3 (4.4-11.0)
[2022-02-06 09:05] LABS: Differential Indicated SCAN CRITERIA MET
[2022-02-06 09:22] LABS: ALB/GLOB Ratio 0.7 RATIO (0.9-2.4); AST(SGOT) 17 U/L (15-37); Alanine Aminotransfer ALT/SGPT 22 U/L (13-56); Albumin, Serum 3.3 g/dL (3.2-5.0); Alkaline Phosphatase 52 U/L (45-117); Anion Gap 6 (5-15); BUN 28 mg/dL (7-18); BUN/Creat Ratio 32.9 RATIO (10-20); Calcium,Total 9.1 mg/dL (8.5-10.1); Chloride 102 mmol/L (98-107); Creatinine, Serum 0.85 mg/dL (0.55-1.02); EST Glomerular Filtration Rate 71 mL/min (>60); Est Glom Filt Rate - Afr Amer 86 mL/min (>60); Estimated Creatinine Clearance 62.46 ml/min; Globulin 4.6 g/dL (2.2-4.2); Glucose 174 mg/dL (74-106); Lipase 58 U/L (73-393); Potassium 3.9 mmol/L (3.5-5.1); Protein, Total 7.9 g/dL (6.4-8.2); Sodium Level 135 mmol/L (136-145); Troponin-I HS < 3 pg/mL (3.0-54.0)
[2022-02-06 09:24] LABS: Lactic Acid 1.4 mmol/L (0.4-1.9)
--- NOTE | 2022-02-06 09:53 | CT_ITS ---
STUDY: CTA CHEST REASON FOR EXAM: Female, 66 years old. Elevated dimer, chest pain RADIATION DOSAGE (If Supplied By Facility): CTDIvol = ( 12.66 ) mGy, DLP = ( 481.19 ) mGycm TECHNIQUE: The examination was performed with the intravenous administration of IV 100mL Isovue-300. Post-processing of the angiographic images was performed, with multiplanar reformation and 3D reconstruction. Individualized dose optimization techniques were used for this CT. COMPARISON: Comparison is made with prior chest radiograph dated 03/09/2021. FINDINGS: Small bilateral benign-appearing axillary lymph nodes. Normal enhancement of the main pulmonary artery and right and left pulmonary arteries. Normal enhancement of the bilateral peripheral pulmonary arteries. There is no demonstrated pulmonary embolism. There is atherosclerotic calcification of the aortic arch with tortuosity. There is no demonstrated aortic dissection. There are calcifications of the coronary arteries. Normal mediastinum. Normal hilar regions. Normal visualized trachea and bronchi. Mild hyperinflation. Mild degree of increased interstitial markings in both lungs more prominent at the lung bases suggestive of a basilar scarring. Normal pleura. Normal chest wall structures. There are degenerative changes of thoracic spine. Fatty infiltration of the liver. CT/CTA Chest W/WO Contrast IMPRESSION: Findings suggestive for scarring at the lung bases. No evidence of pulmonary embolism. Electronically Signed: Momo Hauser MD at 10:28 EDT ,
[2022-02-06 10:04] VITALS: BP 158/103; PULSE 106; RESP 18; O2SAT 99
[2022-02-06 10:27] LABS: Bacteria 0 SEEN /hpf (None Seen); Mucous, Urine 0 SEEN /hpf (<or=2+); White Blood Cells 0 SEEN /hpf (0-5)
[2022-02-06 10:29] LABS: Color, Urine Yellow (Yellow); Glucose, Dipstick Normal (Normal); Ketone-Dipstick Negative (Negative); Leukocyte Esterase-Dipstick Negative /ul (Negative); Nitrite-Dipstick Negative (Negative); Occult Blood-Urine 10 /ul (Negative); Protein-Dipstick 15 mg/dl (Negative); Urine Bilirubin Dipstick Negative (Negative); Urine Clarity Sl. Cloudy (Clear); Urine Urobilinogen Normal (Normal)
[2022-02-06 10:36] LABS: Red Blood Cells-Urine 0-5 SEEN /hpf (0-5); Squamous Epithelial Cells - UA 0-5 SEEN /hpf (5-10)
[2022-02-06 11:54] VITALS: BP 144/83; PULSE 107; RESP 18; O2SAT 97
[2022-02-06 12:20] VITALS: BP 144/83; PULSE 107; RESP 18
== END 2022-02-06 12:24 | disposition home or self-care (01) ==
PROVIDERS: Emergency Provider Emergency Medicine; PCP Family Medicine; Visit Provider Emergency Medicine
DX: E86.0 Dehydration (principal); R11.2 Nausea with vomiting, unspecified; R00.2 Palpitations; R10.13 Epigastric pain; E78.5 Hyperlipidemia, unspecified; I10 Essential (primary) hypertension; R55 Syncope and collapse; R19.7 Diarrhea, unspecified; E78.00 Pure hypercholesterolemia, unspecified
CPT/HCPCS: 71275; 74177; 80053; 81001; 83605; 83690; 84484; 85025; 85379; 93005; 96361; 96374; 96375; 99283; Q9967; J2405

== ENCOUNTER 2022-02-13 06:54 | Emergency (ER) | payer MEDICARE, OTHER, SELFPAY ==
[2022-02-13 06:56] VITALS: BP 128/69; PULSE 89; RESP 16; TEMP 36.1; O2SAT 99; BMI 32.3
--- NOTE | 2022-02-13 07:07 | CT_ITS ---
STUDY: CT ABDOMEN AND PELVIS WITH CONTRAST REASON FOR EXAM: Female, 66 years old. Left lower quadrant abdominal pain. RADIATION DOSAGE (If Supplied By Facility): CTDIvol = ( 16.18 ) mGy, DLP = ( 1118.87 ) mGycm TECHNIQUE: Transaxial images were obtained from the dome of the diaphragm to the symphysis pubis without oral contrast. IV 100mL Isovue-300 was administered. Sagittal and coronal images were reconstructed. Individualized dose optimization techniques were used for this CT. COMPARISON: Comparison is made with prior study dated 02/06/2022. FINDINGS: Stable mild degree of increased linear markings at the lung bases worse on the left side. This is suggestive of scarring. The visualized portions of the heart are within normal limits. There is decreased attenuation of the liver consistent with steatosis. There are surgical clips in the gallbladder fossa consistent with a prior cholecystectomy. Normal spleen. Normal pancreas. Normal bilateral adrenal glands. Normal right kidney. Normal left kidney. Normal visualized stomach. Normal small intestine. There is diverticulosis, with thickening of the colon wall, and pericolonic inflammation changes consistent with acute diverticulitis. Increased markings in the surrounding peritoneal fat. This extends into the descending colon. There is non-visualization of the appendix. Normal abdominal aorta. Normal inferior vena cava. Normal retroperitoneum. Normal urinary bladder. There is absence of the uterus consistent with a prior hysterectomy. Mild degree of residual fluid overlying the right hip joint most likely secondary to the prior hip replacement. There are diffuse degenerative changes of the visualized lumbar spine. The patient is status post right total hip replacement. CT/Abdomen/Pelvis W IV Cont ONLY IMPRESSION: There is evidence of inflammatory change with thickening of the wall of the descending colon and sigmoid colon and compared with the diverticulitis. Fatty infiltration of the liver. Electronically Signed: Momo Hauser MD at 8:55 EDT ,
--- NOTE | 2022-02-13 07:09 | ED.VIS.GI ---
HPI HPI - GI History of Present Illness Chief Complaint: Abd Pain Narrative Narrative: 56-year-old female presenting with left lower quadrant abdominal pain. She states this started yesterday. She initially had constipation this week and took a stool softener and now is having soft stools but complains of left lower quadrant abdominal pain which feels like her previous diverticulitis. She denies any urinary or vaginal complaints. No black or bloody stools. No fever, chills. She does express that she has some nausea. Patient states her last bout of diverticulitis was a couple of years ago. PFSH [facility] Medical History Ambulates with cane Arthritis Back pain Benign essential hypertension Cardiology follow-up encounter CPAP (continuous positive airway pressure) dependence Diverticulosis of intestine without perforation or abscess with bleeding Fatty liver GERD (gastroesophageal reflux disease) Heartburn High cholesterol History of diverticulitis History of diverticulitis of colon History of edema History of irregular heartbeat History of renal disease History of stress test Hx of echocardiogram (~07/03/20) Hyperlipidemia Hypertension Ischemic colitis Migraine headache Non-smoker Nonrheumatic mitral (valve) prolapse Obesity Paroxysmal atrial tachycardia Paroxysmal SVT (supraventricular tachycardia) Sleep apnea Vertigo Wears glasses Home Medications ascorbic acid (vitamin C) 1,000 mg tablet 1 g PO DAILY tab 04/12/19 [History Last Taken Unknown] calcium 650 mg-vitamin D3 12.5 mcg-vitamin K 40 mcg chewable tablet 2 tab PO DAILY tab 04/12/19 [History Last Taken Unknown] cranberry 500 mg capsule 500 mg PO DAILY cap 04/12/19 [History Last Taken Unknown] multivit,mineral-folic acid 800 mcg-vit K 100 mcg-herbal no.289 tablet 2 tab PO DAILY tab 06/13/20 [History Last Taken Unknown] estradiol 1 g VAGINAL .3XW 02/07/21 [History Last Taken Unknown] Probiotic 3,000 mmu cells PO DAILY 02/12/21 [History Last Taken Unknown] polyethylene glycol 3350 [Miralax] 17 g PO DAILY PRN 02/12/21 [History Last Taken Unknown] protein supplement 30 ml PO DAILY 02/12/21 [History Last Taken Unknown] acetaminophen 1,000 mg PO PRN PRN 09/03/21 [History Last Taken Unknown] famotidine 20 mg PO PRN PRN 09/03/21 [History Last Taken Unknown] lisinopril 20 mg tablet 20 mg PO QDAY #90 tab 01/08/22 [Rx Last Taken 01/21/22] metoprolol tartrate 25 mg tablet 25 mg PO BID #180 tab 01/08/22 [Rx Last Taken 01/21/22] rosuvastatin 5 mg tablet 5 mg PO DAILY #90 tab 01/08/22 [Rx Last Taken Unknown] aspirin 81 mg PO DAILY 30 Days #0 tab 01/22/22 [Rx Last Taken 02/05/22] tramadol 50 - 100 mg PO Q6H PRN PRN #56 tab 01/22/22 [Rx Last Taken Unknown] moxifloxacin 400 mg PO DAILY #20 tab 02/13/22 [Rx Last Taken Unknown] ondansetron 4 mg PO Q8H PRN #14 tab 02/13/22 [Rx Last Taken Unknown] Allergy/AdvReac Type Severity Reaction Status Date / Time Penicillins Allergy Unknown Verified 02/13/22 06:59 digoxin AdvReac Other Verified 02/13/22 06:59 hydrochlorothiazide AdvReac Upset Verified 02/13/22 06:59 [From Dyazide] Stomach levofloxacin [From Levaquin] AdvReac Upset Verified 02/13/22 06:59 Stomach magnesium citrate AdvReac Upset Verified 02/13/22 06:59 Stomach meperidine [From Demerol] AdvReac Upset Verified 02/13/22 06:59 Stomach nitrofurantoin AdvReac Upset Verified 02/13/22 06:59 [From Macrobid] Stomach polyethylene glycol AdvReac Upset Verified 02/13/22 06:59 [From Golytely] Stomach polyethylene glycol 3350 AdvReac Upset Verified 02/13/22 06:59 [From Golytely] Stomach potassium chloride AdvReac Upset Verified 02/13/22 06:59 [From Golytely] Stomach pravastatin [From Pravachol] AdvReac had white Verified 02/13/22 06:59 stool simvastatin [From Zocor] AdvReac Upset Verified 02/13/22 06:59 Stomach sodium [From Golytely] AdvReac Upset Verified 02/13/22 06:59 Stomach sodium bicarbonate AdvReac Upset Verified 02/13/22 06:59 [From Golytely] Stomach sodium chloride AdvReac Upset Verified 02/13/22 06:59 [From Golytely] Stomach sodium sulfate AdvReac Upset Verified 02/13/22 06:59 [From Golytely] Stomach triamterene [From Dyazide] AdvReac Upset Verified 02/13/22 06:59 Stomach Surgical History H/O lumpectomy History of cholecystectomy History of foot surgery History of left breast biopsy History of total hysterectomy Hx of appendectomy Hx of total hip arthroplasty Social History household members: spouse Smoking Status: Never smoker alcohol intake: never substance use type: does not use ROS ROS ED Constitutional Constitutional ED: Denies chills, fever(s) or sweats Eyes Eyes: Denies blurry vision or change in vision ENT ENT ED: Denies ear pain or sore throat Cardiovascular Cardiovascular: Denies chest pain, palpitations or racing heartbeat Respiratory/Chest Respiratory/Chest: Denies cough, dyspnea or sputum Gastrointestinal Gastrointestinal: Reports abdominal pain, constipation and nausea; Denies diarrhea or vomiting Genitourinary Genitourinary ED: Denies dysuria, hematuria or urinary frequency Musculoskeletal Musculoskeletal: Denies arthralgias, myalgias or neck pain Integumentary Denies abscess, Abrasions or rash Neurologic Neurologic: Denies headache(s), paresthesias or weakness Psychiatric Psychiatric: Denies anxiety, depression, suicidal ideation or suicidal thoughts Endocrine Endocrinology: Denies polydipsia or polyuria EXAM Physical Exam Const Vital Signs: 02/13/22 06:56 02/13/22 08:54 02/13/22 09:41 Temperature 97.0 F L Temperature Source Temporal Pulse Rate 89 72 Respiratory Rate 16 18 16 Blood Pressure 128/69 H 121/90 H Blood Pressure Mean 88 100 Pulse Ox 99 94 Oxygen Delivery Method Room Air Room Air Positive well nourished General Appearance ED: NAD; Negative for pallor HEENT Reports normocephalic, head/scalp atraumatic and moist mucous membranes normocephalic Eyes PERRL and EOMs intact bilaterally Neck no lymphadenopathy and supple Chest Wall inspection of chest normal and palpation of chest normal Resp normal respiratory effort and clear to auscultation bilaterally Auscultation: Negative for rales, rhonchi or wheezes Cardio regular rate and regular rhythm GI normal to inspection, nondistended, normoactive bowel sounds and non-distended Auscultation: normoactive bowel sounds Palpation: soft and tender LLQ and LUQ Narrative: Deferred Back/Spine no CVA tenderness Extremity normal to inspection General Extremety ED: Negative for edema or tenderness General Extremity: Negative for edema Neuro oriented x3 and CN's II-XII intact bilaterally Sensorium / Orientation: alert Motor Exam: strength 5/5 throughout Psych mental status grossly normal Attitude: No agitated Skin no rashes or lesions noted and no wounds General Skin Exam: Negative for jaundice or pallor MDM MDM MDM Narrative Medical decision making narrative: Patient presenting with left lower quadrant abdominal pain and concern for diverticulitis. Patient medicated with morphine, Zofran, IV fluids. Lab work is obtained and she has a slight leukocytosis of 12.2. Hemoglobin hematocrit are stable. Renal function electrolytes within normal limits. LFTs unremarkable. Urinalysis negative for infection. CT of the abdomen pelvis IV contrast does show uncomplicated sigmoid colon diverticulitis. Patient feeling improved at this time. Patient has multiple medication allergies including Levaquin. She states that most of this is a stomach upset. She states he does not tolerate antibiotics well. We discussed the regimen of Cipro and Flagyl however Cipro would be similar to Levaquin. In this regimen she would have to take 2 antibiotics. The patient states that she does not want to take the penicillin because her mother told her that her father had a severe penicillin allergy and that her son has a severe penicillin allergy. She is not had an allergy herself. Given this I feel the most reasonable course is to put her on moxifloxacin which should be 1 dose of antibiotics daily and may still cause some stomach upset, but I will discharge her home with Zofran. Patient states she can take Pepcid with her medications. She was offered pain medication but declines. I did give her return precautions. Impression: 1. Acute sigmoid diverticulitis 2. Leukocytosis Lab Data Attestation: I reviewed the patient's lab results. Labs: Laboratory Results - last 24 hr 02/13/22 02/13/22 02/13/22 07:09 07:09 08:15 WBC 12.2 H RBC 4.40 Hgb 13.5 Hct 41.7 MCV 94.8 MCH 30.7 MCHC 32.4 RDW Std Deviation 43.0 RDW Coeff of Lilliam 12.3 Plt Count 408 MPV 8.8 Immature Gran % (Auto) 0.500 Neut % (Auto) 67.8 Lymph % (Auto) 23.9 [place] % (Auto) 6.1 Eos % (Auto) 1.3 Baso % (Auto) 0.4 Absolute Neuts (auto) 8.3 H Absolute Lymphs (auto) 2.91 Nucleated RBC % 0 Sodium 137 Potassium 3.9 Chloride 102 Carbon Dioxide 29.0 Anion Gap 6 BUN 14 Creatinine 0.88 Estim Creat Clear Calc 62.58 Est GFR (MDRD) Af Amer 82 Est GFR (MDRD) Non-Af 68 BUN/Creatinine Ratio 15.9 Glucose 123 H Calcium 9.9 Total Bilirubin 0.50 AST 21 ALT 27 Alkaline Phosphatase 59 Total Protein 8.3 H Albumin 3.7 Globulin 4.6 H Albumin/Globulin Ratio 0.8 L Urine Color Yellow Urine Clarity Clear Urine pH 6.0 Ur Specific [place] 1.010 Urine Protein Negative Urine Glucose (UA) Normal Urine Ketones Negative Urine Occult Blood Negative Urine Nitrite Negative Urine Bilirubin Negative Urine Urobilinogen Normal Ur Leukocyte Esterase Negative Urine RBC 0 SEEN Urine WBC 0 SEEN Ur Squamous Epith Cells 0 SEEN Urine Bacteria 0 SEEN Urine Mucus 0 SEEN Radiography Diagnostic Testing: Clinical Impression(s) from Imaging Studies Abdomen/Pelvis CT 02/13/22 07:07 IMPRESSION: There is evidence of inflammatory change with thickening of the wall of the descending colon and sigmoid colon and compared with the diverticulitis. Fatty infiltration of the liver. Electronically Signed: Momo Hauser MD at 8:55 EDT , Discharge Plan Triage Chief Complaint: Abd Pain ED Provider: Alejandro Stanley Dx/Rx/DC Orders Instructions: ED Diverticulitis Prescriptions: New moxifloxacin 400 mg tablet 400 mg PO DAILY Qty: 20 RF: 0 ondansetron 4 mg tablet,disintegrating 4 mg PO Q8H PRN (Reason: nausea and vomiting) Qty: 14 RF: 0 No Action ascorbic acid (vitamin C) 1,000 mg tablet 1 g PO DAILY RF: 0 cranberry 500 mg capsule 500 mg PO DAILY RF: 0 Viactiv 650 mg-12.5 mcg-40 mcg tablet,chewable 2 tab PO DAILY RF: 0 Alive Once Daily Women 50 Plus 800-100 mcg tablet 2 tab PO DAILY RF: 0 metoprolol tartrate 25 mg tablet 25 mg PO BID Qty: 180 RF: 3 lisinopril 20 mg tablet 20 mg PO QDAY Qty: 90 RF: 3 rosuvastatin 5 mg tablet 5 mg PO DAILY Qty: 90 RF: 3 estradiol 0.01 % (0.1 mg/gram) cream 1 g vaginal .3XW RF: 0 polyethylene glycol 3350 [Miralax] 17 gram Powder In Packet 17 g PO DAILY PRN (Reason: Pain) RF: 0 protein supplement Liquid 30 ml PO DAILY RF: 0 Probiotic 3 billion cell Capsule 3,000 mmu cells PO DAILY RF: 0 acetaminophen 500 mg tablet 1,000 mg PO PRN PRN (Reason: Pain) RF: 0 famotidine 20 mg tablet 20 mg PO PRN PRN (Reason: Indigestion) RF: 0 tramadol 50 mg Tablet 50 - 100 mg PO Q6H PRN PRN (Reason: Pain Score 4-10) Qty: 56 RF: 0 aspirin 81 mg tablet,delayed release (DR/EC) 81 mg PO DAILY 30 Days Qty: 0 RF: 0 Primary Care Provider: Liv Vanessa Referrals: Liv Vanessa MD [Primary Care Provider] - Disposition Disposition: Home, Self Care
[2022-02-13] MEDS: 0.9% Normal Saline 1,000 ML 1000 ML IV (07:15)
[2022-02-13] MEDS: Morphine 4 MG/ML Syringe IV (07:17)
[2022-02-13] MEDS: Ondansetron 4 MG/2 ML Vial IV (07:17)
[2022-02-13 07:45] LABS: Absolute Lymphocyte Count 2.91 X10^3/uL (0.83-4.51); Absolute Neutrophil Count 8.3 X10^3/uL (2.0-7.7); Basophil# 0.05 X10^3/uL; Basophil% 0.4 % (0-1); Eosinophil# 0.16 X10^3/uL; Eosinophils% 1.3 % (0-5); Hematocrit 41.7 % (37-47); Hemoglobin 13.5 g/dL (12.0-15.0); Lymphocyte # 2.91 X10^3/ul (0.83-4.51); Lymphocyte % 23.9 % (19-41); Mean Corp Hgb Conc 32.4 g/dL (32-36); Mean Corpuscular Hgb 30.7 pg (27.0-32.0); Mean Corpuscular Volume 94.8 fL (81-99); Mean Platelet Vol. 8.8 fl (6.2-12.0); Monocyte# 0.74 X10^3/uL; Monocyte% 6.1 % (0-10); NRBC Flagged by Analyzer 0 % (0-5); Neutrophil # 8.26 X10^3/uL (2.7-7.7); Neutrophil % 67.8 % (47-70); Platelet Count 408 K/mm3 (150-450); RBC Distribution Width CV 12.3 % (11.6-14.6); White Blood Count 12.2 K/mm3 (4.4-11.0)
[2022-02-13 07:59] LABS: ALB/GLOB Ratio 0.8 RATIO (0.9-2.4); AST(SGOT) 21 U/L (15-37); Alanine Aminotransfer ALT/SGPT 27 U/L (13-56); Albumin, Serum 3.7 g/dL (3.2-5.0); Alkaline Phosphatase 59 U/L (45-117); Anion Gap 6 (5-15); BUN 14 mg/dL (7-18); BUN/Creat Ratio 15.9 RATIO (10-20); Calcium,Total 9.9 mg/dL (8.5-10.1); Chloride 102 mmol/L (98-107); Creatinine, Serum 0.88 mg/dL (0.55-1.02); EST Glomerular Filtration Rate 68 mL/min (>60); Est Glom Filt Rate - Afr Amer 82 mL/min (>60); Estimated Creatinine Clearance 62.58 ml/min; Globulin 4.6 g/dL (2.2-4.2); Glucose 123 mg/dL (74-106); Potassium 3.9 mmol/L (3.5-5.1); Protein, Total 8.3 g/dL (6.4-8.2); Sodium Level 137 mmol/L (136-145)
[2022-02-13 08:43] LABS: Bacteria 0 SEEN /hpf (None Seen); Mucous, Urine 0 SEEN /hpf (<or=2+); Red Blood Cells-Urine 0 SEEN /hpf (0-5); Squamous Epithelial Cells - UA 0 SEEN /hpf (5-10); White Blood Cells 0 SEEN /hpf (0-5)
[2022-02-13 08:54] VITALS: BP 121/90; PULSE 72; RESP 18; O2SAT 94
[2022-02-13 08:56] LABS: Color, Urine Yellow (Yellow); Glucose, Dipstick Normal (Normal); Ketone-Dipstick Negative (Negative); Leukocyte Esterase-Dipstick Negative /ul (Negative); Nitrite-Dipstick Negative (Negative); Occult Blood-Urine Negative /ul (Negative); Protein-Dipstick Negative (Negative); Urine Bilirubin Dipstick Negative (Negative); Urine Clarity Clear (Clear); Urine Urobilinogen Normal (Normal)
[2022-02-13 09:41] VITALS: RESP 16
[2022-02-13 10:00] VITALS: BP 119/73; PULSE 81; RESP 16; O2SAT 97
== END 2022-02-13 10:14 | disposition home or self-care (01) ==
PROVIDERS: Emergency Provider Student in an Organized Health Care Education/Training Program; PCP Family Medicine; Visit Provider Student in an Organized Health Care Education/Training Program
DX: K57.32 Diverticulitis of large intestine without perforation or abscess without bleeding (principal); I10 Essential (primary) hypertension; E78.5 Hyperlipidemia, unspecified; E78.00 Pure hypercholesterolemia, unspecified; R10.32 Left lower quadrant pain; D72.829 Elevated white blood cell count, unspecified; K76.0 Fatty (change of) liver, not elsewhere classified
CPT/HCPCS: 74177; 80053; 81001; 85025; 96361; 96374; 96375; 99282; J7030; Q9967; J2405

== ENCOUNTER → 2022-03-05 | Outpatient (CLI) | payer MEDICARE, OTHER, SELFPAY ==
--- NOTE | 2022-03-05 08:49 | CT_ITS ---
STUDY: CT ABDOMEN AND PELVIS WITH CONTRAST REASON FOR EXAM: Female, 67 years old. LLQ PAIN. History of diverticulitis. RADIATION DOSAGE (If Supplied By Facility): CTDIvol = ( 19.19 ) mGy, DLP = ( 1237.70 ) mGycm TECHNIQUE: Transaxial images were obtained from the dome of the diaphragm to the symphysis pubis with oral contrast. Oral and amp; IV Gastrografin and amp; 100mL Isovue-300 was administered. Sagittal and coronal images were reconstructed. Individualized dose optimization techniques were used for this CT. COMPARISON: Comparison is made with prior study dated 02/13/2022. FINDINGS: Stable mild increased linear markings at the lung bases suggestive of atelectasis and/or scarring. The visualized portions of the heart are within normal limits. There is decreased attenuation of the liver consistent with steatosis. There are surgical clips in the gallbladder fossa consistent with a prior cholecystectomy. Normal spleen. Normal pancreas. Normal bilateral adrenal glands. Normal right kidney. Normal left kidney. There is a small hiatal hernia. Normal small intestine. There are multiple colonic diverticula consistent with diverticulosis. Moderate degree of the thecal material is seen in the colon. This has improved as compared to prior study. There is non-visualization of the appendix. Normal abdominal aorta. Normal inferior vena cava. Normal retroperitoneum. Normal urinary bladder. There is absence of the uterus consistent with a prior hysterectomy. Normal abdominal wall. There are diffuse degenerative changes of the visualized lumbar spine. Status post right total hip replacement. CT/Abdomen/Pelvis WITH Contrast IMPRESSION: Sigmoid diverticulosis with no radiographic evidence of diverticulitis at this time. Electronically Signed: Momo Hauser MD at 11:33 EDT ,
== END | disposition home or self-care (01) ==
PROVIDERS: PCP Family Medicine; Referring Provider Family Medicine; Visit Provider Family Medicine
DX: R10.32 Left lower quadrant pain (principal)
CPT/HCPCS: 74177; Q9967

== ENCOUNTER → 2022-03-25 | Outpatient (CLI) | payer MEDICARE, OTHER, SELFPAY ==
--- NOTE | 2022-03-25 12:45 | ECHOD_ITS ---
Reason For Study: MURMUR Procedure This was a 2D Doppler, Color Flow transthoracic echocardiogram. The study was technically difficult. Exam performed in department. Left Ventricle Normal LV size. Left ventricular systolic function is normal. The estimated ejection fraction is 65 %. Diastolic function is indeterminate. No regional wall motion abnormalities noted. Right Ventricle Normal RV size. Normal systolic function. Atria The left atrium is mildly enlarged. Normal right atrium. No doppler evidence for ASD. Mitral Valve There is no mitral annular calcification. Normal mitral valve. Mild (1+) mitral valve insufficiency. Tricuspid Valve Normal tricuspid valve. Trivial tricuspid valve insufficiency. Right ventricular systolic pressure estimated to be 26 mmHg. Aortic Valve Trisinus/trileaflet aortic valve. Mild focal aortic valve calcification. Pulmonic Valve The pulmonic valve is not well visualized. Great Vessels Normal sized aortic root. Pericardium/Pleural No pericardial effusion. MMode/2D Measurements & Calculations Ao root diam: 3.3 cm LAV(MOD-bp): 61.9 ml LVAd ap4: 24.4 cm2 LAV(MOD-bp) Indexed: 29.3 ml/m2 LVLd ap4: 8.0 cm LAV(MOD-sp2): 79.2 ml EDV(MOD-sp4): 63.4 ml LAV(MOD-sp4): 43.3 ml EDV(sp4-el): 63.7 ml LVAs ap4: 9.9 cm2 LVLs ap4: 6.1 cm ESV(MOD-sp4): 14.4 ml ESV(sp4-el): 13.6 ml EF(MOD-sp4): 77.3 % EF(sp4-el): 78.6 % SV(MOD-sp4): 49.0 ml SV(sp4-el): 50.0 ml LA A4 area: 15.8 cm2 LA dimension(2D): 3.8 cm Doppler Measurements & Calculations MV E max kiran: 78.9 cm/sec Lat Peak E' Kiran: 7.4 cm/sec Med Peak E' Kiran: 5.7 cm/sec MV A max kiran: 80.8 cm/sec E/E' lat: 10.6 E/E' med: 13.7 MV E/A: 0.98 Ao V2 max: 99.2 cm/sec LV V1 max: 89.5 cm/sec MR max kiran: 450.8 cm/sec Ao max P.9 mmHg LV V1 max P.2 mmHg MR max P.3 mmHg PA V2 max: 82.8 cm/sec TR max kiran: 242.4 cm/sec TR max P.5 mmHg ECHO/Echo Complete Interpretation Summary The study was technically difficult. Left ventricular systolic function is normal. The estimated ejection fraction is 65 %. The left atrium is mildly enlarged. Mild (1+) mitral valve insufficiency. Trivial tricuspid valve insufficiency. Mild focal aortic valve calcification. Right ventricular systolic pressure estimated to be 26 mmHg. Diastolic function is indeterminate. Ordering Physician: Stacy Rocha Referring Physician: Stacy Rocha Performed By: Nadya Sanchez RCS
== END | disposition home or self-care (01) ==
LOC: CVS 12:44
PROVIDERS: PCP Family Medicine; Referring Provider Physician Assistant Medical; Visit Provider Physician Assistant Medical
DX: I47.1 Supraventricular tachycardia (principal); R01.1 Cardiac murmur, unspecified
CPT/HCPCS: 93306

== ENCOUNTER → 2022-06-12 | Outpatient (CLI) | payer MEDICARE, OTHER, SELFPAY ==
--- NOTE | 2022-06-12 10:00 | BI_ITS ---
MAMMOGRAPHY - BILATERAL SCREENING REASON FOR EXAM: Female, 67 years old. Routine annual screening examination. PERTINENT HISTORY: Sister with breast cancer. TECHNIQUE: Digital bilateral breast brie (3D mammographic acquisition) in the CC and MLO projections. 2-D mediolateral oblique (MLO) and craniocaudad (CC) views of both breasts were obtained. CAD: Full Field Digital Mammography with Computer Added Detection was performed. COMPARISON: Comparison is made with prior study 06/21/2020 and 06/15/2020. FINDINGS: Breast Composition: The breasts are heterogeneously dense, which may obscure small masses. There are no dominant masses or suspicious calcifications. A tissue clip marker is once again seen in the deep upper lateral aspect of the left breast. No other significant abnormalities are identified. There has been no significant change since the prior study. BI/SCRN MAMM (CAD)W/BRIE BILAT IMPRESSION: Stable bilateral screening mammogram. Yearly follow-up mammogram recommended. (A) ASSESSMENT CATEGORY: BIRADS Category 2: Benign. A letter regarding these results will be sent to the patient by the facility within 30 days. Approximately 10% of breast cancers are not detected by mammography. A normal mammogram should not delay biopsy of a clinically suspicious abnormality. [id number] Electronically Signed: Momo Hauser MD at 11:12 EDT ,
== END | disposition home or self-care (01) ==
LOC: OPBI 09:59
PROVIDERS: PCP Family Medicine; Visit Provider Family Medicine
DX: Z12.31 Encounter for screening mammogram for malignant neoplasm of breast (principal); Z80.3 Family history of malignant neoplasm of breast
CPT/HCPCS: 77063; 77067

== ENCOUNTER 2022-12-11 08:55 | Emergency (ER) | payer MEDICARE, OTHER, SELFPAY ==
[2022-12-11 08:55] VITALS: BP 139/84; PULSE 77; RESP 20; TEMP 36.6; O2SAT 98; BMI 34.0
--- NOTE | 2022-12-11 09:04 | EKG12_ITS ---
Test Reason : CP Blood Pressure : / mmHG Vent. Rate : 072 BPM Atrial Rate : 072 BPM P-R Int : 154 ms QRS Dur : 086 ms QT Int : 390 ms P-R-T Axes : 034 -12 002 degrees QTc Int : 427 ms Sinus rhythm with Premature atrial complexes Minimal voltage criteria for LVH, may be normal variant ( R in aVL ) Borderline ECG When compared with ECG of 06-FEB-2022 08:28, Premature atrial complexes are now Present Vent. rate has decreased BY 39 BPM Confirmed by PILLO MENDEZ, ASYA ([id number]), editor continuity and script ALLEN JANE ([id number]) on 12/16/2022 8:31:09 AM Referred By: ANDRES Confirmed By:ASYA FERRO MD
--- NOTE | 2022-12-11 09:25 | RAD_ITS ---
EXAM: XR CHEST, 1 VIEW CLINICAL INDICATION: chest pain TECHNIQUE: Frontal view of the chest. This report was created using zoidu report generation technology. COMPARISON: 03/09/2021. FINDINGS: LUNGS AND PLEURAL SPACES: Unremarkable. No consolidation or edema. No pneumothorax. No effusion. HEART: Unremarkable. Cardiac silhouette not enlarged. MEDIASTINUM: Central airways and mediastinal contour are unremarkable. BONES/JOINTS: Unremarkable. SOFT TISSUES: Unremarkable. RAD/Chest 1 View (Portable) IMPRESSION: No radiographic evidence of acute cardiopulmonary disease and unchanged when compared to 03/09/2021. Electronically Signed: Gordon Mendoza MD at 9:37 EDT ,
[2022-12-11 09:29] LABS: Absolute Lymphocyte Count 2.66 X10^3/uL (0.83-4.51); Absolute Neutrophil Count 4.4 X10^3/uL (2.0-7.7); Basophil# 0.05 X10^3/uL; Basophil% 0.6 % (0-1); Eosinophil# 0.11 X10^3/uL; Eosinophils% 1.4 % (0-5); Hematocrit 41.5 % (37-47); Hemoglobin 13.5 g/dL (12.0-15.0); Lymphocyte # 2.66 X10^3/ul (0.83-4.51); Lymphocyte % 33.6 % (19-41); Mean Corp Hgb Conc 32.5 g/dL (32-36); Mean Corpuscular Hgb 31.5 pg (27.0-32.0); Mean Corpuscular Volume 96.7 fL (81-99); Mean Platelet Vol. 9.3 fl (6.2-12.0); Monocyte# 0.67 X10^3/uL; Monocyte% 8.5 % (0-10); NRBC Flagged by Analyzer 0 % (0-5); Neutrophil % 55.6 % (47-70); Platelet Count 250 K/mm3 (150-450); RBC Distribution Width CV 12.7 % (11.6-14.6); RBC Distribution Width SD 45.4 fl (35.1-43.9); Red Blood Count 4.29 M/mm3 (4.2-5.4); White Blood Count 7.9 K/mm3 (4.4-11.0)
[2022-12-11 09:47] LABS: Anion Gap 7 (5-15); BUN 14 mg/dL (7-18); BUN/Creat Ratio 16.5 RATIO (10-20); Calcium,Total 9.6 mg/dL (8.5-10.1); Chloride 103 mmol/L (98-107); Creatinine, Serum 0.85 mg/dL (0.55-1.02); EST Glomerular Filtration Rate 70 mL/min (>60); Est Glom Filt Rate - Afr Amer 85 mL/min (>60); Glucose 138 mg/dL (74-106); Sodium Level 138 mmol/L (136-145); Troponin-I HS 5 pg/mL (3.0-54.0)
--- NOTE | 2022-12-11 09:52 | EDS_ITS ---
HPI History of Present Illness Chief Complaint: Chest Pain Onset/Context/Timing Onset: Today and Hours (2) Activity at onset: sudden Timing: Continuous Quality: Positive for Heaviness and Pressure Location: Left Parasternal Worsened By: Nothing Relieved By: Nothing Associated Symptoms: Positive for Dyspnea, Cough and Lightheadedness; Negative for Nausea, Vomiting, Diaphoresis, Fever, Acid Reflux or Palpitations Narrative Narrative: Patient presents with chest pain that began approximately 2 hours prior to arrival. Patient describes the pain as pressure and heaviness. Patient states it is over the left parasternal area. Patient states nothing makes it worse and nothing makes it better. Patient states it has been constant for the past 2 hours. Patient admits to some shortness of breath and cough. Patient also admits to some lightheadedness. Patient denies any nausea or vomiting. Patient denies any diaphoresis or palpitations. Patient denies any fevers or chills. CVD Risk Factors: Positive for Hypertension and Hypercholesterolemia; Negative for Diabetes, Family History 1' </=55 or Smoking PE Risk Factors: Negative for Recent Travel/Surgery, Recent Immobilization, Prior DVT or PE, Cancer or OCP + Smoking + >/=35 [facility] Medical History Ambulates with cane Arthritis Back pain Benign essential hypertension Cardiology follow-up encounter CPAP (continuous positive airway pressure) dependence Diverticulosis of intestine without perforation or abscess with bleeding Fatty liver GERD (gastroesophageal reflux disease) Heartburn High cholesterol History of diverticulitis History of diverticulitis of colon History of edema History of irregular heartbeat History of renal disease History of stress test Hx of echocardiogram (~07/03/20) Hyperlipidemia Hypertension Ischemic colitis Migraine headache Non-smoker Nonrheumatic mitral (valve) prolapse Obesity Paroxysmal atrial tachycardia Paroxysmal SVT (supraventricular tachycardia) Sleep apnea Vertigo Wears glasses Home Medications ascorbic acid (vitamin C) 1,000 mg tablet 1 g PO DAILY SUPPLEMENT 04/12/19 [History Last Taken Unknown] calcium 650 mg-vitamin D3 12.5 mcg-vitamin K 40 mcg chewable tablet (Viactiv) 2 tab PO DAILY SUPPLEMENT 04/12/19 [History Last Taken Unknown] cranberry 500 mg capsule 500 mg PO DAILY SUPPLEMENT 04/12/19 [History Last Taken Unknown] multivit,mineral-folic acid 800 mcg-vit K 100 mcg-herbal no.289 tablet (Alive Once Daily Women 50 Plus) 2 tab PO DAILY SUPPLEMENT 06/13/20 [History Last Taken Unknown] estradiol 0.01% (0.1 mg/gram) vaginal cream 1 g vaginal .3XW ESTROGEN 02/07/21 [History Last Taken Unknown] lactobacillus combination no.4 3 billion cell capsule (Probiotic) 3,000 mmu cells PO DAILY SUPPLEMENT 02/12/21 [History Last Taken Unknown] polyethylene glycol 3350 17 gram oral powder packet (Miralax) 17 g PO DAILY PRN Pain 02/12/21 [History Last Taken Unknown] protein supplement 30 ml PO DAILY SUPPLEMENT] 02/12/21 [History Last Taken Unknown] acetaminophen 500 mg tablet 1,000 mg PO PRN PRN Pain 09/03/21 [History Last Taken Unknown] famotidine 20 mg tablet 20 mg PO PRN PRN Indigestion 09/03/21 [History Last Taken Unknown] lisinopril 20 mg tablet 20 mg PO QDAY BP #90 tabs 01/08/22 [Rx Last Taken 01/21/22] metoprolol tartrate 25 mg tablet 25 mg PO BID BP #180 tabs 01/08/22 [Rx Last Taken 01/21/22] rosuvastatin 5 mg tablet 5 mg PO DAILY CHOLESTEROL #90 tabs 01/08/22 [Rx Last Taken Unknown] aspirin 81 mg tablet,delayed release 81 mg PO DAILY BLOOD THINNER 30 days #0 tabs 01/22/22 [Rx Last Taken 02/05/22] tramadol 50 mg tablet 50 - 100 mg PO Q6H PRN PRN Pain Score 4-10 #56 tabs 01/22/22 [Rx Last Taken Unknown] moxifloxacin 400 mg tablet 400 mg PO DAILY #20 tabs 02/13/22 [Rx Last Taken Unknown] ondansetron 4 mg disintegrating tablet 4 mg PO Q8H PRN nausea and vomiting #14 tabs 02/13/22 [Rx Last Taken Unknown] clindamycin HCl 300 mg capsule 300 mg PO .COMPLEX #2 caps 11/30/22 [Rx Last Taken Unknown] Allergy/AdvReac Type Severity Reaction Status Date / Time Penicillins Allergy Unknown Verified 12/11/22 09:00 digoxin AdvReac Other Verified 12/11/22 09:00 hydrochlorothiazide AdvReac Upset Verified 12/11/22 09:00 [From Dyazide] Stomach levofloxacin [From Levaquin] AdvReac Upset Verified 12/11/22 09:00 Stomach magnesium citrate AdvReac Upset Verified 12/11/22 09:00 Stomach meperidine [From Demerol] AdvReac Upset Verified 12/11/22 09:00 Stomach nitrofurantoin AdvReac Upset Verified 12/11/22 09:00 [From Macrobid] Stomach polyethylene glycol AdvReac Upset Verified 12/11/22 09:00 [From Golytely] Stomach polyethylene glycol 3350 AdvReac Upset Verified 12/11/22 09:00 [From Golytely] Stomach potassium chloride AdvReac Upset Verified 12/11/22 09:00 [From Golytely] Stomach pravastatin [From Pravachol] AdvReac had white Verified 12/11/22 09:00 stool simvastatin [From Zocor] AdvReac Upset Verified 12/11/22 09:00 Stomach sodium [From Golytely] AdvReac Upset Verified 12/11/22 09:00 Stomach sodium bicarbonate AdvReac Upset Verified 12/11/22 09:00 [From Golytely] Stomach sodium chloride AdvReac Upset Verified 12/11/22 09:00 [From Golytely] Stomach sodium sulfate AdvReac Upset Verified 12/11/22 09:00 [From Golytely] Stomach triamterene [From Dyazide] AdvReac Upset Verified 12/11/22 09:00 Stomach Surgical History H/O lumpectomy History of cholecystectomy History of foot surgery History of left breast biopsy History of total hysterectomy Hx of appendectomy Hx of total hip arthroplasty Social History household members: spouse Smoking Status: Never smoker alcohol intake: never substance use type: does not use ROS ROS ED Constitutional Constitutional ED: Denies chills or fever(s) Eyes Eyes: Denies blurry vision or change in vision ENT ENT ED: Denies rhinorrhea or sore throat Cardiovascular Cardiovascular: Reports chest pain; Denies palpitations Respiratory/Chest Respiratory/Chest: Reports dyspnea; Denies cough Gastrointestinal Gastrointestinal: Denies abdominal pain, nausea or vomiting Genitourinary Genitourinary ED: Denies dysuria or hematuria Musculoskeletal Musculoskeletal: Reports back pain; Denies neck pain Integumentary Denies abscess or rash Neurologic Neurologic: Denies headache(s) or weakness Allergic/Immunologic Allergic/Immunologic ED: Denies mouth swelling or urticaria EXAM Physical Exam Const Vital Signs: 12/11/22 08:55 12/11/22 09:01 12/11/22 09:04 Temperature 97.8 F Temperature Source Temporal Pulse Rate 77 Respiratory Rate 20 H Respiratory Pattern Normal Blood Pressure 139/84 H Blood Pressure Mean 102 Pulse Ox 98 Oxygen Delivery Method Room Air Room Air 12/11/22 10:20 12/11/22 11:06 Temperature Temperature Source Pulse Rate 65 65 Respiratory Rate 18 Respiratory Pattern Blood Pressure 123/71 H 114/63 Blood Pressure Mean 80 Pulse Ox 97 Oxygen Delivery Method Room Air Positive well nourished, well developed and obese General Appearance ED: well developed and NAD Nutritional Appearance: obese HEENT normocephalic and atraumatic Eyes PERRL and EOMs intact bilaterally Neck supple and no JVD Chest Wall Chest Narrative: There is tenderness to palpation over the left parasternal area and sternum. There is no bony crepitance or step-off. There is no edema or ecchymosis. Chest: tenderness sternum Resp normal respiratory effort and clear to auscultation bilaterally Effort and Inspection: Negative for respiratory distress Cardio regular rate, regular rhythm and no murmurs GI normal to inspection, nondistended, normoactive bowel sounds, soft to palpation, non-tender and non-distended Extremity normal to inspection General Extremety ED: Negative for edema or tenderness General Extremity: Negative for edema Neuro oriented x3, CN's II-XII intact bilaterally and no sensory deficits noted Sensorium / Orientation: awake and alert Motor Exam: strength 5/5 throughout Psych mental status grossly normal Heart Score History: Slightly/Non-Suspicious ECG: Normal Age: >/= 65 years Risk Factors: 1 or 2 Risk Factors Score: 3 MDM MDM MDM Narrative Medical decision making narrative: Differential diagnosis includes cardiac ischemia, cardiac dysrhythmia, pneumonia, pneumothorax, and musculoskeletal pain. Other than her age, patient is PERC negative and has a Wells score less than 3. I do not feel this is from a pulmonary embolism. EKG will be obtained to assess for cardiac dysrhythmia and cardiac ischemia. CBC will be obtained to assess for leukocytosis and anemia. Basic metabolic profile will be obtained to assess for electrolyte abnormality and renal function. High-sensitivity troponin will be obtained to assess for cardiac ischemia. 2-hour repeat high-sensitivity troponin will be obtained to assess for ongoing cardiac ischemia. Chest x-ray will be obtained to assess for pneumonia and pneumothorax. Lab Data Attestation: I reviewed the patient's lab results. Lab results narrative: CBC was reviewed and was within normal limits. Basic metabolic profile was reviewed and was within normal limits. High-sensitivity troponin was reviewed and was normal at 5. 2-hour repeat high-sensitivity troponin was reviewed and was normal at 5. Labs: Laboratory Results - last 24 hr 12/11/22 12/11/22 12/11/22 09:22 09:22 11:05 WBC 7.9 RBC 4.29 Hgb 13.5 Hct 41.5 MCV 96.7 MCH 31.5 MCHC 32.5 RDW Std Deviation 45.4 H RDW Coeff of Lilliam 12.7 Plt Count 250 MPV 9.3 Immature Gran % (Auto) 0.300 Neut % (Auto) 55.6 Lymph % (Auto) 33.6 Lamb % (Auto) 8.5 Eos % (Auto) 1.4 Baso % (Auto) 0.6 Absolute Neuts (auto) 4.4 Absolute Lymphs (auto) 2.66 Nucleated RBC % 0 Sodium 138 Potassium 4.0 Chloride 103 Carbon Dioxide 28.0 Anion Gap 7 BUN 14 Creatinine 0.85 Estim Creat Clear Calc 63.90 Est GFR (MDRD) Af Amer 85 Est GFR (MDRD) Non-Af 70 BUN/Creatinine Ratio 16.5 Glucose 138 H Calcium 9.6 Troponin I High Sens 5 5 Radiography Diagnostic Testing: Clinical Impression(s) from Imaging Studies Chest X-Ray 12/11/22 09:25 IMPRESSION: No radiographic evidence of acute cardiopulmonary disease and unchanged when compared to 03/09/2021. Electronically Signed: Gordon Mendoza MD at 9:37 EDT , Portable 1 view chest x-ray was obtained. On my independent interpretation, lung malone are clear. There is normal cardiac silhouette. Bony thorax is normal. There is no acute process noted. Radiologist also interpreted the x- ray and agrees. Differential Diagnosis Chest pain/SOB: pulmonary embolism Reason(s) PE less likely: Positive for Well's <3, not tachycardic and not hypoxic, ACS, pneumothorax and pneumonia Treatment and Re-Evaluation :: Patient was given aspirin here. Patient was given sublingual nitroglycerin. Patient was advised of her findings. Patient has a HEART score of 3. Patient was advised that this is low risk for acute cardiac event. Patient was advised that she may need an outpatient stress test to follow-up with this. Patient was instructed to follow-up with her primary care physician and rail walker in 5 family understood and were agreeable with the plan. All questions were answered. Discharge Plan Triage Chief Complaint: Chest Pain ED Provider: Alberto Madera Dx/Rx/DC Orders Clinical Impression: Chest pain, Obesity Instructions: ED Chest Pain, Uncertain Cause Prescriptions: No Action ascorbic acid (vitamin C) 1,000 mg tablet 1 g PO DAILY cranberry 500 mg capsule 500 mg PO DAILY Viactiv 650 mg-12.5 mcg-40 mcg tablet,chewable 2 tab PO DAILY Alive Once Daily Women 50 Plus 800-100 mcg tablet 2 tab PO DAILY metoprolol tartrate 25 mg tablet 25 mg PO BID Qty: 180 3RF Rx Instructions: Hold for heart less than 60 or systolic blood pressure less than 100 mmHg. lisinopril 20 mg tablet 20 mg PO QDAY Qty: 90 3RF Rx Instructions: Hold for SBP less than 120 mmHg rosuvastatin 5 mg tablet 5 mg PO DAILY Qty: 90 3RF estradiol 0.01 % (0.1 mg/gram) cream 1 g vaginal .3XW Rx Instructions: MWF polyethylene glycol 3350 [Miralax] 17 gram Powder In Packet 17 g PO DAILY PRN (Reason: Pain) protein supplement Liquid 30 ml PO DAILY Probiotic 3 billion cell Capsule 3,000 mmu cells PO DAILY acetaminophen 500 mg tablet 1,000 mg PO PRN PRN (Reason: Pain) Rx Instructions: Do not take more than 3000 mg Tylenol in a 24-hour period. famotidine 20 mg tablet 20 mg PO PRN PRN (Reason: Indigestion) tramadol 50 mg Tablet 50 - 100 mg PO Q6H PRN PRN (Reason: Pain Score 4-10) Qty: 56 0RF aspirin 81 mg tablet,delayed release (DR/EC) 81 mg PO DAILY 30 Days Qty: 0 0RF Rx Instructions: Take 81 mg aspirin twice daily for 4 weeks postoperatively for DVT prophylaxis moxifloxacin 400 mg tablet 400 mg PO DAILY Qty: 20 0RF ondansetron 4 mg tablet,disintegrating 4 mg PO Q8H PRN (Reason: nausea and vomiting) Qty: 14 0RF clindamycin HCl 300 mg capsule 300 mg PO .COMPLEX Qty: 2 4RF Rx Instructions: 300 mg orally 2 capsules (600mg) 1 hour prior to dental procedure; Primary Care Provider: Liv Vanessa Referrals: Liv Vanessa MD [Primary Care Provider] - 3-5 Days Disposition Disposition: Home, Self Care
[2022-12-11] MEDS: Aspirin 81 MG TAB.CHEW 324 MG PO (10:16)
[2022-12-11 10:20] VITALS: BP 123/71; PULSE 65
[2022-12-11] MEDS: Nitroglycerin SL (ED/IMG/CATH) 0.4 MG TABLET SL (10:20)
[2022-12-11 11:06] VITALS: BP 114/63; PULSE 65; RESP 18; O2SAT 97
[2022-12-11 11:35] LABS: Troponin-I HS 5 pg/mL (3.0-54.0)
[2022-12-11 13:04] VITALS: BP 121/73; PULSE 66; RESP 15; O2SAT 98
== END 2022-12-11 13:08 | disposition home or self-care (01) ==
PROVIDERS: Emergency Provider Emergency Medicine; PCP Family Medicine; Visit Provider Emergency Medicine
DX: R07.9 Chest pain, unspecified (principal); E78.00 Pure hypercholesterolemia, unspecified; I10 Essential (primary) hypertension; E66.9 Obesity, unspecified; R06.02 Shortness of breath
CPT/HCPCS: 71045; 80048; 84484; 85025; 93005; 99284; A4216

== ENCOUNTER → 2022-12-18 | Outpatient (CLI) | payer MEDICARE, OTHER, SELFPAY ==
--- NOTE | 2022-12-18 13:22 | CT_ITS ---
STUDY: CT ABDOMEN AND PELVIS WITHOUT CONTRAST REASON FOR EXAM: Female, 67 years old. Left flank pain and left lower quadrant pain. RADIATION DOSAGE (If Supplied By Facility): CTDIvol = ( 20.48 ) mGy, DLP = ( 919.09 ) mGycm TECHNIQUE: Transaxial images were obtained from the dome of the diaphragm to the symphysis pubis without oral contrast, and without intravenous contrast. Sagittal and coronal images were reconstructed. Individualized dose optimization techniques were used for this CT. COMPARISON: Comparison is made with prior study dated March 05, 2022. FINDINGS: Stable mildly increased markings at the lung bases suggestive of linear scarring. The visualized portions of the heart are within normal limits. There is decreased attenuation of the liver consistent with steatosis. There are surgical clips in the gallbladder fossa consistent with a prior cholecystectomy. Normal spleen. Normal pancreas. Normal bilateral adrenal glands. Normal right kidney. Normal left kidney. Normal visualized stomach. Normal small intestine. There are multiple colonic diverticula consistent with diverticulosis. The patient is status post appendectomy. There is scattered atherosclerotic calcification of the abdominal aorta, without a demonstrated aneurysm. Normal inferior vena cava. Normal retroperitoneum. Normal urinary bladder. There is absence of the uterus consistent with a prior hysterectomy. Normal abdominal wall. Mild degree of disc space target the L5-S1 level. CT/Abdomen/Pelvis without Cont IMPRESSION: Fatty infiltration of the liver. Sigmoid diverticulosis. Status post appendectomy and hysterectomy. Electronically Signed: Momo Hauser MD at 13:54 EDT ,
== END | disposition home or self-care (01) ==
LOC: CT 13:20
PROVIDERS: PCP Family Medicine; Referring Provider Family Medicine; Visit Provider Family Medicine
DX: K57.30 Diverticulosis of large intestine without perforation or abscess without bleeding (principal); K76.0 Fatty (change of) liver, not elsewhere classified; Z90.49 Acquired absence of other specified parts of digestive tract; Z90.710 Acquired absence of both cervix and uterus
CPT/HCPCS: 74176

== ENCOUNTER → 2022-12-19 | Outpatient (CLI) | payer MEDICARE, OTHER, SELFPAY ==
[2022-12-19 09:00] LABS: AST(SGOT) 26 U/L (15-37); Alanine Aminotransfer ALT/SGPT 34 U/L (13-56); Albumin, Serum 3.5 g/dL (3.2-5.0); Alkaline Phosphatase 45 U/L (45-117); Bilirubin, Direct 0.16 mg/dL (0.00-0.30); Cholesterol 116 mg/dL (200); Globulin 3.7 g/dL (2.2-4.2); High Density Lipoprotein 42 mg/dL; Protein, Total 7.2 g/dL (6.4-8.2); Triglycerides 115 mg/dL; Very Low Density Lipoprotein 23 mg/dL (5-40)
== END | disposition home or self-care (01) ==
PROVIDERS: PCP Family Medicine; Referring Provider Physician Assistant Medical; Visit Provider Physician Assistant Medical
DX: E78.00 Pure hypercholesterolemia, unspecified (principal)
CPT/HCPCS: 36415; 80061; 80076

== ENCOUNTER → 2022-12-21 | Outpatient (CLI) | payer MEDICARE, OTHER, SELFPAY ==
--- NOTE | 2022-12-21 17:54 | STRESSREP ---
Stress Test Report Exercise myocardial perfusion stress test. 67-year-old man with a history of chest pain Stress protocol: Resting EKG demonstrates normal sinus rhythm with a rate of 77 bpm resting blood pressure is 112/64 mmHg. The patient exercised according to the regular Teodoro protocol for a total duration of 4 minutes attaining a maximum heart rate of 160 bpm which was 105% of maximum predicted heart rate; the maximum workload was 7 metabolic equivalents. At rest there were no ST or T wave changes noted to suggest ischemia and at peak exercise upsloping ST changes only were noted which did not meet the criteria for ischemia. No clinical angina was noted the test was terminated due to the target heart rate being achieved/fatigue. The peak blood pressure was 174/70 mmHg. Rate-pressure product was 16,600. Myocardial perfusion protocol. 12 mCi of technetium 99m sestamibi was injected at rest. The patient exercised according to regular Teodoro protocol for total duration of 4 minutes and at peak exercise 34.3 mCi of technetium 99m sestamibi was injected stress images were obtained stress and rest images were reconstructed in comparing the short axis vertical long and horizontal long axis. Gated images were also obtained. Perfusion SPECT analysis: Review of the stress images demonstrate normal uptake of tracer noted in all areas of the myocardium. The resting images similarly demonstrate normal uptake of tracer noted in all areas of the myocardium. No areas of reversibility are noted to suggest ischemia no previous infarct was noted. Gated SPECT analysis: The gated ejection fraction is 83%. Conclusion: Normal exercise myocardial perfusion stress test at a moderate workload Preserved ejection fraction.
== END | disposition home or self-care (01) ==
LOC: CVS 07:03
PROVIDERS: PCP Family Medicine; Referring Provider Physician Assistant Medical; Visit Provider Physician Assistant Medical
DX: R07.9 Chest pain, unspecified (principal)
CPT/HCPCS: 78452; 93017; A9500; A4216

== ENCOUNTER → 2023-02-05 | Outpatient (CLI) | payer MEDICARE, OTHER, SELFPAY ==
--- NOTE | 2023-02-05 11:48 | RAD_ITS ---
STUDY: X-RAY - LEFT SHOULDER REASON FOR EXAM: Female, 67 years old. Pain, decreased range of motion TECHNIQUE: 4 view(s) of the shoulder. COMPARISON: None. FINDINGS: There is mild degenerative arthrosis of the glenohumeral articulation. There is degenerative arthrosis of the acromioclavicular joint without inferior osseous spur formation. Normal acromion. Normal humeral head and visualized proximal humerus. The soft tissue structures are unremarkable. Normal visualized pulmonary apex. RAD/Shoulder min 2 Views IMPRESSION: Degenerative arthrosis Electronically Signed: Francisco Javier Marcano MD at 15:39 EDT ,
== END | disposition home or self-care (01) ==
LOC: MTRAD 11:47
PROVIDERS: PCP Family Medicine; Referring Provider Family Medicine; Visit Provider Family Medicine
DX: M75.82 Other shoulder lesions, left shoulder (principal)
CPT/HCPCS: 73030

== ENCOUNTER → 2023-03-16 | Outpatient (CLI) | payer MEDICARE, OTHER, SELFPAY ==
[2023-03-16 11:04] LABS: Erythrocyte Sedimentation Rate 29 mm/hr (0-30)
[2023-03-16 11:06] LABS: Absolute Lymphocyte Count 2.21 X10^3/uL (0.83-4.51); Absolute Neutrophil Count 3.4 X10^3/uL (2.0-7.7); Basophil# 0.04 X10^3/uL; Basophil% 0.6 % (0-1); Eosinophil# 0.12 X10^3/uL; Eosinophils% 1.9 % (0-5); Hemoglobin 14.1 g/dL (12.0-15.0); Lymphocyte # 2.21 X10^3/ul (0.83-4.51); Lymphocyte % 35.2 % (19-41); Mean Corp Hgb Conc 33.6 g/dL (32-36); Mean Corpuscular Hgb 31.6 pg (27.0-32.0); Mean Corpuscular Volume 94.2 fL (81-99); Mean Platelet Vol. 9.2 fl (6.2-12.0); Monocyte# 0.45 X10^3/uL; Monocyte% 7.2 % (0-10); NRBC Flagged by Analyzer 0 % (0-5); Neutrophil # 3.44 X10^3/uL (2.7-7.7); Neutrophil % 54.8 % (47-70); Platelet Count 261 K/mm3 (150-450); RBC Distribution Width CV 12.7 % (11.6-14.6); RBC Distribution Width SD 43.8 fl (35.1-43.9); Red Blood Count 4.46 M/mm3 (4.2-5.4); White Blood Count 6.3 K/mm3 (4.4-11.0)
[2023-03-16 11:22] LABS: International Normalized Ratio 0.9; Prothrombin Time (Protime)PT. 12.5 SECONDS (11.7-14.9)
[2023-03-16 11:44] LABS: AST(SGOT) 28 U/L (15-37); Alanine Aminotransfer ALT/SGPT 36 U/L (13-56); Albumin, Serum 3.8 g/dL (3.2-5.0); Alkaline Phosphatase 53 U/L (45-117); Anion Gap 7 (5-15); BUN 17 mg/dL (7-18); BUN/Creat Ratio 20.2 RATIO (10-20); CRP 2.92 mg/L (0.0-3.0); Calcium,Total 10.4 mg/dL (8.5-10.1); Chloride 105 mmol/L (98-107); Creatinine, Serum 0.84 mg/dL (0.55-1.02); EST Glomerular Filtration Rate 71 mL/min (>60); Est Glom Filt Rate - Afr Amer 86 mL/min (>60); Ferritin 149 ng/mL (8-252); Glucose 125 mg/dL (74-106); LDH 181 U/L (84-246); Protein, Total 7.8 g/dL (6.4-8.2); Sodium Level 138 mmol/L (136-145)
[2023-03-16 12:04] LABS: HIV - WCH Non-Reactive (Nonreactive)
[2023-03-17 14:10] LABS: Anti-Centromere B Ab 0.3 AI (0.0-0.9); Anti-Chromatin <0.2 AI (0.0-0.9); Anti-Jo <0.2 AI (0.0-0.9); Anti-Mitochondrial AB <20.0 Units (0.0-20.0); Anti-Scleroderma-70 AB <0.2 AI (0.0-0.9); Anti-dsDNA Ab <1 IU/mL (0-9); RNP Ab <0.2 AI (0.0-0.9); SJOGREN'S Anti-SS-A test < 0.2 AI (0.0-0.9); SJOGREN'S Anti-SS-B test < 0.2 AI (0.0-0.9); Smith Ab <0.2 AI (0.0-0.9)
[2023-03-18 04:07] LABS: Angiotensin Convert Enzyme < 15 U/L (14-82); Anti-Smooth Muscle ABS 4 Units (0-19); Ceruloplasmin 28.2 mg/dL (19.0-39.0); Copper, Serum or Plasma 129 ug/dL (80-158); Cytoplasmic Ab (C-ANCA) <1:20 titer (Neg:<1:20); HEPATITIS B SURFACE AG Negative (Negative); Haptoglobin 107 mg/dL (37-355); Hep C Antibodies Non Reactive (Non Reactive); Hepatitis A IgM Antibody Negative (Negative); Hepatitis B Core AB IgM Negative (Negative); Perinuclear Ab (P-ANCA) <1:20 titer (Neg:<1:20)
[2023-03-21 21:07] LABS: Calprotectin, Stool 53 ug/g (0-120)
== END | disposition home or self-care (01) ==
LOC: LAB 10:30
PROVIDERS: PCP Family Medicine; Referring Provider Internal Medicine Gastroenterology; Visit Provider Internal Medicine Gastroenterology
DX: Z87.19 Personal history of other diseases of the digestive system (principal); I47.1 Supraventricular tachycardia; K76.0 Fatty (change of) liver, not elsewhere classified; I10 Essential (primary) hypertension; R53.1 Weakness; I34.1 Nonrheumatic mitral (valve) prolapse
CPT/HCPCS: 36415; 80053; 80074; 82140; 82164; 82390; 82525; 82728; 83010; 83516; 83615; 83630; 83993; 85025; 85610; 85652; 86140; 86225; 86235; 86256; 86703

== ENCOUNTER 2023-04-01 16:00 | Outpatient (RCR) | payer MEDICARE, OTHER, SELFPAY ==
--- NOTE | 2023-02-23 11:40 | HP.PTEVAL_ITS ---
Patient's Visit Information ASHLYN LACY is a 68 year old F referred to Physical Therapy by Dr. Liv Vanessa MD with a diagnosis of OA L shoulder. Date of Evaluation: 02/23/23 Physical Therapist: Alberto Pompa, DPT, OCS, CSCS - Visit Plan Frequency: 2x /Week Duration: 4-6 Weeks Plan: 2x/week x 4-6 weeks for.. activitiy modificaiton of L shoulder, strength Rc and scap and posturla muscles to HEP, stretch pec, grade -12 g-h mobs. - Subjective has L shoulder arthritis and it started hurting a month or two ago insidiously. Had cortisone injection 2 weeks ago and it helped immediately and felt great but starting to get sore again. Weekend pain is 2-6/10 with lifting away from body. Pain was unbearable and unable to move arm prior to injection 06/06. Mostly OK now at rest. Shoulder blade hurts sometimes. Neck has been OK late ly. No numbness or tingling in UE. No regualr exercises. Getting dressed now is uncomfortable but not difficult, it used to hurt bad. Is L handed. Housework and yard work are her hobbies. - Pain L shoulder Pain Intensity (Out of 10): 1 Pain Intensity Range: 0, 9 - Objective Walks I into adn out of PT. Arms swing well. trasnfers I bed and chair. Cervical aROM limited in extension to 30 and has dowagers hump and thoracic kyphosis. UE AROM WFL but L shoulder abduction has painful arc and hurts at end range flexion adn IR and er. reflexes 2/3 bi and tri. sensation WNL to gross light touch in UE. strength is 4/5 in wrist and elbow without pain, 4- rotation L shoulder wihtout much pain, 3+ in abd and flexiona t 90 with some discomfort. - ext rotation lag test. - drop arm. + empty can. - HK and - neer tests. Tender to palpation at joint line anterior> post L g-h - Balance/Special Test Scores Quick DASH Score: 18.1800 - Goals Goal 1:: I management of L shoulder OA with stretch adn ROm and strength ex. Goal Time Frame: 4-6 Weeks Goal 2:: pain in L shoulder 0-1/10 at allt imes and 90% better overall Goal Time Frame: 4-6 Weeks Goal 3:: Dress without pain in L shoulder Goal Time Frame: 4-6 Weeks Goal 4:: quickdash 14 or less Goal Time Frame: 4-6 Weeks - Rehabilitation Potential Physical Therapy Diagnosis: L shoulder pain limiting function. Rehabilitation Potential: Fair - Anticipated Interventions Patient/Client Instruction: Educate patient on: Condition, Plan of Care For the Purpose of:: To decrease pain, To increase ROM, To improve nutrient delivery to tissue, To improve muscle performance and motor function, To increase tolerance to activity/condition/position Therapeutic Exercise to Include: Strength training, Postural training, Flexibilty training, Scapular Strength/Stabilization For the Purpose of:: To decrease pain, To increase ROM, To improve nutrient delivery to tissue, To improve muscle performance and motor function Manual Therapy Techniques to Include: Mobilization, Soft tissue mobilization For the Purpose of:: To decrease pain, To increase ROM, To improve nutrient delivery to tissue, To improve muscle performance and motor function, To increase tolerance to activity/condition/position, To improve ability of physical actions for home/community/work/leisure Thank you for the opportunity to evaluate your patient. For Medicare and Medicare HMO plans, please review the plan of care and approve it. It will need to be FAXED BACK to us at [phone] for Medicare purposes. For Medicare only, by signing this I certify the plan of care. Please let me know if there are questions or concerns regarding this plan of care. Physician Signature: Date:
--- NOTE | 2023-06-07 07:15 | HP.PTDCSUM ---
Discharge Summary D/C summary: It has been my pleasure to treat ASHLYN LACY referred by Dr. Liv Vanessa MD, with the diagnosis of OA L shoulder for a total of 9 visit(s). Discharge Date: 04/01/23 Please see the following information for a summary of their discharge status. Subjective Subjective: Shoulder seems just like the other one. Sweeping may be a little more tender anteriorly L. No ppain unless overuses shoulder. No f/u with doctor scheduled. Activity normal. OTB and weights to 3x10. Pain L shoulder: Pain Intensity (Out of 10): 2 Overall Improvement % Improvement: 99 Objective Objective/Function: Full AROM strength is symmetrical and without pain today. progressing nicely Goals Goal 1:: I management of L shoulder OA with stretch adn ROm and strength ex. Goal Progress: Goal Met Goal 2:: pain in L shoulder 0-1/10 at allt imes and 90% better overall Goal Progress: Goal Met Goal 3:: Dress without pain in L shoulder Goal Progress: Goal Met Goal 4:: quickdash 14 or less Goal Progress: Goal Met Plan Plan: d/c to HEP D/C Information d/c sentence: If there are questions or concerns regarding this patient's physical therapy, please feel free to call me at [phone]. Thank you for the referral of this patient. Sincerely, Alberto Pompa, DPT, OCS, CSCS Balance/Gait/Functional tests Balance/Special Test Scores Quick DASH Score: 4.5450 Improvement % Improvement: 99
== END 2023-04-01 19:00 | disposition home or self-care (01) ==
LOC: PT 16:00
PROVIDERS: PCP Family Medicine; Referring Provider Family Medicine; Visit Provider Family Medicine
DX: M19.012 Primary osteoarthritis, left shoulder (principal)
CPT/HCPCS: 97110; 97140; 97161; 97164

== ENCOUNTER → 2023-05-04 | Outpatient (CLI) | payer MEDICARE, OTHER, SELFPAY ==
--- NOTE | 2023-05-04 07:37 | US_ITS ---
STUDY: ABDOMINAL ULTRASOUND - ELASTOGRAPHY REASON FOR VISIT: Female, 68 years old. Fatty infiltration of the liver. TECHNIQUE: Liver stiffness measurements were obtained on a [email or web address] RS 85 ultrasound machine using a CA 1-7 probe following the SRU guidelines. 3 measurements were obtained using a 2-D-SWE method. TheIQR/M was 19% suggesting a quality data set. TECHNICAL QUALITY: Adequate. COMPARISON: None. FINDINGS: Liver: Fatty infiltration of the liver. Median liver stiffness measured 10 kPa. Abdomen: There is no demonstrated mass lesion. US/Elastography Parenchyma/Organ IMPRESSION: Liver stiffness measures 10 kPa compatible with F2-F3 (Mild to moderate liver fibrosis) Metavir score. Electronically Signed: Momo Hauser MD at 14:24 EDT ,
--- NOTE | 2023-05-04 07:37 | US_ITS ---
STUDY: ABDOMINAL ULTRASOUND - RIGHT UPPER QUADRANT REASON FOR VISIT: Female, 68 years old fatty liver TECHNIQUE: Ultrasound evaluation of the right upper quadrant was performed with real-time and static walters-scale imaging. TECHNICAL QUALITY: Adequate. COMPARISON: None. FINDINGS: Liver: The liver measures 17.8 cm. There is increased echogenicity consistent with fatty infiltration. The bile ducts are within normal limits. There is hepatic color flow. The direction of portal flow is hepatopetal. There is no demonstrated mass lesion. Gallbladder: The patient is status post cholecystectomy. Common Bile Duct (C.B.D.): The common bile duct measures 3 mm. Pancreas: There is nonvisualization of the pancreas due to overlying bowel gas. Right Kidney: Normal size of the right kidney. The right kidney measures 12.1 cm x 5 cm x 5.3 cm. Normal renal cortex. The right cortex measures 1.6 cm. There is no demonstrated renal mass or cyst. There is no right hydronephrosis. US/Abdomen Limited IMPRESSION: Fatty infiltration of the liver. Electronically Signed: Momo Hauser MD at 14:22 EDT ,
== END | disposition home or self-care (01) ==
LOC: US 07:36
PROVIDERS: PCP Family Medicine; Referring Provider Internal Medicine Gastroenterology; Visit Provider Internal Medicine Gastroenterology
DX: K76.0 Fatty (change of) liver, not elsewhere classified (principal); Z87.19 Personal history of other diseases of the digestive system
CPT/HCPCS: 76705; 76981

== ENCOUNTER 2023-06-22 13:24 | Day surgery (SDC) | payer MEDICARE, OTHER, SELFPAY ==
--- NOTE | 2023-06-22 | COLBX_PTH ---
PATIENT: ASHLYN LACY LOC: [facility] U#:[id number] AGE/SX: 68/F ROOM: RE06/22/[address]: Dr. Clarence Mack DO : 1955 BED: DIS: 06/22/2023 SPEC #: [id number] RECD: 06/22/23 16:38 STATUS: JOHAN DURONNereyda #: [id number] JUAN MANUEL: 06/22/23 00:[address]: Clarence Mack DEPT: SURGICAL PATHOLOGY RECD BY: Adryan Bonds ENTERED: 06/23/23 09:19 SP TYPE: COLON BX OT DR: Dr. Liv Vanessa MD Tissues: A - Ascending colon B - Sigmoid colon biopsy Procedures: Surgery Specimen Level IV HEADER OPERATION: Colonoscopy (MAC) with biopsy PRE-OP DIAGNOSIS: Fatty liver, history of diverticulitis TISSUE SUBMITTED: A - Ascending colon polyp biopsy, B - Sigmoid biopsy MICROSCOPIC DIAGNOSIS A. Ascending colon polyp, biopsy: Tubular adenoma. B. Sigmoid colon, biopsy: Fragments of colonic mucosa, no pathologic diagnosis. DIONNE:sung 06/24/2023 MICROSCOPIC DESCRIPTION Slides are reviewed. GROSS DESCRIPTION A - Received in fixative is one container labeled with the patient's name and designated ascending colon polyp biopsy. The specimen consists of one irregular fragment of light leigh soft tissue that measures 0.6 x 0.3 x 0.1 cm. The specimen is totally submitted in one cassette. B - Received in fixative is one container labeled with the patient's name and designated sigmoid biopsy. The specimen consists of two irregular fragments of light leigh soft tissue that in aggregate measure 0.6 x 0.4 x 0.1 cm. The specimen is totally submitted in one cassette. / DIONNE:sung 06/23/2023 TC:1 CPT: 34538 x2
[2023-06-22 13:50] VITALS: BP 136/74; PULSE 74; RESP 18; TEMP 36.6; O2SAT 96; BMI 31.5
[2023-06-22] MEDS: Lactated Ringers 1,000 ML 15 ML IV (13:55)
--- NOTE | 2023-06-22 14:52 | PCM.HP.BLA ---
History and Physical Date of Admission: 06/22/23 68 F who presents to the office today for PCP OV 12.18.22 noting history of RODRIGUEZ, GERD, diverticulitis. Visit for acute diverticulitis f/u; cipro and flagyl [id number] started 12.01.22 with some pain improvement, but without resolution; pain recurred and continues to have loose stools. Diverticulitis episode 02.13.[address] abd/pel 03.05.22 hepatic steatosis; small hiatal hernia; colonic diverticulosis; moderate colonic fecal burden. ? CT abd/pel 12.18.22 hepatic steatosis; s/p cholecystectomy; diverticulosis without diverticulitis. 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 Recalls gastric and colonic polyps. She pays attention to her diet to eliminate popcorn/seeds to avoid diverticulitis. Denies diverticulitis complications. BM 2-3/day with complete evacuation with soft stools. Metamucil supplement is being taken. Prevacid OTC PRN is used approximately once every other month; she pays attention to her diet. Last colonoscopy/EGD approximately 10 years prior. ROS Const Constitutional: No anorexia, fatigue, fever(s), weight change or sleep problems Eyes Eyes: No change in vision ENT ENT: No abnormal hearing, difficulty swallowing, mouth lesions, tongue swelling or throat swelling Resp Respiratory: No cough or shortness of breath Cardio Cardiology: No chest pain at rest, chest pain with exertion, shortness of breath or dyspnea on exertion Gastro GI: No difficulty swallowing Genitourinary-Female: No difficulty urinating or burning urination Musc Musculoskeletal: No joint pain, joint swelling, muscle weakness or decreased muscle mass Skin Skin: No hair loss in leg, yellowing of the eye, itchy eyes, rash, skin ulcer or skin swelling Neuro Neurology: No abnormal hearing, abnormal movements, confusion, unsteady gait/balance or memory loss Psych Psychiatric: No anxiety, No confusion and No memory loss Endo Endocrine: No fatigue or weight change Aller/Imm Allergy/Immunologic: No itchy eyes, throat swelling or tongue swelling Asad/Lymp Hematologic/Lymphatic: No easy bleeding, easy bruising or enlarged lymph nodes Exam Const General: cooperative and comfortable Nutritional Appearance: average body habitus and well nourished [facility] Head: normal to inspection Ears: hearing grossly normal bilaterally Nose: external nose normal Face and sinus: normal facial exam Mouth: oral mucosae normal Throat: posterior oropharynx normal Eyes General: appearance normal, both eyes and all related structures Neck Neck: normal visual inspection Chest Chest palpation & inspection: normal inspection of the chest and normal palpation of entire chest wall Resp Effort & Inspection: normal respiratory effort Auscultation: Bilateral: Clear to Auscultation Cardio Palpation: normal PMI Rate: regular rate Rhythm: regular rhythm GI Inspection: normal to inspection Auscultation: normal bowel sounds Percussion: normal to percussion Palpation: no hepatosplenomegaly Skin General: no rashes or lesions noted Neuro General: patient alert Extrem General: normal to inspection Psych Affect: normal affect Quality Reporting Tobacco Screening ([facility] 138) Smoking Status: Never smoker Assessment and Plan Assessment and Plan (1) Fatty liver: Status: Chronic Plan: She was diagnosed with fatty liver disease several years ago with a liver biopsy after undergoing a cholecystectomy. She has had [address] scans showing hepatic steatosis. Calculating her fib 4 score it is borderline at 1.68. Her FibroScan needs to be done so we can see her fibrosis score to determine whether we give diet recommendations and medication recommendations in the future. (2) History of diverticulitis: Status: Chronic Plan: She has a history of recurrent diverticulitis. From her history it sounds as though she has sigmoid colitis associated with diverticulosis. We will need to get fecal calprotectin, fecal elastase, stool calprotectin. She may also need colonoscopy to evaluate the colon to see if she would benefit from mesalamine based therapy. She has not had a colonoscopy in over 10 years. Once I have stool test back and biochemical I will have a better idea regarding need for endoscopy. Orders: Orders HIV - [facility] Today K76.0 - Fatty (change of) liver, not elsewhere classified, R53.1 - Weakness, Z87.19 - Personal history of other diseases of the digestive system Comprehensive Metabolic Profil Today K76.0 - Fatty (change of) liver, not elsewhere classified, Z87.19 - Personal history of other diseases of the digestive system CRP Today K76.0 - Fatty (change of) liver, not elsewhere classified, Z87.19 - Personal history of other diseases of the digestive system Ferritin Today I47.1 - Supraventricular tachycardia, K76.0 - Fatty (change of) liver, not elsewhere classified, Z87.19 - Personal history of other diseases of the digestive system LDH Today K76.0 - Fatty (change of) liver, not elsewhere classified, Z87.19 - Personal history of other diseases of the digestive system Prothrombin Time w/INR Today I34.1 - Nonrheumatic mitral (valve) prolapse, K76.0 - Fatty (change of) liver, not elsewhere classified, Z87.19 - Personal history of other diseases of the digestive system CBC W/Diff, Automated Today I10 - Essential (primary) hypertension, K76.0 - Fatty (change of) liver, not elsewhere classified, Z87.19 - Personal history of other diseases of the digestive system Erythrocyte Sed Rate Today K76.0 - Fatty (change of) liver, not elsewhere classified, Z87.19 - Personal history of other diseases of the digestive system Anti-Mitochondrial AB Today K76.0 - Fatty (change of) liver, not elsewhere classified, Z87.19 - Personal history of other diseases of the digestive system JHONNY Comprehensive Panel Today K76.0 - Fatty (change of) liver, not elsewhere classified, Z87.19 - Personal history of other diseases of the digestive system Calprotectin, Stool Today K76.0 - Fatty (change of) liver, not elsewhere classified, Z87.19 - Personal history of other diseases of the digestive system Stool Lactoferrin/WBC Today K58.9 - Irritable bowel syndrome without diarrhea, K76.0 - Fatty (change of) liver, not elsewhere classified, Z87.19 - Personal history of other diseases of the digestive system Hepatitis Panel Acute Today K76.0 - Fatty (change of) liver, not elsewhere classified, R53.1 - Weakness, Z87.19 - Personal history of other diseases of the digestive system Angiotensin Convert Enzyme Today K76.0 - Fatty (change of) liver, not elsewhere classified, Z87.19 - Personal history of other diseases of the digestive system ANCA Today K76.0 - Fatty (change of) liver, not elsewhere classified, Z87.19 - Personal history of other diseases of the digestive system Anti-Smooth Muscle ABS Today K76.0 - Fatty (change of) liver, not elsewhere classified, Z87.19 - Personal history of other diseases of the digestive system Ceruloplasmin Today K76.0 - Fatty (change of) liver, not elsewhere classified, Z87.19 - Personal history of other diseases of the digestive system Copper, Serum or Plasma Today K76.0 - Fatty (change of) liver, not elsewhere classified, Z87.19 - Personal history of other diseases of the digestive system Haptoglobin Today K76.0 - Fatty (change of) liver, not elsewhere classified, Z87.19 - Personal history of other diseases of the digestive system Ammonia Today K76.0 - Fatty (change of) liver, not elsewhere classified, Z87.19 - Personal history of other diseases of the digestive system Abdomen Limited Today K76.0 - Fatty (change of) liver, not elsewhere classified, Z87.19 - Personal history of other diseases of the digestive system Elastography Parenchyma/Organ Today K76.0 - Fatty (change of) liver, not elsewhere classified, Z87.19 - Personal history of other diseases of the digestive system I have examined the patient and the H&P has been reviewed. There are no clinical changes since date of exam.
[2023-06-22 15:19] VITALS: BP 106/66; BP 136/74; PULSE 73; RESP 16; TEMP 36.5; O2SAT 16
--- NOTE | 2023-06-22 15:19 | OP.COLON_ITS ---
Patient Name: Ron Martini Procedure Date: 06/22/2023 2:52 PM Date of : 1955 Age: 68 Procedure: Colonoscopy Indications: Screening for colorectal malignant neoplasm Providers: Clarence Mack DO Referring MD: Liv Vanessa Medicines: Monitored Anesthesia Care Patient Profile: This is a 68 year old female. Refer to note in patient chart for documentation of history and physical. Last Colonoscopy: more than 10 years ago. Complications: No immediate complications. Procedure: Pre-Anesthesia Assessment: - Prior to the procedure, a History and Physical was performed, and patient medications and allergies were reviewed. The patient is competent. The risks and benefits of the procedure and the sedation options and risks were discussed with the patient. All questions were answered and informed consent was obtained. Patient identification and proposed procedure were verified by the physician. Mental Status Examination: normal. Prophylactic Antibiotics: The patient does not require prophylactic antibiotics. Prior Anticoagulants: The patient has taken no anticoagulant or antiplatelet agents. After reviewing the risks and benefits, the patient was deemed in satisfactory condition to undergo the procedure. The anesthesia plan was to use monitored anesthesia care (MAC). Immediately prior to administration of medications, the patient was re-assessed for adequacy to receive sedatives. The heart rate, respiratory rate, oxygen saturations, blood pressure, adequacy of pulmonary ventilation, and response to care were monitored throughout the procedure. The physical status of the patient was re-assessed after the procedure. After I obtained informed consent, the scope was passed under direct vision. Throughout the procedure, the patient's blood pressure, pulse, and oxygen saturations were monitored continuously. The colonoscope was introduced through the anus and advanced to the cecum, identified by appendiceal orifice and ileocecal valve. The colonoscopy was performed without difficulty. The patient tolerated the procedure well. The quality of the bowel preparation was adequate. The ileocecal valve, appendiceal orifice, and rectum were photographed. Scope In: 3:00:31 PM Scope Withdrawal Time 0 hours 8 minutes 40 seconds Scope Out: 3:14:08 PM Total Procedure Duration Time 0 hours 13 minutes 37 seconds Findings: The perianal and digital rectal examinations were normal. A 5 mm polyp was found in the ascending colon. The polyp was sessile. The polyp was removed with a cold snare. Resection and retrieval were complete. Verification of patient identification for the specimen was done. Estimated blood loss was minimal. Multiple small and large-mouthed diverticula were found in the recto-sigmoid colon, sigmoid colon, descending colon, transverse colon, hepatic flexure, ascending colon and cecum. An area of moderately congested mucosa was found in the sigmoid colon. Biopsies were taken with a cold forceps for histology. Verification of patient identification for the specimen was done. Estimated blood loss was minimal. Impression: - One 5 mm polyp in the ascending colon, removed with a cold snare. Resected and retrieved. - Diverticulosis in the recto-sigmoid colon, in the sigmoid colon, in the descending colon, in the transverse colon, at the hepatic flexure, in the ascending colon and in the cecum. - Congested mucosa in the sigmoid colon. Biopsied. Recommendation: - Discharge patient to home. - Resume previous diet. - Continue present medications. - Await pathology results. - Repeat colonoscopy in 5 years for surveillance. Procedure Code(s): --- Professional --- 24834, Colonoscopy, flexible; with removal of tumor(s), polyp(s), or other lesion(s) by snare technique 07109, 59, Colonoscopy, flexible; with biopsy, single or multiple CPT copyright 2021 [employer]. All rights reserved. The codes documented in this report are preliminary and upon manufacturing project manager review may be revised to meet current compliance requirements. Clarence Mack DO 06/22/2023 3:19:34 PM This report has been signed electronically. Number of Addenda: 0 Note Initiated On: 06/22/2023 2:52 PM
--- NOTE | 2023-06-22 15:20 | OP.CCLET_ITS ---
06/22/2023 Liv Vanessa [place] [id number] [address] Re : Colonoscopy procedure for Ron Santoskerman Dear Dr. Vanessa This procedure was performed on Thursday, June 22, 2023. My impressions and recommendations are as follows: Impressions : - One 5 mm polyp in the ascending colon, removed with a cold snare. Resected and retrieved. - Diverticulosis in the recto-sigmoid colon, in the sigmoid colon, in the descending colon, in the transverse colon, at the hepatic flexure, in the ascending colon and in the cecum. - Congested mucosa in the sigmoid colon. Biopsied. Recommendations : - Discharge patient to home. - Resume previous diet. - Continue present medications. - Await pathology results. - Repeat colonoscopy in 5 years for surveillance. My findings are described in the full procedure note, which is enclosed. If I can be of further assistance, please feel free to contact me at . Sincerely, Clarence Mack, 06/22/2023 3:19:34 PM This report has been signed electronically.
[2023-06-22 15:21] VITALS: BP 120/70; BP 136/74; PULSE 67; RESP 16; O2SAT 99
[2023-06-22 15:26] VITALS: BP 120/67; BP 136/74; PULSE 67; RESP 16; O2SAT 98
[2023-06-22 15:39] VITALS: BP 117/69; BP 136/74; PULSE 69; RESP 16; TEMP 36.4; O2SAT 99
[2023-06-22 15:49] VITALS: BP 136/74
== END 2023-06-22 16:00 | disposition home or self-care (01) ==
LOC: EN 13:24 → AC 13:26
PROVIDERS: PCP Family Medicine; Referring Provider Family Medicine; Visit Provider Internal Medicine Gastroenterology
PROC: 0DJD8ZZ Inspection of Lower Intestinal Tract, Via Natural or Artificial Opening Endoscopic (ICD-10-PCS; CPT 45378; principal; 2023-06-22 14:25)
DX: Z12.11 Encounter for screening for malignant neoplasm of colon (principal); I47.1 Supraventricular tachycardia; D12.2 Benign neoplasm of ascending colon; K57.50 Diverticulosis of both small and large intestine without perforation or abscess without bleeding; I34.1 Nonrheumatic mitral (valve) prolapse; I10 Essential (primary) hypertension; E78.5 Hyperlipidemia, unspecified; E66.9 Obesity, unspecified; K75.81 Nonalcoholic steatohepatitis (NASH); K21.9 Gastro-esophageal reflux disease without esophagitis; G47.30 Sleep apnea, unspecified; Z68.31 Body mass index [BMI] 31.0-31.9, adult; Z87.19 Personal history of other diseases of the digestive system; Z79.899 Other long term (current) drug therapy
CPT/HCPCS: 45380; 45385; 88305; J7120

== ENCOUNTER → 2023-07-01 | Outpatient (CLI) | payer MEDICARE, OTHER, SELFPAY ==
--- NOTE | 2023-07-01 13:39 | BD_ITS ---
STUDY: DUAL ENERGY X-RAY ABSORPTIOMETRY / DXA REASON FOR EXAM: Female, 68 years old. 733.90OsteopeniaBONE DENSITY REASON FOR EXAM TECHNIQUE: Bone Mineral Density (BMD) measurements of lumbar spine and left hip were obtained. Prior right hip replacement. COMPARISON: Comparison is made with prior study August 02, 2018. FINDINGS: Lumbar Spine (L1-L4): g/cm2 (0.980) / T-score (-0.6) / Z-score (1.5) Findings are suggestive of normal bone density with a low fracture risk. Left Femur Total: g/cm2 (0.886) / T-score (-0.5) / Z-score (1.0) Left Femoral Neck: g/cm2 (0.666) / T-score (-1.6) / Z-score (0.1) The T-Scores on the most recent prior examination were: Lumbar Spine (L1-L4): There has been improvement of bone density since the previous examination. Left Femur Total: which represents an improvement of 0.8%. BD/Dexa Bone Density Study IMPRESSION: The patient is considered osteopenic as outlined below according to World Henri Organization (WHO) criteria with a moderate fracture risk. There has been improvement of bone density since the previous examination. Reference Information: The T-score is the number of standard deviations above or below the standard which is normal for young adults at their peak bone mineral density. The World Health Organization (WHO) interprets the T-scores as follows: Above -1 Normal bone density Between -1 and -2.5 Osteopenia Equal to / or below -2.5 Osteoporosis As a practical clinical guideline, osteopenia may be graded as follows: Mild -1 through -1.5 Moderate -1.6 through -2.0 Severe -2.1 through -2.4 The Z-score is the number of standard deviations above or below age-matched controls. A Z-score of less than -1.5 would be considered abnormal. References: 1. NIH Osteoporosis and Related Bone Diseases www osteo.org 2. International Society for Clinical Densitometry www iscd.org 3. National Osteoporosis Foundation www nof.org Electronically Signed: Momo Hauser MD at 14:34 EDT ,
--- NOTE | 2023-07-01 13:54 | BI_ITS ---
MAMMOGRAPHY - BILATERAL SCREENING REASON FOR EXAM: Female, 68 years old. Routine annual screening examination. PERTINENT HISTORY: Sister with breast cancer. TECHNIQUE: Digital bilateral breast brie (3D mammographic acquisition) in the CC and MLO projections. 2-D mediolateral oblique (MLO) and craniocaudad (CC) views of both breasts were obtained. CAD: Full Field Digital Mammography with Computer Added Detection was performed. COMPARISON: Comparison is made with prior study June 12, 2022 and June 21, 2020. FINDINGS: Breast Composition: The breasts are heterogeneously dense, which may obscure small masses. There are no dominant masses or suspicious calcifications. A tissue clip marker is seen in the deep slightly upper lateral aspect of the left breast. No other significant abnormalities are identified. There has been no significant change since the prior study. BI/SCRN MAMM (CAD)W/BRIE BILAT IMPRESSION: Stable bilateral screening mammogram. Yearly follow-up mammogram recommended. (A) ASSESSMENT CATEGORY: BIRADS Category 2: Benign. A letter regarding these results will be sent to the patient by the facility within 30 days. Approximately 10% of breast cancers are not detected by mammography. A normal mammogram should not delay biopsy of a clinically suspicious abnormality. [id number] Electronically Signed: Momo Hauser MD at 14:30 EDT ,
== END | disposition home or self-care (01) ==
LOC: OPBI 13:29
PROVIDERS: PCP Family Medicine; Referring Provider Family Medicine; Visit Provider Family Medicine
DX: Z12.31 Encounter for screening mammogram for malignant neoplasm of breast (principal); Z80.3 Family history of malignant neoplasm of breast; M85.89 Other specified disorders of bone density and structure, multiple sites
CPT/HCPCS: 77063; 77067; 77080

== ENCOUNTER → 2023-07-30 | Outpatient (CLI) | payer MEDICARE, OTHER, SELFPAY ==
[2023-08-04 00:07] LABS: Pancreatic Elastase, Fecal 111 (>200)
[2023-08-07 00:07] LABS: Calprotectin, Stool 10 ug/g (0-120); Fats, Neutral Normal (.); Fats, Total Normal (.)
== END | disposition home or self-care (01) ==
PROVIDERS: PCP Family Medicine; Referring Provider Internal Medicine Gastroenterology; Visit Provider Internal Medicine Gastroenterology
DX: K58.0 Irritable bowel syndrome with diarrhea (principal)
CPT/HCPCS: 82274; 82653; 82705; 83630; 83993; 87177; 87209; 87329; 87493

== ENCOUNTER → 2023-11-04 | Outpatient (CLI) | payer MEDICARE, OTHER, SELFPAY ==
--- NOTE | 2023-11-04 09:25 | US_ITS ---
STUDY: ABDOMINAL ULTRASOUND - RIGHT UPPER QUADRANT; ELASTOGRAPHY REASON FOR VISIT: Female, 68 years old. Fatty infiltration of the liver. TECHNIQUE: Ultrasound evaluation of the right upper quadrant was performed with real-time and static walters-scale imaging. Point quantification shear wave elastography was performed ([place]). TECHNICAL QUALITY: Limited. Examination limited by bowel gas. COMPARISON: Comparison is made with prior study May 04, 2023. FINDINGS: Liver: The liver measures 17.3 cm. There is increased echogenicity consistent with fatty infiltration. The bile ducts are within normal limits. There is hepatic color flow. The direction of portal flow is hepatopetal. There is no demonstrated mass lesion. Median liver stiffness measured 9.5 kPa. Gallbladder: The patient is status post cholecystectomy. Common Bile Duct (C.B.D.): The common bile duct measures 6.7 mm. Pancreas: Limited visualization of the body and tail portions of the pancreas due to overlying bowel gas. Right Kidney: Normal size of the right kidney. The right kidney measures 10.3 cm x 5.3 cm x 4.5 cm. Normal renal cortex. The right cortex measures 1.2 cm. There is no demonstrated renal mass or cyst. There is no right hydronephrosis. US/ABD Limited w/ Elastography IMPRESSION: 1. Liver stiffness measures 9.5 kPa compatible with F2-F3 (Mild to moderate liver fibrosis) Metavir score. Electronically Signed: Momo Hauser MD at 14:58 EST ,
== END | disposition home or self-care (01) ==
LOC: US 09:23
PROVIDERS: PCP Family Medicine; Referring Provider Internal Medicine Gastroenterology; Visit Provider Internal Medicine Gastroenterology
DX: K76.0 Fatty (change of) liver, not elsewhere classified (principal)
CPT/HCPCS: 76705; 76981

== ENCOUNTER → 2023-12-09 | Outpatient (CLI) | payer MEDICARE, OTHER, SELFPAY ==
--- NOTE | 2023-12-09 10:18 | CT_ITS ---
STUDY: CT ABDOMEN AND PELVIS WITH CONTRAST REASON FOR EXAM: Female, 68 years old. Diverticulitis. Left lower quadrant abdominal pain. RADIATION DOSAGE (If Supplied By Facility): CTDIvol = ( 15.85 ) mGy, DLP = ( 1110.06 ) mGycm TECHNIQUE: Transaxial images were obtained from the dome of the diaphragm to the symphysis pubis with oral contrast. Oral and amp; IV Gastrografin and amp; 100mL Isovue-300 was administered. Sagittal and coronal images were reconstructed. Individualized dose optimization techniques were used for this CT. COMPARISON: Comparison is made with prior study December 18, 2022. FINDINGS: Stable minimal linear scarring at the lung bases. The visualized portions of the heart are within normal limits. There is decreased attenuation of the liver consistent with steatosis. There are surgical clips in the gallbladder fossa consistent with a prior cholecystectomy. Normal spleen. Normal pancreas. Normal bilateral adrenal glands. Normal right kidney. Normal left kidney. Normal visualized stomach. Normal small intestine. There are multiple colonic diverticula consistent with diverticulosis. There are surgical clips in the region of the appendix consistent with a prior appendectomy. Normal abdominal aorta. Normal inferior vena cava. Normal retroperitoneum. Normal urinary bladder. There is absence of the uterus consistent with a prior hysterectomy. Normal abdominal wall. Degenerative changes of the L5-S1 disc. Prior right total hip replacement. CT/Abdomen/Pelvis WITH Contrast IMPRESSION: Mild linear scarring at the lung bases. Fatty infiltration of the liver. Sigmoid diverticulosis. Prior hysterectomy and appendectomy. Electronically Signed: Momo Hauser MD at 13:30 EDT ,
== END | disposition home or self-care (01) ==
LOC: CT 10:17
PROVIDERS: PCP Family Medicine; Referring Provider Internal Medicine Gastroenterology; Visit Provider Internal Medicine Gastroenterology
DX: K57.92 Diverticulitis of intestine, part unspecified, without perforation or abscess without bleeding (principal)
CPT/HCPCS: 74177; Q9967

== ENCOUNTER → 2023-12-16 | Outpatient (CLI) | payer MEDICARE, OTHER, SELFPAY | END | disposition home or self-care (01) | LOC: SL 13:18 | PROVIDERS: PCP Family Medicine; Visit Provider Family Medicine | DX: Z46.89 Encounter for fitting and adjustment of other specified devices (principal) ==

== ENCOUNTER → 2024-07-11 | Outpatient (CLI) | payer MEDICARE, OTHER, SELFPAY ==
--- NOTE | 2024-07-11 12:42 | BI_ITS ---
MAMMOGRAPHY - BILATERAL SCREENING 3-D TOMOSYNTHESIS REASON FOR EXAM: Female, 69 years old. SCREENING PERTINENT HISTORY: No significant family history. TECHNIQUE: 2-D mammograms and 3-D Tomosynthesis of the breast (s) were performed. CAD was performed. COMPARISON: 07/01/2023 FINDINGS: The breast composition is heterogeneously dense that can obscure small breast masses. Scattered benign calcifications are seen. No dense spiculated masses or suspicious microcalcifications are identified. No architectural distortion is identified. There is no skin thickening or retraction. There has been no significant change since the prior study. BI/SCRN MAMM (CAD)W/BRIE BILAT IMPRESSION: No mammographic signs of malignancy. Routine yearly mammograms recommended. ASSESSMENT CATEGORY: BIRADS Category 1: Negative. A letter regarding these results will be sent to the patient by the facility within 30 days. FOLLOW UP RECOMMENDATION: Yearly follow up mammogram recommended. (A) Approximately 10% of breast cancers are not detected by mammography. A normal mammogram should not delay biopsy of a clinically suspicious abnormality. Electronically Signed: Lorenzo Gonzalez MD at 14:19 EDT ,
== END | disposition home or self-care (01) ==
LOC: OPBI 12:41
PROVIDERS: PCP Family Medicine; Referring Provider Family Medicine; Visit Provider Family Medicine
DX: Z12.31 Encounter for screening mammogram for malignant neoplasm of breast (principal)
CPT/HCPCS: 77063; 77067

== ENCOUNTER → 2024-07-17 | Outpatient (CLI) | payer MEDICARE, OTHER, SELFPAY ==
--- NOTE | 2024-07-17 09:47 | US_ITS ---
STUDY: ABDOMINAL ULTRASOUND - RIGHT UPPER QUADRANT; ELASTOGRAPHY REASON FOR VISIT: Female, 69 years old. Fatty infiltration of the liver. TECHNIQUE: Ultrasound evaluation of the right upper quadrant was performed with real-time and static walters-scale imaging. Point quantification shear wave elastography was performed (bTendo). TECHNICAL QUALITY: Adequate. COMPARISON: Comparison is made with prior study dated October 2023. FINDINGS: Liver: The liver measures 15.2 cm. There is increased echogenicity consistent with fatty infiltration. The bile ducts are within normal limits. There is hepatic color flow. The direction of portal flow is hepatopetal. There is no demonstrated mass lesion. Median liver stiffness measured 11.9 kPa. Gallbladder: The patient is status post cholecystectomy. Common Bile Duct (C.B.D.): The common bile duct measures 5 mm. Pancreas: There is normal echogenicity of the visualized pancreas. There is no demonstrated pancreatic mass or cyst. Right Kidney: Normal size of the right kidney. The right kidney measures 9.8 cm x 4.5 cm x 4.2 cm. Normal renal cortex. The right cortex measures 1.3 cm. There is no demonstrated renal mass or cyst. There is no right hydronephrosis. US/ABD Limited w/ Elastography IMPRESSION: 1. Liver stiffness measures 11.9 kPa compatible with F2-F3 (Mild to moderate liver fibrosis) Metavir score. Electronically Signed: Momo Hauser MD at 10:59 EDT ,
== END | disposition home or self-care (01) ==
LOC: US 09:45
PROVIDERS: PCP Family Medicine; Referring Provider Internal Medicine Gastroenterology; Visit Provider Internal Medicine Gastroenterology
DX: K76.0 Fatty (change of) liver, not elsewhere classified (principal)
CPT/HCPCS: 76705; 76981

== ENCOUNTER 2024-07-21 13:30 | Emergency (ER) | payer MEDICARE, OTHER, SELFPAY ==
[2024-07-21] VITALS (11 sets, daily range): BP systolic 130–141; BP diastolic 70–84; PULSE 71–81; RESP 12–20; TEMP 36.8; O2SAT 97–99; BMI 30.6
--- NOTE | 2024-07-21 13:47 | ED.RN ---
Dr. Cochran bedside
[2024-07-21 13:53] LABS: Absolute Neutrophil Count 3.7 X10^3/uL (2.0-7.7); Basophil# 0.05 X10^3/uL; Basophil% 0.7 % (0-1); Eosinophils% 1.5 % (0-5); Hematocrit 40.3 % (37-47); Hemoglobin 13.5 g/dL (12.0-15.0); Lymphocyte % 34.4 % (19-41); Mean Corp Hgb Conc 33.5 g/dL (32-36); Mean Corpuscular Hgb 31.6 pg (27.0-32.0); Mean Corpuscular Volume 94.4 fL (81-99); Mean Platelet Vol. 9.1 fl (6.2-12.0); Monocyte# 0.55 X10^3/uL; Monocyte% 8.2 % (0-10); NRBC Flagged by Analyzer 0 % (0-5); Neutrophil # 3.67 X10^3/uL (2.7-7.7); Neutrophil % 55.1 % (47-70); Platelet Count 244 K/mm3 (150-450); RBC Distribution Width CV 11.9 % (11.6-14.6); Red Blood Count 4.27 M/mm3 (4.2-5.4); White Blood Count 6.7 K/mm3 (4.4-11.0)
--- NOTE | 2024-07-21 13:53 | EX.ED.VIS.HA ---
HPI History of Present Illness Chief Complaint: Headache Informant: patient Onset/Context/Timing Onset: Weeks Context: Gradual Timing: Continuous Current Severity: Mild Maximum Severity: Mild Associated Symptoms/Injury Associated Symptoms: Negative for Nausea or Vomiting Injury - VILLALBA: Negative for Direct Trauma, Fall or Assault Narrative Narrative: 69-year-old female history of hypertension. On a baby aspirin a day. No other blood thinners. For about a month she has had chronic headache. Denies any recent fall or trauma. Had an outpatient CAT scan done today which shows a right frontal parietal subdural hematoma with 5.2 mm of shift. She was brought down from CAT scan to the emergency department. Prior similar symptoms: No Recent Illness/Hospitalization: No PFSH PFS Medical History Gastric reflux CPAP (continuous positive airway pressure) dependence History of pain when walking RODRIGUEZ (nonalcoholic steatohepatitis) Cardiology follow-up encounter Migraine headache Gastritis Diarrhea Wears glasses Ambulates with cane Arthritis History of renal disease High cholesterol Back pain Heartburn Non-smoker CPAP (continuous positive airway pressure) dependence History of edema Hx of echocardiogram History of stress test Hypertension History of irregular heartbeat Vertigo Paroxysmal SVT (supraventricular tachycardia) Ischemic colitis Sleep apnea GERD (gastroesophageal reflux disease) Hyperlipidemia Nonrheumatic mitral (valve) prolapse Paroxysmal atrial tachycardia History of diverticulitis of colon Obesity Diverticulosis of intestine without perforation or abscess with bleeding Benign essential hypertension Home Medications ?Medication ?Instructions ?Recorded ?Last Taken ?Type ascorbic acid (vitamin C) 1,000 mg 1 g PO DAILY SUPPLEMENT 04/12/19 Unknown History tablet cranberry 500 mg capsule 500 mg PO DAILY SUPPLEMENT 04/12/19 Unknown History multivit,mineral-folic acid 800 2 tab PO DAILY SUPPLEMENT 06/13/20 Unknown History mcg-vit K 100 mcg-herbal no.289 tablet (Alive Once Daily Women 50 Plus) lactobacillus combination no.4 3 3,000 mmu cells PO DAILY SUPPLEMENT 02/12/21 Unknown History billion cell capsule (Probiotic) acetaminophen 650 mg 650 mg PO Q12H PRN pain 04/16/23 Unknown History tablet,extended release (Tylenol Arthritis Pain) calcium 250 mg (as 2 tab PO DAILY 04/16/23 Unknown History citrate)-vitamin D3 5 mcg (200 unit) tablet (Citracal Regular) lidocaine 4 % topical patch 1 patch topical DAILY PRN pain 04/16/23 Unknown History (Blue-Emu Lidocaine Patch) polyethylene glycol 3350 17 gram 17 g PO DAILY Pain 04/16/23 Unknown History oral powder packet (Miralax) aspirin 81 mg tablet,delayed 81 mg PO DAILY BLOOD THINNER 06/18/23 06/17/23 History release lisinopril 20 mg tablet 20 mg PO QDAY BP #90 tabs 01/10/24 Unknown Rx metoprolol tartrate 25 mg tablet 25 mg PO BID BP #180 tabs 01/10/24 Unknown Rx rosuvastatin 5 mg tablet 5 mg PO DAILY CHOLESTEROL #90 tabs 01/10/24 Unknown Rx ursodiol 250 mg tablet 250 mg PO BID #60 TABLETS 04/24/24 Unknown Rx vitamin E (dl, acetate) 180 mg 180 mg PO BID #60 caps 04/24/24 Unknown Rx (400 unit) capsule Allergy/AdvReac Type Severity Reaction Status Date / Time Penicillins Allergy Unknown Verified 07/21/24 13:32 digoxin AdvReac Other Verified 07/21/24 13:32 hydrochlorothiazide (From AdvReac Upset Verified 07/21/24 13:32 Dyazide) Stomach levofloxacin (From Levaquin) AdvReac Upset Verified 07/21/24 13:32 Stomach magnesium citrate AdvReac Upset Verified 07/21/24 13:32 Stomach meperidine (From Demerol) AdvReac Upset Verified 07/21/24 13:32 Stomach nitrofurantoin (From AdvReac Upset Verified 07/21/24 13:32 Macrobid) Stomach polyethylene glycol (From AdvReac Upset Verified 07/21/24 13:32 Golytely) Stomach polyethylene glycol 3350 AdvReac Upset Verified 07/21/24 13:32 (From Golytely) Stomach potassium chloride (From AdvReac Upset Verified 07/21/24 13:32 Golytely) Stomach pravastatin (From Pravachol) AdvReac had white Verified 07/21/24 13:32 stool simvastatin (From Zocor) AdvReac Upset Verified 07/21/24 13:32 Stomach sodium (From Golytely) AdvReac Upset Verified 07/21/24 13:32 Stomach sodium bicarbonate (From AdvReac Upset Verified 07/21/24 13:32 Golytely) Stomach sodium chloride (From AdvReac Upset Verified 07/21/24 13:32 Golytely) Stomach sodium sulfate (From AdvReac Upset Verified 07/21/24 13:32 Golytely) Stomach triamterene (From Dyazide) AdvReac Upset Verified 07/21/24 13:32 Stomach Family History Father Alcoholism Hypertension Mother Ovarian cancer Sister Parkinsons Breast cancer Grandmother Liver cancer Surgical History Hx of total hip arthroplasty H/O lumpectomy History of left breast biopsy History of foot surgery Hx of appendectomy History of total hysterectomy History of cholecystectomy Social History household members: spouse Smoking Status: Never smoker alcohol intake: never substance use type: does not use ROS ROS ED ROS Narrative Denies recent illness. Chronic headache for weeks. Constitutional Constitutional ED: Denies chills or fever(s) Eyes Eyes: Denies blurry vision ENT ENT ED: Denies ear pain Cardiovascular Cardiovascular: Denies chest pain Respiratory/Chest Respiratory/Chest: Denies cough Gastrointestinal Gastrointestinal: Denies abdominal pain Genitourinary Genitourinary ED: Denies dysuria Musculoskeletal Musculoskeletal: Denies arthralgias Integumentary Denies abscess Neurologic Neurologic: Reports headache(s); Denies paresthesias or weakness Psychiatric Psychiatric: Denies anxiety Endocrine Endocrinology: Denies polydipsia Hematologic/Lymphatic Hematologic/Lymphatic: Denies easy bleeding Allergic/Immunologic Allergic/Immunologic ED: Denies mouth swelling or tongue swelling EXAM Physical Exam Narrative Exam Narrative: 69-year-old female sitting upright in bed. Vital signs stable afebrile. Initial blood pressure 138/70. Patient is in no acute distress. at bedside. H EENT exam pupils round reactive light. No facial droop. Normal speech. No signs of trauma or scalp or facial tenderness. Neck nontender. Lungs clear. Heart regular rhythm no murmur. Abdomen soft nontender. Moving all 4 extremities. 5 out of 5 parts counterman strength. Fingertip to nose within normal limits bilaterally. Rapid hand movements normal. Normal dorsi plantarflexion. Neurologically she is awake and alert. Answer questions following commands. NIH score currently 0. I did not get her up and walk her. But she walked down from radiology to the emergency department without difficulty. Const Vital Signs: 07/21/24 13:32 07/21/24 13:44 Temperature 98.3 F Temperature Source Oral Pulse Rate 75 71 Respiratory Rate 20 H 16 Blood Pressure 138/70 H 138/70 H Blood Pressure Mean 92 92 Pulse Ox 98 99 Oxygen Delivery Method Room Air Room Air Positive well nourished and well developed; Negative for cachectic, contractures or unkempt General Appearance ED: well developed and NAD; Negative for unkempt, cachectic, contractures, cyanotic, diaphoretic or pallor Nutritional Appearance: Negative for cachectic HEENT Reports normocephalic atraumatic; Negative for trauma, tenderness, temporal artery tenderness or vesicular rash Eyes PERRL General Eye ED: Negative for pale conjunctiva or scleral icterus Neck no lymphadenopathy, supple, no meningeal signs and no JVD General: Negative for tenderness Resp normal respiratory effort and clear to auscultation bilaterally Effort and Inspection: Negative for retractions Auscultation: Negative for rales, rhonchi, wheezes or diminished lung sounds Cardio regular rate, regular rhythm, S1 normal heart sound, S2 normal heart sound and no murmurs Rate: Negative for bradycardia or tachycardic Rhythm: Negative for abnormal rhythm GI non-tender and non-distended Auscultation: normoactive bowel sounds Palpation: soft; Negative for firm or tender Back/Spine no CVA tenderness General Back: Negative for CVA tenderness or tenderness Cervical Spine: Negative for cervical spine tenderness Thoracic Spine / Upper Back: Negative for thoracic spinal tenderness Lumbar Spine / Lower Back: Negative for lumbar spinal tenderness Extremity normal to inspection and full ROM General Extremety ED: Negative for edema or tenderness General Extremity: Negative for edema Neuro oriented x3, CN's II-XII intact bilaterally and no sensory deficits noted [place] Coma Scale: document GCS findings Spontaneous Obeys Commands Oriented 15 Sensorium / Orientation: awake, alert, oriented to person, oriented to place and oriented to time; Negative for orientation impaired, lethargic or stuporous Coordination / Balance: [id number] test normal Speech: speech normal Motor Exam: strength 5/5 throughout Psych mental status grossly normal Appearance: Negative for unkempt Attitude: No agitated Mood & Affect: Negative for depressed, anxious or tearful Skin General Skin Exam: elasticity normal and turgor normal; Negative for jaundice or pallor Lesions: no lesions Rashes: no rashes MDM MDM MDM Narrative Medical decision making narrative: 69-year-old female has a subacute right frontal parietal subdural hematoma with 5 mm shift. Neurologic exam is normal. She is doing well. We do not have neurosurgery here. She is established relationship with [facility]. I spoken to them. They will accept her in transfer. I spoke to the neurosurgeon on-call. I am awaiting to speak to their collector of internal revenue. History & Record Review Discussion w/independent historian: Patient and Family Additional record(s) reviewed:: Prior inpatient record, Prior outpatient record and Prior ED visit Lab Data Attestation: I reviewed the patient's lab results. Discharge Plan Triage Chief Complaint: Headache ED Provider: Con Cochran Dx/Rx/DC Orders Prescriptions: No Action ascorbic acid (vitamin C) 1,000 mg tablet 1 g PO DAILY cranberry 500 mg capsule 500 mg PO DAILY Alive Once Daily Women 50 Plus 800-100 mcg tablet 2 tab PO DAILY acetaminophen [Tylenol Arthritis Pain] 650 mg tablet extended release 650 mg PO Q12H PRN (Reason: pain) calcium citrate-vitamin D3 [Citracal Regular] 250 mg-5 mcg (200 unit) tablet 2 tab PO DAILY lidocaine [Blue-Emu Lidocaine Patch] 4 % adhesive patch,medicated 1 patch topical DAILY PRN (Reason: pain) Probiotic 3 billion cell Capsule 3,000 mmu cells PO DAILY polyethylene glycol 3350 [Miralax] 17 gram powder in packet 17 g PO DAILY Rx Instructions: 1 teaspoon orally daily; aspirin 81 mg tablet,delayed release (DR/EC) 81 mg PO DAILY lisinopril 20 mg tablet 20 mg PO QDAY Qty: 90 3RF Rx Instructions: Hold for SBP less than 120 mmHg rosuvastatin 5 mg tablet 5 mg PO DAILY Qty: 90 3RF metoprolol tartrate 25 mg tablet 25 mg PO BID Qty: 180 3RF Rx Instructions: Hold for heart less than 60 or systolic blood pressure less than 100 mmHg. vitamin E (dl, acetate) 180 mg (400 unit) capsule 180 mg PO BID Qty: 60 11RF ursodiol 250 mg tablet 250 mg PO BID Qty: 60 11RF clindamycin HCl 300 mg capsule 300 mg PO .COMPLEX Qty: 2 4RF Rx Instructions: 300 mg orally 2 capsules (600mg) 1 hour prior to dental procedure; Primary Care Provider: Liv Vanessa Referrals: Liv Vanessa MD [Primary Care Provider] - Print Language: Ugandan
[2024-07-21 14:04] LABS: Prothrombin Time (Protime)PT. 12.7 SECONDS (11.7-14.9)
[2024-07-21 14:05] LABS: Partial Thromboplast Time 26.7 Seconds (24.1-36.2)
[2024-07-21 14:10] LABS: ALB/GLOB Ratio 0.9 RATIO (0.9-2.4); AST(SGOT) 19 U/L (15-37); Alanine Aminotransfer ALT/SGPT 21 U/L (13-56); Albumin, Serum 3.9 g/dL (3.2-5.0); Alkaline Phosphatase 63 U/L (45-117); Anion Gap 4 (5-15); BUN 18 mg/dL (7-18); Calcium,Total 10.4 mg/dL (8.5-10.1); Chloride 105 mmol/L (98-107); Creatinine, Serum 0.95 mg/dL (0.55-1.02); EST Glomerular Filtration Rate 62 mL/min (>60); Est Glom Filt Rate - Afr Amer 75 mL/min (>60); Estimated Creatinine Clearance 65.15 ml/min; Globulin 4.3 g/dL (2.2-4.2); Glucose 103 mg/dL (74-106); Protein, Total 8.2 g/dL (6.4-8.2); Sodium Level 139 mmol/L (136-145)
--- OUTSIDE RECORDS SUMMARY | 2024-07-21 14:59 | XMS RPT_ITS | CCD ---
Author Organization [facility] Care Team Providers [employer] Web Application Developer Name Role Phone YIN Rocha, Stacy Henderson Unavailable [phone] DeFinis, Harumi Y Unavailable Unavailable DeFinis, Harumi Y Unavailable Unavailable Siobhan GRULLON, Courtney Day Unavailable Unavailable Nellie Hernandes Unavailable Unavailable Olga MENDEZ, William Guerra Unavailable Jaky Emerson MD Primary Care Provider Jaky Emerson MD Primary Care Provider JAKY EMERSON Primary Care Unavailable JAKY ROJAS Attending Unavailable JAKY ROJAS Referring Unavailable AL CARO Attending Unavailable JAKY EMERSON Primary Care Unavailable JAKY ROJAS Attending Unavailable JAKY EMERSON Primary Care Unavailable Allergies Allergy Classification Reported Allergen(s) Allergy Type Date of Onset Reaction(s) Facility (7 sources) hydroCHLOROthiazide / triamterene drug allergy 03-26-20 11 Mouth sores [facility] Work Phone: [phone] (7 sources) levoFLOXacin drug allergy 03-26-20 11 [facility] Work Phone: [phone] (7 sources) penicillin drug allergy 03-26-20 11 [facility] Work Phone: [phone] (7 sources) pravastatin drug allergy 03-26-20 11 GI upset [facility] Work Phone: [phone] (7 sources) ZOCOR-SIMVASTATIN drug allergy 03-26-20 11 Dark urine [facility] Work Phone: [phone] (7 sources) TANDEARIL drug allergy 03-26-20 11 Itching [facility] Work Phone: (1 source) Digoxin Drug Allergy 08-07-20 05 Swelling [facility] (4 sources) hydroCHLOROthiazide / Triamterene Drug Allergy 08-07-20 05 [facility] Work Phone: [phone] (4 sources) levoFLOXacin Drug Allergy 08-07-20 05 Shortness Of Breath, Other [facility] Work Phone: (1 source) magnesium citrate Drug Allergy 11-02-19 13 Nausea And Vomiting [facility] Work Phone: (4 sources) Meperidine Drug Allergy 11-02-19 13 Other (See Comments), Other [facility] Work Phone: (4 sources) Nitrofurantoin Drug Allergy 08-15-20 12 Nausea And Vomiting, Other [facility] Work Phone: (1 source) Oxyphenbutazone Drug Allergy 03-26-20 11 Itching [facility] Work Phone: (4 sources) Penicillins Propensity to adverse reactions to drug 08-07-20 05 Unknown [facility] Work Phone: (4 sources) POLYETHYLENE GLYCOL 3350 / Potassium Chloride / Sodium Bicarbonate / Sodium Chloride / sodium sulfate Drug Allergy 11-02-19 13 Nausea And Vomiting [facility] Work Phone: (4 sources) Pravastatin Drug Allergy 08-07-20 05 Nausea And Vomiting, Other [facility] Work Phone: (1 source) Pravastatin Drug Allergy 08-07-20 05 Nausea And Vomiting [facility] Work Phone: (1 source) Simvastatin Drug Allergy 03-01-20 08 [facility] Work Phone: (3 sources) Digoxin Drug Allergy 08-07-20 05 Swelling, Other [facility] (3 sources) hydroCHLOROthiazide Drug Allergy 07-28-20 19 [facility] (3 sources) magnesium citrate Drug Allergy 11-02-19 13 Nausea And Vomiting, Other [facility] (3 sources) Oxyphenbutazone Allergy to substance 03-26-20 11 Itching [facility] (3 sources) Potassium Chloride Drug Allergy 07-28-20 19 [facility] (3 sources) Simvastatin Allergy to substance 03-01-20 08 Other [facility] (3 sources) Sodium Bicarbonate Drug Allergy 07-28-20 [facility] (3 sources) Sodium Chloride Drug Allergy 07-28-20 [facility] (3 sources) sodium sulfate Drug Allergy 07-28-20 [facility] (3 sources) Triamterene Drug Allergy 07-28-20 [facility] (3 sources) Sodium Propensity to adverse reactions 07-28-20 [facility] (1 source) mesalamine Drug Allergy 11-29-19 Other [facility] (1 source) Sulfasalazine Propensity to adverse reactions 11-29-19 Headache [facility] NEGATED: Highlighted row has been ruled out! (1 source) Other Propensity to adverse reactions 03-26-20 11 [facility] Medications Current Medications Medication Drug Class(es) Dates Sig (Normalized) Sig (Original) ascorbic acid 250 mg oral tablet (4 sources) Vitamin C take 2 tablets by mouth once daily ascorbic acid (Vitamin C) 250 MG tablet Take 500 mg by mouth daily. 0 Active b complex vitamins capsule (3 sources) take 1 capsule by mouth once daily b complex vitamins capsule Take 1 capsule by mouth daily. 0 Active calcium citrate 1500 mg / cholecalciferol 250 unt oral tablet (4 sources) Vitamin D calcium citrate 315 mg + D2 6.25 mcg tablet Take 1 tablet by mouth. 0 Active take 1 tablet by twice daily at mealtime calcium citrate-vitamin D (CITRICAL + D) 315-250 MG-UNIT TABS per tablet Take 1 tablet by mouth 2 times daily (with meals) 0 Active Cranberry Juice Extract 1000 MG capsule (3 sources) Cranberry Juice Extract 1000 MG capsule Take by mouth. 0 Active estradiol 0.1 mg/ml vaginal cream (1 source) Estrogen Start: 02-07-2021 estradiol (ESTRACE) 0.1 MG/GM vaginal cream Estradiol Active 1 GM VAGINAL TWICE A WEEK February 07, 2021 2:33pm 0 02/07/2021 Active famotidine 20 mg oral tablet (1 source) Histamine-2 Receptor Antagonist Start: 02-27-2021 famotidine (PEPCID) 20 MG tablet folic acid 1 mg oral tablet (1 source) take 1 tablet by mouth once daily folic acid (Folvite) 1 MG tablet Take 1,000 mcg by mouth daily. 0 Active lisinopril 20 mg oral tablet (20 sources) Angiotensin Converting Enzyme Inhibitor Start: 10-11-2022 lisinopril 20 MG tablet TAKE 1 TABLET EVERY DAY FOR BLOOD PRESSURE. hold for sbp less than 120mm/Hg 0 10/11/2022 Active Start: 04-11-2020 take 1 tablet by curtis th once daily lisinopril (PRINIVIL;ZESTRIL) 20 MG tablet TAKE 1 TABLET BY MOUTH ONCE DAILY 0 04/11/2020 Active Start: 03-26-2011 take 1 tablet by curtis th once daily LISINOPRIL 20 MG TABS One tablet by mouth daily LISINOPRIL [id number] William Espinoza MD meloxicam 7.5 mg oral tablet (1 source) Nonsteroidal Anti-inflammatory Drug Start: 02-27-2021 meloxicam (MOBIC) 7.5 MG tablet metoprolol tartrate 25 mg oral tablet (20 sources) beta-Adrenergic Kamilah Start: 08-26-2022 take 1 tablet by mouth twice daily metoprolol tartrate (Lopressor) 25 MG tablet TAKE 1 TABLET BY MOUTH TWICE DAILY FOR BLOOD PRESSURE hold for heart rate less than 60 or systolic blood pressure less than 100mg/Hg 0 08/26/2022 Active Start: 06-13-2020 take 1 tablet by curtis th twice daily metoprolol tartrate (LOPRESSOR) 25 MG tablet TAKE 1 TABLET BY MOUTH TWICE DAILY 0 06/13/2020 Active Start: 08-12-2015 take 1 tablet by curtis th twice daily METOPROLOL TARTRATE 25 MG TABS One tablet by mouth twice daily METOPROLOL TARTRATE [id number] William Espinoza MD Start: 03-26-2011 End: 03-16-2016 take 1 tablet by mouth once daily TOPROL XL 50 MG [id number] One tablet by mouth daily METOPROLOL SUCCINATE [id number] William Espinoza MD Start: 03-26-2011 End: 03-16-2016 take 1 tablet by mouth once daily TOPROL XL 50 MG [id number] One tablet by mouth daily (STOP) METOPROLOL SUCCINATE [id number] SO[facility] Start: 03-26-2011 take 1 tablet by curtis th once daily TOPROL XL 50 MG [id number] One tablet by mouth daily (STOP) METOPROLOL SUCCINATE [id number] William Espinoza MD Start: 03-26-2011 take 1 tablet by curtis th once daily TOPROL XL 50 MG [id number] One tablet by mouth daily METOPROLOL SUCCINATE [id number] William Espinoza MD Start: 03-26-2011 take 1 tablet by curtis th once daily TOPROL XL 50 MG [id number] One tablet by mouth daily METOPROLOL SUCCINATE [id number] William Espinoza MD Multiple Vitamins-Minerals (ALIVE ONCE DAILY WOMENS PO) (1 source) Multiple Vitamins-Minerals (ALIVE ONCE DAILY WOMENS PO) Take by mouth 0 Active Multiple Vitamins-Minerals (MULTI-VITAMIN GUMMIES PO) (3 sources) Multiple Vitamins-Minerals (MULTI-VITAMIN GUMMIES PO) Take by mouth. 0 Active oxyCODONE hydrochloride 5 mg oral tablet (1 source) Opioid Agonist Start: 021 oxyCODONE (ROXICODONE) 5 MG immediate release tablet rosuvastatin calcium 5 mg oral tablet (20 sources) HMG-CoA Reductase Inhibitor Start: 020 take 1 tablet by mouth once daily rosuvastatin (CRESTOR) 5 MG tablet TAKE 1 TABLET BY MOUTH ONCE DAILY 0 06/13/2020 Active Start: 08-15-2012 take 1 tablet by curtis th once daily CRESTOR 5 MG TABS One tablet by mouth daily ROSUVASTATIN CALCIUM [id number] Stacy Rocha PA-C Start: 08-15-2012 take 0.5 tablet by m outh at bedtime CRESTOR 10 MG TABS One-half tablet by mouth at bedtime. ROSUVASTATIN CALCIUM [id number] William Espinoza MD Start: 03-26-2011 take 1 tablet by curtis th at bedtime CRESTOR 10 MG TABS One tablet by mouth at bedtime. ROSUVASTATIN CALCIUM [id number] William Espinoza MD ursodiol 250 mg oral tablet (1 source) Bile Acid take 1 tablet by curtis th twice daily ursodiol (Actigall) 250 MG tablet Take 250 mg by mouth 2 times daily. 0 Active vitamin e 450 mg oral capsule (3 sources) alpha tocopherol (Vitamin E) 1000 units capsule Take 1,000 Units by mouth. 0 Active Completed/Discontinued Medications Medication Drug Class(es) Dates Sig (Normalized) Sig (Original) aspirin 81 mg oral tablet (18 sources) Platelet Aggregation Inhibitor, Nonsteroidal Anti-inflammatory Drug Start: 03-26-2011 take 1 tablet by mouth once daily ASPIRIN 81 MG TABS One tablet by mouth daily ASPIRIN [id number] Cynthia Wangward Start: 03-26-2011 take 1 tablet by curtis th once daily ASPIRIN 81 MG TABS One tablet by mouth daily ASPIRIN [id number] [facility] Start: 03-26-2011 take 1 tablet by curtis th once daily ASPIRIN EC 81 MG TBEC One tablet by mouth daily ASPIRIN [id number] William Espinoza MD aspirin 81 MG ch ewable tablet Chew 81 mg daily. 0 Active calcium carbonate 1250 mg / cholecalciferol 200 unt oral tablet (6 sources) Vitamin D Start: 03-26-2011 End: 08-13-2014 take 1 tablet by mouth twice daily OS-LINA 500 + D 500-200 MG-UNIT TABS One tablet by mouth twice daily CALCIUM CARBONATE-VITAMIN D [id number] William Espinoza MD calcium carbonate / vitamin D (8 sources) Start: 03-26-2011 take 1 tablet by mouth twice daily OS-LINA 500 + D 500-200 MG-UNIT TABS One tablet by mouth twice daily CALCIUM CARBONATE-VITAMIN D [id number] Cynthia Wangward Start: 03-26-2011 End: 08-13-2014 take 1 tablet by mouth twice daily OS-LINA 500 + D 500-200 MG-UNIT TABS One tablet by mouth twice daily CALCIUM CARBONATE-VITAMIN D [id number] William Espinoza MD Start: 03-26-2011 End: 08-13-2014 take 1 tablet by mouth twice daily OS-LINA 500 + D 500-200 MG-UNIT TABS One tablet by mouth twice daily CALCIUM CARBONATE-VITAMIN D [id number] William Espinoza MD Start: 03-26-2011 take 1 tablet by curtis th twice daily OS-LINA 500 + D 500-200 MG-UNIT TABS One tablet by mouth twice daily CALCIUM CARBONATE-VITAMIN D [id number] Cynthia Lau cholecalciferol 400 unt oral tablet (14 sources) Vitamin D Start: 08-13-2014 End: 08-12-2015 take 1 tablet by mouth once daily VITAMIN D 400 UNIT TABS One tablet by mouth daily CHOLECALCIFEROL [id number] William Espinoza MD ciprofloxacin 500 mg oral tablet (14 sources) Quinolone Antimicrobial Start: 08-14-2013 End: 08-13-2014 take 1 tablet by mouth twice daily CIPRO 500 MG TABS One tablet by mouth twice daily CIPROFLOXACIN HCL [id number] William Espinoza MD clindamycin 300 mg oral capsule (7 sources) Lincosamide Antibacterial Start: 11-26-2016 take 2 tablets by mouth every hour CLINDAMYCIN HCL 300 MG CAPS 2 tablets by mouth 1 hr prior to procedure CLINDAMYCIN HCL [id number] William Espinoza MD IBUPROFEN-DIPHENHYDR AMINE HCL CAPS (7 sources) Histamine-1 Receptor Antagonist, Nonsteroidal Anti-inflammatory Drug Start: 08-15-2012 take 1 tablet by mouth at bedtime ADVIL PM CAPS One tablet by mouth at bedtime when needed. IBUPROFEN-DIPHENHYDR AMINE HCL CAPS [id number] William Espinoza MD Start: 08-15-2012 take 1 tablet by curtis th at bedtime ADVIL PM CAPS One tablet by mouth at bedtime when needed. IBUPROFEN-DIPHENHYDRAMINE HCL CAPS [id number] William Espinoza MD lansoprazole 30 mg extended release oral tablet (20 sources) Proton Pump Inhibitor Start: 08-15-2012 End: 08-13-2014 take 1 tablet by mouth once daily LANSOPRAZOLE 30 MG TBDP One tablet by mouth daily LANSOPRAZOLE William Espinoza MD Start: 03-26-2011 End: 08-13-2014 take 1 tablet by mouth once daily LANSOPRAZOLE 30 MG TBDP One tablet by mouth daily LANSOPRAZOLE William Espinoza MD Start: 03-26-2011 End: 08-15-2012 take 1 tablet by mouth once daily PREVACID 30 MG CPDR One tablet by mouth daily LANSOPRAZOLE [id number] William Espinoza MD MULTIPLE VITAMIN (3 sources) Start: 03-26-2011 take 1 tablet by mouth once daily MULTIVITAMINS TABS One tablet by mouth daily MULTIPLE VITAMIN [id number] Cynthia Lau MULTIPLE VITAMIN (4 sources) Start: 03-26-2011 take 1 tablet by mouth once daily MULTIVITAMINS TABS One tablet by mouth daily MULTIPLE VITAMIN [id number] Cynthia Lau Start: 03-26-2011 take 1 tablet by curtis th once daily MULTIVITAMINS TABS One tablet by mouth daily MULTIPLE VITAMIN [id number] Cynthia Lau MULTIPLE VITAMINS-MINERALS (17 sources) Start: 08-12-2015 End: 03-15-2017 take 1 tablet by mouth once daily OCUVITE PRESERVISION TABS One tablet by mouth daily MULTIPLE VITAMINS-MINERALS William Espinoza MD Start: 08-12-2015 take 1 tablet by curtis th once daily OCUVITE PRESERVISION TABS One tablet by mouth daily MULTIPLE VITAMINS-MINERALS William Espinoza MD Start: 08-12-2015 End: 03-15-2017 take 1 tablet by mouth once daily OCUVITE PRESERVISION TABS One tablet by mouth daily MULTIPLE VITAMINS-MINERALS William Espinoza MD Start: 08-12-2015 take 1 tablet by curtis th once daily OCUVITE PRESERVISION TABS One tablet by mouth daily MULTIPLE VITAMINS-MINERALS William Espinoza MD Start: 03-26-2011 take 1 tablet by curtis th once daily MULTIVITAMIN GUMMIES ADULTS ORAL CHEW One tablet by mouth daily MULTIPLE VITAMINS-MINERALS [id number] William Espinoza MD MULTIPLE VITAMINS-MINERALS (4 sources) Start: 03-26-2011 take 1 tablet by mouth once daily MULTIVITAMIN GUMMIES ADULTS CHEW One tablet by mouth daily MULTIPLE VITAMINS-MINERALS [id number] William Espinoza MD Start: 03-26-2011 take 1 tablet by curtis th once daily MULTIVITAMIN GUMMIES ADULTS ORAL CHEW One tablet by mouth daily MULTIPLE VITAMINS-MINERALS [id number] William Espinoza MD nitroglycerin 0.4 mg sublingual tablet (7 sources) Nitrate Vasodilator Start: 03-26-2011 NITROSTAT 0.4 MG SUBL 1 tablet under tongue every 5 min up to 3 X NITROGLYCERIN [id number] Cynthia M Lau pioglitazone 45 mg oral tablet (14 sources) Peroxisome Proliferator Receptor alpha Agonist, Peroxisome Proliferator Receptor gamma Agonist, Thiazolidinedione Start: 03-26-2011 End: 08-15-2012 take 1 tablet by mouth once daily ACTOS 45 MG TABS One tablet by mouth daily PIOGLITAZONE HCL [id number] William Espinoza MD POLYETHYLENE GLYCOL 3350 (3 sources) Osmotic Laxative Start: 08-13-2014 MIRALAX PACK Take as directed POLYETHYLENE GLYCOL 3350 [id number] William Espinoza MD POLYETHYLENE GLYCOL 3350 (5 sources) Start: 08-13-2014 MIRALAX PACK Take as directed POLYETHYLENE GLYCOL 3350 [id number] William Espinoza MD Start: 08-13-2014 MIRALAX PACK T [place] as directed POLYETHYLENE GLYCOL 3350 [id number] William Espinoza MD Polyethylene Gly col 3350 (MIRALAX PO) Take by mouth 0 Active potassium gluconate 2.5 meq oral tablet (14 sources) Start: 08-12-2015 End: 03-15-2017 take 1 tablet by mouth once daily POTASSIUM GLUCONATE 595 (99 K) MG TABS One tablet by mouth daily POTASSIUM GLUCONATE [id number] William Espinoza MD PROBIOTIC PRODUCT (3 sources) Start: 08-15-2012 take 1 tablet by mouth once daily PROBIOTIC CAPS One tablet by mouth daily PROBIOTIC PRODUCT [id number] William Espinoza MD PROBIOTIC PRODUCT (1 source) Start: 08-15-2012 take 1 tablet by mouth once daily PROBIOTIC CAPS One tablet by mouth daily PROBIOTIC PRODUCT [id number] William Espinoza MD PROBIOTIC PRODUCT (3 sources) Start: 08-15-2012 take 1 tablet by mouth once daily PROBIOTIC CAPS One tablet by mouth daily PROBIOTIC PRODUCT [id number] William Espinoza MD sucralfate 100 mg/ml oral suspension (7 sources) Aluminum Complex Start: 03-26-2011 take 1 tablet by mouth three times daily SUCRALFATE 1 GM/10ML SUSP One tablet by mouth three times daily SUCRALFATE [id number] Cynthia Lau B COMPLEX VITAMINS (20 sources) Start: 08-13-2014 take 1 tablet by mouth once daily VITAMIN B COMPLEX TABS One tablet by mouth daily B COMPLEX VITAMINS [id number] William Espinoza MD Start: 08-13-2014 take 1 tablet by curtis th once daily VITAMIN B COMPLEX TABS One tablet by mouth daily B COMPLEX VITAMINS 14999816520 William Espinoza MD Start: 03-26-2011 End: 03-15-2017 take 1 tablet by mouth once daily VITAMIN B COMPLEX TABS With C, One tablet by mouth daily B COMPLEX VITAMINS [id number] William Espinoza MD Start: 03-26-2011 take 1 tablet by curtis th once daily VITAMIN B COMPLEX TABS With C, One tablet by mouth daily B COMPLEX VITAMINS [id number] Cynthia Lau Start: 03-26-2011 End: 03-15-2017 take 1 tablet by mouth once daily VITAMIN B COMPLEX TABS With C, One tablet by mouth daily B COMPLEX VITAMINS [id number] William Espinoza MD Start: 03-26-2011 take 1 tablet by curtis th once daily VITAMIN B COMPLEX TABS With C, One tablet by mouth daily B COMPLEX VITAMINS [id number] Cynthia Lau vitamin d 1000 unt oral tablet (7 sources) Start: 03-15-2017 take 1 tablet by mouth once daily VITAMIN D 1000 UNIT TABS One tablet by mouth daily CHOLECALCIFEROL [id number] William Espinoza MD Start: 03-15-2017 take 1 tablet by curtis th once daily VITAMIN D 1000 UNIT TABS One tablet by mouth daily CHOLECALCIFEROL [id number] William Espinoza MD Problems Active Problems Problem Classification Problem Date Documented Date Episodic/Chronic Cardiac dysrhythmias (7 sources) Atrial paroxysmal tachycardia; Translations: [Supraventricular tachycardia] Onset: 03-26-2011 03-26-2011 Chronic Disorders of lipid metabolism (7 sources) Hyperlipidemia; Translations: [Hyperlipidemia, unspecified] Onset: 03-26-2011 03-26-2011 Chronic Heart valve disorders (14 sources) Nonrheumatic mitral (valve) prolapse; Translations: [Mitral valve disorder] Onset: 03-26-2011 03-04-2016 Chronic Other and unspecified benign neoplasm (2 sources) Benign neoplasm of kidney; Translations: [Benign lipomatous neoplasm of kidney] Onset: 10-28-2023 Episodic Other and unspecified benign neoplasm (7 sources) Angiomyolipoma of left kidney; Translations: [Benign lipomatous neoplasm of kidney] Onset: 06-27-2020 06-27-2020 Episodic Other nutritional; endocrine; and metabolic disorders (19 sources) Body mass index (BMI) 33.0-33.9, adult; Translations: [Body mass index (BMI) 31.0-31.9, adult] Onset: 08-14-2013 Resolved: 03-15-2017 08-14-2013 Chronic Other nutritional; endocrine; and metabolic disorders (10 sources) Body mass index (BMI) 31.0-31.9, adult; Translations: [Body mass index (BMI) 32.0-32.9, adult] Onset: 08-14-2013 Resolved: 03-15-2017 03-15-2017 Chronic Other nutritional; endocrine; and metabolic disorders (6 sources) Body mass index (BMI) 32.0-32.9, adult; Translations: [Body mass index (BMI) 32.0-32.9, adult] Onset: 08-14-2013 03-15-2017 Chronic Unclassified (4 sources) Long-term drug therapy; Translations: [Other penitentiary (current) drug therapy] Onset: 03-26-2011 03-26-2011 Past or Other Problems Problem Classification Problem Date Documented Da te Episodic/Chronic Cardiac dysrhythmias (7 sources) Palpitations; Translations: [Palpitations] Onset: 08-13-2014 08-13-2014 Episodic Malaise and fatigue (7 sources) Fatigue; Translations: [Other fatigue] Onset: 03-26-2011 03-26-2011 Episodic Nonspecific chest pain (20 sources) Chest pain, unspecified; Translations: [Chest discomfort] Onset: 03-26-2011 Resolved: 08-12-2015 03-26-2011 Episodic Other aftercare (3 sources) Other intermediate accountant (current) drug therapy; Translations: [Other penitentiary (current) drug therapy] Onset: 03-26-2011 03-26-2011 Episodic Other and unspecified benign neoplasm (1 source) Benign lipomatous neoplasm of kidney; Translations: [Benign lipomatous neoplasm of kidney] Onset: 07-09-2022 Episodic Other diseases of kidney and ureters (1 source) Kidney disease; Translations: [Disorder of kidney and ureter, unspecified] Onset: 06-27-2020 06-27-2020 Episodic Other diseases of kidney and ureters (3 sources) Kidney lesion; Translations: [Disorder of kidney and ureter, unspecified] Onset: 06-27-2020 07-09-2022 Episodic Results Test Name Value Interpretation Reference Range Facility US RETROPERITONEALon 024 US RETROPERITONEAL Patient Name: RON MARTINI : 1955 Exam Date/Time: 10/28/2023 13:57 Procedure: US RETROPERITONEAL Ordering Provider: ROJAS HOLLY Reason For Exam: RENAL CYST CLINICAL INFORMATION: History of angiomyolipoma Sonogram of the kidneys and bladder is performed. Comparison ultrasound 11/06/2022, 2021 The renal cortical echogenicity is within normal limits. There are no masses that distort the renal contours. No hydronephrosis or shadow from calculus is seen. There are no perinephric fluid collections. The urinary bladder is within normal limits. IMPRESSION: 1. No hydronephrosis 2. Renal size: RIGHT: 11.4 x 4.3 x 6.0 cm. LEFT: 10.9 x 6.3 x 5.1 cm. 1.9 cm hyperechoic cortical lesion most likely representing an AML (measured 3 cm on last exam one year ago, 2.4 cm in 2021) Report Dictated on Electronically Signed By: Harsh Delatorre MD Electronically Signed Date/Time: 10/30/2023 4:57 PM EST Normal [facility] 36on 10-25-2023 36 Pt left VM asking if MATEUSZ is still valid . Return call placed to patient left message that order 12/27/23 Normal [facility] Office Visiton 11-18-2022 Follow-up visit [id number] Ron Martini 1955 F Date Provider Department Center 11/18/2022 JAKY CARRANZA [facility] None No family history on file Level of Service:93489 ME OFFICE/OUTPATIENT ESTABLISHED LOW MDM 20-29 MIN Reason for Visit and Comments: Other [Other] - 6M follow up, review MATEUSZ, Pt states they are well no urologic concerns - hx angiomyolipoma Normal [facility] Progress Noteon 11-18-2022 Progress Note MARISOL Wing NP 11/18/2022 at 2:22 PM Urology Office Visit PATIENT NAME: Ron Martini DATE OF : 1955 TODAY'S DATE: 11/18/2022 Chief Complaint: Chief Complaint Patient presents with Other 6M follow up, review MATEUSZ, Pt states they are well no urologic concerns - hx angiomyolipoma History of Present Illness: Ms. Martini is a 67 y.o. female who presents with angiomyolipoma. 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 At this time she is doing well. Denies flank pain. Denies gross hematuria. BP stable. No other urologic complaints. Here today with her . Review of Systems Constitutional: Negative for chills and fever. Gastrointestinal: Negative for abdominal pain, nausea and vomiting. Genitourinary: Negative for decreased urine volume, difficulty urinating, dysuria, flank pain, frequency, hematuria and urgency. Past Medical History: Past Medical History: Diagnosis Date Aortic valvular disorder Hyperlipidemia Hypertension Past Surgical History: Past Surgical History: Procedure Laterality Date JOINT REPLACEMENT Left 02/26/2021 Vitals: Ht 5' 8 (1.727 m) Wt 217 lb (98.4 kg) BMI 32.99 kg/m? Physical Exam Vitals and nursing note reviewed. Constitutional: Appearance: Normal appearance. Abdominal: General: There is no distension. Palpations: There is no mass. Tenderness: There is no abdominal tenderness. There is no right CVA tenderness or left CVA tenderness. Neurological: Mental Status: She is alert. Data: @LASTPROCPOC@ Radiology Review: US renal complete Narrative: [facility] 1955 [id number] Exam Date/Time: 11/06/2022 13:44 Procedure: US RENAL COMPLETE Ordering Provider: CARO JOSHUA Reason For Exam: Angiomylolipoma of left kidney Exam type: Ultrasound retroperitoneum. CLINICAL INDICATION: Angiomylolipoma of left kidney COMPARISON: 04/10/2022 Technique: Grayscale sonographic images were obtained of the kidneys and bladder. Color Doppler was utilized. FINDINGS: Right Kidney: Size: 12.3 x 6.3 x 5.5 cm Renal Parenchyma: Normal echogenicity and cortical thickness. Hydronephrosis: None Renal Calculi: None Left Kidney: Size: 10.2 x 6.2 x 5.5 cm Renal Parenchyma: Normal echogenicity and cortical thickness. Stable echogenic mass is noted in the superior medial left kidney measuring 3.0 x 2.1 x 2.1 cm. Hydronephrosis: None Renal Calculi: None The bladder is unremarkable. Impression: Stable appearance of echogenic left renal mass from prior ultrasound, which could correspond to the reported angiomyolipoma, but images not available at this time for interpretation. Recommend direct comparison with those images or CT/MRI for confirmation. Report Dictated on Electronically Signed By: Andrey Contreras Electronically Signed Date/Time: 11/06/2022 2:30 PM EST Impression/Plan Ron was seen today for other. Diagnoses and all orders for this visit: Angiomyolipoma of left kidney (Primary) - US retroperitoneum; Future - Here today for follow up, doing well from urologic standpoint. - No hematuria or flank pain. - Most recent ultrasound shows the left AML is stable. - Dr. Caro advised that should AML remain stable repeat ultrasound annually. - If this would grow, and particularly should it reach a size on 5cm, then consideration to partial nephrectomy vs embolization would be warrented. - The patient was instructed to call the office or go to the nearest ER if worsening symptoms such as fever > 101F, inability to urinate, intractable nausea or vomiting, or uncontrolled pain. The patient verbalizes understanding. - Follow up in 1 year with renal ultrasound prior. Follow Up Follow up in about 1 year (around 11/18/2023) for Angiomyolipoma (ultrasound prior) . --Jaky Rojas APRN, REVERSER on 11/18/2022 at 2:22 PM An electronic signature was used to authenticate this note. Normal [facility] US RENAL COMPLETEon 11-06-19 US RENAL COMPLETE Patient Name: RON MARTINI : 1955 Exam Date/Time: 11/06/2022 13:44 Procedure: US RENAL COMPLETE Ordering Provider: CARO JOSHUA Reason For Exam: Angiomylolipoma of left kidney Exam type: Ultrasound retroperitoneum. CLINICAL INDICATION: Angiomylolipoma of left kidney COMPARISON: 04/10/2022 Technique: Grayscale sonographic images were obtained of the kidneys and bladder. Color Doppler was utilized. FINDINGS: Right Kidney: Size: 12.3 x 6.3 x 5.5 cm Renal Parenchyma: Normal echogenicity and cortical thickness. Hydronephrosis: None Renal Calculi: None Left Kidney: Size: 10.2 x 6.2 x 5.5 cm Renal Parenchyma: Normal echogenicity and cortical thickness. Stable echogenic mass is noted in the superior medial left kidney measuring 3.0 x 2.1 x 2.1 cm. Hydronephrosis: None Renal Calculi: None The bladder is unremarkable. IMPRESSION: Stable appearance of echogenic left renal mass from prior ultrasound, which could correspond to the reported angiomyolipoma, but images not available at this time for interpretation. Recommend direct comparison with those images or CT/MRI for confirmation. Report Dictated on Electronically Signed By: Andrey Contreras Electronically Signed Date/Time: 11/06/2022 2:30 PM EST Normal [facility] US Retroperitoneal Limitedon 04-10-2022 US Retroperitoneal Limited Patient Name: RON MARTINI Ultrasound ACCESSION EXAM DATE/TIME PROCEDURE ORDERING PROVIDER [id number] 04/10/2022 10:35 EDT US Retroperitoneal MD EDIS, AL Pitts CPT code 85490 Reason For Exam (US Retroperitoneal Limited) lt renal aml seen on [address] ct at [facility] Report Exam type: Ultrasound retroperitoneum. EXAM DATE AND TIME: 04/10/2022 10:35 AM EDT INDICATION: 67 years Female with left renal lesion COMPARISON: None available Technique: Grayscale sonographic images were obtained of the kidneys and bladder. Color Doppler was utilized. FINDINGS: RIGHT KIDNEY: Size: 12.0 cm in craniocaudal dimension Echogenicity: Normal Parenchymal thickness: Normal Contour: Smooth Pelvicalyceal dilatation: None Calculus: none Mass: none Cyst: none LEFT KIDNEY: Size: 10.6 cm in craniocaudal dimension Echogenicity: Normal Parenchymal thickness: Normal Contour: Smooth Pelvicalyceal dilatation: None Calculus: none Mass: Echogenic mass in the superior/interpolar kidney measuring 2.4 x 2.0 x 2.3 cm. No posterior acoustic shadowing Cyst: none Bladder: Normal. IMPRESSION: Echogenic left renal mass, which could correspond to the reported angiomyolipoma on an outside hospital CT, but those images are not available at the time of this interpretation. Recommend direct comparison with those images or CT or MRI for confirmation. Ultrasound Report Report Dictated on Final Dictating Physician: MD THOMSON NICHOLAS Signed Date and Time: 04/11/2022 3:27 pm Signed by: MD THOMSON NICHOLAS Transcribed Date and Time: 04/11/2022 3:28 Normal [facility] Report: Lipid Profileon 09-29-2017 Cholesterol 125 mg/dL Invalid Interpretation Code 200 [facility] Work Phone: [phone] HDL Cholesterol 46 mg/dL Invalid Interpretation Code [facility] Work Phone: [phone] LDL Cholesterol 52 mg/dL Invalid Interpretation Code 0-130 [facility] Work Phone: [phone] Triglyceride 135 mg/dL Invalid Interpretation Code [facility] Work Phone: [phone] very low density lipoproteins 27 mg/dL Invalid Interpretation Code 5-40 [facility] Work Phone: [phone] Lab Report: Liver Profileon 09-29-2017 Alanine aminotransferase (ALT) 49 U/L Invalid Interpretation Code 12-78 [facility] Work Phone: [phone] Albumin 3.8 g/dL Invalid Interpretation Code 3.4-5.0 [employer] [facility] Phone: [phone] Alkaline phosphatase (ALP) 68 U/L Invalid Interpretation Code 45-117 [facility] Work Phone: [phone] Aspartate aminotransferase (AST) 34 U/L Invalid Interpretation Code 15-37 [employer] [facility] Phone: [phone] Bilirubin (direct) 0.10 mg/dL Invalid Interpretation Code 0.00-0.30 [facility] Work Phone: [phone] Bilirubin (total) 0.40 mg/dL Invalid Interpretation Code 0.20-1.00 [employer] [facility] Phone: [phone] Globulin 4.5 g/dL High 2.2-4.2 [facility] Work Phone: [phone] Protein 8.3 g/dL High 6.4-8.2 [employer] [facility] Phone: [phone] Office Visiton 03-15-2017 Dietary management education, guidance, and counseling (procedure) yes Invalid Interpretation Code [employer] [facility] Phone: [phone] Documentation of current medications (procedure) Done Invalid Interpretation Code [facility] Phone: [phone] Fall risk assessment No Invalid Interpretation Code [facility] Phone: [phone] Protein mass conc Done [facility] Phone: [phone] Clinical Lists Update: Prelo director of district office 01-25-2017 Cholesterol 121 mg/dL Invalid Interpretation Code [facility] Phone: [phone] Cholesterol to HDL Ratio 2.88 {ratio} Invalid Interpretation Code [facility] Phone: [phone] HDL Cholesterol 42 mg/dL Low [facility] Phone: [phone] LDL Cholesterol 62 mg/dL Invalid Interpretation Code [facility] Phone: [phone] LDL/HDL ratio, serum 1.48 Invalid Interpretation Code [facility] Work Phone: [phone] Triglyceride 83 mg/dL Invalid Interpretation Code [facility] Work Phone: [phone] very low density lipoproteins 17 mg/dL Invalid Interpretation Code [facility] Work Phone: Clinical Lists Updateon 06-0 Left ventricular Ejection fraction 65 % Invalid Interpretation Code [facility] Work Phone: [phone] Office Visiton 08-12-2015 Tobacco smoking status HIIS Tobacco smoking status NHIS Invalid Interpretation Code [facility] Work Phone: [phone] Tobacco smoking status HIIS Never smoker [facility] Work Phone: [phone] Tobacco use [facility] Never smoker Invalid Interpretation Code [facility] Work Phone: [phone] Replaced Document: Collin E CG Observationson 08-12-2015 EKG QRS axis 5 deg Invalid Interpretation Code [facility] Work Phone: [phone] electrocardiogram interpretation Sinus Rhythm WITHIN NORMAL LIMITS Invalid Interpretation Code [facility] Work Phone: [phone] GE use only - for [employer] import when terms are not otherwise specified 418 ms Invalid Interpretation Code [facility] Work Phone: [phone] Interpretation Sinus Rhythm WITHIN NORMAL LIMITS Invalid Interpretation Code [facility] Work Phone: [phone] P [place] 39 deg Invalid Interpretation Code [facility] Work Phone: [phone] P wave axis, electrocardiogram 39 deg Invalid Interpretation Code [facility] Work Phone: [phone] ME Interval 124 ms Invalid Interpretation Code [facility] Work Phone: ME interval, electrocardiogram 124 ms Invalid Interpretation Code [facility] Work Phone: [phone] Pulse (Heart Rate) 82 /min Invalid Interpretation Code [facility] Work Phone: [phone] QRS axis, electrocardiogram 5 deg Invalid Interpretation Code [facility] Work Phone: [phone] QRS Duration 90 ms Invalid Interpretation Code [facility] Work Phone: [phone] QRS duration, electrocardiogram 90 ms Invalid Interpretation Code [facility] Work Phone: [phone] QT Interval new path ms Invalid Interpretation Code [facility] Work Phone: [phone] QT interval, electrocardiogram new path ms Invalid Interpretation Code [facility] Work Phone: [phone] QTc Prasad 418 ms Invalid Interpretation Code [facility] Work Phone: [phone] T [place] 19 deg Invalid Interpretation Code [facility] Work Phone: [phone] T wave axis, electrocardiogram 19 deg Invalid Interpretation Code [facility] Work Phone: [phone] Clinical Lists Update: Prelo director of district office 08-10-2015 Albumin mass conc 4.5 g/dL Invalid Interpretation Code [facility] Work Phone: [phone] Alkaline phosphatase (ALP) 68 U/L Invalid Interpretation Code [facility] Work Phone: [phone] ALP enzyme act/vol (Bld) 68 U/L [facility] Work Phone: [phone] ALT enzyme act/vol 33 U/L Invalid Interpretation Code [facility] Work Phone: [phone] AST enzyme act/vol 30 U/L Invalid Interpretation Code [facility] Work Phone: [phone] Bilirubin mass conc 0.4 mg/dL Invalid Interpretation Code [facility] Work Phone: [phone] Bilirubin.direct mass conc mg/dL Invalid Interpretation Code [facility] Work Phone: [phone] Cholesterol in HDL mass conc 42 mg/dL Low [facility] Work Phone: [phone] Cholesterol in LDL mass conc 86 mg/dL [facility] Work Phone: [phone] Cholesterol in LDL/Cholesterol in HDL mass ratio 2.05 [facility] Work Phone: [phone] Cholesterol mass conc 151 mg/dL [facility] Work Phone: [phone] Cholesterol.total/Chol esterol in HDL mass ratio 3.60 {ratio} [facility] Work Phone: [phone] Lipoprotein.pre-beta mass conc 23 mg/dL [facility] Work Phone: [phone] Protein mass conc 7.7 g/dL Invalid Interpretation Code [facility] Work Phone: [phone] Triglyceride mass conc 115 mg/dL [facility] Work Phone: [phone] Clinical Lists Update: [facility]07-12-2012 Anion gap 7 mmol/L Invalid Interpretation Code [facility] Work Phone: [phone] Anion gap molar conc 7 mmol/L [facility] Work Phone: [phone] Chloride molar conc 107 mmol/L Invalid Interpretation Code [facility] Work Phone: [phone] CO2 27.0 mmol/L Invalid Interpretation Code [facility] Work Phone: [phone] CO2 ppres (BldV) 27.0 mmol/L [facility] Work Phone: [phone] Creatinine mass conc 0.8 mg/dL Invalid Interpretation Code [facility] Work Phone: [phone] Glucose 94 mg/dL Invalid Interpretation Code [facility] Work Phone: [phone] Glucose mass conc 94 mg/dL Invalid Interpretation Code [facility] Work Phone: [phone] Potassium molar conc 4.0 mmol/L Invalid Interpretation Code [facility] Work Phone: [phone] Sodium molar conc 141 mmol/L Invalid Interpretation Code [facility] Work Phone: [phone] Urea nitrogen mass conc 11 mg/dL Invalid Interpretation Code [facility] Work Phone: [phone] Clinical Lists Update: [facility]07-11-2012 Erythrocyte distribution width Ratio (RBC) 13.6 % [facility] Work Phone: [phone] Erythrocytes (RBC) 3.57 10*6/uL Low [facility] Work Phone: [phone] Hematocrit (HCT) 33.0 % Low [facility] Work Phone: [phone] Hematocrit Volume Fraction (Bld) 33.0 % Low [facility] Work Phone: [phone] Hemoglobin mass conc (Bld) 11.1 g/dL Low [facility] Work Phone: [phone] MCH 31.1 pg Invalid Interpretation Code [facility] Work Phone: [phone] Entitic mass (RBC) 31.1 pg [facility] Work Phone: [phone] MCHC 33.6 % Invalid Interpretation Code [facility] Work Phone: [phone] MCHC mass conc (RBC) 33.6 % [facility] Work Phone: [phone] MCV 92.5 fL Invalid Interpretation Code [facility] Work Phone: [phone] MCV Entitic volume (RBC) 92.5 fL [facility] Work Phone: [phone] Platelets 208 10*3/mm3 Invalid Interpretation Code [facility] Work Phone: [phone] Platelets #/vol (Bld) 208 10*3/mm3 [facility] Work Phone: [phone] RBC #/vol (Bld) 3.57 10*6/uL Low [facility] Work Phone: [phone] RDW-CA 13.6 % Invalid Interpretation Code [facility] Work Phone: [phone] WBC #/vol (Bld) 7.9 10*3/uL [facility] Work Phone: [phone] WBC (Leukocytes) 7.9 10*3/uL Invalid Interpretation Code [facility] Work Phone: [phone] Vital Signs Date Time Vital Sign Value Performing Clinician Rolando ventura 11-29-2023 14:42-0500 Body height 172.7 cm Odalis Zeferinojuancarlos DAMON [facility] Work Phone: [employer] 11-29-2023 14:42-0500 Body mass index (BMI) [Ratio] 30.41 kg/m2 Odalis Perez IT COMPLIANCE MANAGER [employer] Work Phone: [employer] 11-29-2023 14:42-0500 Body weight 90.72 kg Odalis Perez APRN [facility] Work Phone: [employer] 11-29-2023 14:42-0500 Diastolic blood pressure 73 mm[Hg] Odalis Perez APRN [facility] Work Phone: [employer] 11-29-2023 14:42-0500 Heart rate 65 /min Odalis Rorar IT COMPLIANCE MANAGER - REVERSER Work Phone: [employer] 11-29-2023 14:42-0500 Systolic blood pressure 123 mm[Hg] Odalis Perez APRN - REVERSER Work Phone: [employer] 03-15-2017 09:35-0400 BMI (Body Mass Index) 32.23 kg/m2 Nellie Cecilio [facility] Work Phone: 03-15-2017 09:35-0400 BP Diastolic 64 mm[Hg] Nellie Janettey [facility] Work Phone: 03-15-2017 09:35-0400 BP Systolic 110 mm[Hg] Nellie Marthey [facility] Work Phone: 03-15-2017 09:35-0400 Height 172.72 cm Nellie Marthey [facility] Work Phone: 03-15-2017 09:35-0400 Pulse (Heart Rate) 72 /min Nellie Marthey [facility] Work Phone: 03-15-2017 09:35-0400 Respiratory Rate 18 /min Nellie Marthey [facility] Work Phone: 03-15-2017 09:35-0400 Weight 96.16 kg Nellie Marthey [facility] Work Phone: 03-16-2016 14:56-0400 BSA (Body Surface Area) 2.08 m2 Nellie Marthey [facility] Work Phone: 08-12-2015 14:28-0500 Heart rate 82 /min Nellie Marthey [facility] Work Phone: 08-15-2012 15:14-0500 Height 172.72 cm Nellie Marthey [facility] Work Phone: Encounters Encounter Date Encounter Type Care Provider Facility Start: 11-29-2023 End: 11-29-2023 Office outpatient visit 15 minutes Odalis Perez IT COMPLIANCE MANAGER - REVERSER Work Phone: [facility] Comment on above: Angiomyolipoma of le ft kidney (Primary Dx) Start: 10-28-2023 End: 10-29-2023 ambulatory JAKYLucina EMERSON [facility] Start: 10-28-2023 End: 10-28-2023 Subsequent hospital visit by physician Jaky Rojas APRN - FINAL INSPECTOR [employer] Work Phone: [facility] Imaging Comment on above: Angiomyolipoma of le ft kidney Start: 11-18-2022 End: 11-18-2022 ambulatory JAKY CHTOBIASNIMESH [facility] Start: 11-06-2022 End: 11-07-2022 ambulatory AL CARO [facility] Start: 04-10-2022 End: 04-10-2022 Subsequent hospital visit by physician Al Caro MD Work Phone: [facility] Comment on above: Benign lipomatous ne oplasm of kidney Procedures Date Procedure Procedure Detail Performing Clinician Start: 07-01-2023 Mammography Jaky charles APRN - FINAL INSPECTOR [employer]TLE Work Phone: Start: 09-17-2017 End: 09-30-2017 *Hepatic Function Panel William Espinoza MD Start: 09-17-2017 End: 09-30-2017 Lipid 1996 panel - Serum or Plasma William Espinoza MD Start: 03-15-2017 End: 03-15-2017 Follow Up Appt 1 year William Al Start: 03-15-2017 End: 03-15-2017 PFBeatriz Espinoza MD Start: 03-15-2017 End: 03-15-2017 Dietary management education, guidance, and counseling Nellie Hernandes Start: 03-15-2017 End: 03-15-2017 Follow Up Appt 1 year William Al Start: 03-15-2017 End: 03-15-2017 PFBeatriz Espinoza MD Start: 03-16-2016 End: 03-16-2016 Follow Up Appt 1 year Stacy schuler PA-C Work Phone: Start: 03-16-2016 End: 03-16-2016 PFM Stacy Rocha PA-C Work Phone: Start: 03-16-2016 End: 03-16-2016 Follow Up Appt 1 year Stacy schuler PA-C Work Phone: Start: 03-16-2016 End: 03-16-2016 PFM Stacy Rocha PA-C Work Phone: Start: 02-11-2016 End: 03-18-2017 Lipid 1996 panel - Serum or Plasma William Espinoza MD Start: 02-11-2016 End: 03-18-2017 Lipid panel [AGGREGATE] William Espinoza MD Start: 08-12-2015 End: 08-12-2015 Ecg routine ecg w/least 12 lds w/i&r William Espinoza MD Start: 08-12-2015 End: 08-12-2015 Follow Up Appt 6 months William Espinoza MD Start: 08-12-2015 End: 08-12-2015 MMM William Espinoza MD Start: 08-12-2015 End: 02-11-2016 Nuclear stress test -exercise William Espinoza MD Start: 08-12-2015 End: 08-12-2015 Electrocardiogram, complete William Espinoza MD Start: 08-12-2015 End: 08-12-2015 Follow Up Appt 6 months William Espinoza MD Start: 08-12-2015 End: 08-12-2015 MMM William Espinoza MD Start: 08-12-2015 End: 02-11-2016 Nuclear stress test -exercise William Espinoza MD Start: 01-25-2015 End: 08-12-2015 *Hepatic Function Panel William Espinoza MD Start: 01-25-2015 End: 08-12-2015 Lipid 1996 panel - Serum or Plasma William Espinoza MD Start: 01-25-2015 End: 08-12-2015 *Hepatic Function Panel William Espinoza MD Start: 01-25-2015 End: 08-12-2015 Lipid panel [AGGREGATE] William Espinoza MD Start: 08-13-2014 End: 02-11-2016 Follow Up Appt 1 year William Al Start: 08-13-2014 End: 02-11-2016 Follow Up Appt Other William Espinoza MD Start: 08-13-2014 End: 02-11-2016 PFM William Espinoza MD Start: 08-13-2014 End: 02-11-2016 Xtrnl mobile cv telemetry w/i&report 30 days William Espinoza MD Start: 08-13-2014 End: 02-11-2016 Follow Up Appt 1 year William Al Start: 08-13-2014 End: 02-11-2016 Follow Up Appt Other William Espinoza MD Start: 08-13-2014 End: 02-11-2016 PFM William Espinoza MD Start: 08-13-2014 End: 02-11-2016 Remote 30 day ecg rev/report William Espinoza MD Start: 05-28-2014 End: 07-27-2014 *Hepatic Function Panel William Espinoza MD Start: 05-28-2014 End: 07-27-2014 Lipid 1996 panel - Serum or Plasma William Espinoza MD Start: 05-28-2014 End: 07-27-2014 *Hepatic Function Panel William Espinoza MD Start: 05-28-2014 End: 07-27-2014 Lipid panel [AGGREGATE] William Espinoza MD Start: 01-25-2014 End: 02-20-2014 *Hepatic Function Panel William Espinoza MD Start: 01-25-2014 End: 02-20-2014 Lipid 1996 panel - Serum or Plasma William Espinoza MD Start: 01-25-2014 End: 02-20-2014 *Hepatic Function Panel William Espinoza MD Start: 01-25-2014 End: 02-20-2014 Lipid panel [AGGREGATE] William Espinoza MD Start: 08-14-2013 End: 08-18-2013 *Hepatic Function Panel William Espinoza MD Start: 08-14-2013 End: 02-11-2016 Follow Up Appt 1 year William Al Start: 08-14-2013 End: 08-18-2013 Lipid 1996 panel - Serum or Plasma William Espinoza MD Start: 08-14-2013 End: 02-11-2016 PFM William Espinoza MD Start: 08-14-2013 End: 08-18-2013 *Hepatic Function Panel William Espinoza MD Start: 08-14-2013 End: 02-11-2016 Follow Up Appt 1 year William Al Start: 08-14-2013 End: 08-18-2013 Lipid panel [AGGREGATE] William Espinoza MD Start: 08-14-2013 End: 02-11-2016 PFM William Espinoza MD Start: 08-15-2012 End: 02-11-2016 Follow Up Appt 1 year William Al Start: 08-15-2012 End: 02-11-2016 Follow Up Appt 1 year William Al Plan of Treatment Date Care Activity Detail Author Start: 12-11-2024 End: 12-11-2024 Patient encounter procedure 12/11/2024 2:20 PM EDT Office Visit [facility] [address] [place] [address] Odalis Perez, IT COMPLIANCE MANAGER - REVERSER [address] [place] [address] [facility] Start: 11-28-2024 End: 11-28-2024 US Retroperitoneum US retroperitoneum Imaging Routine Angiomyolipoma of left kidney Expected: 11/28/2024, Expires: 11/28/2024 [facility] Work Phone: Comment on above: Expected: 11/28/2024 , Expires: 11/28/2024 Start: 11-28-2024 End: 11-28-2024 Patient encounter procedure 11/28/2024 1:00 PM EST Appointment [facility] [address] [place] [id number] Odalis Perez, IT COMPLIANCE MANAGER - REVERSER [address] [place] [address] [facility] Start: 07-01-2024 Screening for malign ant neoplasm of breast Mammogram [facility] Start: 11-29-2023 End: 11-29-2023 Patient encounter procedure 11/29/2023 2:20 PM EST Office Visit [facility] [address] [place] [phone] Odalis Perez, IT COMPLIANCE MANAGER - REVERSER [address] [place] [address] [facility] Start: 05-28-2023 COVID-19 Vaccine ( season) COVID-19 Vaccine ( season) [facility] Start: 05-28-2023 Influenza vaccination Influenza Vacc ine (#1) [facility] Start: 09-17-2022 Lipid panel Lipid Panel [facility] Start: 05-28-2022 Influenza vaccination Flu vaccine (# 1) [facility] Start: 05-06-2022 End: 05-06-2022 Patient encounter procedure 05/06/2022 Office Visit Urology Al Caro MD [address] [place] [address] [facility] [place] Start: 02-25-2022 COVID-19 Vaccine (4 - Booster for Pfizer series) COVID-19 Vaccine (4 - Booster for Pfizer series) [facility] Start: 08-16-2019 DTaP/Tdap/Td vaccine (2 - Td or Tdap) DTaP/Tdap/Td vaccine (2 - Td or Tdap) [facility] Start: 08-16-2019 DTaP/Tdap/Td Vaccine s (2 - Td or Tdap) DTaP/Tdap/Td Vaccines (2 - Td or Tdap) [facility] Start: 2019 Pneumococcal 65+ yea rs Vaccine (1 - PCV) Pneumococcal 65+ years Vaccine (1 - PCV) [facility] Start: 2019 Pneumococcal Vaccine : 65+ Years (1 of 1 - PCV) Pneumococcal Vaccine: 65+ Years (1 of 1 - PCV) [facility] Start: 03-14-2018 End: 03-14-2018 Appointment Appointment [facility] Work Phone: Start: 09-17-2017 End: 09-30-2017 *Hepatic Function Panel *Hepatic Function Panel [facility] Work Phone: Start: 09-17-2017 End: 09-30-2017 Lipid panel [AGGREGATE] *Lipid Profile CC PCP [facility] Work Phone: Start: 09-17-2017 End: 04-01-2017 *Hepatic Function Panel *Hepatic Function Panel [facility] Work Phone: Start: 09-17-2017 End: 04-01-2017 Lipid panel [AGGREGATE] *Lipid Profile CC PCP [facility] Work Phone: Start: 03-15-2017 End: 03-15-2017 Follow Up Appt 1 year Follow Up Appt 1 year [facility] Work Phone: Start: 03-15-2017 End: 03-15-2017 Follow Up Appt Other Follow Up Appt Other [facility] Work Phone: Start: 03-15-2017 End: 03-15-2017 PFM PFM [facility] Work Phone: Start: 03-15-2017 End: 03-15-2017 Follow Up Appt 1 year Follow Up Appt 1 year [facility] Work Phone: Start: 03-15-2017 End: 03-15-2017 Follow Up Appt Other Follow Up Appt Other [facility] Work Phone: Start: 03-15-2017 End: 03-15-2017 PFM PFM [facility] Work Phone: Start: 03-16-2016 End: 03-16-2016 Follow Up Appt 1 year Follow Up Appt 1 year [facility] Work Phone: Start: 03-16-2016 End: 03-16-2016 PFM PFM [facility] Work Phone: Start: 03-16-2016 End: 03-16-2016 Follow Up Appt 1 year Follow Up Appt 1 year [facility] Work Phone: Start: 03-16-2016 End: 03-16-2016 PFM PFM [facility] Work Phone: Start: 02-11-2016 End: 08-13-2015 *Hepatic Function Panel *Hepatic Function Panel [facility] Work Phone: Start: 02-11-2016 End: 03-18-2017 Lipid panel [AGGREGATE] *Lipid Profile CC PCP [facility] Work Phone: Start: 02-11-2016 End: 08-13-2015 *Hepatic Function Panel *Hepatic Function Panel [facility] Work Phone: Start: 02-11-2016 End: 03-18-2017 Lipid panel [AGGREGATE] *Lipid Profile CC PCP [facility] Work Phone: Start: 08-12-2015 End: 08-12-2015 Ecg routine ecg w/least 12 lds w/i&r EKG (In office) [facility] Work Phone: Start: 08-12-2015 End: 08-12-2015 Follow Up Appt 6 months Follow Up Appt 6 months [facility] Work Phone: Start: 08-12-2015 End: 08-12-2015 MMM MMM [facility] Work Phone: Start: 08-12-2015 End: 08-12-2015 Nuclear stress test -exercise Nuclear stress test -exercise [facility] Work Phone: Start: 08-12-2015 End: 08-12-2015 Electrocardiogram, complete EKG (In office) [facility] Work Phone: Start: 08-12-2015 End: 08-12-2015 Follow Up Appt 6 months Follow Up Appt 6 months [facility] Work Phone: Start: 08-12-2015 End: 08-12-2015 MMM MMM [facility] Work Phone: Start: 08-12-2015 End: 08-12-2015 Nuclear stress test -exercise Nuclear stress test -exercise [facility] Work Phone: Start: 01-25-2015 End: 08-12-2015 *Hepatic Function Panel *Hepatic Function Panel [facility] Work Phone: Start: 01-25-2015 End: 08-12-2015 Lipid panel [AGGREGATE] *Lipid Profile CC PCP [facility] Work Phone: Start: 01-25-2015 End: 08-12-2015 *Hepatic Function Panel *Hepatic Function Panel [facility] Work Phone: Start: 01-25-2015 End: 08-12-2015 Lipid panel [AGGREGATE] *Lipid Profile CC PCP [facility] Work Phone: Start: 08-13-2014 End: 02-11-2016 Follow Up Appt 1 year Follow Up Appt 1 year [facility] Work Phone: Start: 08-13-2014 End: 02-11-2016 Follow Up Appt Other Follow Up Appt Other [facility] Work Phone: Start: 08-13-2014 End: 02-11-2016 PFM PF [facility] Work Phone: Start: 08-13-2014 End: 02-11-2016 Xtrnl mobile cv telemetry w/i&report 30 days 30 Day Holter Monitor [facility] Work Phone: Start: 08-13-2014 End: 02-11-2016 Follow Up Appt 1 year Follow Up Appt 1 year [facility] Work Phone: Start: 08-13-2014 End: 02-11-2016 Follow Up Appt Other Follow Up Appt Other [facility] Work Phone: Start: 08-13-2014 End: 02-11-2016 PFM PF [facility] Work Phone: Start: 08-13-2014 End: 02-11-2016 Remote 30 day ecg rev/report 30 Day Holter Monitor [facility] Work Phone: Start: 05-28-2014 End: 07-27-2014 *Hepatic Function Panel *Hepatic Function Panel [facility] Work Phone: Start: 05-28-2014 End: 07-27-2014 Lipid panel [AGGREGATE] *Lipid Profile CC PCP [facility] Work Phone: Start: 05-28-2014 End: 07-27-2014 *Hepatic Function Panel *Hepatic Function Panel [facility] Work Phone: Start: 05-28-2014 End: 07-27-2014 Lipid panel [AGGREGATE] *Lipid Profile CC PCP [facility] Work Phone: Start: 2014 Hepatitis B Vaccines (1 of 3 - Risk 3-dose series) Hepatitis B Vaccines (1 of 3 - Risk 3-dose series) [facility] Start: 2014 RSV Immunization age d 60 or older (1 - 1-dose 60+ series) RSV Immunization aged 60 or older (1 - 1-dose 60+ series) [facility] Start: 01-25-2014 End: 02-20-2014 *Hepatic Function Panel *Hepatic Function Panel [facility] Work Phone: Start: 01-25-2014 End: 02-20-2014 Lipid panel [AGGREGATE] *Lipid Profile CC PCP [facility] Work Phone: Start: 01-25-2014 End: 02-20-2014 *Hepatic Function Panel *Hepatic Function Panel [facility] Work Phone: Start: 01-25-2014 End: 02-20-2014 Lipid panel [AGGREGATE] *Lipid Profile CC PCP [facility] Work Phone: Start: 08-14-2013 End: 08-18-2013 *Hepatic Function Panel *Hepatic Function Panel [facility] Work Phone: Start: 08-14-2013 End: 02-11-2016 Follow Up Appt 1 year Follow Up Appt 1 year [facility] Work Phone: Start: 08-14-2013 End: 08-18-2013 Lipid panel [AGGREGATE] *Lipid Profile CC PCP [facility] Work Phone: Start: 08-14-2013 End: 02-11-2016 PFM PFM [facility] Work Phone: Start: 08-14-2013 End: 08-18-2013 *Hepatic Function Panel *Hepatic Function Panel [facility] Work Phone: Start: 08-14-2013 End: 02-11-2016 Follow Up Appt 1 year Follow Up Appt 1 year [facility] Work Phone: Start: 08-14-2013 End: 08-18-2013 Lipid panel [AGGREGATE] *Lipid Profile CC PCP [facility] Work Phone: Start: 08-14-2013 End: 02-11-2016 PFM PFM [facility] Work Phone: Start: 08-15-2012 End: 02-11-2016 Follow Up Appt 1 year Follow Up Appt 1 year [facility] Work Phone: Start: 08-15-2012 End: 02-11-2016 Follow Up Appt 1 year Follow Up Appt 1 year [facility] Work Phone: Start: 2009 Screening for osteoporosis DEXA (modify frequency per FRAX score) [facility] Start: 02-23-2004 Screening for malign ant neoplasm of breast Breast cancer screen [facility] Start: 02-23-2004 Shingles vaccine (1 of 2) Shingles v accine (1 of 2) [facility] Start: 02-23-2004 Zoster Vaccines (1 of 2) Zoster Vacc kari (1 of 2) [facility] Start: 1999 Screening for malign ant neoplasm of colon [facility] Start: 1973 Hepatitis A Vaccines (1 of 2 - Risk 2-dose series) Hepatitis A Vaccines (1 of 2 - Risk 2-dose series) [facility] Start: 02-23-1972 Diabetes mellitus screening Diabetes Screening [facility] Start: 02-23-1972 Hepatitis C screening [facility] Start: 1966 Depression Screen Depression Screen [facility] Start: 1966 Depression Screening Depression Scre ening [facility] Start: 02-23-1964 Lipid panel Lipids [facility] Start: 1955 Annual Wellness Visi t (AWV) Annual Wellness Visit (AWV) [facility] Start: 1954 Medicare Annual Well ness (AWV) Medicare Annual Wellness (AWV) [facility] Start: 1954 Screening for malign ant neoplasm of colon [facility] Start: 1954 Screening for osteoporosis Bone Density Scan [facility] Patient Education [facility] Work Phone: End: 04-10-2022 US RETROPERITONEAL LIMITED [facility] Work Phone: Comment on above: Once for 1 Occurrenc es starting 04/10/2022 until 04/10/2022 End: 10-28-2023 US Retroperitoneum [facility] Work Phone: Comment on above: Once for 1 Occurrenc es starting 10/28/2023 until 10/28/2023 Immunizations Immunization Date Immunization Notes Care Provider Fa yumiko 06-25-2022 influenza virus vacc ine, unspecified formulation Jaky Rojas IT COMPLIANCE MANAGER - [employer] Work Phone: [facility] 10-28-2021 Covid-19, Pfizer Gra y Top, Do Not Dilute, (Age 12 Y+), Im, L Jaky Rojas IT COMPLIANCE MANAGER - [employer] INSPECT[employer] Work Phone: [facility] 12-19-2020 Pfizer SARS-CoV-2 Vaccination Jaky Rojas IT COMPLIANCE MANAGER - [employer] INS[employer] Work Phone: [facility] [employer] 11-27-2020 Pfizer SARS-CoV-2 Vaccination Jaky Rojas IT COMPLIANCE MANAGER - [employer] INSPECT[employer] Work Phone: [facility] Payers Date Payer Category Payer Unknown AARP AARP [id number] 2022-Present [address] [place] [address] Supplement [id number] 2019 Medicare [id number] 2019 Medicare MEDICARE MEDICAR E PART A AND B [id number] 2019-Present [address] [place] [address] Medicare [id number] 2019 Private Health Insurance [id number] Social History Date Type Detail Facility Start: 06-27-2020 Tobacco smoking stat us [facility]IS Never smoked tobacco [facility] Work Phone: Start: 06-27-2020 Tobacco use and exposure Smokeless tobacco non-user [facility] Work Phone: Start: 04-09-2021 End: 11-29-2023 Alcohol intake Ex-drinker (finding) [facility] Work Phone: Start: 06-27-2020 History SDOH [facility] 1 [facility] Work Phone: Start: 1955 Sex Assigned At Not on file [facility] Work Phone: Gender identity Not on file [facility] History of Present illness Narrative 11-29-2023 MARISOL Zaman CNP - 11/29/2023 2:20 PM EST Note Date & Type Note Facility 11-29-2023 History of Presen t illness Narrative Images from the original note were not included. MARISOL Miranda CNP 11/29/2023 at 2:58 PM Urology Office Visit PATIENT NAME: Ron Martini DATE OF : 1955 TODAY'S DATE: 11/29/2023 CHIEF COMPLAINT: Chief Complaint Patient presents with 1 year follow up angiomyolipoma Patient denies urinary urgency/frequency/dysuria/gross hematuria, nocturia x2, denies back or side pain Subjective: Ms. Martini is a 68 y.o. female who presents to the office regarding follow up. HPI Patient was last seen in office on 11/18/2022 for angiomyolipoma 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 At this time she is doing well. Denies flank pain. Denies gross hematuria. She denies any dysuria She feels like she is able to empty her bladder BP stable. No other urologic complaints. Here today with her . Review of Systems Constitutional: Negative for chills and fever. Genitourinary: Negative for difficulty urinating, dysuria, flank pain, frequency, hematuria and urgency. Past Medical History: Past Medical History: Diagnosis Date Aortic valvular disorder Hyperlipidemia Hypertension Past Surgical History: Past Surgical History: Procedure Laterality Date JOINT REPLACEMENT Left 02/26/2021 Medications Prior to Admission medications Medication Sig Start Date End Date Taking? Authorizing Provider alpha tocopherol (Vitamin E) 1000 units capsule Take 1,000 Units by mouth. Historical ProviderMD ascorbic acid (Vitamin C) 250 MG tablet Take 500 mg by mouth daily. Historical ProviderMD aspirin 81 MG chewable tablet Chew 81 mg daily. Historical Provider, b complex vitamins capsule Take 1 capsule by mouth daily. Historical ProviderMD calcium citrate 315 mg + D2 6.25 mcg tablet Take 1 tablet by mouth. Historical Provider, Cranberry Juice Extract 1000 MG capsule Take by mouth. Historical Provider, lisinopril 20 MG tablet TAKE 1 TABLET EVERY DAY FOR BLOOD PRESSURE. hold for sbp less than 120mm/Hg 10/11/22 Historical ProviderMD metoprolol tartrate (Lopressor) 25 MG tablet TAKE 1 TABLET BY MOUTH TWICE DAILY FOR BLOOD PRESSURE hold for heart rate less than 60 or systolic blood pressure less than 100mg/Hg 08/26/22 Historical ProviderMD Multiple Vitamins-Minerals (MULTI-VITAMIN GUMMIES PO) Take by mouth. Historical ProviderMD Vitals: BP 123/73 Pulse 65 Ht 5' 8 (1.727 m) Wt 200 lb (90.7 kg) BMI 30.41 kg/m Physical Exam Constitutional: General: She is not in acute distress. Appearance: Normal appearance. She is not ill-appearing. Neurological: Mental Status: She is alert and oriented to person, place, and time. Labs: No results found for: CREATININE No results found for: HGB , HCT , PSA , TESTOSTERONE Radiology Review: Narrative & Impression Patient Name: RON MARTINI : 1955 Exam Date/Time: 10/28/2023 13:57 Procedure: US RETROPERITONEAL Ordering Provider: ROJAS HOLLY Reason For Exam: RENAL CYST CLINICAL INFORMATION: History of angiomyolipoma Sonogram of the kidneys and bladder is performed. Comparison ultrasound 11/06/2022, 2021 The renal cortical echogenicity is within normal limits. There are no masses that distort the renal contours. No hydronephrosis or shadow from calculus is seen. There are no perinephric fluid collections. The urinary bladder is within normal limits. IMPRESSION: 1. No hydronephrosis 2. Renal size: RIGHT: 11.4 x 4.3 x 6.0 cm. LEFT: 10.9 x 6.3 x 5.1 cm. 1.9 cm hyperechoic cortical lesion most likely representing an AML (measured 3 cm on last exam one year ago, 2.4 cm in 2021) Report Dictated on Electronically Signed By: Harsh Delatorre MD Electronically Signed Date/Time: 10/30/2023 4:57 PM EST Procedure: N/A Impression/Plan Diagnoses and all orders for this visit: Angiomyolipoma of left kidney - US retroperitoneum; Future - Here today for follow up, doing well from urologic standpoint. - No hematuria or flank pain. - Most recent ultrasound shows the left AML is stable and decreased in size. - Dr. Caro advised that should AML remain stable repeat ultrasound annually. - If this would grow, and particularly should it reach a size on 5cm, then consideration to partial nephrectomy vs embolization would be warrented. - The patient was instructed to call the office or go to the nearest ER if worsening symptoms such as fever > 101F, inability to urinate, intractable nausea or vomiting, or uncontrolled pain. The patient verbalizes understanding. - Follow up in 1 year with renal ultrasound prior Follow Up: Follow up in about 1 year (around 11/28/2024) for AML, renal ultrasound prior. --Odalis Perez CNP, APRN on 11/29/2023 at 2:58 PM An electronic signature was used to authenticate this note. documented in this encounter [facility] Evaluation note Note Date & Type Note Facility Evaluation note Diagnosis Benign lipomatous neoplasm of kidney Benign neoplasm of kidney, except pelvis documented in this encounter [facility] Work Phone: Evaluation note Note Date & Type Note Facility Evaluation note Diagnosis Angiomyolipoma of left kidney documented in this encounter [facility] Evaluation note Note Date & Type Note Facility Evaluation note Diagnosis Angiomyolipoma of left kidney- Primary documented in this encounter [facility] Summary Purpose Family History No Family History Records FoundNo Family History Records Found Advance Directives No Advanced Directives Records FoundNo Advanced Directives Records Found Additional Source Comments Care Teams (unrecognized sec tion and content) [employer] Relationship Specialty Start Date End Date Jaky Emerson MD PCP - General Urology 05/27/20 [employer] Relationship Specialty Start Date End Date Jaky Emerson MD [address] [place] [address] [address] [place] [address] PCP - General 05/27/20 [employer] Relationship Specialty Start Date End Date Jaky Emerson MD [address] [place] [address] [address] [place] [address] PCP - General 05/27/20 INFORMATION SOURCE (unrecogn ized section and content) DATE CREATED AUTHOR 05/07/2022 [facility] DATE CREATED AUTHOR AUTHOR'S ORGANIZ ATION 10/30/2023 [facility] Reason for Visit (unrecogniz ed section and content) Reason Comments 1 year follow up angiomyolipoma Patient denies urinary urgency/frequency/dysuria/gross hematuria, nocturia x2, denies back or side pain FOR RECORDS PERTAINING TO PATIENTS WHO ARE OR HAVE BEEN ENROLLED IN A CHEMICAL DEPENDENCY/SUBSTANCEABUSE PROGRAM, SOME INFORMATION MAY BE OMITTED. This clinical summary was aggregated from multiple sources. Caution should be exercised in using it in the provision of clinical care. This summary normalizes information from multiple sources, and as a consequence, information in this document may materially change the coding, format and clinical context of patient data. In addition, data may be omitted in some cases. CLINICAL DECISIONS SHOULD BE BASED ON THE PRIMARY CLINICAL RECORDS. [email or web address] provides no warranty or guarantee of the accuracy or completeness of information in this document.
[2024-07-21] MEDS: Acetaminophen 500 MG Tablet 1000 MG PO (19:10)
== END 2024-07-21 20:28 | disposition short-term general hospital (02) ==
LOC: ED 14:10
PROVIDERS: Emergency Provider Emergency Medicine; PCP Family Medicine; Visit Provider Emergency Medicine
DX: R51.9 Headache, unspecified (principal); S06.5XAA Traumatic subdural hemorrhage with loss of consciousness status unknown, initial encounter; I10 Essential (primary) hypertension; Z79.82 Long term (current) use of aspirin; E78.00 Pure hypercholesterolemia, unspecified; K21.9 Gastro-esophageal reflux disease without esophagitis; Z90.49 Acquired absence of other specified parts of digestive tract; Z90.710 Acquired absence of both cervix and uterus; X58.XXXA Exposure to other specified factors, initial encounter
CPT/HCPCS: 80053; 85025; 85610; 85730; 99285; A4216

== ENCOUNTER → 2024-07-21 | Outpatient (CLI) | payer MEDICARE, OTHER, SELFPAY ==
--- NOTE | 2024-07-21 12:43 | CT_ITS ---
STUDY: CT BRAIN WITHOUT CONTRAST REASON FOR EXAM: Female, 69 years old. HEADACHE RADIATION DOSAGE (If Supplied By Facility): CTDIvol = ( 44.99 ) mGy, DLP = ( 880.47 ) mGycm TECHNIQUE: Transaxial CT imaging of the brain was performed without administration of intravenous contrast material. Individualized dose optimization techniques were used for this CT. COMPARISON: Comparison is made with prior study dated March 11, 2019. FINDINGS: Normal soft tissue structures. Normal calvarium. Normal size ventricles and extra-axial spaces for the patient''s age. Normal white matter tracts of the cerebral hemispheres. Normal basal ganglia and thalami. Normal brainstem. Normal cerebellum. There is evidence of a small right-sided subacute subdural hematoma overlying the right frontoparietal occipital lobes. There is evidence of mass effect with shift of the midline from right to left measuring 5.2 mm. Normal visualized paranasal sinuses. CT/Brain/Head without Contrast IMPRESSION: Subacute right-sided subdural hematoma overlying the right frontoparietal lobes with mass effect and shift of the midline from right to left of 5.2 mm. N.B. : The above Results were Read Back by Momo Hauser MD to Liv Vanessa MD, and understanding confirmed on 07/21/2024 13:20:31 (ET). Electronically Signed: Momo Hauser MD at 13:22 EDT ,
== END | disposition home or self-care (01) ==
LOC: CT 12:39
PROVIDERS: PCP Family Medicine; Referring Provider Family Medicine; Visit Provider Family Medicine
DX: R51.9 Headache, unspecified (principal)
CPT/HCPCS: 70450

== ENCOUNTER 2024-07-30 12:52 | Emergency (ER) | payer MEDICARE, OTHER, SELFPAY ==
[2024-07-30 12:53] VITALS: BP 128/83; PULSE 91; RESP 16; TEMP 36.6; O2SAT 99; BMI 29.0
--- NOTE | 2024-07-30 13:08 | CT_ITS ---
EXAM: CT HEAD WITHOUT INTRAVENOUS CONTRAST CLINICAL INDICATION: headache TECHNIQUE: Multiple axial images were obtained of the head without intravenous contrast. This CT exam was performed using one or more of the following dose reduction techniques: automated exposure control, adjustment of the mA and/or kV according to patient size, and/or use of iterative reconstruction technique. COMPARISON: 07/21/2024 FINDINGS: BRAIN AND EXTRA-AXIAL SPACES: Interval decreased size of the right side homogeneous subdural fluid collection now measuring 9 mm in maximal thickness as compared to 1.1 cm in maximal thickness and associated decreased mass effect upon the underlying right cerebral hemisphere as well as decreased leftward shift of the midline structures now measuring approximately 4 mm as compared to 6 mm on the prior examination. Partially calcified extra-axial dural based mass along the posterior aspect of the left petrous ridge and abutting the inferior aspect of the left tentorium is likely a small meningioma measuring up to 8 mm. No acute intracranial hemorrhage is present at this time. No additional mass or mass effect. No evidence of acute infarct. The walters-white matter differentiation is maintained. BONES/JOINTS: No significant abnormality. No discrete lytic or blastic abnormalities. SINUSES: No significant findings. MASTOID AIR CELLS: No significant effusion. ORBITS: No acute findings. CT/Brain/Head without Contrast IMPRESSION: 1. Interval decreased size of the right side homogeneous subdural fluid collection now measuring 9 mm in maximal thickness as compared to 1.1 cm in maximal thickness and associated decreased mass effect upon the underlying right cerebral hemisphere as well as decreased leftward shift of the midline structures now measuring approximately 4 mm as compared to 6 mm on the prior examination. 2. Partially calcified extra-axial dural based mass along the posterior aspect of the left petrous ridge and abutting the inferior aspect of the left tentorium is likely a small meningioma measuring up to 8 mm. This is unchanged. 3. No additional acute pathology. Electronically Signed: Paresh Solorzano DO at 13:46 EST ,
[2024-07-30 13:10] VITALS: BP 127/73; PULSE 77; RESP 18; O2SAT 97
--- NOTE | 2024-07-30 13:11 | EDS_ITS ---
HPI <MONET Field - Last Filed: 07/30/24 13:58> History of Present Illness Chief Complaint: Headache Narrative Narrative: 69-year-old female with past medical history of hypertension presents with a sudden onset headache that started at 11 AM this morning. She was sitting watching television when she had a sudden right sided severe headache 10/10. She took Tylenol and it is now weaned to 5/10. She has no associated visual changes, nausea or vomiting, neck pain, neurological changes. She states last week on July 21 she had a similar sudden onset headache and had a brain bleed. She was transferred from [facility] emergency room to [facility]. She states they did a catheter rotation procedure through her groin to cauterize the bleed. They told her to stop aspirin and vitamin E. <Dr. Zeyad Bryant DO - Last Filed: 07/30/24 14:16> History of Present Illness Informant: patient and spouse/S.O. [facility] <MONET Field - Last Filed: 07/30/24 13:58> [facility] Medical History (Updated 07/30/24 @ 13:54 by MONET Field) Brain bleed Gastric reflux CPAP (continuous positive airway pressure) dependence History of pain when walking RODRIGUEZ (nonalcoholic steatohepatitis) Cardiology follow-up encounter Migraine headache Gastritis Diarrhea Wears glasses Ambulates with cane Arthritis History of renal disease High cholesterol Back pain Heartburn Non-smoker CPAP (continuous positive airway pressure) dependence History of edema Hx of echocardiogram History of stress test Hypertension History of irregular heartbeat Vertigo Paroxysmal SVT (supraventricular tachycardia) Ischemic colitis Sleep apnea GERD (gastroesophageal reflux disease) Hyperlipidemia Nonrheumatic mitral (valve) prolapse Paroxysmal atrial tachycardia History of diverticulitis of colon Obesity Diverticulosis of intestine without perforation or abscess with bleeding Benign essential hypertension Home Medications ?Medication ?Instructions ?Recorded ?Last Taken ?Type ascorbic acid (vitamin C) 1,000 mg 1 g PO DAILY SUPPLEMENT 04/12/19 Unknown History tablet cranberry 500 mg capsule 500 mg PO DAILY SUPPLEMENT 04/12/19 Unknown History multivit,mineral-folic acid 800 2 tab PO DAILY SUPPLEMENT 06/13/20 Unknown History mcg-vit K 100 mcg-herbal no.289 tablet (Alive Once Daily Women 50 Plus) lactobacillus combination no.4 3 3,000 mmu cells PO DAILY SUPPLEMENT 02/12/21 Unknown History billion cell capsule (Probiotic) acetaminophen 650 mg 650 mg PO Q12H PRN pain 04/16/23 Unknown History tablet,extended release (Tylenol Arthritis Pain) calcium 250 mg (as 2 tab PO DAILY 04/16/23 Unknown History citrate)-vitamin D3 5 mcg (200 unit) tablet (Citracal Regular) lidocaine 4 % topical patch 1 patch topical DAILY PRN pain 04/16/23 Unknown History (Blue-Emu Lidocaine Patch) polyethylene glycol 3350 17 gram 17 g PO DAILY Pain 04/16/23 Unknown History oral powder packet (Miralax) aspirin 81 mg tablet,delayed 81 mg PO DAILY BLOOD THINNER 06/18/23 06/17/23 History release lisinopril 20 mg tablet 20 mg PO QDAY BP #90 tabs 01/10/24 Unknown Rx metoprolol tartrate 25 mg tablet 25 mg PO BID BP #180 tabs 01/10/24 Unknown Rx rosuvastatin 5 mg tablet 5 mg PO DAILY CHOLESTEROL #90 tabs 01/10/24 Unknown Rx ursodiol 250 mg tablet 250 mg PO BID #60 TABLETS 04/24/24 Unknown Rx vitamin E (dl, acetate) 180 mg 180 mg PO BID #60 caps 04/24/24 Unknown Rx (400 unit) capsule Allergy/AdvReac Type Severity Reaction Status Date / Time Penicillins Allergy Unknown Verified 07/30/24 12:55 digoxin AdvReac Other Verified 07/30/24 12:55 hydrochlorothiazide (From AdvReac Upset Verified 07/30/24 12:55 Dyazide) Stomach levofloxacin (From Levaquin) AdvReac Upset Verified 07/30/24 12:55 Stomach magnesium citrate AdvReac Upset Verified 07/30/24 12:55 Stomach meperidine (From Demerol) AdvReac Upset Verified 07/30/24 12:55 Stomach nitrofurantoin (From AdvReac Upset Verified 07/30/24 12:55 Macrobid) Stomach polyethylene glycol (From AdvReac Upset Verified 07/30/24 12:55 Golytely) Stomach polyethylene glycol 3350 AdvReac Upset Verified 07/30/24 12:55 (From Golytely) Stomach potassium chloride (From AdvReac Upset Verified 07/30/24 12:55 Golytely) Stomach pravastatin (From Pravachol) AdvReac had white Verified 07/30/24 12:55 stool simvastatin (From Zocor) AdvReac Upset Verified 07/30/24 12:55 Stomach sodium (From Golytely) AdvReac Upset Verified 07/30/24 12:55 Stomach sodium bicarbonate (From AdvReac Upset Verified 07/30/24 12:55 Golytely) Stomach sodium chloride (From AdvReac Upset Verified 07/30/24 12:55 Golytely) Stomach sodium sulfate (From AdvReac Upset Verified 07/30/24 12:55 Golytely) Stomach triamterene (From Dyazide) AdvReac Upset Verified 07/30/24 12:55 Stomach Family History Father Alcoholism Hypertension Mother Ovarian cancer Sister Parkinsons Breast cancer Grandmother Liver cancer Surgical History Hx of total hip arthroplasty H/O lumpectomy History of left breast biopsy History of foot surgery Hx of appendectomy History of total hysterectomy History of cholecystectomy Social History household members: spouse Smoking Status: Never smoker alcohol intake: never substance use type: does not use ROS <MONET Field - Last Filed: 07/30/24 13:58> ROS ED ROS Narrative Constitutional: Negative for fever, chills, malaise. Eyes: Negative for visual change. CVS: Negative for chest pain, syncope. Respiratory: Negative for shortness of breath. GI: Negative for abdominal pain, nausea, vomiting. Neuro: Positive for headache. EXAM <MONET Field - Last Filed: 07/30/24 13:58> Physical Exam Narrative Exam Narrative: CONST: Patient sitting in no acute distress. EYES: Normal inspection. PERRL, EOMI. ENT: Normal inspection, moist mucous membranes. NECK: Normal inspection. No meningismus. RESP: No respiratory distress, CTAB. CVS: Regular rate and rhythm, no murmur, no gallop. SKIN: Color normal, no rash, warm, dry, intact. EXTREMITIES: Normal appearance, no pedal edema. NEURO: Alert and answering questions appropriately. 5/5 upper extremity trading specialist strength and elbow flexion/extension, 5/5 dorsiflexion plantarflexion. Normal finger-nose and [id number] bilaterally. Normal gait. PSYCH: Normal affect. Const Vital Signs: 07/30/24 12:53 07/30/24 13:10 07/30/24 14:02 Temperature 97.8 F 97.9 F Temperature Source Temporal Pulse Rate 91 77 64 Respiratory Rate 16 18 189 H Blood Pressure 128/83 H 127/73 H 133/78 H Blood Pressure Mean 98 91 96 Pulse Ox 99 97 99 Oxygen Delivery Method Room Air Room Air <Dr. Zeyad Bryant DO - Last Filed: 07/30/24 14:16> Physical Exam Const Vital Signs: 07/30/24 12:53 07/30/24 13:10 07/30/24 14:02 Temperature 97.8 F 97.9 F Temperature Source Temporal Pulse Rate 91 77 64 Respiratory Rate 16 18 189 H Blood Pressure 128/83 H 127/73 H 133/78 H Blood Pressure Mean 98 91 96 Pulse Ox 99 97 99 Oxygen Delivery Method Room Air Room Air MDM <MONET Field - Last Filed: 07/30/24 13:58> [facility] Narrative Medical decision making narrative: History was gathered from: Patient and spouse 69-year-old female presents for evaluation of acute onset headache that started about 2 hours ago. It has been improving since then. She was concerned to seek evaluation because about a week ago she had a headache with a subdural hematoma and was treated at [facility]. She arrives awake and alert ambulating into the ED. BP is 127/73 and all vital signs are normal. She has a normal neurological exam. CT brain shows no acute findings and an interval decrease size of the right-sided subdural fluid collection as well as decreased leftward shift. Patient was provided reassurance. She states her headache has improved with the Tylenol she took at home and declined further pain medication such as norco. She will follow-up with her neurosurgeon as scheduled but was cautioned to return for any worsening headache or any neurological symptoms. She was discharged in stable condition. Radiography Diagnostic Testing: Clinical Impression(s) from Imaging Studies Brain CT 07/30/24 13:08 IMPRESSION: 1. Interval decreased size of the right side homogeneous subdural fluid collection now measuring 9 mm in maximal thickness as compared to 1.1 cm in maximal thickness and associated decreased mass effect upon the underlying right cerebral hemisphere as well as decreased leftward shift of the midline structures now measuring approximately 4 mm as compared to 6 mm on the prior examination. 2. Partially calcified extra-axial dural based mass along the posterior aspect of the left petrous ridge and abutting the inferior aspect of the left tentorium is likely a small meningioma measuring up to 8 mm. This is unchanged. 3. No additional acute pathology. Electronically Signed: Paresh Solorzano DO at 13:46 EST , <Dr. Zeyad Bryant DO - Last Filed: 07/30/24 14:16> [facility] Narrative Medical decision making narrative: History was gathered from: Patient and spouse 69-year-old female presents for evaluation of acute onset headache that started about 2 hours ago. It has been improving since then. She was concerned to seek evaluation because about a week ago she had a headache with a subdural hematoma and was treated at [facility]. She arrives awake and alert ambulating into the ED. BP is 127/73 and all vital signs are normal. She has a normal neurological exam. CT brain shows no acute findings and an interval decrease size of the right-sided subdural fluid collection as well as decreased leftward shift. Patient was provided reassurance. She states her headache has improved with the Tylenol she took at home and declined further pain medication such as n orco. She will follow-up with her neurosurgeon as scheduled but was cautioned to return for any worsening headache or any neurological symptoms. She was discharged in stable condition. I have personally performed a face to face assessment of the patient and have reviewed the HIPOLITO Note. I performed a substantive portion of the visit including all aspects of the following. My chavez findings include: History is 69-year-old female presenting to the emergency department with right frontal headache. Patient diagnosed with recent subdural hematoma in this area. She was transferred to [facility] and underwent what sounds like a catheter directed embolization. Earlier this week she began to have signs and symptoms consistent with COVID and tested positive. She reports a sudden onset of headache this morning. She denies any neurologic deficits. Exam is afebrile vital signs appear stable. She is neurologically intact. She is GCS 15 x 3. Medical Decison Making repeat head CT does not show any acute blood and in fact shows a interval decrease in size of the fluid collection. Patient will be discharged home. Supportive care return if worsening or concerns follow-up as previously directed History & Record Review Discussion w/independent historian: Patient and Family Additional record(s) reviewed:: Prior ED visit and Prior labs Radiography Diagnostic Testing: Clinical Impression(s) from Imaging Studies Brain CT 07/30/24 13:08 IMPRESSION: 1. Interval decreased size of the right side homogeneous subdural fluid collection now measuring 9 mm in maximal thickness as compared to 1.1 cm in maximal thickness and associated decreased mass effect upon the underlying right cerebral hemisphere as well as decreased leftward shift of the midline structures now measuring approximately 4 mm as compared to 6 mm on the prior examination. 2. Partially calcified extra-axial dural based mass along the posterior aspect of the left petrous ridge and abutting the inferior aspect of the left tentorium is likely a small meningioma measuring up to 8 mm. This is unchanged. 3. No additional acute pathology. Electronically Signed: Paresh Solorzano DO at 13:46 EST , Discharge Plan Triage Chief Complaint: Headache ED Midlevel Provider: Carina Herron ED Provider: Zeyad Bryant Dx/Rx/DC Orders Clinical Impression: Headache, History of subdural hematoma Instructions: Self-Care for Headaches Prescriptions: No Action ascorbic acid (vitamin C) 1,000 mg tablet 1 g PO DAILY cranberry 500 mg capsule 500 mg PO DAILY Alive Once Daily Women 50 Plus 800-100 mcg tablet 2 tab PO DAILY acetaminophen [Tylenol Arthritis Pain] 650 mg tablet extended release 650 mg PO Q12H PRN (Reason: pain) calcium citrate-vitamin D3 [Citracal Regular] 250 mg-5 mcg (200 unit) tablet 2 tab PO DAILY lidocaine [Blue-Emu Lidocaine Patch] 4 % adhesive patch,medicated 1 patch topical DAILY PRN (Reason: pain) Probiotic 3 billion cell Capsule 3,000 mmu cells PO DAILY polyethylene glycol 3350 [Miralax] 17 gram powder in packet 17 g PO DAILY Rx Instructions: 1 teaspoon orally daily; aspirin 81 mg tablet,delayed release (DR/EC) 81 mg PO DAILY lisinopril 20 mg tablet 20 mg PO QDAY Qty: 90 3RF Rx Instructions: Hold for SBP less than 120 mmHg rosuvastatin 5 mg tablet 5 mg PO DAILY Qty: 90 3RF metoprolol tartrate 25 mg tablet 25 mg PO BID Qty: 180 3RF Rx Instructions: Hold for heart less than 60 or systolic blood pressure less than 100 mmHg. vitamin E (dl, acetate) 180 mg (400 unit) capsule 180 mg PO BID Qty: 60 11RF ursodiol 250 mg tablet 250 mg PO BID Qty: 60 11RF Primary Care Provider: Liv Vanessa Referrals: Liv Vanessa MD [Primary Care Provider] - Activity Restrictions/Additional Instructions: Continue Tylenol as needed. Follow-up for your scheduled outpatient CT scan and neurosurgery follow-up. If you have worsening headache or any strokelike symptoms return to the emergency room. Print Language: Turkish Disposition Disposition: Home, Self Care Discharge Date/Time: 07/30/24 14:03
[2024-07-30 14:02] VITALS: BP 133/78; PULSE 64; RESP 189; TEMP 36.6; O2SAT 99
== END 2024-07-30 14:03 | disposition home or self-care (01) ==
PROVIDERS: Emergency Provider Emergency Medicine; PCP Family Medicine; Visit Provider Emergency Medicine
DX: R51.9 Headache, unspecified (principal); I10 Essential (primary) hypertension; E78.00 Pure hypercholesterolemia, unspecified; G47.30 Sleep apnea, unspecified; Z99.89 Dependence on other enabling machines and devices; Z79.82 Long term (current) use of aspirin; Z79.899 Other long term (current) drug therapy; Z96.649 Presence of unspecified artificial hip joint; Z90.49 Acquired absence of other specified parts of digestive tract; Z90.710 Acquired absence of both cervix and uterus
CPT/HCPCS: 70450; 99283

== ENCOUNTER → 2024-08-11 | Outpatient (CLI) | payer MEDICARE, OTHER, SELFPAY ==
--- NOTE | 2024-08-11 16:25 | RAD_ITS ---
EXAM: XR CHEST, 2 VIEWS CLINICAL INDICATION: COVID 07/27, COUGH TECHNIQUE: Frontal and lateral views of the chest. COMPARISON: 12/11/2022 FINDINGS: LUNGS AND PLEURAL SPACES: Hyperinflated lungs with diffuse interstitial prominence although no focal airspace disease likely secondary to COPD. No pneumothorax. No effusion. HEART: No significant abnormality. Cardiac silhouette not enlarged. MEDIASTINUM: Central airways and mediastinal contour are unremarkable. BONES/JOINTS: Degenerative changes in the spine. No acute fracture. SOFT TISSUES: No significant abnormality. UPPER ABDOMEN: Postoperative changes in the right upper quadrant. RAD/Chest PA and Lateral IMPRESSION: Hyperinflated lungs with diffuse interstitial prominence although no focal airspace disease likely secondary to COPD. Electronically Signed: Parehs Solorzano DO at 22:45 EST ,
== END | disposition home or self-care (01) ==
LOC: RAD 16:20
PROVIDERS: PCP Family Medicine; Referring Provider Family Medicine; Visit Provider Family Medicine
DX: U07.1 COVID-19 (principal); R05.9 Cough, unspecified
CPT/HCPCS: 71046

== ENCOUNTER 2024-10-15 15:57 | Emergency (ER) | payer MEDICARE, OTHER, SELFPAY ==
[2024-10-15] VITALS (9 sets, daily range): BP systolic 117–133; BP diastolic 63–88; PULSE 73–98; RESP 11–21; TEMP 35.9–36.6; O2SAT 97–99; BMI 29.2
--- NOTE | 2024-10-15 16:36 | EKG12_ITS ---
Test Reason : CP Blood Pressure : */* mmHG Vent. Rate : 90 BPM Atrial Rate : 90 BPM P-R Int : 146 ms QRS Dur : 82 ms QT Int : 356 ms P-R-T Axes : 38 -15 25 degrees QTcB Int : 435 ms Normal sinus rhythm Minimal voltage criteria for LVH, may be normal variant ( R in aVL ) Borderline ECG Confirmed by ROBERTA MENDEZ, ULISES ([id number]), editor news ALLEN JANE ([id number]) on 10/16/2024 10:58:53 A M Referred By: KWESI/SCOTT Confirmed By: ULISES GRANADOS MD
--- NOTE | 2024-10-15 16:48 | RAD_ITS ---
EXAM: XR CHEST, 2 VIEWS CLINICAL INDICATION: chest pain TECHNIQUE: Frontal and lateral views of the chest. COMPARISON: 08/11/2024 FINDINGS: LUNGS AND PLEURAL SPACES: Unremarkable. No consolidation or edema. No pneumothorax. No effusion. HEART: Unremarkable. Cardiac silhouette not enlarged. MEDIASTINUM: Central airways and mediastinal contour are unremarkable. BONES/JOINTS: Unremarkable. No acute fracture. SOFT TISSUES: Unremarkable. RAD/Chest PA and Lateral IMPRESSION: No radiographic evidence of acute cardiopulmonary disease. Electronically Signed: Parth Jarquin MD at 17:08 EST ,
[2024-10-15 16:54] LABS: Absolute Lymphocyte Count 2.52 X10^3/uL (0.83-4.51); Absolute Neutrophil Count 5.6 X10^3/uL (2.0-7.7); Basophil# 0.03 X10^3/uL; Basophil% 0.3 % (0-1); Eosinophil# 0.03 X10^3/uL; Eosinophils% 0.3 % (0-5); Hematocrit 42.8 % (37-47); Hemoglobin 14.4 g/dL (12.0-15.0); Lymphocyte # 2.52 X10^3/ul (0.83-4.51); Lymphocyte % 29.3 % (19-41); Mean Corp Hgb Conc 33.6 g/dL (32-36); Mean Corpuscular Hgb 31.6 pg (27.0-32.0); Mean Corpuscular Volume 94.1 fL (81-99); Mean Platelet Vol. 9.8 fl (6.2-12.0); Monocyte# 0.45 X10^3/uL; Monocyte% 5.2 % (0-10); NRBC Flagged by Analyzer 0 % (0-5); Neutrophil # 5.55 X10^3/uL (2.7-7.7); Neutrophil % 64.6 % (47-70); Platelet Count 264 K/mm3 (150-450); RBC Distribution Width SD 41.7 fl (35.1-43.9); Red Blood Count 4.55 M/mm3 (4.2-5.4); White Blood Count 8.6 K/mm3 (4.4-11.0)
[2024-10-15 17:26] LABS: Anion Gap 6 (5-15); BUN 17 mg/dL (7-18); Calcium,Total 10.6 mg/dL (8.5-10.1); Chloride 103 mmol/L (98-107); Creatinine, Serum 1.21 mg/dL (0.55-1.02); EST Glomerular Filtration Rate 47 mL/min (>60); Est Glom Filt Rate - Afr Amer 57 mL/min (>60); Estimated Creatinine Clearance 50.08 ml/min; Glucose 158 mg/dL (74-106); Potassium 3.8 mmol/L (3.5-5.1); Sodium Level 139 mmol/L (136-145); Troponin-I HS (w/2H Reflex) 11 pg/mL (3.0-54.0)
--- NOTE | 2024-10-15 17:26 | EDS_ITS ---
HPI <MONET Garcia - Last Filed: 10/15/24 18:44> History of Present Illness Chief Complaint: Palpitations Narrative Narrative: Patient presenting today due to an episode of midsternal chest pressure and feelings of her heart racing around 2:30 PM this afternoon. She called EMS and reports that the heart racing resolved but the chest pressure remained, prompting her to come in for evaluation. She reports that this has happened in the past, she does have a remote history of SVT. She follows with cardiology and does take metoprolol. It has been several years since she has had a stress test but denies significant cardiac history. She denies fevers, chills, and shortness of breath. PE Risk Factors: Negative for Recent Travel/Surgery, Recent Immobilization, Prior DVT or PE or Cancer [facility] <MONET Garcia - Last Filed: 10/15/24 18:44> [facility] Medical History Brain bleed Gastric reflux CPAP (continuous positive airway pressure) dependence History of pain when walking RODRIGUEZ (nonalcoholic steatohepatitis) Cardiology follow-up encounter Migraine headache Gastritis Diarrhea Wears glasses Ambulates with cane Arthritis History of renal disease High cholesterol Back pain Heartburn Non-smoker CPAP (continuous positive airway pressure) dependence History of edema Hx of echocardiogram History of stress test Hypertension History of irregular heartbeat Vertigo Paroxysmal SVT (supraventricular tachycardia) Ischemic colitis Sleep apnea GERD (gastroesophageal reflux disease) Hyperlipidemia Nonrheumatic mitral (valve) prolapse Paroxysmal atrial tachycardia History of diverticulitis of colon Obesity Diverticulosis of intestine without perforation or abscess with bleeding Benign essential hypertension Home Medications ?Medication ?Instructions ?Recorded ?Last Taken ?Type ascorbic acid (vitamin C) 1,000 mg 1 g PO DAILY SUPPLEMENT 04/12/19 Unknown History tablet cranberry 500 mg capsule 500 mg PO DAILY SUPPLEMENT 04/12/19 Unknown History multivit,mineral-folic acid 800 2 tab PO DAILY SUPPLEMENT 06/13/20 Unknown History mcg-vit K 100 mcg-herbal no.289 tablet (Alive Once Daily Women 50 Plus) lactobacillus combination no.4 3 3,000 mmu cells PO DAILY SUPPLEMENT 02/12/21 Un known History billion cell capsule (Probiotic) acetaminophen 650 mg 650 mg PO Q12H PRN pain 04/16/23 Unknown History tablet,extended release (Tylenol Arthritis Pain) calcium 250 mg (as 2 tab PO DAILY 04/16/23 Unknown History citrate)-vitamin D3 5 mcg (200 unit) tablet (Citracal Regular) lidocaine 4 % topical patch 1 patch topical DAILY PRN pain 04/16/23 Unknown History (Blue-Emu Lidocaine Patch) polyethylene glycol 3350 17 gram 17 g PO DAILY Pain 04/16/23 Unknown History oral powder packet (Miralax) aspirin 81 mg tablet,delayed 81 mg PO DAILY BLOOD THINNER 06/18/23 06/17/23 History release lisinopril 20 mg tablet 20 mg PO QDAY BP #90 tabs 01/10/24 Unknown Rx metoprolol tartrate 25 mg tablet 25 mg PO BID BP #180 tabs 01/10/24 Unknown Rx rosuvastatin 5 mg tablet 5 mg PO DAILY CHOLESTEROL #90 tabs 01/10/24 Unknown Rx ursodiol 250 mg tablet 250 mg PO BID #60 TABLETS 04/24/24 Unknown Rx vitamin E (dl, acetate) 180 mg 180 mg PO BID #60 caps 04/24/24 Unknown Rx (400 unit) capsule resmetirom 80 mg tablet (Rezdiffra) 80 mg PO QDAY #30 tabs 09/11/24 Unknown Rx Allergy/AdvReac Type Severity Reaction Status Date / Time Penicillins Allergy Unknown Verified 10/15/24 15:58 digoxin AdvReac Other Verified 10/15/24 15:58 hydrochlorothiazide (From AdvReac Upset Verified 10/15/24 15:58 Dyazide) Stomach levofloxacin (From Levaquin) AdvReac Upset Verified 10/15/24 15:58 Stomach magnesium citrate AdvReac Upset Verified 10/15/24 15:58 Stomach meperidine (From Demerol) AdvReac Upset Verified 10/15/24 15:58 Stomach nitrofurantoin (From AdvReac Upset Verified 10/15/24 15:58 Macrobid) Stomach polyethylene glycol (From AdvReac Upset Verified 10/15/24 15:58 Golytely) Stomach polyethylene glycol 3350 AdvReac Upset Verified 10/15/24 15:58 (From Golytely) Stomach potassium chloride (From AdvReac Upset Verified 10/15/24 15:58 Golytely) Stomach pravastatin (From Pravachol) AdvReac had white Verified 10/15/24 15:58 stool simvastatin (From Zocor) AdvReac Upset Verified 10/15/24 15:58 Stomach sodium (From Golytely) AdvReac Upset Verified 10/15/24 15:58 Stomach sodium bicarbonate (From AdvReac Upset Verified 10/15/24 15:58 Golytely) Stomach sodium chloride (From AdvReac Upset Verified 10/15/24 15:58 Golytely) Stomach sodium sulfate (From AdvReac Upset Verified 10/15/24 15:58 Golytely) Stomach triamterene (From Dyazide) AdvReac Upset Verified 10/15/24 15:58 Stomach Family History Father Alcoholism Hypertension Mother Ovarian cancer Sister Parkinsons Breast cancer Grandmother Liver cancer Surgical History Hx of total hip arthroplasty H/O lumpectomy History of left breast biopsy History of foot surgery Hx of appendectomy History of total hysterectomy History of cholecystectomy Social History household members: spouse Smoking Status: Never smoker alcohol intake: never substance use type: does not use ROS <MONET Garcia - Last Filed: 10/15/24 18:44> ROS ED Constitutional Constitutional ED: Denies chills or fever(s) Cardiovascular Cardiovascular: Reports chest pain and palpitations Respiratory/Chest Respiratory/Chest: Denies dyspnea Gastrointestinal Gastrointestinal: Denies abdominal pain, nausea or vomiting Musculoskeletal Musculoskeletal: Denies arthralgias or myalgias Integumentary Denies rash Neurologic Neurologic: Denies weakness EXAM <MONET Garcia - Last Filed: 10/15/24 18:44> Physical Exam Const Vital Signs: 10/15/24 15:59 10/15/24 16:09 10/15/24 16:30 Temperature 96.6 F L Temperature Source Temporal Pulse Rate 98 Respiratory Rate 18 Respiratory Effort Normal Non-Labored Blood Pressure 125/79 H 123/67 H Blood Pressure Mean 94 83 Pulse Ox 97 Oxygen Delivery Method Room Air 10/15/24 16:35 10/15/24 16:40 10/15/24 16:45 Temperature Temperature Source Pulse Rate 85 80 76 Respiratory Rate 21 H 14 11 L Respiratory Effort Blood Pressure 133/70 H 120/66 120/63 Blood Pressure Mean 82 83 81 Pulse Ox Oxygen Delivery Method 10/15/24 16:50 10/15/24 16:55 10/15/24 17:05 Temperature Temperature Source Pulse Rate 80 76 Respiratory Rate 20 H 17 Respiratory Effort Blood Pressure 133/88 H 117/68 123/71 H Blood Pressure Mean 103 82 87 Pulse Ox Oxygen Delivery Method 10/15/24 17:42 Temperature 98 F Temperature Source Pulse Rate 73 Respiratory Rate 16 Respiratory Effort Blood Pressure 125/67 H Blood Pressure Mean 86 Pulse Ox 99 Oxygen Delivery Method Positive well nourished, well developed and no apparent distress General Appearance ED: well developed HEENT Reports normocephalic and head/scalp atraumatic Mouth ED: Yes moist mucous membranes normal Eyes PERRL and EOMs intact bilaterally Neck full ROM and supple Chest Wall inspection of chest normal and palpation of chest normal Resp normal respiratory effort and clear to auscultation bilaterally Cardio regular rate and regular rhythm GI soft to palpation, non-tender, non-distended and no masses Back/Spine normal ROM and normal to inspection Extremity normal to inspection and full ROM Neuro oriented x3, CN's II-XII intact bilaterally, moves all extremities, no focal motor deficits and no sensory deficits noted Sensorium / Orientation: awake and alert Psych mental status grossly normal and thought process normal Skin no rashes or lesions noted and no wounds <Dr. Zeyad Bryant, DO - Last Filed: 10/15/24 17:31> Physical Exam Const Vital Signs: 10/15/24 15:59 10/15/24 16:09 10/15/24 16:30 Temperature 96.6 F L Temperature Source Temporal Pulse Rate 98 Respiratory Rate 18 Respiratory Effort Normal Non-Labored Blood Pressure 125/79 H 123/67 H Blood Pressure Mean 94 83 Pulse Ox 97 Oxygen Delivery Method Room Air 10/15/24 16:35 10/15/24 16:40 10/15/24 16:45 Temperature Temperature Source Pulse Rate 85 80 76 Respiratory Rate 21 H 14 11 L Respiratory Effort Blood Pressure 133/70 H 120/66 120/63 Blood Pressure Mean 82 83 81 Pulse Ox Oxygen Delivery Method 10/15/24 16:50 10/15/24 16:55 10/15/24 17:05 Temperature Temperature Source Pulse Rate 80 76 Respiratory Rate 20 H 17 Respiratory Effort Blood Pressure 133/88 H 117/68 123/71 H Blood Pressure Mean 103 82 87 Pulse Ox Oxygen Delivery Method 10/15/24 17:42 Temperature 98 F Temperature Source Pulse Rate 73 Respiratory Rate 16 Respiratory Effort Blood Pressure 125/67 H Blood Pressure Mean 86 Pulse Ox 99 Oxygen Delivery Method MDM <MONET Garcia - Last Filed: 10/15/24 18:44> [facility] Narrative Medical decision making narrative: Patient is nontoxic-appearing and in no acute distress. She is presenting today due to feelings of her heart racing this afternoon and midsternal chest pressure around 2:30 PM. EMS was called and her heart racing resolved but the chest pressure remained. She does have a remote history of SVT. She reports that her chest pressure has resolved since being here in the ER. Low suspicion for PE given low Wells score. Cardiac labs were obtained. Her CBC is unremarkable, her creatinine is 1.21 which is slightly elevated from previous visit, her troponin is unremarkable. Chest x-ray negative for cardiopulmonary abnormality. EKG is normal sinus rhythm, no arrhythmia visualized on cardiac monitor technician. Given she has only had 1 episode of her heart racing since initially being diagnosed with SVT several years ago, I do not feel that any medication adjustments need to be made at this time. I did recommend she follow-up with her operating room manager. Return instructions discussed and patient discharged home in stable condition. Lab Data Labs: Laboratory Results - last 24 hr 10/15/24 16:10 WBC 8.6 RBC 4.55 Hgb 14.4 Hct 42.8 MCV 94.1 MCH 31.6 MCHC 33.6 RDW Std Deviation 41.7 RDW Coeff of Lilliam 12.0 Plt Count 264 MPV 9.8 Immature Gran % (Auto) 0.300 Neut % (Auto) 64.6 Lymph % (Auto) 29.3 Cambria % (Auto) 5.2 Eos % (Auto) 0.3 Baso % (Auto) 0.3 Absolute Neuts (auto) 5.6 Absolute Lymphs (auto) 2.52 Nucleated RBC % 0 Sodium 139 Potassium 3.8 Chloride 103 Carbon Dioxide 30.0 Anion Gap 6 BUN 17 Creatinine 1.21 H Estim Creat Clear Calc 50.08 Est GFR (MDRD) Af Amer 57 L Est GFR (MDRD) Non-Af 47 L BUN/Creatinine Ratio 14.0 Glucose 158 H Calcium 10.6 H Troponin I High Sens 11 Radiography X-Ray: Read by ED Physician Diagnostic Testing: Clinical Impression(s) from Imaging Studies Chest X-Ray 10/15/24 16:48 IMPRESSION: No radiographic evidence of acute cardiopulmonary disease. Electronically Signed: Parth Jarquin MD at 17:08 EST , EKG Initial EKG: Comments: 90 bpm, normal sinus rhythm, no ST elevation, interpreted by attending ED physician <Dr. Zeyad Bryant, DO - Last Filed: 10/15/24 17:31> [facility] History & Record Review Discussion w/independent historian: Patient and Family Lab Data Attestation: I reviewed the patient's lab results. Labs: Laboratory Results - last 24 hr 10/15/24 16:10 WBC 8.6 RBC 4.55 Hgb 14.4 Hct 42.8 MCV 94.1 MCH 31.6 MCHC 33.6 RDW Std Deviation 41.7 RDW Coeff of Lillaim 12.0 Plt Count 264 MPV 9.8 Immature Gran % (Auto) 0.300 Neut % (Auto) 64.6 Lymph % (Auto) 29.3 Cambria % (Auto) 5.2 Eos % (Auto) 0.3 Baso % (Auto) 0.3 Absolute Neuts (auto) 5.6 Absolute Lymphs (auto) 2.52 Nucleated RBC % 0 Sodium 139 Potassium 3.8 Chloride 103 Carbon Dioxide 30.0 Anion Gap 6 BUN 17 Creatinine 1.21 H Estim Creat Clear Calc 50.08 Est GFR (MDRD) Af Amer 57 L Est GFR (MDRD) Non-Af 47 L BUN/Creatinine Ratio 14.0 Glucose 158 H Calcium 10.6 H Troponin I High Sens 11 Radiography Diagnostic Testing: Clinical Impression(s) from Imaging Studies Chest X-Ray 10/15/24 16:48 IMPRESSION: No radiographic evidence of acute cardiopulmonary disease. Electronically Signed: Parth Jarquin MD at 17:08 EST , Treatment and Re-Evaluation :: I have personally performed a face to face assessment of the patient and have reviewed the HIPOLITO Note. I performed a substantive portion of the visit including all aspects of the following. My chavez findings include: History is 69-year-old female presenting to the emergency room with palpitations. Patient states that today she has sudden onset of her heart pounding and beating fast. She states that EMS was called and by the time they got there that sensation had passed and she had some mild discomfort in her chest. Patient has a history of paroxysmal supraventricular tachycardia in the past. She has not had an episode for close to a decade that she is aware of. She does have a history of sleep apnea and wears CPAP. She follows locally with cardiology. She is on metoprolol. Exam is afebrile vital signs are stable heart is rate without murmur lung sounds clear and equal. Patient clinically appears well. Medical Decision Making EKG from EMS shows a sinus rhythm. There is no preexcitation noted. EKG here in the department is in normal sinus rhythm. My independent rotation of the chest x-ray is no acute process. Sodium potassium within normal limits. Troponin 11. She has had no events on the monitor. Patient most likely had a tacky dysrhythmia terminated on its own. This was an isolated episode from her initial 1 by about 10+ years. She has otherwise been doing well on 25 mg twice daily of metoprolol in addition to her lisinopril. I do not see a obvious reason to increase her dose at this time. I would recommend that the patient follow-up with cardiology. Should her symptomology return she needs to return to emergency. Discharge Plan Triage Chief Complaint: Palpitations ED Midlevel Provider: Divya Campa ED Provider: Zeyad Bryant Dx/Rx/DC Orders Clinical Impression: Heart palpitations, Paroxysmal SVT (supraventricular tachycardia) Instructions: ED Understanding Supraventricular Tachycardia (SVT) Prescriptions: No Action ascorbic acid (vitamin C) 1,000 mg tablet 1 g PO DAILY cranberry 500 mg capsule 500 mg PO DAILY Alive Once Daily Women 50 Plus 800-100 mcg tablet 2 tab PO DAILY acetaminophen [Tylenol Arthritis Pain] 650 mg tablet extended release 650 mg PO Q12H PRN (Reason: pain) calcium citrate-vitamin D3 [Citracal Regular] 250 mg-5 mcg (200 unit) tablet 2 tab PO DAILY lidocaine [Blue-Emu Lidocaine Patch] 4 % adhesive patch,medicated 1 patch topical DAILY PRN (Reason: pain) Probiotic 3 billion cell Capsule 3,000 mmu cells PO DAILY polyethylene glycol 3350 [Miralax] 17 gram powder in packet 17 g PO DAILY Rx Instructions: 1 teaspoon orally daily; aspirin 81 mg tablet,delayed release (DR/EC) 81 mg PO DAILY lisinopril 20 mg tablet 20 mg PO QDAY Qty: 90 3RF Rx Instructions: Hold for SBP less than 120 mmHg rosuvastatin 5 mg tablet 5 mg PO DAILY Qty: 90 3RF metoprolol tartrate 25 mg tablet 25 mg PO BID Qty: 180 3RF Rx Instructions: Hold for heart less than 60 or systolic blood pressure less than 100 mmHg. vitamin E (dl, acetate) 180 mg (400 unit) capsule 180 mg PO BID Qty: 60 11RF ursodiol 250 mg tablet 250 mg PO BID Qty: 60 11RF Rezdiffra 80 mg tablet 80 mg PO QDAY Qty: 30 11RF Primary Care Provider: Liv Vanessa Referrals: Atul Smith MD [Med Staff - Active Staff] - As soon as possible Liv Vanessa MD [Primary Care Provider] - Activity Restrictions/Additional Instructions: You have a history of a supraventricular tachycardia. These rhythms are often unpredictable and can come and go without warning. Should your symptoms return you can certainly return to emergency. We would recommend following up with cardiology. Print Language: Lithuanian Disposition Disposition: Home, Self Care Discharge Date/Time: 10/15/24 17:51
[2024-10-15 18:41] LABS: Reflex Troponin-HS? (from REC) Y
== END 2024-10-15 17:51 | disposition home or self-care (01) ==
PROVIDERS: Physician Assistant; Emergency Provider Emergency Medicine; PCP Family Medicine; Visit Provider Emergency Medicine
DX: R00.2 Palpitations (principal); I47.10 Supraventricular tachycardia, unspecified; E78.00 Pure hypercholesterolemia, unspecified; I10 Essential (primary) hypertension; G47.30 Sleep apnea, unspecified; Z99.89 Dependence on other enabling machines and devices; Z79.82 Long term (current) use of aspirin; Z79.899 Other long term (current) drug therapy; Z96.649 Presence of unspecified artificial hip joint; Z90.49 Acquired absence of other specified parts of digestive tract; Z90.710 Acquired absence of both cervix and uterus
CPT/HCPCS: 71046; 80048; 84484; 85025; 93005; 99283; A4216

== ENCOUNTER → 2025-07-09 | Outpatient (CLI) | payer MEDICARE, OTHER, SELFPAY ==
--- NOTE | 2025-07-09 07:31 | US_ITS ---
PROCEDURE: ABD LIMITED W/ ELASTOGRAPHY REASON FOR EXAM: FATTY LIVER COMPARISON: July 17, 2024. TECHNIQUE: Procedure Code: [id number] Modality: US Procedure: ABD LIMITED W/ ELASTOGRAPHY Right upper quadrant abdominal ultrasound. Carbon Digital ElastQ Imaging shear wave elastography for non-invasive assessment of liver tissue stiffness. Nicole EPIQ Elite. FINDINGS: LIVER: Size: Unremarkable Length: 15.7 cm Echotexture: Normal Contour: Normal Lesions: None identified Elastography: EQI Med: 8.1 kPa EQI Med Kiran: 1.63 m/s IQR/Med: 3.7 %* GALLBLADDER: Surgically absent. COMMON BILE DUCT: Normal measuring 4.4 mm . PANCREAS: Visualized portions are sonographically unremarkable. Visualized portions of the right kidney are unremarkable. No right upper quadrant ascites. US/ABD Limited w/ Elastography IMPRESSION: Mild degree of hepatic fibrosis. Status post cholecystectomy. Reference Values: SRU <1.37 m/s (5.7kPa): No to mild fibrosis 1.37 m/s - 2.2 m/s: Moderate to severe fibrosis >2.2 m/s (15kPa): Significant fibrosis / cirrhosis METAVIR Score F2 or higher: 1.34 m/s (5.7kPa) F3 or higher: 1.55 m/s (7.3kPa) F4: 1.80 m/s (10kPa) * If the IQR/Med is >30%, the variance in the measurements is a large and the a ccuracy of the measurement may be in question. Reading Location: [place] [id number]
[2025-07-09 09:27] LABS: Hematocrit 39.3 % (37-47); Hemoglobin 13.2 g/dL (12.0-15.0); Immature Granulocytes Count 0.010 X10^3/uL (0.0-0.0); Mean Corp Hgb Conc 33.6 g/dL (32-36); Mean Corpuscular Volume 94.7 fL (81-99); Mean Platelet Vol. 9.5 fl (6.2-12.0); NRBC Flagged by Analyzer 0 % (0-5); Platelet Count 188 K/mm3 (150-450); RBC Distribution Width CV 11.9 % (11.6-14.6); RBC Distribution Width SD 41.5 fl (35.1-43.9); Red Blood Count 4.15 M/mm3 (4.2-5.4); White Blood Count 4.4 K/mm3 (4.4-11.0)
[2025-07-09 10:17] LABS: AST(SGOT) 34 U/L (<=31); Alanine Aminotransfer ALT/SGPT 33 U/L (<=34); Albumin, Serum 4.2 g/dL (3.4-4.8); Alkaline Phosphatase 55 U/L (35-104); Anion Gap 9 (5-15); BUN 22 mg/dL (4-19); BUN/Creat Ratio 26.2 RATIO (10-20); Calcium,Total 10.0 mg/dL (7.6-11.0); Carbon Dioxide 26.0 mmol/L (21.0-32.0); Chloride 103 mmol/L (98-108); Globulin 3.2 g/dL (2.2-4.2); Glucose 100 mg/dL (70-99); Potassium 4.9 mmol/L (3.3-5.1)
== END | disposition home or self-care (01) ==
LOC: US 07:28
PROVIDERS: PCP Nurse Practitioner Family; Referring Provider Student in an Organized Health Care Education/Training Program; Visit Provider Student in an Organized Health Care Education/Training Program
DX: K76.0 Fatty (change of) liver, not elsewhere classified (principal)
CPT/HCPCS: 36415; 76705; 76981; 80053; 85025

== ENCOUNTER → 2025-09-07 | Outpatient (CLI) | payer MEDICARE, OTHER, SELFPAY ==
[2025-09-07 12:22] LABS: Hematocrit 39.4 % (37-47); Hemoglobin 13.2 g/dL (12.0-15.0); Immature Granulocytes Count 0.010 X10^3/uL (0.0-0.0); Mean Corp Hgb Conc 33.5 g/dL (32-36); Mean Corpuscular Volume 94.7 fL (81-99); Mean Platelet Vol. 10.0 fl (6.2-12.0); NRBC Flagged by Analyzer 0 % (0-5); POSITIVE COUNT YES; Platelet Count 232 K/mm3 (150-450); RBC Distribution Width CV 11.6 % (11.6-14.6); RBC Distribution Width SD 40.1 fl (35.1-43.9); Red Blood Count 4.16 M/mm3 (4.2-5.4); White Blood Count 5.5 K/mm3 (4.4-11.0)
[2025-09-07 12:52] LABS: AST(SGOT) 49 U/L (<=31); Alanine Aminotransfer ALT/SGPT 46 U/L (<=34); Albumin, Serum 4.4 g/dL (3.4-4.8); Alkaline Phosphatase 65 U/L (35-104); Anion Gap 12 (5-15); BUN 20 mg/dL (4-19); BUN/Creat Ratio 26.0 RATIO (10-20); Calcium,Total 9.9 mg/dL (7.6-11.0); Carbon Dioxide 23.0 mmol/L (21.0-32.0); Chloride 101 mmol/L (98-108); Globulin 3.4 g/dL (2.2-4.2); Glucose 101 mg/dL (70-99); Potassium 4.5 mmol/L (3.3-5.1)
[2025-09-07 13:10] LABS: Differential Indicated SCAN CRITERIA MET
== END | disposition home or self-care (01) ==
LOC: LAB 11:20
PROVIDERS: PCP Nurse Practitioner Family; Referring Provider Student in an Organized Health Care Education/Training Program; Visit Provider Student in an Organized Health Care Education/Training Program
DX: K76.0 Fatty (change of) liver, not elsewhere classified (principal)
CPT/HCPCS: 36415; 80053; 85025

== ENCOUNTER → 2025-09-14 | Outpatient (CLI) | payer MEDICARE, OTHER, SELFPAY ==
--- NOTE | 2025-09-14 13:30 | BI_ITS ---
EXAM: SCRN MAMM (CAD)W/BRIE BILAT DATE: 09/14/2025 CLINICAL HISTORY: F, Age 70 y/o , SCREENING TECHNIQUE: Procedure Code: [id number] Modality: MG Procedure: SCRN MAMM (CAD)W/BRIE BILAT COMPARISON: Prior exam(s) were compared FINDINGS: TISSUE DENSITY: The breasts are heterogeneously dense, which may obscure small masses. Bilateral Breast Mammographic Findings: No significant masses, calcifications or other abnormalities are identified. BI/SCRN MAMM (CAD)W/BRIE BILAT IMPRESSION: No mammographic evidence of malignancy. OVERALL FINAL ASSESSMENT BI-RADS 1: NEGATIVE. RECOMMENDATION: Routine annual follow-up in 1 Year Additional Recommendation none A letter with findings and recommendations will be mailed to the patient. Reading Location: [id number]
== END | disposition home or self-care (01) ==
LOC: OPBI 13:29
PROVIDERS: PCP Nurse Practitioner Family; Referring Provider Nurse Practitioner Family; Visit Provider Nurse Practitioner Family
DX: Z12.31 Encounter for screening mammogram for malignant neoplasm of breast (principal)
CPT/HCPCS: 77063; 77067